=== PATIENT | male | born 1960 | race Two or more races ===

== ENCOUNTER 2020-05-09 07:43 | Outpatient (REF) | payer MEDICAID, SELFPAY | END 2020-05-09 07:44 | disposition home or self-care (01) | LOC: HO.LAB 07:43 | PROVIDERS: Visit Provider Internal Medicine | DX: Z20.828 Contact with and (suspected) exposure to other viral communicable diseases (principal) | CPT/HCPCS: C9803; U0003 ==

== ENCOUNTER 2020-05-11 08:09 | Outpatient (REF) | payer MEDICAID, SELFPAY ==
--- NOTE | 2020-05-11 | US_ITS ---
EXAMINATION: US ABDOMEN COMPLETE CLINICAL INFORMATION: Hepatitis C. COMPARISON: None TECHNIQUE: Real-time imaging of the abdominal viscera. FINDINGS: PANCREAS: Normal. ABDOMINAL AORTA: The proximal, mid, and distal segments are normal in caliber. INFERIOR VENA CAVA: Visualized portions are normal. LIVER: Normal. The liver is normal in size. The liver contour is normal. Liver echotexture is normal. No focal hepatic lesion. There is no intrahepatic biliary duct dilatation seen. GALLBLADDER: Normal. The gallbladder is physiologically distended without evidence of stones, sludge, polyps, wall thickening or pericholecystic fluid. COMMON BILE DUCT: Normal in caliber measuring 0.4 cm in diameter. RIGHT KIDNEY: Normal. No hydronephrosis. No renal calculi or focal parenchymal lesions. The kidney measures 10.8 cm in maximum dimension. LEFT KIDNEY: Normal. No hydronephrosis. No renal calculi or focal parenchymal lesions. The kidney measures 10.5 cm in maximum dimension. SPLEEN: Normal. The spleen measures 9.1 cm in maximum dimension. FREE FLUID: None. US/US abdomen complete IMPRESSION: Unremarkable exam.
== END 2020-05-11 08:10 | disposition home or self-care (01) ==
LOC: HO.US 08:09
PROVIDERS: PCP General Practice; Visit Provider General Practice
DX: B19.20 Unspecified viral hepatitis C without hepatic coma (principal)
CPT/HCPCS: 76700

== ENCOUNTER → 2020-05-30 11:00 | Outpatient (BNVA) | payer MEDICAID, SELFPAY | PROVIDERS: Visit Provider Internal Medicine | DX: B19.20 Unspecified viral hepatitis C without hepatic coma (principal) | CPT/HCPCS: 99202 ==

== ENCOUNTER 2020-05-31 06:07 | Outpatient (REF) | payer MEDICAID, SELFPAY ==
[2020-05-31 07:22] LABS: HBsAGNum1 0.19 S/CO (0.00-0.99); Hepatitis B Surface Antigen Negative (Negative)
[2020-05-31 07:23] LABS: HBS Num1 0.74 mIU/mL (0-7.99); HBc Num1 0.06 S/CO (0.00-0.79); Hepatitis B Core Antibody Nonreactive (Nonreactive); ~Hepatitis B Surface Antibody NONREACTIVE (Nonreactive)
[2020-06-01 04:18] LABS: Hepatitis A Antibody IgG REACTIVE (Nonreactive); ~Hepatitis A Antibody IgG 11.94 S/CO (0.00-0.99)
[2020-06-05 16:52] LABS: FIB-ALT 42 U/L (9-46); FIB-Alpha-2-Macroglobulin 384 mg/dL (106-279); FIB-Apolipoprotein A1 153 mg/dL (94-176); FIB-GGT 179 U/L (3-85); FIB-Haptoglobin 61 mg/dL (43-212); FIB-Total Bilirubin 0.6 mg/dL (0.2-1.2); Liver Fibrosis Score 0.82; Liver Fibrosis Stage F4; Nec Inflam Act Grade A1-A2
[2020-06-06 08:48] LABS: Hepatitis C Genotype 1a
== END 2020-05-31 06:08 | disposition home or self-care (01) ==
LOC: HO.LAB 06:07
PROVIDERS: Visit Provider Internal Medicine
DX: B19.20 Unspecified viral hepatitis C without hepatic coma (principal)
CPT/HCPCS: 36415; 81596; 86704; 86706; 86708; 87340; 87902

== ENCOUNTER 2020-06-12 07:01 | Outpatient (REF) | payer MEDICAID, SELFPAY ==
[2020-06-24 15:09] LABS: Simeprevier Resistance PROBABLE
== END 2020-06-12 07:02 | disposition home or self-care (01) ==
LOC: HO.LAB 07:01
PROVIDERS: Visit Provider Internal Medicine
DX: B19.20 Unspecified viral hepatitis C without hepatic coma (principal)
CPT/HCPCS: 36415; 87902

== ENCOUNTER 2020-06-21 10:31 | Outpatient (REF) | payer MEDICAID, SELFPAY ==
--- NOTE | 2020-06-21 14:27 | MHC.AU.MED ---
Medical Clearance for Hearing Instrumentation Date: 06/21/20 Patient Name: Marcin Cabrera Date of : 1960 Referring Provider: Yara Foster MD We have seen your patient on 06/21/20 and have determined that they are a candidate for amplification (See accompanying report). Specifically, they would benefit from: Hearing aid use in both ears There is a statute that addresses Medical Evaluation Requirements prior to fitting a patient with a hearing aid. According to [place] statute [facility] CMR:6.03(1), (a) General. Except as provided in 265 CMR 6.03(1)(b), a functional tester shall not sell a hearing aid unless the prospective user has presented to the functional tester a written statement signed by a licensed physician that states that the patient's hearing loss has been medically evaluated and the patient may be considered a candidate for a hearing aid. The medical evaluation must have taken place within the preceding six months. Please note: Due to the [place] Statute referenced above, we cannot accept a signature other than that of a licensed physician. SEARCH SPECIALIST and PA signatures cannot be accepted. I am in agreement with the above recommendation. There is no medical contraindication for hearing instrumentation. Physician Signature Date Physician Name (Printed)
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
--- NOTE | 2020-06-22 08:38 | MHC.AU.P13 ---
Hearing Aid Evaluation- Binaural Date of Visit: 06/21/20 Description of Hearing: Left: Mild sloping to profound sensorineural hearing loss Right: Severe to profound mixed hearing loss Additional Information: Patient reports that he had his hearing tested in [place], and was starting the process of obtaining hearing aids. He moved to this area before the process could be completed. Hearing aid options discussed. Patient has history of excessive cerumen. Given the excessive cerumen, and nature of the loss in his right ear, the BTE style would be the best fit. In RICs or customs, the wax trap would likely clog too frequently. Hearing Instrument Selection: Right Ear: Thermal Molder: Earl Model: Rito 1600 BTE 13 Battery Size: 13 Color: Champagne Type of Mold: Earl High Strength Silicone [address] [place] Lock Clear Left Ear: Thermal Molder: Earl Model: Rito 1600 BTE 13 Battery Size: 13 Color: Champagne Type of Mold: Earl High Strength Silicone [address] [place] Lock Clear Plan: Earmold Impressions Taken Medical Clearance to be requested from PCP/ENT Hearing Fitting to be scheduled when materials arrive Advised follow-up with PCP prior to hearing aid fitting for cerumen removal Diagnosis Code(s): Primary Diagnosis: H90.A31 Mixed HL, Unilateral Right Ear, W/Restricted Contralateral Signature: Provider: Jose M Avendaño, [facility]-A
== END 2020-06-21 10:32 | disposition home or self-care (01) ==
LOC: HO.SH 10:31
PROVIDERS: Visit Provider General Practice
DX: Z46.1 Encounter for fitting and adjustment of hearing aid (principal); H90.A31 Mixed conductive and sensorineural hearing loss, unilateral, right ear with restricted hearing on the contralateral side
CPT/HCPCS: 92557; 92567; 92591; V5275

== ENCOUNTER 2020-06-22 09:05 | Outpatient (REF) | payer MEDICAID, SELFPAY | END 2020-06-22 09:06 | disposition home or self-care (01) | LOC: HO.LAB 09:05 | PROVIDERS: Visit Provider Internal Medicine | DX: Z20.822 Contact with and (suspected) exposure to COVID-19 (principal) | CPT/HCPCS: 36415; C9803; U0003 ==

== ENCOUNTER 2020-06-30 08:05 | Outpatient (REF) | payer MEDICAID, SELFPAY | END 2020-06-30 08:06 | disposition home or self-care (01) | LOC: HO.LAB 08:05 | PROVIDERS: Visit Provider Internal Medicine | DX: Z20.822 Contact with and (suspected) exposure to COVID-19 (principal) | CPT/HCPCS: 36415; C9803; U0003 ==

== ENCOUNTER 2020-07-07 08:01 | Outpatient (REF) | payer MEDICAID, SELFPAY | END 2020-07-07 08:02 | disposition home or self-care (01) | LOC: HO.LAB 08:01 | PROVIDERS: Visit Provider Internal Medicine | DX: Z20.822 Contact with and (suspected) exposure to COVID-19 (principal) | CPT/HCPCS: 36415; C9803; U0003; U0005 ==

== ENCOUNTER 2020-07-18 08:42 | Outpatient (REF) | payer MEDICAID, SELFPAY ==
--- NOTE | 2020-07-18 09:45 | MHC.AU.P13 ---
Hearing Instrument Fitting- Adult- Binaural Date of Visit: 07/18/20 Hearing Instruments Dispensed: Right Ear: Correctional Officer Lieutenant: [employer] Model: Rito 1600 BTE Serial Number: [id number] Repair Warranty: 09/29/2023 Loss and Damage Warranty: 09/29/2023 Battery Size: 13 Color: Champagne Type of Mold: Earl High Strength Silicone [address] [place] Lock Clear Left Ear: Correctional Officer Lieutenant: [employer] Model: Rito 1600 BTE Serial Number: [id number] RepairWarranty: 09/29/2023 Loss and Damage Warranty: 09/29/2023 Battery Size: 13 Color: Champagne Type of Mold: Earl High Strength Silicone 40 [place] Lock Clear Summary of Fitting: Feedback canceller run. Verifit performed and levels adjusted to better reach targets. Patient had cerumen removal performed prior to today's visit, which was verified by otoscopy. Initially patient perceived a microphone-like quality to the sound. Experience level set to 2. Patient was pleased with the change. Patient liked the sound and comfort of the instruments. Hearing aid care and maintenance were discussed and practiced. Patient as an Android Digify phone. It is likely not compatible with the Bluetooth capabilities at this time. Patient said he feels he is hearing well enough as is with the hearing aids, and does not think he needs it paired to the Bluetooth. Recommendations: A hearing instrument follow-up was scheduled. Please call our clinic with any questions or concerns. Diagnosis Code(s): Primary Diagnosis: H90.A31 Mixed HL, Unilateral Right Ear, W/Restricted Contralateral Signature: Provider: Jose M Avendaño, [facility]
== END 2020-07-18 08:43 | disposition home or self-care (01) ==
LOC: HO.HAP 08:42
PROVIDERS: Visit Provider General Practice
DX: Z46.1 Encounter for fitting and adjustment of hearing aid (principal); H90.A31 Mixed conductive and sensorineural hearing loss, unilateral, right ear with restricted hearing on the contralateral side
CPT/HCPCS: V5011; V5020; V5160; V5261; V5264; V5266

== ENCOUNTER 2020-07-27 08:58 | Outpatient (REF) | payer MEDICAID, SELFPAY | END 2020-07-27 08:59 | disposition home or self-care (01) | LOC: HO.HAP 08:58 | PROVIDERS: Visit Provider Internal Medicine | DX: Z13.89 Encounter for screening for other disorder (principal) ==

== ENCOUNTER → 2020-08-13 07:53 | Outpatient (REF) | payer MEDICAID, SELFPAY ==
--- NOTE | ~2020-08-13 | NM_ITS ---
Exercise Myocardial perfusion study Indication: Chest pain to evaluate for myocardial ischemia Technique: The patient was brought in for an exercise perfusion study on 08/13/2020. Patient performed exercise as per Vladimir protocol and was injected 30 mCi of sestamibi was given intravenously one target HR was achieved. Images were obtained using the SPECT gamma camera interlaced with the gating device. Images were obtained in supine position. Resting perfusion study was performed on 08/14/2020. Patient was administered 30 mCi of sestamibi intravenously at rest. Images were then obtained in supine position. Images obtained with and without CT attenuation. Total DLP 73 mGy-cm. Images were processed with the software and compared side to side in short axis, horizontal long axis and vertical long axis views. Findings: The stress perfusion study showed non attenuated images show mildly reduced uptake in the basal inferior wall of the LV myocardium. Remainder of the LV myocardium normally perfused. Attenuation corrected images show mildly reduced uptake in the distal anterior and apex of the LV myocardium.. The gated study shows normal LV systolic function with calculated LVEF of 68%. LV cavity is normal in size. The gated study shows normal systolic wall thickening and contraction of all segments. There is no transient ischemic dilation. Resting study shows no change in perfusion pattern compared to stress perfusion study. Gating at rest reveals normal systolic wall motion with ejection fraction at 73%. The findings are consistent with normal myocardial perfusion. NM/NM jc perf SPECT rest & str Impression: 1. Normal myocardial perfusion 2. Gated LVEF is 68% 3. Transient ischemic dilatation not present Stress EKG is equivocal for ischemia
--- NOTE | 2020-08-13 08:30 | CA_ITS ---
Acquisition Time: 2020-08-13 08:16:21 Total Exercise Time: 00:06:50 Test Indications: Chest Pain Medications: SEE CHART Protocol: SORAYA Max HR: 122 BPM 74% of Pred: 163 BPM Max BP: 170/070 mmHG Max Work Load: 8.2 METS Exercise stress nuclear using Soraya protocol total of 6 min 50 sec. METS and TAPHR up to 74 %. Denies any anginal sx. EKG with occ. PAC's. No ischemic changes however TAPHR up to 74% only. Nuclear images to follow. Hypertensive response to exercise, normalizes in recovery. Test reviewed with Dr. rGeen. Referred By: Jada Hunter Overread By: Patricia Hilton NP
== END ==
LOC: HO.CARD 07:53
PROVIDERS: Visit Provider Internal Medicine Cardiovascular Disease
DX: R07.9 Chest pain, unspecified (principal)
CPT/HCPCS: 78452; 93016; 93017; 93018

== ENCOUNTER → 2020-09-18 13:43 | Outpatient (BNVA) | payer MEDICAID, SELFPAY | PROVIDERS: Visit Provider Internal Medicine | DX: B19.20 Unspecified viral hepatitis C without hepatic coma (principal) | CPT/HCPCS: 99212 ==

== ENCOUNTER 2020-10-02 10:24 | Outpatient (REF) | payer MEDICAID, SELFPAY | END 2020-10-02 10:25 | disposition home or self-care (01) | LOC: HO.LAB 10:24 | PROVIDERS: PCP General Practice; Visit Provider Internal Medicine | DX: B19.20 Unspecified viral hepatitis C without hepatic coma (principal) | CPT/HCPCS: 36415; 87902 ==

== ENCOUNTER → 2020-10-16 14:10 | Outpatient (BNVA) | payer MEDICAID, SELFPAY | PROVIDERS: PCP General Practice; Visit Provider Internal Medicine | DX: B19.20 Unspecified viral hepatitis C without hepatic coma (principal) | CPT/HCPCS: 99212 ==

== ENCOUNTER 2020-10-17 07:13 | Outpatient (REF) | payer MEDICAID, SELFPAY ==
[2020-10-19 13:25] LABS: HCV Log PCR <1.18 NOT DETECTED Log IU/mL (NOT DETECTED); HepC Viral Load <15 NOT DETECTED IU/mL (NOT DETECTED)
== END 2020-10-17 07:14 | disposition home or self-care (01) ==
LOC: HO.LAB 07:13
PROVIDERS: PCP General Practice; Visit Provider Internal Medicine
DX: B19.20 Unspecified viral hepatitis C without hepatic coma (principal)
CPT/HCPCS: 36415; 87522

== ENCOUNTER 2020-10-23 13:49 | Outpatient (REF) | payer MEDICAID, SELFPAY | END 2020-10-23 13:50 | disposition home or self-care (01) | LOC: HO.HAP 13:49 | PROVIDERS: Visit Provider General Practice | DX: Z46.1 Encounter for fitting and adjustment of hearing aid (principal) | CPT/HCPCS: V5266 ==

== ENCOUNTER → 2021-02-19 14:11 | Outpatient (BNVA) | payer MEDICAID, SELFPAY | PROVIDERS: Visit Provider Internal Medicine | DX: B19.20 Unspecified viral hepatitis C without hepatic coma (principal) | CPT/HCPCS: 99212 ==

== ENCOUNTER 2021-06-06 16:45 | Emergency (ER) | payer MEDICAID, SELFPAY ==
[2021-06-06 16:55] VITALS: BP 135/78; PULSE 124; RESP 20; TEMP 36.8; O2SAT 100; BMI 27.0
[2021-06-07 01:34] LABS: MANUAL DIFF FLAG NO
[2021-06-07 01:40] LABS: Basophils Absolute Auto 0.1 X10*3/uL (0.0-0.2); Basophils Percent Auto 0.4 % (0-2); Eosinophils Absolute Auto 0.2 X10*3/uL (0.0-0.4); Eosinophils Percent Auto 1.6 % (0-4); Hemoglobin 13.7 g/dl (14.0-18.0); Imm Gran Abs Auto 0.04 X10*3/uL (0.00-0.03); Imm Gran Pct Auto 0.3 % (0.0-0.4); Lymphocytes Absolute Auto 2.5 X10*3/uL (1.2-4.9); Lymphocytes Percent Auto 19.9 % (20-40); Mean Corpuscular HGB Conc 33.4 g/dl (31.0-36.0); Mean Corpuscular Hemoglobin 31.6 pg (27.0-33.0); Mean Corpuscular Volume 94.5 fL (80.0-98.0); Mean Platelet Volume 9.8 fL (9.4-12.4); Monocytes Absolute Auto 1.4 X10*3/uL (0.1-1.2); Monocytes Percent Auto 10.9 % (2-11); Neutrophils Absolute Auto 8.5 x10*3/uL (2.0-8.3); Neutrophils Percent Auto 66.9 % (45-73); Platelet Count 341 X10*3/uL (160-400); Red Blood Count 4.34 X10*6/uL (4.60-5.80); Red Cell Distribution Width 13.6 % (11.0-16.0); White Blood Count 12.7 X10*3/uL (4.8-10.8)
[2021-06-07 01:51] LABS: Ethanol < 10 mg/dL
[2021-06-07 01:54] LABS: Alanine Aminotransferase 23 U/L (0-40); Albumin Level 3.6 g/dL (3.5-5.0); Alkaline Phosphatase 110 U/L (39-117); Anion Gap 11 (12-20); Aspartate Amino Transferase 16 U/L (5-37); Bilirubin Total 0.5 mg/dL (0.0-1.0); Blood Urea Nitrogen 16 mg/dL (9-16); Calcium 9.2 mg/dL (8.4-10.2); Carbon Dioxide 28 mmol/L (22-29); Chloride 103 mmol/L (96-108); Creatinine Clr Calc Pharmacy 70.8; Estimated Glomerular Filt Rate > 60; Glucose Random 135 mg/dL (60-115); Potassium 4.5 mmol/L (3.3-5.1); Sodium 137 mmol/L (135-145); Total Protein 6.3 g/dL (6.5-8.0)
--- NOTE | 2021-06-07 09:20 | PC.NURSE ---
reports withdrawal from heroin. relapsed and last used yesterday aprox noon. also uses cocaine. appears well.
[2021-06-07 09:21] VITALS: BP 148/92; PULSE 99; RESP 18; O2SAT 99
--- NOTE | 2021-06-07 10:44 | ED_ITS ---
HPI - Psych General Chief Complaint: ETOH/Substance Use Stated Complaint: Seeking detox Time Seen by Provider: 06/07/21 10:43 Source: patient Mode of arrival: ambulatory Limitations: no limitations History of Present Illness HPI Narrative: requesting help with detox MD complaint: substance abuse Onset (ago): week(s) Duration: constant History of same: Yes Relieving factors: none Exacerbating factors: drug use Context: recent drug abuse Associated psychiatric symptoms: none Associated symptoms: denies other symptoms Treatments prior to arrival: none Related Data Previous Rx's Medication Instructions Recorded sofosbuvir 400 mg-velpatasvir 100 1 tab PO DAILY 30 Days #30 tab 06/26/20 mg-voxilaprevir 100 mg tablet (Vosevi) Allergies Allergy/AdvReac Type Severity Reaction Status Date / Time No Known Allergies Allergy Verified 06/06/21 16:55 [No Known Allergies*] Review of Systems Review of Systems: Constitutional : No Fever, No Chills ENT/Mouth : No sore throat, No Rhinorrhea Eyes: No Eye Pain, No Swelling, No Redness Cardiovascular : No Chest Pain, No SOB Respiratory : No Cough, No Sputum, No Wheezing Gastrointestinal : No Nausea, No Vomiting, No Diarrhea Genitourinary : No Dysuria, No Urinary Frequency, No Hematuria, Musculoskeletal : No joint pain, No Myalgias, No Joint Swelling Skin : No Skin Lesions, No rash Neuro : No Weakness, No Numbness, No Dizziness, No Headache Psych : No Anxiety/Panic, No Depression Heme/Lymph: No Bruising, No Bleeding,No Lymphadenopathy Endocrine : No Polyuria, No Polydipsia All other systems reviewed and are negative PMFSH Past Medical History Attestation statement: The following information was validated with the patient. Medical History Hepatitis C Hypertension Social History Social History (Updated 06/07/21 @ 10:51 by Alexandra Sarmiento DO) Cigarettes Per Day: 2 Substance Use Type: Crack/Cocaine and Heroin Advance Directives: No Physical Exam Vital Signs: Vital Signs: Last Vital Signs Temp 98.3 F 06/06/21 16:55 Pulse 99 06/07/21 09:21 Resp 18 06/07/21 09:21 BP 148/92 H 06/07/21 09:21 Pulse Ox 99 06/07/21 09:21 BMI result Body Mass Index 27.0 Appearance: Alert. Oriented X3. No acute distress. Eyes: Pupils equal, round and reactive to light. ENT: Pharynx normal. Neck: Normal inspection. Neck supple. CVS: Normal heart rate and rhythm. Pulses normal. Respiratory: No respiratory distress. Breath sounds normal. Abdomen: Soft and non-tender. Skin: Skin warm and dry. Normal skin color. Normal skin turgor. Extremities: No lower extremity edema. Neuro: Oriented X 3. No motor deficit. No sensory deficit. Course Course Course Narrative: cannot find placement at this time stable for DC MDM - Psych MDM Narrative Medical decision making narrative: 60 yo male here seeking detox for heroin and cocaine use he denies any medical complaints to me at this time - recovery coaches involved and requesting labs COVID swab and EKG - will make referrals Lab Data Result diagrams: 06/07/21 01:18 06/07/21 01:17 Labs: Lab Results 06/07/21 06/07/21 06/07/21 Range/Units 01:17 01:17 01:18 WBC 12.7 H (4.8-10.8) X10*3/uL RBC 4.34 L (4.60-5.80) X10*6/uL Hgb 13.7 L (14.0-18.0) g/dl Hct 41.0 L (42.0-52.0) % MCV 94.5 (80.0-98.0) fL MCH 31.6 (27.0-33.0) pg MCHC 33.4 (31.0-36.0) g/dl RDW 13.6 (11.0-16.0) % Plt Count 341 (160-400) X10*3/uL MPV 9.8 (9.4-12.4) fL Immature Gran % (Auto) 0.3 (0.0-0.4) % Neut % (Auto) 66.9 (45-73) % Lymph % (Auto) 19.9 L (20-40) % [place] % (Auto) 10.9 (2-11) % Eos % (Auto) 1.6 (0-4) % Baso % (Auto) 0.4 (0-2) % Lymph # (Auto) 2.5 (1.2-4.9) X10*3/uL [place] # (Auto) 1.4 H (0.1-1.2) X10*3/uL Eos # (Auto) 0.2 (0.0-0.4) X10*3/uL Baso # (Auto) 0.1 (0.0-0.2) X10*3/uL Abs Immat Gran (auto) 0.04 H (0.00-0.03) X10*3/uL Absolute Neuts (auto) 8.5 H (2.0-8.3) x10*3/uL Absolute Nucleated RBC 0.000 (0.0-0.012) X10*3/uL Nucleated RBC % (auto) 0.0 (0.0-0.2) /100WBC Sodium 137 (135-145) mmol/L Potassium 4.5 (3.3-5.1) mmol/L Chloride 103 (96-108) mmol/L Carbon Dioxide 28 (22-29) mmol/L Anion Gap 11 L (12-20) BUN 16 (9-16) mg/dL Creatinine 1.10 (0.5-1.4) mg/dL Estim Creat Clear Calc 70.8 Estimated GFR > 60 Random Glucose 135 H (60-115) mg/dL Calcium 9.2 (8.4-10.2) mg/dL Total Bilirubin 0.5 (0.0-1.0) mg/dL AST 16 (5-37) U/L ALT 23 (0-40) U/L Alkaline Phosphatase 110 (39-117) U/L Total Protein 6.3 L (6.5-8.0) g/dL Albumin 3.6 (3.5-5.0) g/dL Ethyl Alcohol < 10 mg/dL COVID-19 (JEANE) (Negative) COVID-19 Clin Com 06/07/21 Range/Units 11:00 WBC (4.8-10.8) X10*3/uL RBC (4.60-5.80) X10*6/uL Hgb (14.0-18.0) g/dl Hct (42.0-52.0) % MCV (80.0-98.0) fL MCH (27.0-33.0) pg MCHC (31.0-36.0) g/dl RDW (11.0-16.0) % Plt Count (160-400) X10*3/uL MPV (9.4-12.4) fL Immature Gran % (Auto) (0.0-0.4) % Neut % (Auto) (45-73) % Lymph % (Auto) (20-40) % [place] % (Auto) (2-11) % Eos % (Auto) (0-4) % Baso % (Auto) (0-2) % Lymph # (Auto) (1.2-4.9) X10*3/uL [place] # (Auto) (0.1-1.2) X10*3/uL Eos # (Auto) (0.0-0.4) X10*3/uL Baso # (Auto) (0.0-0.2) X10*3/uL Abs Immat Gran (auto) (0.00-0.03) X10*3/uL Absolute Neuts (auto) (2.0-8.3) x10*3/uL Absolute Nucleated RBC (0.0-0.012) X10*3/uL Nucleated RBC % (auto) (0.0-0.2) /100WBC Sodium (135-145) mmol/L Potassium (3.3-5.1) mmol/L Chloride (96-108) mmol/L Carbon Dioxide (22-29) mmol/L Anion Gap (12-20) BUN (9-16) mg/dL Creatinine (0.5-1.4) mg/dL Estim Creat Clear Calc Estimated GFR Random Glucose (60-115) mg/dL Calcium (8.4-10.2) mg/dL Total Bilirubin (0.0-1.0) mg/dL AST (5-37) U/L ALT (0-40) U/L Alkaline Phosphatase (39-117) U/L Total Protein (6.5-8.0) g/dL Albumin (3.5-5.0) g/dL Ethyl Alcohol mg/dL COVID-19 (JEANE) Negative (Negative) COVID-19 Clin Com See Note ECG Data Attestation: I personally reviewed and interpreted this ECG as follows: ECG interpretation date: 06/07/21 ECG interpretation time: 10:58 Interpretation: Rate: 96 Rhythm: NSR [place]: left Normal P waves. Normal ELLA. Normal QRS complex. ST T wave : normal no JACINTO qTC: normal prior studies: no acute ischemia The study has been interpreted contemporaneously by me. . Discharge Plan Discharge Clinical Impression: Polysubstance abuse Patient Disposition: Home, Self-Care Instructions: Polysubstance Abuse (ED) Additional Instructions: return to ED for any worsening symptoms or concerns please go to detox COVID negative Prescriptions: No Action Vosevi 400-100-100 mg tablet 1 tab PO DAILY 30 Days Qty: 30 RF: 2 Interventions: LWBS Worksheet Last Done: 06/07/21 00:16
--- NOTE | 2021-06-07 10:48 | ECG_ITS ---
Test Reason : DETOX Blood Pressure : / mmHG Vent. Rate : 096 BPM Atrial Rate : 096 BPM P-R Int : 138 ms QRS Dur : 086 ms QT Int : 350 ms P-R-T Axes : 046 -07 011 degrees QTc Int : 442 ms Normal sinus rhythm Normal ECG When compared with ECG of 10-JAN-2020 10:34, Vent. rate has increased BY 35 BPM T wave amplitude has decreased in Anterior leads Referred By: Alexandra Sarmiento Electronically Signed By:LIANE GARCIA MD
[2021-06-07 11:27] LABS: COVID-19 Test Negative (Negative)
--- NOTE | 2021-06-07 12:17 | MHC.RECOVSUP ---
? Reason for consult:Recovery Support o Current location: Discharged o Identified substance use concern:Heroin - Withdrawal - Seeking ATS (detox) - Support ? Intervention: o ATS bed search started/completed/in process o MAT started or to be started o Community resources provided o Harm reduction discussion ? Plan: o Referral to [facility] o Bed search in progress to o Follow up tomorrow o Patient to follow up with [facility] after discharge ? Additional information:Patient seeking detox. Patient given community resources because there is no bed availability.
== END 2021-06-07 13:28 | disposition home or self-care (01) ==
PROVIDERS: Emergency Provider Emergency Medicine; PCP General Practice
DX: F11.19 Opioid abuse with unspecified opioid-induced disorder (principal); F14.19 Cocaine abuse with unspecified cocaine-induced disorder; Z79.899 Other long term (current) drug therapy; Z20.822 Contact with and (suspected) exposure to COVID-19
CPT/HCPCS: 36415; 80053; 82077; 85025; 87635; 93005; 99283

== ENCOUNTER 2021-07-09 14:27 | Outpatient (REF) | payer MEDICAID, SELFPAY | END 2021-07-09 14:28 | disposition home or self-care (01) | LOC: HO.HAP 14:27 | PROVIDERS: Visit Provider General Practice | DX: Z46.1 Encounter for fitting and adjustment of hearing aid (principal); H90.3 Sensorineural hearing loss, bilateral | CPT/HCPCS: V5266 ==

== ENCOUNTER → 2021-08-06 14:39 | Outpatient (BNVA) | payer MEDICAID, SELFPAY | PROVIDERS: PCP General Practice; Visit Provider Surgery Vascular Surgery | DX: I83.12 Varicose veins of left lower extremity with inflammation (principal); I73.9 Peripheral vascular disease, unspecified | CPT/HCPCS: 99202 ==

== ENCOUNTER 2021-08-09 06:24 | Outpatient (REF) | payer MEDICAID, SELFPAY ==
[2021-08-09 07:55] LABS: Amphetamine Screen Urine Not Detected (Not Detect); Barbiturates, Urine Not Detected (Not Detect); Benzodiazepines Screen Urine Not Detected (Not Detect); Cannabinoid Screen Urine Not Detected (Not Detect); Cocaine Screen Urine Not Detected (Not Detect); Fentanyl, urine Not Detected (Not Detect); Opiate Screen Urine Not Detected (Not Detect); Phencyclidine Screen Urine Not Detected (Not Detect)
[2021-08-09 08:07] LABS: HIV AB/AG Nonreactive (Nonreactive); HIV Num 1 0.08 S/CO (0.00-0.99)
[2021-08-09 08:26] LABS: Syphilis Screen Nonreactive (Nonreactive)
[2021-08-09 11:57] LABS: Folate 13.6 ng/mL (> or = 4.0); Vitamin B12 685 pg/mL (200-900)
[2021-08-10 08:31] LABS: Lyme Abs Screen <0.90 index
== END 2021-08-09 06:25 | disposition home or self-care (01) ==
LOC: HO.LAB 06:24
PROVIDERS: PCP General Practice; Visit Provider Psychiatry & Neurology Neurology
DX: Z11.4 Encounter for screening for human immunodeficiency virus [HIV] (principal); F03.90 Unspecified dementia, unspecified severity, without behavioral disturbance, psychotic disturbance, mood disturbance, and anxiety
CPT/HCPCS: 80307; 82607; 82746; 86617; 86618; 86780; 87389

== ENCOUNTER 2021-08-27 14:31 | Outpatient (REF) | payer MEDICAID, SELFPAY ==
--- NOTE | 2021-08-27 | PFT_ITS ---
Forced vital capacity is 77, FEV1 70%, FEV1/FVC ratio is 70, FEF 25/75 50%, MVV 51%. After bronchodilator therapy, there is significant improvement in FEV1 and FEF 25/75. Total lung capacity 85% and residual volume 91%, normal. Diffusion capacity 59% and diffusion capacity corrected with the alveolar volume is 68%. CONCLUSION: Mild obstructive airway disorder. Good response to bronchodilator therapy. This finding is consistent with bronchial asthma. Clinical correlation is recommended. MD VANDANA Frank/MODL / [id number]
== END 2021-08-27 14:32 | disposition home or self-care (01) ==
LOC: HO.RESP 14:31
PROVIDERS: PCP General Practice; Visit Provider General Practice
DX: R06.02 Shortness of breath (principal)
CPT/HCPCS: 94060; 94727; 94729

== ENCOUNTER 2021-08-29 09:00 | Outpatient (RCR) | payer MEDICAID, SELFPAY ==
[2021-07-17 07:56] VITALS: BP 147/80; PULSE 84
== END 2021-09-12 08:31 | disposition home or self-care (01) ==
LOC: HO.PT 09:00
PROVIDERS: PCP General Practice; Visit Provider General Practice
DX: M54.50 Low back pain, unspecified (principal)
CPT/HCPCS: 97110; 97112; 97161; 97530

== ENCOUNTER 2021-09-09 07:37 | Outpatient (REF) | payer MEDICAID, SELFPAY ==
--- NOTE | ~2021-09-09 | US_ITS ---
EXAMINATION: BILATERAL LOWER EXTREMITY VENOUS ULTRASOUND (Reflux Exam) CLINICAL INDICATION: Bilateral lower extremity varicose veins. COMPARISON: None. TECHNIQUE: Color flow triplex imaging and compression Doppler was performed to evaluate both the deep and the superficial systems bilaterally. To evaluate the superficial system, the examination was performed in the upright position. Color-flow Doppler ultrasound and compression ultrasound were utilized. In addition, maneuvers were utilized to demonstrate reflux. FINDINGS: SUPERFICIAL ULTRASOUND WITH DOPPLER OF RIGHT LOWER EXTREMITY GREAT SAPHENOUS VEIN: Saphenofemoral junction: 0.6 cm Max diameter: 0.6 cm Min diameter: 0.2cm Reflux: No evidence of reflux. DUPLICATED MEDIAL GREAT SAPHENOUS VEIN: Max Diameter: None Imaged Reflux: NA DUPLICATED LATERAL GREAT SAPHENOUS VEIN: Diameter: 0.2 cm at the junction. Reflux: None. SMALL SAPHENOUS VEIN: Proximal Calf: 0.2 cm. Distal Calf: 0.2 cm. Reflux: No evidence of reflux. VEIN OF GIACOMINI: None Imaged. PERFORATORS: Location: Proximal calf and mid calf measuring 2 mm. Reflux: None. VARICOSITIES: Location: None Imaged. Reflux: NA. DEEP VENOUS ULTRASOUND OF THE RIGHT LOWER EXTREMITY: Common Femoral Vein: Compressible, normal respiratory variation and augmented flow. Femoral Vein: Compressible, normal color flow and augmentation. Popliteal Vein: Compressible, normal augmentation. Deep Reflux: There is no evidence of reflux in the deep system in either the common femoral vein or the popliteal vein. Story's Cyst: There is no evidence of a Story's cyst. SUPERFICIAL ULTRASOUND WITH DOPPLER OF LEFT LOWER EXTREMITY GREAT SAPHENOUS VEIN: Saphenofemoral junction: 0.5 cm Max diameter: 0.5 cm Min diameter: 0.3 cm Reflux: No evidence of reflux. DUPLICATED MEDIAL GREAT SAPHENOUS VEIN: Max Diameter: None Imaged Reflux: NA DUPLICATED LATERAL GREAT SAPHENOUS VEIN: Diameter: None Imaged Reflux: NA SMALL SAPHENOUS VEIN: Proximal Calf: 0.2 cm Distal Calf: 0.2 cm Reflux: No evidence of reflux. VEIN OF GIACOMINI: None Imaged. PERFORATORS: Location: Proximal calf measuring 3 mm. Reflux: None. VARICOSITIES: Location: None Imaged Reflux: NA DEEP VENOUS ULTRASOUND OF THE LEFT LOWER EXTREMITY: Common Femoral Vein: Compressible, normal respiratory variation and augmented flow. Femoral vein: Compressible, normal color flow and augmentation. Popliteal Vein: Compressible, normal augmentation. Deep Reflux: There is no evidence of reflux in the deep system in either the common femoral vein or the popliteal vein. Story's Cyst: There is no evidence of a Story's cyst. US/US venous duplex LE BI IMPRESSION: 1. No evidence of superficial venous insufficiency. 2. No evidence of deep venous thrombosis or deep venous insufficiency.
== END 2021-09-09 07:38 | disposition home or self-care (01) ==
LOC: HO.US 07:37
PROVIDERS: PCP General Practice; Visit Provider Surgery Vascular Surgery
DX: I83.12 Varicose veins of left lower extremity with inflammation (principal)
CPT/HCPCS: 93970

== ENCOUNTER 2021-09-11 08:06 | Outpatient (REF) | payer MEDICAID, SELFPAY ==
--- NOTE | ~2021-09-11 | US_ITS ---
EXAMINATION: NONINVASIVE ASSESSMENT OF THE ARTERIES OF BOTH LOWER EXTREMITIES INCLUDING PVR EXAM AND BILATERAL LOWER EXTREMITY DUPLEX. CLINICAL INFORMATION: Peripheral vascular disease COMPARISON: None TECHNIQUE: Ankle pulse volume recordings, ankle pressure measurements and ankle brachial indices were obtained of the lower extremity arterial system bilaterally in addition to duplex Doppler techniques with wave form analysis and measurement of velocities in the common femoral, profunda femoral, superficial femoral, popliteal, tibial and peroneal arteries. The study was performed only at rest. FINDINGS: RIGHT LEG 1. THE RIGHT ANKLE-BRACHIAL INDEX IS: 1.16 >0.97-1.25 = normal - no significant arterial disease 0.75-0.96 = mild peripheral arterial disease 0.5-0.74 = moderate peripheral arterial disease <0.50 = severe peripheral arterial disease <0.30 = critical arterial disease 2. SEGMENTAL PRESSURES (mmHg): Ankle: PT 186, DP 175 3. PVR WAVEFORMS: Ankle: Normal 4. DIRECT DUPLEX: Common femoral artery: 130 cm/s, Multiphasic Profunda femoris artery: 94 cm/s, Multiphasic Superficial femoral artery (proximal): 95 cm/s, Multiphasic Superficial femoral artery (mid): 119 cm/s, Multiphasic Superficial femoral artery (distal): 110 cm/s, Multiphasic Proximal Popliteal artery: 79 cm/s, Multiphasic Mid posterior tibial artery: 121 cm/s, Multiphasic LEFT LE. THE LEFT ANKLE-BRACHIAL INDEX IS: 1.16 >0.97-1.25 = normal - no significant arterial disease 0.75-0.96 = mild peripheral arterial disease 0.5-0.74 = moderate peripheral arterial disease <0.50 = severe peripheral arterial disease <0.30 = critical arterial disease 2. SEGMENTAL PRESSURES: Ankle: PT 185, DP 179 3. PVR WAVEFORMS: Ankle: Normal 4. DIRECT DUPLEX: Common femoral artery: 158 cm/s, Multiphasic Profunda femoris artery: 83 cm/s, Multiphasic Superficial femoral artery (proximal): 112 cm/s, Multiphasic Superficial femoral artery (mid): 115 cm/s, Multiphasic Superficial femoral artery (distal): 106 cm/s, Multiphasic Proximal Popliteal artery: 72 cm/s, Multiphasic Mid posterior tibial artery: 122 cm/s, Multiphasic US/US SHANTHI complete IMPRESSION: Normal bilateral SHANTHI and PVR. No evidence of hemodynamically significant stenosis in the lower extremities.
--- NOTE | ~2021-09-11 | US_ITS ---
EXAMINATION: NONINVASIVE ASSESSMENT OF THE ARTERIES OF BOTH LOWER EXTREMITIES INCLUDING PVR EXAM AND BILATERAL LOWER EXTREMITY DUPLEX. CLINICAL INFORMATION: Peripheral vascular disease COMPARISON: None TECHNIQUE: Ankle pulse volume recordings, ankle pressure measurements and ankle brachial indices were obtained of the lower extremity arterial system bilaterally in addition to duplex Doppler techniques with wave form analysis and measurement of velocities in the common femoral, profunda femoral, superficial femoral, popliteal, tibial and peroneal arteries. The study was performed only at rest. FINDINGS: RIGHT LEG 1. THE RIGHT ANKLE-BRACHIAL INDEX IS: 1.16 >0.97-1.25 = normal - no significant arterial disease 0.75-0.96 = mild peripheral arterial disease 0.5-0.74 = moderate peripheral arterial disease <0.50 = severe peripheral arterial disease <0.30 = critical arterial disease 2. SEGMENTAL PRESSURES (mmHg): Ankle: PT 186, DP 175 3. PVR WAVEFORMS: Ankle: Normal 4. DIRECT DUPLEX: Common femoral artery: 130 cm/s, Multiphasic Profunda femoris artery: 94 cm/s, Multiphasic Superficial femoral artery (proximal): 95 cm/s, Multiphasic Superficial femoral artery (mid): 119 cm/s, Multiphasic Superficial femoral artery (distal): 110 cm/s, Multiphasic Proximal Popliteal artery: 79 cm/s, Multiphasic Mid posterior tibial artery: 121 cm/s, Multiphasic LEFT LE. THE LEFT ANKLE-BRACHIAL INDEX IS: 1.16 >0.97-1.25 = normal - no significant arterial disease 0.75-0.96 = mild peripheral arterial disease 0.5-0.74 = moderate peripheral arterial disease <0.50 = severe peripheral arterial disease <0.30 = critical arterial disease 2. SEGMENTAL PRESSURES: Ankle: PT 185, DP 179 3. PVR WAVEFORMS: Ankle: Normal 4. DIRECT DUPLEX: Common femoral artery: 158 cm/s, Multiphasic Profunda femoris artery: 83 cm/s, Multiphasic Superficial femoral artery (proximal): 112 cm/s, Multiphasic Superficial femoral artery (mid): 115 cm/s, Multiphasic Superficial femoral artery (distal): 106 cm/s, Multiphasic Proximal Popliteal artery: 72 cm/s, Multiphasic Mid posterior tibial artery: 122 cm/s, Multiphasic US/US arterial duplex LE BI IMPRESSION: Normal bilateral SHANTHI and PVR. No evidence of hemodynamically significant stenosis in the lower extremities.
== END 2021-09-11 08:07 | disposition home or self-care (01) ==
LOC: HO.US 08:06
PROVIDERS: PCP General Practice; Visit Provider Surgery Vascular Surgery
DX: I73.9 Peripheral vascular disease, unspecified (principal)
CPT/HCPCS: 93923; 93925

== ENCOUNTER → 2021-09-17 14:16 | Outpatient (BNVA) | payer MEDICAID, SELFPAY | PROVIDERS: PCP General Practice; Visit Provider Surgery Vascular Surgery | DX: M79.605 Pain in left leg (principal); M79.604 Pain in right leg | CPT/HCPCS: 99212 ==

== ENCOUNTER 2021-10-01 14:52 | Outpatient (REF) | payer MEDICAID, SELFPAY ==
--- NOTE | ~2021-10-01 | XR_ITS ---
EXAMINATION: XR LUMBOSACRAL SPINE CLINICAL INFORMATION: Low back pain. COMPARISON: None. TECHNIQUE: 3 views of the lumbosacral spine. FINDINGS: There is normal lumbar lordosis. The vertebral heights, alignment and disc heights are normal. No visible acute fracture, dislocation or subluxation seen. There is mild endplate spondylosis L3-L4 disc level. SI joints are symmetrical and normal. No lytic or sclerotic process seen. XR/XR lumbar spine 2-3V IMPRESSION: Mild endplate spondylosis L3-L4 disc level. Otherwise unremarkable lumbar spine exam.
== END 2021-10-01 14:53 | disposition home or self-care (01) ==
LOC: HO.XRAY 14:52
PROVIDERS: Absent Provider General Practice; PCP General Practice; Visit Provider Internal Medicine
DX: M54.50 Low back pain, unspecified (principal)
CPT/HCPCS: 72100

== ENCOUNTER 2021-12-05 14:45 | Outpatient (REF) | payer MEDICAID, SELFPAY | END 2021-12-05 14:46 | disposition home or self-care (01) | LOC: HO.HAP 14:45 | PROVIDERS: Visit Provider General Practice | DX: Z46.1 Encounter for fitting and adjustment of hearing aid (principal); H90.A31 Mixed conductive and sensorineural hearing loss, unilateral, right ear with restricted hearing on the contralateral side | CPT/HCPCS: V5266 ==

== ENCOUNTER 2021-12-31 07:55 | Outpatient (REF) | payer MEDICAID, SELFPAY ==
--- NOTE | ~2021-12-31 | XR_ITS ---
EXAMINATION: XR CHEST CLINICAL INFORMATION: Dyspnea on exertion, cough COMPARISON: Chest radiographs 01/10/2020 TECHNIQUE: 2 views of the chest were obtained. FINDINGS: The lungs are clear. The vascularity is normal. There is no airspace consolidation, vascular congestion, groundglass opacity, or effusion. Costophrenic sulci are well-defined. Heart size normal. Hilar contours normal. There is mild accentuation of the ascending aortic contour when compared with prior study. The aortic knob and descending thoracic aorta normal in contour. No acute bony abnormality. XR/XR chest 2V IMPRESSION: -Lungs clear. No airspace consolidation, vascular congestion, or effusion. -Subtle prominent ascending aortic contour, possibly projectional. Recommend correlation with cardiovascular history. If clinically indicated, further assessment could be obtained with CT or MR.
== END 2021-12-31 07:56 | disposition home or self-care (01) ==
LOC: HO.XRAY 07:55
PROVIDERS: Visit Provider Internal Medicine
DX: R06.09 Other forms of dyspnea (principal); R05.9 Cough, unspecified
CPT/HCPCS: 71046

== ENCOUNTER → 2022-02-14 11:19 | Outpatient (BNVA) | payer MEDICAID, SELFPAY | PROVIDERS: PCP General Practice; Referring Provider Emergency Medicine; Visit Provider Surgery | DX: K42.9 Umbilical hernia without obstruction or gangrene (principal); L72.3 Sebaceous cyst; F17.210 Nicotine dependence, cigarettes, uncomplicated | CPT/HCPCS: 99202 ==

== ENCOUNTER → 2022-03-03 08:34 | Outpatient (BNVA) | payer MEDICAID, SELFPAY | PROVIDERS: PCP General Practice; Visit Provider Surgery | DX: L72.3 Sebaceous cyst (principal); K42.9 Umbilical hernia without obstruction or gangrene; F17.210 Nicotine dependence, cigarettes, uncomplicated | CPT/HCPCS: 11401; 11402; 99212 ==

== ENCOUNTER → 2022-03-12 08:26 | Outpatient (BNVA) | payer MEDICAID, SELFPAY | PROVIDERS: PCP General Practice; Referring Provider General Practice; Visit Provider Surgery | DX: Z48.1 Encounter for planned postprocedural wound closure (principal); K42.9 Umbilical hernia without obstruction or gangrene; L72.3 Sebaceous cyst; F17.210 Nicotine dependence, cigarettes, uncomplicated; I83.12 Varicose veins of left lower extremity with inflammation; B19.20 Unspecified viral hepatitis C without hepatic coma; Z87.2 Personal history of diseases of the skin and subcutaneous tissue | CPT/HCPCS: 99212 ==

== ENCOUNTER → 2022-04-22 15:16 | Outpatient (BNVA) | payer MEDICAID, SELFPAY | PROVIDERS: PCP General Practice; Visit Provider Surgery | DX: K42.9 Umbilical hernia without obstruction or gangrene (principal); B19.20 Unspecified viral hepatitis C without hepatic coma; I10 Essential (primary) hypertension | CPT/HCPCS: 99212 ==

== ENCOUNTER 2022-05-06 09:44 | Emergency (ER) | payer MEDICAID, SELFPAY ==
--- NOTE | ~2022-05-06 | US_ITS ---
EXAMINATION: US ABDOMEN LIMITED CLINICAL INFORMATION: Right upper quadrant pain. COMPARISON: 05/11/2020 abdominal ultrasound. TECHNIQUE: Real-time imaging of the right upper quadrant abdominal viscera. FINDINGS: PANCREAS: Visualized portions unremarkable. LIVER: Unremarkable. GALLBLADDER: Unremarkable. COMMON BILE DUCT: Normal in caliber measuring 0.6 cm in diameter. RIGHT KIDNEY: 10.3 cm. Unremarkable. FREE FLUID: None. US/US abdomen limited IMPRESSION: Unremarkable right upper quadrant ultrasound.
--- NOTE | ~2022-05-06 | XR_ITS ---
EXAMINATION: XR CHEST CLINICAL INFORMATION: Cough. COMPARISON: 12/31/2021 chest radiographs. TECHNIQUE: 2 views of the chest were obtained. FINDINGS: No significant abnormality is noted involving the heart, lungs, mediastinum, bony thorax or soft tissues. XR/XR chest 2V IMPRESSION: No acute cardiopulmonary process.
[2022-05-06 10:11] VITALS: BP 152/74; PULSE 74; RESP 16; TEMP 36.6; O2SAT 96; BMI 31.0
[2022-05-06 10:50] LABS: Appearance Urine Clear; Color Urine Yellow; Glucose Urine UA Negative (Negative); Leukocyte Esterase Urine Negative (Negative); Nitrite Urine Negative (Negative); PH 5.5 (5.0-9.0); Specific Gravity - Urine 1.025 (1.005-1.025); Urine Blood Negative (Negative); Urine Ketones Negative (Negative); Urine Protein Negative (Neg-Trace)
--- NOTE | 2022-05-06 13:34 | ED.URI ---
HPI - URI/Sore Throat General Chief Complaint: Upper Respiratory Symptoms Stated Complaint: R flank pain Time Seen by Provider: 05/06/22 12:20 Source: patient Mode of arrival: ambulatory Limitations: no limitations History of Present Illness HPI Narrative: Patient is a 61-year-old male presents to emergency department for evaluation of right upper abdominal/lateral lower chest pain. Symptom onset was 3 days ago. He does state that pain is made worse with coughing. He states he always has a cough secondary to his asthma, it is nonproductive. Denies fevers, chills, nasal congestion/rhinorrhea, sore throat, headache, chest pain, shortness of breath, nausea, vomiting, diarrhea, constipation, dysuria, hematuria. Related Data Home Medications Medication Instructions Recorded Confirmed carvedilol 6.25 mg tablet 6.25 mg PO BID 08/06/21 04/22/22 trazodone 100 mg tablet 100 mg PO BEDTIME PRN 08/06/21 04/22/22 Previous Rx's Medication Instructions Recorded sofosbuvir 400 mg-velpatasvir 100 1 tab PO DAILY 30 days #30 tabs 06/26/20 mg-voxilaprevir 100 mg tablet (Vosevi) ibuprofen 600 mg tablet 600 mg PO Q8H PRN pain #30 tabs 05/06/22 Allergies Allergy/AdvReac Type Severity Reaction Status Date / Time No Known Allergies Allergy Verified 04/22/22 15:27 [No Known Allergies*] Review of Systems Review of Systems: Constitutional : No Weight loss, No Fever, No Chills ENT/Mouth :? No sore throat, No Rhinorrhea Eyes: No Swelling, No Redness Cardiovascular : No Chest Pain, No SOB, No Edema Respiratory : No Cough, No Sputum, No Wheezing Gastrointestinal : No Nausea, no Vomiting, no Diarrhea, positive abdominal pain, No Hematochezia, No Melena Genitourinary : No Dysuria, No Urinary Frequency, No Hematuria, No Urgency? Musculoskeletal : No joint pain, No Myalgias, No Joint Swelling Skin : No Skin Lesions, No rash Neuro : No Weakness, No Numbness, No Dizziness, No Headache Psych : No Anxiety/Panic, No Depression Heme/Lymph: No Bruising, No Lymphadenopathy Endocrine : No Polyuria, No Polydipsia Yes all other systems are reviewed and are negative [facility] Past Medical History Attestation statement: The following information was validated with the patient. Source: old records reviewed Medical History Hepatitis C Hypertension Social History Social History Cigarettes Per Day: 2 Substance Use Type: Crack/Cocaine and Heroin Advance Directives: No Advance Directives Information Provided: Yes Physical Exam Vital Signs: Vital Signs: Last Vital Signs Temp 98 F 05/06/22 10:11 Pulse 74 05/06/22 10:11 Resp 16 05/06/22 10:11 BP 152/74 H 05/06/22 10:11 Pulse Ox 96 05/06/22 10:11 O2 Del Method 05/06/22 10:11 BMI result Body Mass Index 31.0 Appearance: Alert.?Oriented to person, place and time. No acute distress.?Normal affect. Eyes: Pupils equal, round and reactive to light.? ENT: Pharynx normal.?? Neck: Normal inspection.? Neck supple.?? CVS: Heart sounds normal. Normal heart rate and rhythm.? Pulses normal.?? Respiratory: No respiratory distress.? Lung sounds diminished to right lower lobe Abdomen: Soft with right upper quadrant tenderness, negative Fonseca sign. No CVA tenderness. Normoactive bowel sounds. No pulsatile mass.?? Skin: Skin warm and dry.? Normal skin color.? Extremities: No lower extremity edema.? Neuro: Moves all extremities spontaneously. Sensation intact bilaterally. No focal neuro deficits. Ambulates with normal steady gait. Medical Decision Making Medical Decision Making MDM Narrative: Patient is a 61-year-old male with a past medical history of hypertension, PAD, history of hepatitis-C, asthma. Presents for evaluation of right upper abdominal/right lateral chest wall pain. Pain is reproducible to cough as well as deep inspiration. However, upon abdominal examination he does have right upper quadrant tenderness, no palpable hepatomegaly. Concern for hepatic/biliary etiology. Chest x-ray obtained from triage does not appear consistent with pneumonia, no consolidations or infiltrates. Cough is chronic and has not been associated with additional upper respiratory symptoms. PERC negative low suspicion for PE. Discussed with patient plan of care, Will obtain CBC to evaluate for leukocytosis/ anemia, CMP and lipase to evaluate for abnormal electrolytes /abnormal renal function/ abnormal hepatic/biliary function, ultrasound of the right upper quadrant. Radiologist impression XR/XR chest 2V IMPRESSION: No acute cardiopulmonary process. 15:45 - re-evaluation - labs are overall unremarkable. Ultrasound without evidence for cholecystitis, cholelithiasis, liver enlargement. At this time reviewed findings with patient. Suspect that pain is consistent with a muscular pain of the chest wall likely secondary to recent cough. Advised rest, bracing of the chest wall, NSAID, reasons to return back to the emergency department, outpatient follow-up with primary care provider. Patient verbalized understanding. Discharged in stable condition. Radiologist impression US/US abdomen limited IMPRESSION: Unremarkable right upper quadrant ultrasound. Differential Diagnoses: Differential diagnosis Differential Diagnosis: The differential diagnosis associated with the patient?s presentation includes: Pneumonia, costochondritis, hepatitis, cholelithiasis, cholecystitis, PE Lab Attestation: I reviewed the patient's lab results. (CBC, CMP, lipase, urinalysis, COVID-19, influenza) Lab results narrative: COVID-19 and influenza testing are negative. CBC reveals a mild leukocytosis 14.2 without left shift, which may be infectious or inflammatory. CMP is overall unremarkable, mildly elevated alkaline phosphatase, lipase within normal limits. Urinalysis without evidence of infection or microscopic hematuria. Independent interpretation of EKG, rhythm strip, radiology study: Independent interp EKG,rhythm strip, radiology study I performed an independent interpretation of the: Plain X-Ray (Chest x-ray) and Ultrasound (Abdominal ultrasound) Chest x-ray: My interpretation is no consolidation or infiltrate, not consistent with pneumonia. RUQ Ultrasound: Without evidence of cholelithiasis, gallbladder wall thickening Chronic conditions affecting care (e.g., diabetes, HTN): Chronic conditions affecting care (e.g., diabetes, HTN) (Hypertension, asthma, hepatitis-C) Discharge Plan Discharge Clinical Impression: Acute costochondritis Patient Disposition: Home, Self-Care Instructions: Costochondritis (ED) Additional Instructions: You can take ibuprofen 200 mg, 3 tablets (600mg) every 6-8 hours as needed for pain, in addition to Tylenol 500 mg, 2 tablets (1,000mg) every 4-6 hours as needed for pain, but not to exceed 3 doses daily (3,000mg).? Return to the emergency department with any new or worsening symptoms or concerns. Follow-up with primary care provider as needed for persistent symptoms. Prescriptions: New ibuprofen 600 mg tablet 600 mg PO Q8H PRN (Reason: pain) Qty: 30 0RF No Action Vosevi 400-100-100 mg tablet 1 tab PO DAILY 30 Days Qty: 30 2RF Rx Instructions: must administer with a meal/food carvedilol 6.25 mg tablet 6.25 mg PO BID Rx Instructions: must administer with a meal/food trazodone 100 mg tablet 100 mg PO BEDTIME PRN Referrals: Yara Foster MD [Primary Care Provider] -
[2022-05-06 14:01] LABS: MANUAL DIFF FLAG NO
[2022-05-06 14:04] LABS: Basophils Absolute Auto 0.1 X10*3/uL (0.0-0.2); Basophils Percent Auto 0.5 % (0-2); Eosinophils Absolute Auto 0.4 X10*3/uL (0.0-0.4); Eosinophils Percent Auto 2.7 % (0-4); Hematocrit 49.2 % (42.0-52.0); Hemoglobin 16.8 g/dl (14.0-18.0); Imm Gran Abs Auto 0.09 X10*3/uL (0.00-0.03); Imm Gran Pct Auto 0.6 % (0.0-0.4); Lymphocytes Absolute Auto 3.1 X10*3/uL (1.2-4.9); Mean Corpuscular HGB Conc 34.1 g/dl (31.0-36.0); Mean Corpuscular Hemoglobin 31.8 pg (27.0-33.0); Mean Platelet Volume 10.2 fL (9.4-12.4); Monocytes Percent Auto 7.1 % (2-11); Neutrophils Absolute Auto 9.5 x10*3/uL (2.0-8.3); Neutrophils Percent Auto 67.1 % (45-73); Platelet Count 307 X10*3/uL (160-400); Red Blood Count 5.29 X10*6/uL (4.60-5.80); Red Cell Distribution Width 13.9 % (11.0-16.0); White Blood Count 14.2 X10*3/uL (4.8-10.8)
[2022-05-06 14:16] LABS: COVID-19 Test Negative (Negative); IDNOW Serial# 16C4AD1C
[2022-05-06 14:21] LABS: Alanine Aminotransferase 22 U/L (0-40); Albumin Level 4.2 g/dL (3.5-5.0); Alkaline Phosphatase 129 U/L (39-117); Anion Gap 10 (12-20); Aspartate Amino Transferase 15 U/L (5-37); Bilirubin Total 0.2 mg/dL (0.0-1.0); Blood Urea Nitrogen 15 mg/dL (9-16); Calcium 9.8 mg/dL (8.4-10.2); Carbon Dioxide 28 mmol/L (22-29); Chloride 107 mmol/L (96-108); Creatinine Clr Calc Pharmacy 93.4; Estimated Glomerular Filt Rate > 60; Glucose Random 101 mg/dL (60-115); Lipase 23 U/L (8-78); Potassium 4.8 mmol/L (3.3-5.1); Sodium 140 mmol/L (135-145); Total Protein 7.2 g/dL (6.5-8.0)
[2022-05-06 14:24] LABS: IDNOW Serial# BCCEAD1C; Influenza A Negative (Negative); Influenza B2 Negative (Negative)
== END 2022-05-06 15:56 | disposition home or self-care (01) ==
PROVIDERS: Nurse Practitioner Family; Emergency Provider Emergency Medicine; PCP General Practice
DX: M94.0 Chondrocostal junction syndrome [Tietze] (principal); Z20.822 Contact with and (suspected) exposure to COVID-19; Z79.899 Other long term (current) drug therapy
CPT/HCPCS: 71046; 76705; 80053; 81003; 83690; 85025; 87502; 87635; 99283; 99284

== ENCOUNTER 2022-06-03 14:50 | Outpatient (REF) | payer MEDICAID, SELFPAY ==
[2022-06-03 15:53] LABS: MANUAL DIFF FLAG NO
[2022-06-03 16:12] LABS: Basophils Absolute Auto 0.1 X10*3/uL (0.0-0.2); Basophils Percent Auto 0.6 % (0-2); Eosinophils Absolute Auto 0.6 X10*3/uL (0.0-0.4); Eosinophils Percent Auto 5.1 % (0-4); Hematocrit 47.6 % (42.0-52.0); Hemoglobin 16.2 g/dl (14.0-18.0); Imm Gran Abs Auto 0.05 X10*3/uL (0.00-0.03); Imm Gran Pct Auto 0.4 % (0.0-0.4); Lymphocytes Percent Auto 24.2 % (20-40); Mean Corpuscular Hemoglobin 30.7 pg (27.0-33.0); Mean Corpuscular Volume 90.3 fL (80.0-98.0); Mean Platelet Volume 10.7 fL (9.4-12.4); Monocytes Absolute Auto 1.2 X10*3/uL (0.1-1.2); Monocytes Percent Auto 9.4 % (2-11); Neutrophils Absolute Auto 7.5 x10*3/uL (2.0-8.3); Neutrophils Percent Auto 60.3 % (45-73); Platelet Count 290 X10*3/uL (160-400); Red Blood Count 5.27 X10*6/uL (4.60-5.80); Red Cell Distribution Width 13.5 % (11.0-16.0); White Blood Count 12.5 X10*3/uL (4.8-10.8)
[2022-06-03 16:21] LABS: INTERNATIONAL NORM RATIO 1.1 (0.9-1.1); Prothrombin Time 12.1 SEC (10.0-13.1)
[2022-06-03 16:27] LABS: Amphetamine Screen Urine Not Detected (Not Detect); Barbiturates, Urine Not Detected (Not Detect); Benzodiazepines Screen Urine Not Detected (Not Detect); Cannabinoid Screen Urine Not Detected (Not Detect); Cocaine Screen Urine Not Detected (Not Detect); Fentanyl, urine Not Detected (Not Detect); Opiate Screen Urine Not Detected (Not Detect); Phencyclidine Screen Urine Not Detected (Not Detect)
[2022-06-03 16:29] LABS: Alanine Aminotransferase 21 U/L (0-40); Albumin Level 4.1 g/dL (3.5-5.0); Alkaline Phosphatase 112 U/L (39-117); Anion Gap 9 (12-20); Aspartate Amino Transferase 15 U/L (5-37); Bilirubin Total 0.3 mg/dL (0.0-1.0); Blood Urea Nitrogen 16 mg/dL (9-16); Calcium 9.6 mg/dL (8.4-10.2); Carbon Dioxide 26 mmol/L (22-29); Chloride 108 mmol/L (96-108); Estimated Glomerular Filt Rate > 60; Glucose Random 101 mg/dL (60-115); Potassium 4.4 mmol/L (3.3-5.1); Sodium 139 mmol/L (135-145); Total Protein 6.8 g/dL (6.5-8.0)
[2022-06-08 10:18] LABS: Cotinine, U 486 ng/mL; Nicotine, U 436 ng/mL
== END 2022-06-03 14:51 | disposition home or self-care (01) ==
LOC: HO.LAB 14:50
PROVIDERS: PCP General Practice; Visit Provider Surgery
DX: K42.9 Umbilical hernia without obstruction or gangrene (principal); B19.20 Unspecified viral hepatitis C without hepatic coma; I10 Essential (primary) hypertension; I73.9 Peripheral vascular disease, unspecified; F17.210 Nicotine dependence, cigarettes, uncomplicated; F14.11 Cocaine abuse, in remission; F11.21 Opioid dependence, in remission
CPT/HCPCS: 80053; 80307; 80323; 84134; 85025; 85610; 99212

== ENCOUNTER 2022-06-12 09:26 | Day surgery (SDC) | payer MEDICAID, SELFPAY ==
--- NOTE | 2022-06-11 09:11 | HO.ANESPROP2 ---
Documented by User: Faina Hinton NP 06/11/22 09:13 HPI - Anesthesia Eval Consult details Narrative: 61yo M for Hernia Repair Umbilical with poss mesh PMFSH Active Problems Active Problems: All Active Problems (Updated 05/07/22 @ 00:01 by Background David) Cigarette smoker motivated to quit (Acute) Sebaceous cyst (Acute) Umbilical hernia (Acute) Leg pain (Acute) Varicose veins of left lower extremity with inflammation (Acute) PAD (peripheral artery disease) (Acute) Hepatitis C (Acute) Hypertension (Acute) Past Medical History Medical History Hepatitis C Hypertension Social History Social History Patient Tobacco Use Status: Former Tobacco user Cigarettes Per Day: 2 Use of substances other than those prescribed or required for medical reasons: Unknown Substance Use Type: Crack/Cocaine and Heroin Advance Directives: No Advance Directives Information Provided: Yes Meds Allergies Allergy/AdvReac Type Severity Reaction Status Date / Time No Known Allergies Allergy Verified 06/03/22 15:14 [No Known Allergies*] Home Medications Medication Instructions Recorded Confirmed Last Taken Type carvedilol 6.25 mg tablet 6.25 mg PO BID 08/06/21 06/03/22 Unknown History trazodone 100 mg tablet 100 mg PO BEDTIME PRN 08/06/21 06/03/22 Unknown History Exam Exam Date and Time: June 11, 2022 0911 Pertinent Lab Results Pertinent Lab Results: Laboratory Tests 06/03/22 06/03/22 15:51 15:51 WBC 12.5 H Hgb 16.2 Hct 47.6 Plt Count 290 Sodium 139 Potassium 4.4 Chloride 108 Carbon Dioxide 26 BUN 16 Creatinine 1.01 Narrative Narrative: EKG 2021 Vent. Rate : 096 BPM ? ? Atrial Rate : 096 BPM ?? P-R Int : 138 ms? QRS Dur : 086 ms ? ? QT Int : 350 ms ? ? ? P-R-T Axes : 046 -07 011 degrees ?? QTc Int : 442 ms ? Normal sinus rhythm Normal ECG When compared with ECG of 10-JAN-2020 10:34, Vent. rate has increased BY? 35 BPM T wave amplitude has decreased in Anterior leads PFT 07/2021 CONCLUSION:? Mild obstructive airway disorder. ? Good response to bronchodilator therapy. ? This finding is consistent with bronchial asthma. ? Clinical correlation is recommended. Assessment and Plan Assessment Anesthesia Assessment: Chart Reviewed Documented by User: Daniel Knight MD 06/12/22 12:23 [facility] Past Medical History Medical History Hepatitis C Hypertension Family History Family history of problems with anesthesia: No Surgical History History of Problems with Anesthesia: No Social History Social History Patient Tobacco Use Status: Former Tobacco user Cigarettes Per Day: 2 Use of substances other than those prescribed or required for medical reasons: Unknown Substance Use Type: Crack/Cocaine and Heroin Advance Directives: No Advance Directives Information Provided: Yes Meds Allergies Allergy/AdvReac Type Severity Reaction Status Date / Time No Known Allergies Allergy Verified 06/03/22 15:14 [No Known Allergies*] Home Medications Medication Instructions Recorded Confirmed Last Taken Type carvedilol 6.25 mg tablet 6.25 mg PO BID 08/06/21 06/03/22 Unknown History trazodone 100 mg tablet 100 mg PO BEDTIME PRN 08/06/21 06/03/22 Unknown History Exam Airway Mallampati Class: II TM Dist: >3cm Neck ROM: Full Loose/Missing/Broken Teeth: No Heart: rrr Lungs: cta Assessment and Plan Assessment Anesthesia Assessment: Anesthesia Plan Discussed and Smoking Cess. Discussed Final Anesthetic Review Family History of Problems with Anesthesia: No History of Problems with Anesthesia: No NPO: Yes ASA Class: III Final Preanesthetic Review: No Changes in Pt Med Stat, Meds/Allgs Chart Reviewed, Consent Obtained/Reviewed and Anes Risks/Benef Reviewed Procedure Risk: Intermediate Anesthetic Plan Anesthetic Plan: GA Disposition: Standard PACU
[2022-06-12 10:17] VITALS: BP 130/78; PULSE 73; RESP 16; TEMP 36.4; O2SAT 97; BMI 31.9
[2022-06-12] MEDS: Lactated Ringers 1,000 ML 100 ML IVCONT (10:29)
[2022-06-12 10:39] LABS: Amphetamine Screen Urine Not Detected (Not Detect); Barbiturates, Urine Not Detected (Not Detect); Benzodiazepines Screen Urine Not Detected (Not Detect); Cannabinoid Screen Urine Not Detected (Not Detect); Cocaine Screen Urine Not Detected (Not Detect); Fentanyl, urine Not Detected (Not Detect); Opiate Screen Urine Not Detected (Not Detect); Phencyclidine Screen Urine Not Detected (Not Detect)
--- NOTE | 2022-06-12 10:55 | MHC.SHP ---
Pre-Procedural Eval Section A Date of Service: 06/12/22 The patient is an INPATIENT: No The History & Physical has been completed within 30 days and I have reviewed it.: Yes Section B Chief Complaint: Umbilical hernia without obstruction or gangrene Allergies: Allergies Allergy/AdvReac Type Severity Reaction Status Date / Time No Known Allergies Allergy Verified 06/03/22 15:14 [No Known Allergies*] Plan I have reviewed the history and physical and performed a pertinent physical examination on my patient. No changes have occurred unless specified. Time Spent With Patient Time: Total time managing care of this patient today ____ minutes.
--- NOTE | 2022-06-12 10:55 | W.PM.OPN ---
Operative Note Operative Note Date of Service: 06/12/22 Narrative: Preop diagnosis: [Ventral & umbilical hernia] Postop diagnosis: [same, 6mm UH & 6mm supraumilical ventral hernia in the linea alba] Procedure: [Open repair of a ventral hernia measuring 6mm x 2] Surgeon: Torres Whittington MD Assist: [] Anesthesia: [general via LMA] Estimated blood loss: [3cc] Specimen: [none] Intraoperative findings: [A 6 mm umbilical ring hernia with viable properitoneal fat was noted and closed primarily; in the linea alba, a fusiform additional ventral hernia measuring 6 mm was also identified and primarily closed.] Indications: [The patient is a 61-year-old gentleman who quit smoking cigarettes in order to have a symptomatic ventral hernia just above his umbilicus repaired. The patient is also been in recovery so from substance abuse and express concerns about the possibility of relapse from anesthesia or narcotic pain medicine. We discussed continued medical observation versus operative repair, specific physically an open repair possibly with mesh in the inherent risks of bleeding, infection, hernia recurrence, mesh complications that could require reoperation, relapse related to anesthesia or postoperative pain medicines. Patient seemed understand his options and initially stated that he would not want any narcotics but then on the day of surgery requested that I send them to his pharmacy and if he needs them, he will pick them up, however if he does not need them, he will not take them. Patient seemed understand the risks, benefits and alternatives and wanted to proceed. Activity restrictions were also reviewed and understood.] Procedure: [The patient was identified in the preoperative holding area and again in the operating suite. Procedure was confirmed with the patient. 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 He was induced and general anesthesia administered by the anesthesiologist. Ancef per weight based protocol was ordered. Abdomen was widely prepped and draped in the usual manner for surgery using chlorhexidine. Preemptive local of ropivacaine, 0.5% was infiltrated in the skin and subcutaneous tissues and a curvilinear infraumbilical incision made sharply. Dissection was carried down to the umbilical base and the umbilicus circumferentially dissected and the hernia sac dissected from the posterior umbilical dermis taking care to avoid injury. The hernia was reduced and the fascial defect transversely closed with 0 Polypropylene sutures. During dissection of the umbilical hernia, in examining the fascia and the linea alba immediately above the umbilical ring, a fusiform 6 mm defect was noted with viable properitoneal fat. The ventral hernia was then circumferentially dissected that reduced and closure with 2 0 polypropylene sutures close the defect. The operative field was inspected for hemostasis then the umbilical dermis tacked down to the fascia and hernia repair with 3-0 Polysorb suture. Subcutaneous tissues were closed with 3-0 Polysorb suture and the skin closed with a running 4-0 Monocryl subcuticular suture. There is washed and dried, Mastisol and Steri-Strips applied followed by sterile dressings. The patient tolerated the procedure well and was sent extubated the recovery in stable condition. All sponge instrument counts were correct. ]
[2022-06-12 13:32] VITALS: BP 123/70; PULSE 74; RESP 16; TEMP 36.7; O2SAT 98
[2022-06-12 13:37] VITALS: BP 123/67; PULSE 75; RESP 16; O2SAT 95
[2022-06-12 13:42] VITALS: BP 123/67; PULSE 70; RESP 16; O2SAT 95
[2022-06-12 13:47] VITALS: BP 132/66; PULSE 68; RESP 16; TEMP 36.2; O2SAT 96
[2022-06-12 14:02] VITALS: BP 132/69; PULSE 64; RESP 18; TEMP 36.2; O2SAT 96
== END 2022-06-12 14:45 | disposition home or self-care (01) ==
LOC: HO.SSS 09:26
PROVIDERS: Nurse Practitioner; PCP General Practice; Visit Provider Surgery
PROC: (CPT 49591; principal; 2022-06-12 11:30)
DX: K42.9 Umbilical hernia without obstruction or gangrene (principal); K43.9 Ventral hernia without obstruction or gangrene; I10 Essential (primary) hypertension; B19.20 Unspecified viral hepatitis C without hepatic coma; Z79.899 Other long term (current) drug therapy; F14.21 Cocaine dependence, in remission; F11.11 Opioid abuse, in remission; F17.210 Nicotine dependence, cigarettes, uncomplicated
CPT/HCPCS: 49591; 80307; J0131; J0690; J1885

== ENCOUNTER → 2022-06-19 14:07 | Outpatient (BNVA) | payer MEDICAID, SELFPAY | PROVIDERS: PCP General Practice; Visit Provider Surgery | DX: Z13.89 Encounter for screening for other disorder (principal) ==

== ENCOUNTER → 2022-07-29 12:47 | Outpatient (BNVA) | payer MEDICAID, SELFPAY | PROVIDERS: PCP General Practice; Visit Provider Nurse Practitioner Family | DX: M54.16 Radiculopathy, lumbar region (principal); M47.816 Spondylosis without myelopathy or radiculopathy, lumbar region; M25.561 Pain in right knee; M25.562 Pain in left knee; R10.9 Unspecified abdominal pain; G89.29 Other chronic pain | CPT/HCPCS: 99202 ==

== ENCOUNTER 2022-07-30 07:41 | Outpatient (REF) | payer MEDICAID, SELFPAY ==
--- NOTE | ~2022-07-30 | XR_ITS ---
EXAMINATION: XR ABDOMEN COMPLETE CLINICAL INDICATION: R10.9 - Unspecified abdominal pain COMPARISON: Ultrasound abdomen 05/06/2022, lumbar radiographs 10/01/2021. TECHNIQUE: Supine x2 and upright x2 views of the abdomen are obtained for a total of 4 views. FINDINGS: There is scattered gas in the bowel of normal caliber. No gaseous dilatation of bowel or differential air-fluid levels or free air. Lung bases are clear. There are no visible urinary tract calculi. Surgical clips again seen overlying the right groin. There are multilevel degenerative changes again noted lumbar spine. XR/XR abdomen 3V IMPRESSION: -No obstruction or free air. -No visible urinary tract calculi.
--- NOTE | ~2022-07-30 | XR_ITS ---
EXAMINATION: XR KNEE, RIGHT CLINICAL INFORMATION: Pain. COMPARISON: None TECHNIQUE: Frontal, axial and lateral views of the right knee. FINDINGS: Bones and soft tissues are normal. No fracture or joint effusion. Alignment is anatomic. Joint spaces are well maintained. There is a small round soft tissue calcifications adjacent to the medial margin of the proximal tibial metaphysis. XR/XR knee LT 3V IMPRESSION: Unremarkable right knee. EXAMINATION: XR KNEE, LEFT CLINICAL INFORMATION: Pain. COMPARISON: None TECHNIQUE: Frontal, axial and lateral views of the left knee. FINDINGS: Bones and soft tissues are normal. No fracture or joint effusion. Alignment is anatomic. Joint spaces are well maintained. No abnormal soft tissue calcification. IMPRESSION: Unremarkable left knee.
--- NOTE | ~2022-07-30 | XR_ITS ---
EXAMINATION: XR KNEE, RIGHT CLINICAL INFORMATION: Pain. COMPARISON: None TECHNIQUE: Frontal, axial and lateral views of the right knee. FINDINGS: Bones and soft tissues are normal. No fracture or joint effusion. Alignment is anatomic. Joint spaces are well maintained. There is a small round soft tissue calcifications adjacent to the medial margin of the proximal tibial metaphysis. XR/XR knee RT 3V IMPRESSION: Unremarkable right knee. EXAMINATION: XR KNEE, LEFT CLINICAL INFORMATION: Pain. COMPARISON: None TECHNIQUE: Frontal, axial and lateral views of the left knee. FINDINGS: Bones and soft tissues are normal. No fracture or joint effusion. Alignment is anatomic. Joint spaces are well maintained. No abnormal soft tissue calcification. IMPRESSION: Unremarkable left knee.
== END 2022-07-30 07:42 | disposition home or self-care (01) ==
LOC: HO.XRAY 07:41
PROVIDERS: PCP General Practice; Visit Provider Nurse Practitioner Family
DX: M25.562 Pain in left knee (principal); M25.561 Pain in right knee; R10.9 Unspecified abdominal pain; G89.29 Other chronic pain
CPT/HCPCS: 73562; 74021

== ENCOUNTER 2022-08-19 19:55 | Outpatient (REF) | payer MEDICAID, SELFPAY ==
--- NOTE | ~2022-08-19 | MR_ITS ---
EXAMINATION: MR LUMBAR SPINE WITHOUT CONTRAST CLINICAL INFORMATION: Spondylosis without myelopathy or radiculopathy, lumbar region. COMPARISON: None TECHNIQUE: MRI of the lumbar spine was obtained using routine sequences without contrast. FINDINGS: The lumbar vertebral bodies maintain normal heights. The alignment appears normal. There is no bone marrow edema. The distal spinal cord appears normal. The conus medullaris terminates normally at the T12-L1 level. The extraspinal soft tissues are within normal limits. SPINAL LEVELS: L1-L2: No posterior disc abnormality. No spinal canal or neural foraminal stenosis. L2-L3: No posterior disc abnormality. No spinal canal or neural foraminal stenosis. L3-L4: Disc bulging with mild facet arthropathy. Mild bilateral neural foraminal stenosis. No spinal canal stenosis. L4-L5: Mild disc bulging with mild facet arthropathy resulting in mild flattening the ventral thecal sac. Mild bilateral neural foraminal stenosis with abutment of the exiting right L4 nerve root related to shallow foraminal protrusion. L5-S1: No posterior disc abnormality. No spinal canal or neural foraminal stenosis. MR/MR lumbar spine wo con IMPRESSION: 1. At L4-L5 there is mild bilateral neural foraminal stenosis with abutment of the exiting right L4 nerve root related to shallow foraminal protrusion. 2. At L3-L4 there is mild bilateral neural foraminal stenosis.
== END 2022-08-19 19:56 | disposition home or self-care (01) ==
LOC: HO.MRI 19:55
PROVIDERS: PCP General Practice; Visit Provider Nurse Practitioner Family
DX: M47.816 Spondylosis without myelopathy or radiculopathy, lumbar region (principal); M54.16 Radiculopathy, lumbar region
CPT/HCPCS: 72148

== ENCOUNTER → 2022-08-22 14:05 | Outpatient (BNVA) | payer MEDICAID, SELFPAY | PROVIDERS: PCP General Practice; Visit Provider Nurse Practitioner Family | DX: M25.561 Pain in right knee (principal); M25.562 Pain in left knee; M47.26 Other spondylosis with radiculopathy, lumbar region | CPT/HCPCS: 99212 ==

== ENCOUNTER 2022-09-23 06:11 | Outpatient (REF) | payer MEDICAID, SELFPAY ==
--- NOTE | ~2022-09-23 | FL_ITS ---
EXAMINATION: XR FLUOROSCOPY WITH IMAGES CLINICAL INFORMATION: M47.816 - Spondylosis without myelopathy or radiculopathy, lumbar region COMPARISON: MR lumbar spine 08/19/2022 TECHNIQUE: Fluoroscopy Supervised By: Dr. Satya Kelly. Fluoroscopy Time: 0.5 minutes. Cumulative Dose: 17.3 mGy. DAP: 4.73 Gycm2. Images: 6. FINDINGS: There are spinal needles overlying the bilateral outer L3, L4, and L5 neural foramen. There is contrast seen in the respective nerve sheaths. Some early transforaminal epidural extension is suggested. No visible vascular communication. FL/FL guidance in treatment room IMPRESSION: Fluoroscopy for pain management procedures.
== END 2022-09-23 06:12 | disposition home or self-care (01) ==
LOC: CF 06:11
PROVIDERS: Visit Provider Anesthesiology
DX: M47.816 Spondylosis without myelopathy or radiculopathy, lumbar region (principal)
CPT/HCPCS: 64493; 64494

== ENCOUNTER → 2022-09-30 14:08 | Outpatient (BNVA) | payer MEDICAID, SELFPAY | PROVIDERS: PCP General Practice; Visit Provider Nurse Practitioner Family ==

== ENCOUNTER 2022-10-20 08:10 | Outpatient (REF) | payer MEDICAID, SELFPAY | END 2022-10-20 08:11 | disposition home or self-care (01) | LOC: HO.HAP 08:10 | PROVIDERS: Visit Provider General Practice | DX: Z46.0 Encounter for fitting and adjustment of spectacles and contact lenses (principal); H90.A31 Mixed conductive and sensorineural hearing loss, unilateral, right ear with restricted hearing on the contralateral side | CPT/HCPCS: V5266 ==

== ENCOUNTER 2022-10-23 12:37 | Day surgery (SDC) | payer MEDICAID, SELFPAY ==
--- NOTE | ~2022-10-23 | FL_ITS ---
EXAMINATION: XR FLUOROSCOPY WITH IMAGES CLINICAL INFORMATION: SPRINT, pain management. COMPARISON: MRI lumbar spine 08/19/2022; fluoroscopic spot views 09/23/2022. TECHNIQUE: Fluoroscopy Supervised By: Dr. Satya Kelly. Fluoroscopy Time: 0.1 minutes. Cumulative Dose: 2.05 mGy. DAP: 0.560 Gycm2. Images: 2. FINDINGS: There is an electrode seen with tip overlying the right L5 lamina. FL/FL guidance in OR IMPRESSION: Fluoroscopy for pain management procedure.
[2022-10-23 13:08] VITALS: BMI 31.3
--- NOTE | 2022-10-23 13:11 | PC.NURSE ---
local case, patient ate small breakfast
[2022-10-23 13:17] VITALS: BP 148/85; PULSE 85; RESP 18; TEMP 36.6; O2SAT 97
--- NOTE | 2022-10-23 14:02 | P.HPSUR_ITS ---
Pre-Procedural Eval Section A Date of Service: 10/23/22 The patient is an INPATIENT: No Changes since office visit: Yes Patient answered all questions The History & Physical has been completed within 30 days and I have reviewed it.: No Section B Chief Complaint: Spondylosis without myelopathy or radiculopathy Details of Present Illness: ABOVE Relevant Family History (Specify if Yes): No Relevant Social History: None Present Medications: see Short Stay Collaborative assessment Medical History: No relevant PMH History of Previous Operations: No relevant previous surgery Allergies: Allergies Allergy/AdvReac Type Severity Reaction Status Date / Time No Known Allergies Allergy Verified 10/23/22 13:18 [No Known Allergies*] Review of Systems Sugical H&P ROS: Negative: Constitution, Cardiovascular, Respiratory, Neurological, Psychiatric, Hem-Onc, Allergic/Immunologic, Gastrointestinal, Genitourinary, Musculoskeletal, Integumentary, Endocrine and Ey es/Ears/Nose/Throat Exam Surgical H&P Exam: Normal: HEENT, Normal: Heart, Normal: Lungs, Normal: Extremities, Normal: Abdomen, Normal: Skin and Normal: Neurological Plan Diagnosis/Plan: Unchanged I have reviewed the history and physical and performed a pertinent physical examination on my patient. No changes have occurred unless specified. Time Spent With Patient Time: Total time managing care of this patient today ____ minutes.
--- NOTE | 2022-10-23 14:20 | PC.NURSE ---
Patient was scheduled as a local case. Patient requested anesthesia to Dr. Kelly. Anesthesia updated that patient ate small breakfast this morning and coffee/cream. Patient re-educated by Nahum and agrees to local anesthesia only. No IV placed.
--- NOTE | 2022-10-23 14:39 | W.PM.OPN ---
Operative Note Operative Note Date of Service: 10/23/22 Narrative: Percutaneous implantation of peripheral nerve stimulation Sprint system. After the risks, benefits and alternatives were discussed with the patient and informed consent was obtained, patient was placed in the prone position and padded to foster comfort. Time out was performed delineating correct site and side of the procedure , name and of the patient, patient participated in time out procedure. Sterily draped C-arm was brought over the operating field and clear picture of the L5 lamina on the right was delineated on the screen. The upper central portion of the lamina was chosen as a target of the neetle tip incertion . After identifying and marking the intended target, the skin around the planned entry point and the subcutaneous tissues were injected with local anesthetic forming skin wheal.. A percutaneous sleeve and stimulating probe lead introduction system were assembled, inserted and advanced through the skin wheal to the point of interest under C-arm view in tunnel vision fashion, the introducer needle was delivered to a location in proximity to the nerve. Multiple stimulation parameters were used to deliver stimulation to the nerve in concert with stimulating at multiple positions around the nerve. nerve target acquisition was confirmed noting generation of in the corresponding to the nerve being stimulated. Various electrical parameter combinations were tested, and the lead location was adjusted (physically relocated) until the patient indicated overlapping the distribution of the patient?s typical region of pain. The stimulating probe was removed from the introducer and a percutaneous lead was guided through the needle and delivered to a location in similar proximity to the nerve. Final location was verified with electrical stimulation. The introducer needle was removed, and the exposed end of the percutaneous lead was attached to an external stimulator unit. At the end of the case various electrical parameter combinations were again tested until the patient indicated paresthesia or muscle tension overlapping the distribution of the patient?s typical region of pain. After confirming that lead impedance was in the normal range, the external unit was detached, the needle was removed, and the lead was anchored at the skin. The lead was threaded into the connector block and electrical continuity and desired patient response was confirmed. The connector block was attached to the external stimulator unit. The site was covered with a sterile occlusive dressing and a image was taken to document final placement. Upon completion of the procedure the patient was taken outside the OR where she recovered uneventfully she went home without immediate complications.
--- NOTE | 2022-10-23 14:41 | P.BOP_ITS ---
Brief Operative Note Date of Service: 10/23/22 Pre-op diagnosis: spondylosis lumbar without myelopathy or radiculopathy Post-op diagnosis: same Procedure: L5 PNS SPRINT on the right. Implants: none permanent. Surgeon: Satya Kelly MD Anesthesia: local Was an Fire Extinguisher Inspector used for this Procedure?: No Estimated blood loss (mL): 0 Condition: stable Disposition: PACU
[2022-10-23 14:46] VITALS: BP 174/87; PULSE 71; RESP 20; TEMP 36.8; O2SAT 98
[2022-10-23 15:08] VITALS: BP 172/86
== END 2022-10-23 15:24 | disposition home or self-care (01) ==
PROVIDERS: PCP General Practice; Visit Provider Anesthesiology
PROC: (CPT 64555; principal; 2022-10-23 14:00)
DX: M47.816 Spondylosis without myelopathy or radiculopathy, lumbar region (principal); G89.29 Other chronic pain; M51.36 Other intervertebral disc degeneration, lumbar region; M25.561 Pain in right knee; M25.562 Pain in left knee; I10 Essential (primary) hypertension; J45.909 Unspecified asthma, uncomplicated; B19.20 Unspecified viral hepatitis C without hepatic coma; G47.33 Obstructive sleep apnea (adult) (pediatric); F14.90 Cocaine use, unspecified, uncomplicated; F11.90 Opioid use, unspecified, uncomplicated; Z87.891 Personal history of nicotine dependence
CPT/HCPCS: 64555; C1778; J2795

== ENCOUNTER → 2022-10-30 13:43 | Outpatient (BNVA) | payer MEDICAID, SELFPAY | PROVIDERS: PCP General Practice; Visit Provider Nurse Practitioner Family | DX: M54.16 Radiculopathy, lumbar region (principal); M47.816 Spondylosis without myelopathy or radiculopathy, lumbar region | CPT/HCPCS: 99212 ==

== ENCOUNTER 2022-12-25 13:33 | Outpatient (AMB) | payer MEDICAID, SELFPAY ==
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
[2022-12-25 13:39] VITALS: BP 146/84; PULSE 95; O2SAT 97; BMI 28.7
== END 2022-12-25 13:51 | disposition home or self-care (01) ==
PROVIDERS: PCP General Practice; Visit Provider Nurse Practitioner Family
DX: M54.16 Radiculopathy, lumbar region (principal); M47.816 Spondylosis without myelopathy or radiculopathy, lumbar region
CPT/HCPCS: 99214

== ENCOUNTER → 2022-12-25 13:33 | Outpatient (BNVA) | payer MEDICAID, SELFPAY | PROVIDERS: PCP General Practice; Visit Provider Nurse Practitioner Family | DX: M47.816 Spondylosis without myelopathy or radiculopathy, lumbar region (principal); M54.16 Radiculopathy, lumbar region | CPT/HCPCS: 99214 ==

== ENCOUNTER 2023-01-20 05:58 | Outpatient (REF) | payer MEDICAID, SELFPAY ==
--- NOTE | ~2023-01-20 | FL_ITS ---
EXAMINATION: XR FLUOROSCOPY WITH IMAGES CLINICAL INFORMATION: Radiculopathy, lumbar region. COMPARISON: None available. TECHNIQUE: Fluoroscopy Supervised By: Dr. Satya Kelly. Fluoroscopy Time: 0.2 minutes. Cumulative Dose: 4.19 mGy. DAP: 0.0729 Gycm2. Images: 2. FINDINGS: Initial lateral image demonstrates posterior needle placement at the L5-S1 level. Second image demonstrates needle placement and epidural contrast injection over the right lateral L5 and S1 vertebrae. FL/FL guidance in treatment room IMPRESSION: Fluoroscopy guidance for pain management procedure.
== END 2023-01-20 05:59 | disposition home or self-care (01) ==
LOC: CF 05:58
PROVIDERS: Visit Provider Anesthesiology
DX: M47.26 Other spondylosis with radiculopathy, lumbar region (principal)
CPT/HCPCS: 64483; J3301; Q9967

== ENCOUNTER 2023-01-20 07:19 | Outpatient (AMB) | payer MEDICAID, SELFPAY ==
--- NOTE | 2023-01-20 07:28 | MHC.OFFVIS ---
Intake Vital Signs 01/20/23 07:29 01/20/23 09:13 Height 5 ft 8 in 5 ft 8 in Weight 189 lb 189 lb BMI 28.7 28.7 BP 120/78 124/66 Blood Pressure Location Rt brachial Rt brachial Position Sitting Sitting Respiration 14 16 Pulse 84 67 Pulse Source Pulse Oximeter Pulse Oximeter Pulse Oximetry (%) 97 98 Oxygen Delivery Method Room Air Room Air Comment pre-op post-op Intake Visit Reasons: RIGHT L4, L5 TFESI Allergies No Known Allergies [No Known Allergies*] Allergy (Verified 12/25/22 13:40) PFSH Medical History Hepatitis C Hypertension Social History Patient Tobacco Use Status: Former Tobacco user Cigarettes Per Day: 2 Substance Use Type: Crack/Cocaine and Heroin Physical Exam Vital Signs: Last Vital Signs Pulse 67 01/20/23 09:13 Resp 16 01/20/23 09:13 BP 124/66 01/20/23 09:13 Pulse Ox 98 01/20/23 09:13 Oxygen Delivery Method Room Air 01/20/23 09:13 BMI result Body Mass Index 28.7 Assessment & Plan Assessment & Plan (1) Lumbar radiculopathy, chronic: Code(s): M54.16 - Radiculopathy, lumbar region (2) Lumbar spondylosis: Code(s): M47.816 - Spondylosis without myelopathy or radiculopathy, lumbar region Plan: Right L4-L5 Transforaminal epidural steroid injection Informed consent was thoroughly explained to the patient before the procedure. The patient came to the operating room. He was positioned prone on operating table with a pillow under her abdomen. Time-out was performed delineating correct site and side of the procedure, nature of the injection, name and date of of the patient. The lower back of the patient was prepped with ChloraPrep and draped with sterile utility towels. C-arm was brought over the operating field and sq picture of L4 vertebra was demonstrated on the screen. The righ side was chosen as the side of the injection. Tilting machine ipsilateral to the right at the level of L4 the most prominent picture of the right L5 superior articular process was obtained on the screen. At the projection of the lateral border of the SAP L5 to the skin small amount of lidocaine 1% 3-4 cc was injected to anesthetize the skin and s/q tissues. After that 5 in 22 gauge Quincke point needle was inserted through the skin wheal and was advanced to were the L4-L5 foramina on anterior posterior, oblique and lateral views intermittently.When needle tip contacted the bone the needle was deviated laterally and after that medially to advance it below the SAP and into the [id number]. On lateral view the needle appeared to be at the lateral portion of the foramina. When tip of the needle entered foramina projection on AP view injection of the contrast was performed demonstrating epidural and perineural spread of the contrast. After that injection of the treatment medicine 4 cc of preservative-free lidocaine 1% mixed with Kenalog 40 mg was injected into the foramina. Injection of the contrast and injection of the treatment medicine was observed live on the screen. No intrathecal and no intravascular spread of the contrast was noted. The needle was removed and bandaid was applied the patient tolerated procedure well. Plan 1. Patient has completed Sprint trial on right side with ongoing 60% pain relief and hopefully this sustains for next several months. He requests to proceed with left side. We will schedule him for Left L5 medial branch temporary peripheral nerve stimulation with Sprint, possible L3 or L4 with local and fluoroscopy. 2. Proceed with Right L4-L5 TFESI local and fluoroscopy prior to left side Sprint trial for his radicular right sided back pain. All questions and concerns have been answered and the patient agreed with the plan. Follow up after injections and sooner if needed. Anticoagulation: Patient not on anticoagulant Justification for interventional therapy: ? Patient with average pain > 6/10 ? Patient has exhausted conservative therapy, NSAIDs, physical therapy The risks, consequences, alternatives, and benefits of various treatment options were discussed with the patient in great detail, including conservative management, injections and procedures. Patient is aware of hyperglycemic effects of steroids. Orders: Orders FL guidance in treatment room Today M54.16 - Radiculopathy, lumbar region Coding Level of Care Code Procedure Only Diagnoses Lumbar radiculopathy, chronic M54.16 Lumbar spondylosis M47.816
[2023-01-20 07:29] VITALS: BP 120/78; PULSE 84; RESP 14; O2SAT 97; BMI 28.7
[2023-01-20 09:13] VITALS: BP 124/66; PULSE 67; RESP 16; O2SAT 98; BMI 28.7
== END 2023-01-20 08:49 | disposition home or self-care (01) ==
PROVIDERS: PCP General Practice; Visit Provider Anesthesiology
DX: M54.16 Radiculopathy, lumbar region (principal); M47.816 Spondylosis without myelopathy or radiculopathy, lumbar region
CPT/HCPCS: 64483

== ENCOUNTER 2023-01-26 09:47 | Outpatient (REF) | payer MEDICAID, SELFPAY | END 2023-01-26 09:48 | disposition home or self-care (01) | LOC: HO.HAP 09:47 | PROVIDERS: Visit Provider General Practice | DX: Z46.1 Encounter for fitting and adjustment of hearing aid (principal); H90.A31 Mixed conductive and sensorineural hearing loss, unilateral, right ear with restricted hearing on the contralateral side | CPT/HCPCS: V5266 ==

== ENCOUNTER 2023-01-29 11:01 | Day surgery (SDC) | payer MEDICAID, SELFPAY ==
--- NOTE | ~2023-01-29 | FL_ITS ---
EXAMINATION: XR FLUOROSCOPY WITH IMAGES CLINICAL INFORMATION: L5 MB PNS left. COMPARISON: None available. TECHNIQUE: Fluoroscopy Supervised By: Dr. Satya Kelly. Fluoroscopy Time: 0.1 minute. Cumulative Dose: 1.86 mGy. DAP: 0.507 Gycm2. Images: 1. FINDINGS: There is solitary electrode with wires overlying the L4-L5 vertebra for pain management. Visualized bones are grossly unremarkable. FL/FL guidance in OR IMPRESSION: Fluoroscopy guidance was provided to a referring physician for pain management.
[2023-01-29 11:52] VITALS: BMI 29.3
--- NOTE | 2023-01-29 11:58 | MHC.SHP ---
Pre-Procedural Eval Section A Date of Service: 01/29/23 Section B Chief Complaint: Spondylosis without myelopathy or radiculopathy, l Details of Present Illness: as above Relevant Family History (Specify if Yes): No Relevant Social History: None Present Medications: see Short Stay Collaborative assessment Medical History: No relevant PMH History of Previous Operations: No relevant previous surgery Allergies: Allergies Allergy/AdvReac Type Severity Reaction Status Date / Time No Known Allergies Allergy Verified 01/29/23 11:53 [No Known Allergies*] Review of Systems Sugical H&P ROS: Negative: Constitution, Cardiovascular, Respiratory, Neurological, Psychiatric, Hem-Onc, Allergic/Immunologic, Gastrointestinal, Genitourinary, Musculoskeletal, Integumentary, Endocrine and Eyes/Ears/Nose/Throat Exam Surgical H&P Exam: Normal: HEENT, Normal: Heart, Normal: Lungs, Normal: Extremities, Normal: Abdomen, Normal: Skin and Normal: Neurological Plan Diagnosis/Plan: Unchanged I have reviewed the history and physical and performed a pertinent physical examination on my patient. No changes have occurred unless specified. Time Spent With Patient Time: Total time managing care of this patient today ____ minutes.
--- NOTE | 2023-01-29 11:59 | W.PM.OPN ---
Operative Note Operative Note Date of Service: 01/29/23 Narrative: ?Percutaneous implantation of peripheral nerve stimulation Sprint system L5 left? side. After the risks, benefits and alternatives were discussed with the patient and informed consent was obtained, patient was placed in the prone position and padded to foster comfort. Time out was performed delineating correct site and side of the procedure , name and of the patient, patient participated in time out procedure. Sterily draped C-arm was brought over the operating field and clear picture of the L5 lamina on the left was delineated on the screen. The upper central portion of the lamina was chosen as a target of the needle tip insertion . After identifying and marking the intended target, the skin around the planned entry point and the subcutaneous tissues were injected with local anesthetic forming skin wheal.. A percutaneous sleeve and stimulating probe lead introduction system were assembled, inserted and advanced through the skin wheal to the? point of interest under C-arm viewat 45 degree level to T12 left lamina., the introducer needle was delivered to a location in proximity to the nerve. Multiple stimulation parameters were used to deliver stimulation to the? nerve in concert with stimulating at multiple positions around the nerve.? The nerve target acquisition was confirmed noting generation of? in the? corresponding to the nerve being stimulated. Various electrical parameter combinations were tested, and the lead location was adjusted (physically relocated) until the patient indicated? overlapping the distribution of the patient?s typical region of pain. The stimulating probe was removed from the introducer and a percutaneous lead was guided through the needle and delivered to a location in similar proximity to the nerve. Final location was verified with electrical stimulation. The introducer needle was removed, and the exposed end of the percutaneous lead was attached to an external stimulator unit. At the end of the case? various electrical parameter combinations were again tested until the patient indicated paresthesia or muscle tension overlapping the distribution of the patient?s typical region of pain. After confirming that lead impedance was in the normal range, the external unit was detached, the needle was removed, and the lead was anchored at the skin. The lead was threaded into the connector block and electrical continuity and desired patient response was confirmed. The connector block was attached to the external stimulator unit. The site was covered with a sterile occlusive dressing and a? image was taken to document final placement. Upon completion of the procedure the patient was taken outside the OR where she recovered uneventfully she went home without immediate complications.
[2023-01-29 13:00] VITALS: BP 147/82; PULSE 69; RESP 20; TEMP 37.1; O2SAT 95
--- NOTE | 2023-01-29 13:00 | PM.OP ---
Brief Operative Note Date of Service: 01/29/23 Pre-op diagnosis: spondylosis lumbar without myelo/radiculopathy Post-op diagnosis: same Procedure: Sprint PNS L5 Left Surgeon: Satya Kelly MD Was an Warehouse Order Selector used for this Procedure?: No Estimated blood loss (mL): 1 Condition: stable Disposition: PACU
== END 2023-01-29 13:25 | disposition home or self-care (01) ==
PROVIDERS: PCP General Practice; Visit Provider Anesthesiology
PROC: (CPT 64555; principal; 2023-01-29 12:20)
DX: M47.816 Spondylosis without myelopathy or radiculopathy, lumbar region (principal); M54.16 Radiculopathy, lumbar region; I10 Essential (primary) hypertension; B19.20 Unspecified viral hepatitis C without hepatic coma; Z87.891 Personal history of nicotine dependence; F14.90 Cocaine use, unspecified, uncomplicated; F11.90 Opioid use, unspecified, uncomplicated
CPT/HCPCS: 64555; C1778; J2795

== ENCOUNTER → 2023-01-29 11:01 | Outpatient (BNV) | payer MEDICAID, SELFPAY | PROVIDERS: PCP General Practice; Visit Provider Anesthesiology | DX: M47.816 Spondylosis without myelopathy or radiculopathy, lumbar region (principal) | CPT/HCPCS: 64555 ==

== ENCOUNTER 2023-02-03 08:43 | Outpatient (REF) | payer MEDICAID, SELFPAY ==
[2023-02-03 15:12] LABS: Prostate Specific Antigen 0.74 ng/mL (<0.05-4.0)
== END 2023-02-03 08:44 | disposition home or self-care (01) ==
LOC: HO.HHCL 08:43
PROVIDERS: Visit Provider General Practice
DX: Z12.5 Encounter for screening for malignant neoplasm of prostate (principal)
CPT/HCPCS: 36415; 84153

== ENCOUNTER 2023-02-05 14:22 | Outpatient (AMB) | payer MEDICAID, SELFPAY ==
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
[2023-02-05 14:35] VITALS: BP 170/89; PULSE 101; O2SAT 99; BMI 29.2
== END 2023-02-05 14:57 | disposition home or self-care (01) ==
PROVIDERS: PCP General Practice; Visit Provider Nurse Practitioner Family
DX: M54.16 Radiculopathy, lumbar region (principal); M47.816 Spondylosis without myelopathy or radiculopathy, lumbar region
CPT/HCPCS: 99213

== ENCOUNTER → 2023-02-05 14:22 | Outpatient (BNVA) | payer MEDICAID, SELFPAY | PROVIDERS: PCP General Practice; Visit Provider Nurse Practitioner Family | DX: M54.16 Radiculopathy, lumbar region (principal); M47.816 Spondylosis without myelopathy or radiculopathy, lumbar region | CPT/HCPCS: 99212 ==

== ENCOUNTER 2023-02-17 08:37 | Outpatient (AMB) | payer MEDICAID, SELFPAY ==
[2023-02-17 08:55] VITALS: BP 146/94; PULSE 95; O2SAT 98; BMI 29.2
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
== END 2023-02-17 09:07 | disposition home or self-care (01) ==
PROVIDERS: PCP General Practice; Visit Provider Nurse Practitioner Family
DX: M54.16 Radiculopathy, lumbar region (principal); M47.816 Spondylosis without myelopathy or radiculopathy, lumbar region
CPT/HCPCS: 99213

== ENCOUNTER → 2023-02-17 08:37 | Outpatient (BNVA) | payer MEDICAID, SELFPAY | PROVIDERS: PCP General Practice; Visit Provider Nurse Practitioner Family | DX: M54.16 Radiculopathy, lumbar region (principal); M47.816 Spondylosis without myelopathy or radiculopathy, lumbar region | CPT/HCPCS: 99212 ==

== ENCOUNTER 2023-03-30 13:55 | Outpatient (AMB) | payer MEDICAID, SELFPAY ==
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
[2023-03-30 14:18] VITALS: BP 138/76; PULSE 82; O2SAT 94
== END 2023-03-30 14:25 | disposition home or self-care (01) ==
PROVIDERS: PCP General Practice; Visit Provider Nurse Practitioner Family
DX: M54.16 Radiculopathy, lumbar region (principal); M47.816 Spondylosis without myelopathy or radiculopathy, lumbar region
CPT/HCPCS: 99213

== ENCOUNTER → 2023-03-30 13:55 | Outpatient (BNVA) | payer MEDICAID, SELFPAY | PROVIDERS: PCP General Practice; Visit Provider Nurse Practitioner Family | DX: M54.16 Radiculopathy, lumbar region (principal); M47.816 Spondylosis without myelopathy or radiculopathy, lumbar region | CPT/HCPCS: 99212 ==

== ENCOUNTER 2023-04-09 08:43 | Outpatient (REF) | payer MEDICAID, SELFPAY ==
--- NOTE | ~2023-04-09 | XR_ITS ---
EXAMINATION: XR SHOULDER, LEFT CLINICAL INFORMATION: Left shoulder pain For 2 months COMPARISON: None available. TECHNIQUE: AP external rotation, Grashey, scapular Y, and axillary views of the left shoulder. FINDINGS: The bones and soft tissues are normal. No fracture. Glenohumeral and acromioclavicular alignment is anatomic with normal joint space. 0.9 x 0.5 cm triangular ossific or calcific density is seen in the soft tissues lateral to the humeral neck. This of uncertain etiology. XR/XR shoulder LT min 2V IMPRESSION: No bony abnormality. 0.9 cm ossific or calcific density seen in the soft tissues lateral to the humeral neck. This of uncertain etiology.
== END 2023-04-09 08:44 | disposition home or self-care (01) ==
LOC: HO.HHCX 08:43
PROVIDERS: Visit Provider General Practice
DX: M25.512 Pain in left shoulder (principal)
CPT/HCPCS: 73030

== ENCOUNTER 2023-05-05 06:19 | Outpatient (REF) | payer MEDICAID, SELFPAY ==
--- NOTE | ~2023-05-05 | FL_ITS ---
EXAMINATION: XR FLUOROSCOPY WITH IMAGES CLINICAL INFORMATION: Radiculopathy, lumbar region. COMPARISON: None available. TECHNIQUE: Fluoroscopy Supervised By: Dr. Satya Kelly. Fluoroscopy Time: 0.4 minute. Cumulative Dose: 7.25 mGy. DAP: 1.90 Gycm2. Images: 1. FINDINGS: Image demonstrates needle and contrast injection adjacent to the right lateral lumbar spine at the L4-L5 level. FL/FL guidance in treatment room IMPRESSION: Fluoroscopic guidance for pain management procedure.
== END 2023-05-05 06:20 | disposition home or self-care (01) ==
LOC: CF 06:19
PROVIDERS: Visit Provider Anesthesiology
DX: M54.16 Radiculopathy, lumbar region (principal); M47.816 Spondylosis without myelopathy or radiculopathy, lumbar region
CPT/HCPCS: 64483; J3301; Q9967

== ENCOUNTER 2023-05-05 12:39 | Outpatient (AMB) | payer MEDICAID, SELFPAY ==
[2023-05-05 12:45] VITALS: BP 110/74; PULSE 84; RESP 12; O2SAT 99
--- NOTE | 2023-05-05 12:45 | A.OFFVIS_ITS ---
Intake Vital Signs 05/05/23 12:45 05/05/23 13:20 BP 110/74 140/68 H Blood Pressure Location Lt brachial Lt brachial Position Sitting Sitting Respiration 12 12 Pulse 84 85 Pulse Source Pulse Oximeter Pulse Oximeter Pulse Oximetry (%) 99 98 Oxygen Delivery Method Room Air Room Air Intake Visit Reasons: RIGHT L4, L5 TFESI Allergies No Known Allergies [No Known Allergies*] Allergy (Verified 05/05/23 12:46) PFSH Medical History Hypertension Hepatitis C Social History Patient Tobacco Use Status: Former Tobacco user Cigarettes Per Day: 2 Substance Use Type: Crack/Cocaine and Heroin Physical Exam Vital Signs: Last Vital Signs Pulse 85 05/05/23 13:20 Resp 12 05/05/23 13:20 BP 140/68 H 05/05/23 13:20 Pulse Ox 98 05/05/23 13:20 Oxygen Delivery Method Room Air 05/05/23 13:20 Assessment & Plan Assessment & Plan (1) Lumbar radiculopathy, chronic: Code(s): M54.16 - Radiculopathy, lumbar region (2) Lumbar spondylosis: Code(s): M47.816 - Spondylosis without myelopathy or radiculopathy, lumbar region Plan: Right L4-L5 Transforaminal epidural steroid injection Informed consent was thoroughly explained to the patient before the procedure. The patient came to the operating room. He was positioned prone on operating table with a pillow under her abdomen. Time-out was performed delineating correct site and side of the procedure, nature of the injection, name and date of of the patient. The lower back of the patient was prepped with ChloraPrep and draped with sterile utility towels. C-arm was brought over the operating field and sq picture of L4 vertebra was demonstrated on the screen. Transitional anatomy was suspected. We were able to observe 6 non rib-bearing vertebra is in the lumbar spine. Second vertebra from the sacral S1 vertebra was chosen as the target of the injection. It was considered to be L4 vertebra. The righ side was chosen as the side of the injection. Tilting machine ipsilateral to the right at the level of L4 the most prominent picture of the right L4 superior articular process was obtained on the screen. At the projection of the lateral border of the SAP L5 to the skin small amount of lidocaine 1% 3-4 cc was injected to anesthetize the skin and s/q tissues. After that 5 in 22 gauge Quincke point needle was inserted through the skin wheal and was advanced to were the L4-L5 foramina on anterior posterior, oblique and lateral views intermittently.When needle tip contacted the bone the needle was deviated laterally and after that medially to advance it below the SAP and into the [id number]. On lateral view the needle appeared to be at the lateral portion of the foramina. When tip of the needle entered foramina projection on AP view injection of the contrast was performed demonstrating epidural and perineural spread of the contrast. After that injection of the treatment medicine 4 cc of preservative- free lidocaine 1% mixed with Kenalog 40 mg was injected into the foramina. Injection of the contrast and injection of the treatment medicine was observed live on the screen. No intrathecal and no intravascular spread of the contrast was noted. The needle was removed and bandaid was applied the patient tolerated procedure well. Plan 1. Patient has completed Sprint trial on right side with ongoing 60% pain relief and hopefully this sustains for next several months. He requests to proceed with left side. We will schedule him for Left L5 medial branch temporary peripheral nerve stimulation with Sprint, possible L3 or L4 with local and fluoroscopy. 2. Proceed with Right L4-L5 TFESI local and fluoroscopy prior to left side Sprint trial for his radicular right sided back pain. All questions and concerns have been answered and the patient agreed with the plan. Follow up after injections and sooner if needed. Anticoagulation: Patient not on anticoagulant Justification for interventional therapy: ? Patient with average pain > 6/10 ? Patient has exhausted conservative therapy, NSAIDs, physical therapy The risks, consequences, alternatives, and benefits of various treatment options were discussed with the patient in great detail, including conservative management, injections and procedures. Patient is aware of hyperglycemic effects of steroids. Orders: Orders FL guidance in treatment room 05/05/23 M54.16 - Radiculopathy, lumbar region Coding Level of Care Code Procedure Only Diagnoses Lumbar radiculopathy, chronic M54.16 Lumbar spondylosis M47.816
[2023-05-05 13:20] VITALS: BP 140/68; PULSE 85; RESP 12; O2SAT 98
== END 2023-05-05 13:21 | disposition home or self-care (01) ==
LOC: HO.PMCPRC 12:39
PROVIDERS: PCP General Practice; Visit Provider Anesthesiology
DX: M54.16 Radiculopathy, lumbar region (principal)
CPT/HCPCS: 64483

== ENCOUNTER 2023-05-21 08:00 | Outpatient (REF) | payer MEDICAID, SELFPAY | END 2023-05-21 08:01 | disposition home or self-care (01) | LOC: HO.HAP 08:00 | PROVIDERS: Visit Provider General Practice | DX: Z46.1 Encounter for fitting and adjustment of hearing aid (principal); H90.3 Sensorineural hearing loss, bilateral | CPT/HCPCS: V5266 ==

== ENCOUNTER 2023-06-04 11:24 | Outpatient (AMB) | payer MEDICAID, SELFPAY ==
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
[2023-06-04 11:44] VITALS: BP 138/79; PULSE 82; O2SAT 98; BMI 29.5
== END 2023-06-04 12:17 | disposition home or self-care (01) ==
PROVIDERS: PCP General Practice; Visit Provider Nurse Practitioner Family
DX: M25.561 Pain in right knee (principal); M54.16 Radiculopathy, lumbar region; M47.816 Spondylosis without myelopathy or radiculopathy, lumbar region
CPT/HCPCS: 99214

== ENCOUNTER → 2023-06-04 11:24 | Outpatient (BNVA) | payer MEDICAID, SELFPAY | PROVIDERS: PCP General Practice; Visit Provider Nurse Practitioner Family | DX: M25.561 Pain in right knee (principal); M54.16 Radiculopathy, lumbar region; M47.816 Spondylosis without myelopathy or radiculopathy, lumbar region | CPT/HCPCS: 99212 ==

== ENCOUNTER 2023-06-11 09:13 | Outpatient (REF) | payer MEDICAID, SELFPAY ==
[2023-06-11 10:03] LABS: B Type Natriuretic Peptide 25 pg/mL (<100)
[2023-06-11 10:07] LABS: Anion Gap 12 (12-20); Blood Urea Nitrogen 13 mg/dL (9-16); Calcium 9.2 mg/dL (8.4-10.2); Carbon Dioxide 25 mmol/L (22-29); Chloride 109 mmol/L (96-108); Estimated Glomerular Filt Rate > 60; Glucose Random 99 mg/dL (60-115); Potassium 4.1 mmol/L (3.3-5.1); Sodium 142 mmol/L (135-145)
== END 2023-06-11 09:14 | disposition home or self-care (01) ==
LOC: HO.LAB 09:13
PROVIDERS: PCP General Practice; Visit Provider Internal Medicine Cardiovascular Disease
DX: R00.2 Palpitations (principal)
CPT/HCPCS: 36415; 80048; 83880

== ENCOUNTER 2023-07-30 13:50 | Outpatient (AMB) | payer MEDICAID, SELFPAY ==
[2023-07-30 13:56] VITALS: BP 170/83; PULSE 80; O2SAT 98; BMI 29.5
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
== END 2023-07-30 14:27 | disposition home or self-care (01) ==
PROVIDERS: PCP General Practice; Visit Provider Nurse Practitioner Family
DX: M54.16 Radiculopathy, lumbar region (principal); M51.36 Other intervertebral disc degeneration, lumbar region; M25.561 Pain in right knee; M47.816 Spondylosis without myelopathy or radiculopathy, lumbar region
CPT/HCPCS: 99214

== ENCOUNTER → 2023-07-30 13:50 | Outpatient (BNVA) | payer MEDICARE, MEDICAID, SELFPAY | PROVIDERS: PCP General Practice; Visit Provider Nurse Practitioner Family | DX: M54.16 Radiculopathy, lumbar region (principal); M51.36 Other intervertebral disc degeneration, lumbar region; M25.561 Pain in right knee; M47.816 Spondylosis without myelopathy or radiculopathy, lumbar region | CPT/HCPCS: 99212 ==

== ENCOUNTER 2023-07-31 07:53 | Outpatient (REF) | payer MEDICARE, MEDICAID, SELFPAY ==
--- NOTE | ~2023-07-31 | XR_ITS ---
EXAMINATION: XR KNEE, RIGHT CLINICAL INFORMATION: Right knee pain. COMPARISON: None available. TECHNIQUE: Four views of the right knee. FINDINGS: There has been no significant radiographic change compared with July 30, 2022. A smooth, ovoid, approximately 1.4 cm, dense calcification projects over the anteromedial aspect of the proximal, medial tibial metaphysis, not significantly changed compared with July 30, 2022. No fracture or joint effusion. Alignment is anatomic. Joint spaces are maintained. XR/XR knee RT 3V IMPRESSION: No acute finding.
== END 2023-07-31 07:54 | disposition home or self-care (01) ==
LOC: HO.XRAY 07:53
PROVIDERS: PCP General Practice; Visit Provider Nurse Practitioner Family
DX: M25.561 Pain in right knee (principal)
CPT/HCPCS: 73562

== ENCOUNTER 2023-08-18 17:21 | Outpatient (REF) | payer MEDICARE, MEDICAID, SELFPAY ==
--- NOTE | ~2023-08-18 | MR_ITS ---
EXAMINATION: MR LUMBAR SPINE WITHOUT CONTRAST CLINICAL INFORMATION: Right leg pain. Low back pain. COMPARISON: MR lumbar spine dated 08/19/2022. TECHNIQUE: Multiplanar, multisequence imaging was obtained. FINDINGS: VERTEBRAL BODIES AND PARASPINAL STRUCTURES: The marrow signal is homogeneous. Very mild rightward lumbar spinal curvature noted. Reduced intradiscal signal noted at multiple levels as a result of degeneration. There is mild anterior endplate spurring at the L1-L2 level. No compression fractures are seen. The paraspinal soft tissues are normal. Small lower pole left renal cyst is stable compared to prior imaging. CONUS MEDULLARIS AND CAUDA EQUINE: The distal cord, conus tip, and cauda equina nerve roots are normal. SPINAL LEVELS: L1-L2: Endplate spurring and mild loss of disc height with a generalized disc bulge and mild facet arthropathy, stable compared to prior imaging. No focal disc protrusion, central canal stenosis, or significant foraminal narrowing. L2-L3: No disc pathology. No central canal stenosis or foraminal narrowing. L3-L4: Endplate spurring and mild generalized disc bulge with mild facet arthropathy. Mild bilateral foraminal narrowing is stable. L4-L5: Diffuse disc bulge and hypertrophic facet arthropathy. No central canal stenosis. Bulging disc and osseous spurring with [id number] foraminal encroachment, otherwise stable. L5-S1: No disc abnormality. No central canal stenosis or foraminal narrowing. MR/MR lumbar spine wo con IMPRESSION: Relatively stable multilevel lumbar spondylosis. No focal disc protrusion or central canal stenosis. [id number] bilateral foraminal narrowing at the L4-L5 level.
== END 2023-08-18 17:22 | disposition home or self-care (01) ==
LOC: HO.MRI 17:21
PROVIDERS: PCP General Practice; Visit Provider Nurse Practitioner Family
DX: M54.16 Radiculopathy, lumbar region (principal); M51.36 Other intervertebral disc degeneration, lumbar region
CPT/HCPCS: 72148

== ENCOUNTER 2023-08-25 06:17 | Outpatient (REF) | payer MEDICARE, MEDICAID, SELFPAY | END 2023-08-25 06:18 | disposition home or self-care (01) | LOC: CF 06:17 | PROVIDERS: Visit Provider Anesthesiology | DX: M54.16 Radiculopathy, lumbar region (principal); M51.36 Other intervertebral disc degeneration, lumbar region; M25.561 Pain in right knee; M47.816 Spondylosis without myelopathy or radiculopathy, lumbar region | CPT/HCPCS: 20610; J3301 ==

== ENCOUNTER 2023-08-25 13:56 | Outpatient (AMB) | payer MEDICARE, MEDICAID, SELFPAY ==
--- NOTE | 2023-08-25 13:55 | A.OFFVIS_ITS ---
Intake Vital Signs 08/25/23 13:56 08/25/23 14:51 Height 5 ft 8 in Weight 194 lb BMI 29.5 BP 144/82 H 136/80 Blood Pressure Location Lt brachial Lt brachial Position Sitting Sitting Respiration 20 18 Pulse 109 H 101 H Pulse Source Pulse Oximeter Pulse Oximeter Pulse Oximetry (%) 97 98 Oxygen Delivery Method Room Air Room Air Comment Pre-Op Post-Op Intake Visit Reasons: RIGHT INTRA-ARTICULAR KNEE INJECTION Allergies No Known Allergies [No Known Allergies*] Allergy (Verified 07/30/23 13:58) PFSH Medical History Hypertension Hepatitis C Social History Patient Tobacco Use Status: Former Tobacco user Cigarettes Per Day: 2 Substance Use Type: Crack/Cocaine and Heroin Physical Exam Vital Signs: Last Vital Signs Pulse 109 H 08/25/23 13:56 Resp 20 08/25/23 13:56 BP 144/82 H 08/25/23 13:56 Pulse Ox 97 08/25/23 13:56 Oxygen Delivery Method Room Air 08/25/23 13:56 BMI result Body Mass Index 29.5 Assessment & Plan Assessment & Plan (1) Lumbar radiculopathy, chronic: Code(s): M54.16 - Radiculopathy, lumbar region (2) Lumbar degenerative disc disease: Code(s): M51.36 - Other intervertebral disc degeneration, lumbar region (3) Right knee pain: Code(s): M25.561 - Pain in right knee Plan: Therapeutic right knee avoid injection. ? ? ?Informed consent was explained to the patient. All questions were explained and? answered.? The patient was taken inside the operating room where he was positioned sitting on the chair Time-out was performed delineating correct site, side, the nature of the procedure, patient's allergy, . All operating room staff was participating in OR time-out procedure. ? ? The right knee was prepped with ChloraPrep and draped with sterile towels.? Anterior lateral surface of the right knee was chosen as the target of the injection. Using 25 gauge 1/2 inch needle the retropatellar space was reached by directing knee from anterior lateral to posteromedial direction. Aspiration resulted in no blood and no synovial fluid. After that injection of the lidocaine 4 cc mixed with Kenalog 40 mg was performed in the knee. The patient tolerated procedure well. The needle was withdrawn sterile Band-Aid was applied. The patient recovered uneventfully. (4) Lumbar spondylosis: Code(s): M47.816 - Spondylosis without myelopathy or radiculopathy, lumbar region Plan Patient reminded to complete right knee x-ray to assess degree of arthritis. Schedule Right knee intra-articular steroid injection with local and fluoroscopy . Expectations, risks and benefits were reviewed. Patient is aware he will be contacted to schedule this procedure. Script provided for lidocaine patches for right knee pain and refill for gabapentin. MRI of the lumbar spine to assess for neural integrity and compression. Patient received Right L4-L5 TFESI in 05/2023 which provided him only one week of pain relief. He also completed lumbar medial branch peripheral nerve stimulation with 6 months of moderate pain relief for 6 month. Patient will return to the clinic to discuss results of the MRI findings when it is done and consider interventional therapy vs Neurosurgical evaluaton as indicated. Orders: Orders FL guidance in treatment room Today M25.561 - Pain in right knee Coding Level of Care Code Procedure Only Diagnoses Lumbar radiculopathy, chronic M54.16 Lumbar degenerative disc disease M51.36 Right knee pain M25.561 Lumbar spondylosis M47.816
[2023-08-25 13:56] VITALS: BP 144/82; PULSE 109; RESP 20; O2SAT 97; BMI 29.5
[2023-08-25 14:51] VITALS: BP 136/80; PULSE 101; RESP 18; O2SAT 98
== END 2023-08-25 14:51 | disposition home or self-care (01) ==
LOC: HO.PMCPRC 13:56
PROVIDERS: PCP General Practice; Visit Provider Anesthesiology
DX: M25.561 Pain in right knee (principal)
CPT/HCPCS: 20610

== ENCOUNTER 2023-09-12 07:17 | Outpatient (REF) | payer MEDICAID, SELFPAY ==
[2023-09-12 08:45] LABS: Cholesterol 198 mg/dL (<200); HDL Cholesterol 38 mg/dL (>40); LDL Cholesterol Calculated 132 mg/dL (<100); Triglycerides 144 mg/dL (<150)
== END 2023-09-12 07:18 | disposition home or self-care (01) ==
LOC: HO.LAB 07:17
PROVIDERS: PCP General Practice; Visit Provider General Practice
DX: E78.2 Mixed hyperlipidemia (principal)
CPT/HCPCS: 36415; 80061

== ENCOUNTER 2023-09-18 11:18 | Outpatient (REF) | payer MEDICARE, MEDICAID, SELFPAY | END 2023-09-18 11:19 | disposition home or self-care (01) | LOC: HO.HAP 11:18 | PROVIDERS: Visit Provider General Practice | DX: Z46.1 Encounter for fitting and adjustment of hearing aid (principal); H90.A31 Mixed conductive and sensorineural hearing loss, unilateral, right ear with restricted hearing on the contralateral side | CPT/HCPCS: V5266 ==

== ENCOUNTER 2023-09-21 12:32 | Outpatient (AMB) | payer MEDICAID, SELFPAY ==
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
[2023-09-21 13:01] VITALS: BP 175/88; PULSE 76; O2SAT 99; BMI 31.1
== END 2023-09-21 13:21 | disposition home or self-care (01) ==
LOC: HO.PMC 12:54
PROVIDERS: PCP General Practice; Visit Provider Nurse Practitioner Family
DX: M54.16 Radiculopathy, lumbar region (principal); M47.816 Spondylosis without myelopathy or radiculopathy, lumbar region; M51.36 Other intervertebral disc degeneration, lumbar region; M25.561 Pain in right knee
CPT/HCPCS: 99214

== ENCOUNTER → 2023-09-21 12:54 | Outpatient (BNVA) | payer MEDICARE, MEDICAID, SELFPAY | PROVIDERS: PCP General Practice; Visit Provider Nurse Practitioner Family | DX: M25.561 Pain in right knee (principal); M51.36 Other intervertebral disc degeneration, lumbar region; M47.26 Other spondylosis with radiculopathy, lumbar region | CPT/HCPCS: 99212 ==

== ENCOUNTER 2023-11-03 06:44 | Outpatient (REF) | payer MEDICARE, MEDICAID, SELFPAY ==
--- NOTE | ~2023-11-03 | FL_ITS ---
EXAMINATION: XR FLUOROSCOPY WITH IMAGES CLINICAL INFORMATION: Lumbar radiculopathy. COMPARISON: None available. TECHNIQUE: Fluoroscopy Supervised By: Dr. Kelly. Fluoroscopy Time: 0.3 min. Cumulative Dose: 6.29 mGy. DAP: 0.109 Gycm2. Images: 2. FINDINGS: Intraoperative fluoroscopy and spot films were performed during a procedure in the OR. A single needle is present just below the right-sided pedicle of a lumbar vertebral body via transforaminal approach. Epidural contrast is present. Please see Dr. Kelly's report for complete details. FL/FL guidance in treatment room IMPRESSION: Intraoperative fluoroscopy and spot films were obtained. Please see Dr. Kelly's report for complete details.
== END 2023-11-03 06:45 | disposition home or self-care (01) ==
LOC: CF 06:44
PROVIDERS: Visit Provider Anesthesiology
DX: M47.26 Other spondylosis with radiculopathy, lumbar region (principal)
CPT/HCPCS: 64483; J0665; J3301

== ENCOUNTER 2023-11-03 08:30 | Outpatient (AMB) | payer MEDICARE, MEDICAID, SELFPAY ==
[2023-11-03 08:33] VITALS: BP 122/80; PULSE 84; RESP 18; O2SAT 97; BMI 31.0
--- NOTE | 2023-11-03 08:33 | A.OFFVIS_ITS ---
Vital Signs 11/03/23 08:33 11/03/23 09:58 Height 5 ft 8 in Weight 204 lb BMI 31.0 BP 122/80 128/74 Blood Pressure Location Lt brachial Lt brachial Position Sitting Sitting Respiration 18 16 Pulse 84 73 Pulse Source Pulse Oximeter Pulse Oximeter Pulse Oximetry (%) 97 98 Oxygen Delivery Method Room Air Room Air Comment Pre-Op Post-Op Intake Visit Reasons: Right L5 TFESI Allergies No Known Allergies [No Known Allergies*] Allergy (Verified 09/21/23 13:02) PFSH Medical History Hypertension Hepatitis C Social History Patient Tobacco Use Status: Former Tobacco user Cigarettes Per Day: 2 Substance Use Type: Crack/Cocaine and Heroin Physical Exam Vital Signs: Last Vital Signs Pulse 73 11/03/23 09:58 Resp 16 11/03/23 09:58 BP 128/74 11/03/23 09:58 Pulse Ox 98 11/03/23 09:58 Oxygen Delivery Method Room Air 11/03/23 09:58 BMI result Body Mass Index 31.0 Assessment & Plan Assessment & Plan (1) Lumbar radiculopathy, chronic: Code(s): M54.16 - Radiculopathy, lumbar region Category: Medical (2) Lumbar spondylosis: Code(s): M47.816 - Spondylosis without myelopathy or radiculopathy, lumbar region Category: Medical Plan: Right L4-L5 Transforaminal epidural steroid injection Informed consent was thoroughly explained to the patient before the procedure. The patient came to the operating room. He was positioned prone on operating table with a pillow under her abdomen. Time-out was performed delineating correct site and side of the procedure, nature of the injection, name and date of of the patient. The lower back of the patient was prepped with ChloraPrep and draped with sterile utility towels. C-arm was brought over the operating field and sq picture of L4 vertebra was demonstrated on the screen. Transitional anatomy was suspected. We were able to observe 6 non rib-bearing vertebra is in the lumbar spine. Second vertebra from the sacral S1 vertebra was chosen as the target of the injection. It was considered to be L4 vertebra. The righ side was chosen as the side of the injection. Tilting machine ipsilateral to the right at the level of L4 the most prominent picture of the right L4 superior articular process was obtained on the screen. At the projection of the lateral border of the SAP L5 to the skin small amount of lidocaine 1% 3-4 cc was injected to anesthetize the skin and s/q tissues. After that 5 in 22 gauge Quincke point needle was inserted through the skin wheal and was advanced to were the L4-L5 foramina on anterior posterior, oblique and lateral views intermittently.When needle tip contacted the bone the needle was deviated laterally and after that medially to advance it below the SAP and into the [id number]. On lateral view the needle appeared to be at the lateral portion of the foramina. When tip of the needle entered foramina projection on AP view injection of the contrast was performed demonstrating epidural and perineural spread of the contrast. After that injection of the treatment medicine 4 cc of preservative- free lidocaine 1% mixed with Kenalog 40 mg was injected into the foramina. Injection of the contrast and injection of the treatment medicine was observed live on the screen. No intrathecal and no intravascular spread of the contrast was noted. The needle was removed and bandaid was applied the patient tolerated procedure well. Plan 1. Patient has completed Sprint trial on right side with ongoing 60% pain relief and hopefully this sustains for next several months. He requests to proceed with left side. We will schedule him for Left L5 medial branch temporary peripheral nerve stimulation with Sprint, possible L3 or L4 with local and fluoroscopy. 2. Proceed with Right L4-L5 TFESI local and fluoroscopy prior to left side Sprint trial for his radicular right sided back pain. All questions and concerns have been answered and the patient agreed with the plan. Follow up after injections and sooner if needed. Anticoagulation: Patient not on anticoagulant Justification for interventional therapy: ? Patient with average pain > 6/10 ? Patient has exhausted conservative therapy, NSAIDs, physical therapy The risks, consequences, alternatives, and benefits of various treatment options were discussed with the patient in great detail, including conservative management, injections and procedures. Patient is aware of hyperglycemic effects of steroids. Coding Level of Care Code Procedure Only Diagnoses Lumbar radiculopathy, chronic M54.16 Lumbar spondylosis M47.816
[2023-11-03 09:58] VITALS: BP 128/74; PULSE 73; RESP 16; O2SAT 98
== END 2023-11-03 09:52 | disposition home or self-care (01) ==
LOC: HO.PMCPRC 08:30
PROVIDERS: PCP General Practice; Referring Provider General Practice; Visit Provider Anesthesiology
DX: M54.16 Radiculopathy, lumbar region (principal)
CPT/HCPCS: 64483

== ENCOUNTER 2023-11-16 13:28 | Outpatient (REF) | payer MEDICARE, MEDICAID, SELFPAY ==
[2023-11-16 16:23] LABS: CT PCR NOT DETECTED (Not Detect.); NG PCR NOT DETECTED (Not Detect.)
== END 2023-11-16 13:29 | disposition home or self-care (01) ==
LOC: HO.HHCLNP 13:28
PROVIDERS: Visit Provider Internal Medicine
DX: Z11.3 Encounter for screening for infections with a predominantly sexual mode of transmission (principal); R35.0 Frequency of micturition
CPT/HCPCS: 0353U; 87086

== ENCOUNTER 2023-11-17 10:48 | Outpatient (AMB) | payer MEDICAID, SELFPAY ==
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
[2023-11-17 10:54] VITALS: BP 142/104; PULSE 116; O2SAT 99; BMI 31.0
== END 2023-11-17 11:10 | disposition home or self-care (01) ==
PROVIDERS: PCP General Practice; Visit Provider Nurse Practitioner Family
DX: M25.551 Pain in right hip (principal); M54.16 Radiculopathy, lumbar region; R20.0 Anesthesia of skin; R20.2 Paresthesia of skin; N52.9 Male erectile dysfunction, unspecified; Z92.241 Personal history of systemic steroid therapy
CPT/HCPCS: 99214

== ENCOUNTER 2023-11-17 10:48 | Outpatient (REF) | payer MEDICARE, MEDICAID, SELFPAY ==
--- NOTE | ~2023-11-17 | XR_ITS ---
EXAMINATION: XR HIP, RIGHT CLINICAL INFORMATION: Pain in right hip. COMPARISON: X-ray abdomen July 30, 2022. TECHNIQUE: AP view of the pelvis and 2 views of the right hip. FINDINGS: Surgical clips in the right inguinal region. Pubic symphysis and bilateral sacroiliac joints are maintained. Degenerative changes in the imaged lower lumbar spine. Moderate degenerative changes in the right hip with superior joint space narrowing and lateral acetabular hypertrophic change. Lateral soft tissue calcific/ossific densities. Mild degenerative changes on single AP view of the left hip. XR/XR hip RT w PEL1V IMPRESSION: 1. Moderate degenerative changes in the right hip. 2. Mild degenerative changes in the left hip. 3. Additional imaging with CT scan or MRI should be considered for further evaluation if there is clinical concern for fracture or other underlying pathology.
== END 2023-11-17 10:49 | disposition home or self-care (01) ==
LOC: HO.XRAY 10:48
PROVIDERS: PCP General Practice; Visit Provider Nurse Practitioner Family
DX: M25.551 Pain in right hip (principal); M54.16 Radiculopathy, lumbar region; R20.0 Anesthesia of skin; R20.2 Paresthesia of skin
CPT/HCPCS: 73502; 99212

== ENCOUNTER 2023-11-27 09:47 | Outpatient (REF) | payer MEDICARE, MEDICAID, SELFPAY ==
--- NOTE | 2023-11-27 10:29 | EMG_ITS ---
Chief complaint: Leg numbness and tiredness, right worse than left. Chronic back pain. History of hepatitis-C, status post treatment. History of polysubstance use. Reason for referral: Evaluate for radiculopathy versus neuropathy Referred by: Bilateral lower extremity NCS/EMG Procedure done: Sherlyn Dooley NP Precautions and/or limitations: None The limb temperature was monitored continuously and remained between 32-36 degrees C during the performance of the NCS. Nerve Conduction Studies Anti Sensory Summary Table ?Stim Site NR Onset (ms) Norm Onset (ms) Peak (ms) Norm Peak (ms) O-P Amp (?V) Norm O-P Amp Site1 Site2 Delta-0 (ms) Dist (cm) Luis Fernando (m/s) Norm Luis Fernando (m/s) Left Sural Anti Sensory (Lat Mall) Calf NR <4.0 >5.0 Calf Lat Mall 14.0 Right Sural Anti Sensory (Lat Mall) Calf NR <4.0 >5.0 Calf Lat Mall 14.0 Motor Summary Table ?Stim Site NR Onset (ms) Norm Onset (ms) O-P Amp (mV) Norm O-P Amp iAmp (mV) Amp (1st) (%) Site1 Site2 Delta-0 (ms) Dist (cm) Luis Fernando (m/s) Norm Luis Fernando (m/s) Right Peroneal Motor (Ext Dig Brev) Ankle ? 5.2 <4.0 2.3 >2.5 2.8 100.0 Ankle Ext Dig Brev 5.2 0.0 B Fib ? 13.7 2.1 2.4 91.3 B Fib Ankle 8.5 34.0 40 >40 Poplt ? 14.9 1.9 2.4 82.6 Poplt B Fib 1.2 6.0 50 >40 Left Tibial Motor (Abd Hargrove Brev) Ankle ? 4.2 <5 3.3 >2.5 5.0 100.0 Ankle Abd Hargrove Brev 4.2 0.0 Knee ? 14.5 2.0 2.9 60.6 Knee Ankle 10.3 40.0 39 >40 Right Tibial Motor (Abd Hargrove Brev) Ankle ? 4.1 <5 2.2 >2.5 2.7 100.0 Ankle Abd Hargrove Brev 4.1 0.0 Knee ? 17.0 1.3 1.6 59.1 Knee Ankle 12.9 42.0 33 >40 EMG ?Side Muscle Nerve Root Ins Act Fibs Psw Amp Dur Poly Recrt Int Pat Comment Right AbdHallucis MedPlantar S1-2 Nml Nml Nml Nml Nml 0 Nml Complete Right AntTibialis Dp Br Peron L4-5 Nml Nml Nml Nml Nml 0 Nml Complete Right PostTibialis Tibial L5, S1 Nml Nml Nml Nml Nml 0 Nml Complete Right MedGastroc Tibial S1-2 Nml Nml Nml Nml Nml 0 Nml Complete Right VastusMed Femoral L2-4 Nml Nml Nml Nml Nml 0 Nml Complete Left AbdHallucis MedPlantar S1-2 Nml Nml Nml Nml Nml 0 Nml Complete Left AntTibialis Dp Br Peron L4-5 Nml Nml Nml Nml Nml 0 Nml Complete Left PostTibialis Tibial L5, S1 Nml Nml Nml Nml Nml 0 Nml Complete Left MedGastroc Tibial S1-2 Nml Nml Nml Nml Nml 0 Nml Complete Left VastusMed Femoral L2-4 Nml Nml Nml Nml Nml 0 Nml Complete FINDINGS: Right peroneal nerve showed prolonged distal latency, small amplitude and normal conduction velocity. Right tibial nerve showed normal distal latency, small amplitude and slow conduction velocity. Left tibial nerve showed normal distal latency, normal amplitude and slow conduction velocity. Bilateral sural nerves absent response. Concentric needle EMG was performed in selected muscles of the bilateral lower extremity. Study did not reveal signs of electric abnormalities as shown in the table above. IMPRESSION: 1. This is an abnormal study. 2. 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 3. There is no electrodiagnostic evidence for peroneal neuropathy, tibial neuropathy. lumbosacral plexopathy, or lumbar radiculopathy. Thank you for your kind referral. Tova Jackson MD, TERESA Board Certified, [place] [employer] and [employer] (ABPMR) Board Certified, [place] [employer] Electro[employer] (ABEM) CODIN [id number] x 2 MTDD
== END 2023-11-27 09:48 | disposition home or self-care (01) ==
LOC: HO.NEURO 09:47
PROVIDERS: PCP General Practice; Visit Provider Nurse Practitioner Family
DX: R20.0 Anesthesia of skin (principal); R20.2 Paresthesia of skin; M54.16 Radiculopathy, lumbar region; N52.9 Male erectile dysfunction, unspecified; Z92.241 Personal history of systemic steroid therapy
CPT/HCPCS: 95886; 95909

== ENCOUNTER → 2023-11-27 10:29 | Outpatient (BNV) | payer MEDICARE, MEDICAID, SELFPAY | PROVIDERS: PCP General Practice; Visit Provider Physical Medicine & Rehabilitation | DX: G62.89 Other specified polyneuropathies (principal); R20.2 Paresthesia of skin | CPT/HCPCS: 95886; 95909 ==

== ENCOUNTER 2023-12-01 12:50 | Outpatient (AMB) | payer MEDICAID, SELFPAY ==
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
[2023-12-01 13:05] VITALS: BP 157/83; PULSE 78; O2SAT 99; BMI 31.6
== END 2023-12-01 13:31 | disposition home or self-care (01) ==
PROVIDERS: PCP General Practice; Visit Provider Nurse Practitioner Family
DX: N52.9 Male erectile dysfunction, unspecified (principal); Z92.241 Personal history of systemic steroid therapy; M51.36 Other intervertebral disc degeneration, lumbar region; M54.16 Radiculopathy, lumbar region; M47.816 Spondylosis without myelopathy or radiculopathy, lumbar region
CPT/HCPCS: 99214

== ENCOUNTER → 2023-12-01 12:50 | Outpatient (BNVA) | payer MEDICAID, SELFPAY | PROVIDERS: PCP General Practice; Visit Provider Nurse Practitioner Family | DX: N52.2 Drug-induced erectile dysfunction (principal); M47.816 Spondylosis without myelopathy or radiculopathy, lumbar region; M54.16 Radiculopathy, lumbar region; M51.36 Other intervertebral disc degeneration, lumbar region; Z92.241 Personal history of systemic steroid therapy | CPT/HCPCS: 99212 ==

== ENCOUNTER 2023-12-10 13:01 | Outpatient (REF) | payer MEDICARE, MEDICAID, SELFPAY ==
--- NOTE | ~2023-12-10 | US_ITS ---
EXAMINATION: US PELVIS, LIMITED CLINICAL INFORMATION: History of erectile dysfunction. COMPARISON: None available. TECHNIQUE: Limited pelvic ultrasound examination performed using a transabdominal transducer. FINDINGS: Urinary bladder is mildly distended and has normal wall thickness. No bladder mass, stone or diverticulum. The prostate gland is normal in size; it measures approximately 3.5 cm transverse x 2.9 cm AP and 3.2 cm craniocaudal. No evidence of a cyst of the prostate gland or along region of ejaculatory ducts. There is no visible periprostatic soft tissue abnormality. No pelvic free fluid. US/US pelvic limited IMPRESSION: Prostate gland is grossly normal on this limited transabdominal imaging examination.
== END 2023-12-10 13:02 | disposition home or self-care (01) ==
LOC: HO.US 13:01
PROVIDERS: PCP General Practice; Visit Provider Nurse Practitioner Family
DX: N52.9 Male erectile dysfunction, unspecified (principal); Z92.241 Personal history of systemic steroid therapy
CPT/HCPCS: 76857

== ENCOUNTER 2023-12-23 08:27 | Outpatient (REF) | payer MEDICARE, MEDICAID, SELFPAY | END 2023-12-23 08:28 | disposition home or self-care (01) | LOC: HO.HAP 08:27 | PROVIDERS: Visit Provider General Practice | DX: Z46.1 Encounter for fitting and adjustment of hearing aid (principal); H90.A31 Mixed conductive and sensorineural hearing loss, unilateral, right ear with restricted hearing on the contralateral side | CPT/HCPCS: V5266 ==

== ENCOUNTER 2024-01-12 10:40 | Outpatient (AMB) | payer MEDICARE, MEDICAID, SELFPAY ==
--- NOTE | 2024-01-12 10:46 | MHC.OFFVIS ---
Intake Visit Reasons: erectile dysfunction/Post TFESI Inj Intake Note: Pt presents to the office today for erectile dysfunction/Post TFESI Injection Urology Med:Furosemide Blood Thinners:None Allergies No Known Allergies [No Known Allergies*] Allergy (Verified 02/15/24 13:02) HPI Comments Details: Marcin is a pleasant male. He is a patient of Dr. Montesinos. He is seen for the following urologic conditions - erectile dysfunction Erectile dysfunction Progressive No prior medications Patient states the related to prior spine injection with pain management Trial tadalafil daily [facility] Medical History Sebaceous cyst Umbilical hernia Lumbar spondylosis Lumbar radiculopathy, chronic Bilateral knee pain Lumbar degenerative disc disease Hypertension Hepatitis C Social History Patient Tobacco Use Status: Former Tobacco user Cigarettes Per Day: 2 Substance Use Type: Crack/Cocaine and Heroin Review of Systems Const Denies chills and Denies fever(s) Card Reports no additional complaints and Denies syncope Resp Denies cough GI Denies abdominal pain and Denies heartburn Reports as per HPI and Denies change in libido Neuro Denies syncope Psych Denies change in libido Endo Denies change in libido Physical Exam Const General: cooperative, healthy appearing, comfortable and no acute distress Orientation/consciousness: patient oriented x3 HEENT Face and sinus: Yes normal facial exam Mouth: moist mucous membranes Neck Neck: Yes normal visual inspection, Yes full ROM and Yes trachea midline Chest Chest palpation & inspection: normal inspection of the chest Resp Effort & Inspection: normal respiratory effort, able to speak in complete sentences and no respiratory distress GI Inspection: Yes normal to inspection Back/Spine/Pelvis Cervical Spine: normal cervical lordosis Thoracic/Lumbar Spine: thoracic and lumbar spine normal to inspection Skin General skin exam: no rashes or lesions noted Neuro General: patient oriented x3, gait normal, tone normal and moves all extremities Extrem General: Yes normal to inspection and Yes capillary refill normal Assessment & Plan Assessment & Plan (1) Lower urinary tract symptoms due to benign prostatic hyperplasia: Code(s): N40.1 - Benign prostatic hyperplasia with lower urinary tract symptoms Category: Medical (2) Erectile dysfunction: Code(s): N52.9 - Male erectile dysfunction, unspecified Category: Medical Plan Trial tadalafil Medications: New tadalafil 5 mg PO DAILY 90 tabs 0RF BPH 90 days N52.01 - Erectile dysfunction due to arterial insufficiency Patient Instructions: Imaging studies, laboratory and physical exam results were discussed and reviewed in detail. No major barriers to patient understanding were identified. An opportunity to ask questions regarding the treatment plan was provided. All questions were answered. The patient expressed understanding and agreement with the above treatment plan. The patient is aware they should contact our office by phone for worsening of their current condition or the appearance of new urologic symptoms. Compliance is encouraged with any medications and followup testing that is ordered. It is a privilege to participate in the urologic care of your patient. If you have any questions or concerns regarding treatment for the above conditions, or other urologic issues, please do not hesitate to contact me. The office telephone contact is [phone]. This note is constructed using voice recognition software. While every effort has been made to ensure accuracy seismology teacher errors may have been included. Yours sincerely, Dr Zhang Jimenez MD, [facility] - Urology Providers of Expert, Compassionate Care for the Genitourinary System Coding Level of Care Code New Pt Level 4 (83738) Diagnoses Lower urinary tract symptoms due to benign prostatic hyperplasia N40.1 Erectile dysfunction N52.9
== END 2024-01-12 11:33 | disposition home or self-care (01) ==
PROVIDERS: PCP General Practice; Visit Provider Urology
DX: N40.1 Benign prostatic hyperplasia with lower urinary tract symptoms (principal); N52.9 Male erectile dysfunction, unspecified
CPT/HCPCS: 99204

== ENCOUNTER → 2024-01-12 10:40 | Outpatient (BNVA) | payer MEDICARE, MEDICAID, SELFPAY | PROVIDERS: PCP General Practice; Visit Provider Urology | DX: N40.1 Benign prostatic hyperplasia with lower urinary tract symptoms (principal); N52.01 Erectile dysfunction due to arterial insufficiency | CPT/HCPCS: 99202 ==

== ENCOUNTER 2024-02-04 12:51 | Outpatient (AMB) | payer MEDICARE, MEDICAID, SELFPAY ==
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
[2024-02-04 13:14] VITALS: BP 158/92; PULSE 92; O2SAT 98; BMI 31.9
== END 2024-02-04 13:43 | disposition home or self-care (01) ==
PROVIDERS: PCP General Practice; Visit Provider Nurse Practitioner Family
DX: M54.16 Radiculopathy, lumbar region (principal); M51.36 Other intervertebral disc degeneration, lumbar region; Z92.241 Personal history of systemic steroid therapy; M47.816 Spondylosis without myelopathy or radiculopathy, lumbar region
CPT/HCPCS: 99214; G2211

== ENCOUNTER → 2024-02-04 12:51 | Outpatient (BNVA) | payer MEDICARE, MEDICAID, SELFPAY | PROVIDERS: PCP General Practice; Visit Provider Nurse Practitioner Family | DX: M47.26 Other spondylosis with radiculopathy, lumbar region (principal); M51.36 Other intervertebral disc degeneration, lumbar region; Z92.241 Personal history of systemic steroid therapy | CPT/HCPCS: 99212 ==

== ENCOUNTER 2024-02-15 12:29 | Outpatient (AMB) | payer MEDICARE, MEDICAID, SELFPAY ==
--- NOTE | 2024-02-15 12:57 | HO.SPINEOV ---
Intake Visit Reasons: lumbar radiculopathy Intake Note: Mr. Cabrera is here today c/o low back pain. Advertising Sales Manager Required: Yes Advertising Sales Manager Name: Tablet Allergies No Known Allergies [No Known Allergies*] Allergy (Verified 02/15/24 13:02) Assessment & Plan Assessment & Plan (1) Lumbar radiculopathy, chronic: Code(s): M54.16 - Radiculopathy, lumbar region Category: Medical Plan Dear Sherlyn Thank you for referring Mr. Cabrera to our office today. He is a very nice 63-year-old gentleman, presents to the office today for chronic low back pain he has had for many years. He occasionally gets pain radiating down the right leg but it is really the center of the middle of the lumbar spine that has been bothering him. It is there throughout the whole day but is particularly worse when he is getting up in the morning. He has difficulty sitting for any length of time as well or lying down. He underwent a few injections a your office and did get some temporary relief from these but nothing that had a lasting impact. He takes Naprosyn and tramadol throughout the day to help with the symptoms. He came with an MRI from the [facility] showing some degenerative changes. PMH: He has high blood pressure, respiratory issues, dementia, depression, anxiety, hypertension, high cholesterol, erectile dysfunction, hepatitis-C, peripheral artery disease, previous history of narcotic and substance abuse. Social hx: He does not smoke, drink or use any recreational drugs Medications: Please see the [place] [employer] Assist list Allergies: None Physical exam: Awake alert oriented, forgetful at times, strength and reflexes are normal, tenderness in the midline lumbar spine area. Imaging review: He is a lumbar MRI done at the [facility] and this shows just some very mild disc degeneration. I do not see any signs of misalignment, there is no inflammation of the bones, Modic endplate changes or anything obvious on the MRI imaging that would localize the source of low back pain. There are varying degrees of mild foraminal stenosis. Impression: 63-year-old male with chronic low back pain, his MRI is showing just some very mild degenerative changes, I do not see anything structural that would be amenable to surgery. Unfortunately I do not have an answer for him as to where his back pain is coming from but I explained to him that back pain is complicated and can be very challenging to find the source. He should continue with all the nonoperative treatments that are available including things like PT, chiropractic, acupuncture etc. if the injections have stopped working. Thank you for allowing us to care for your patient. The total time spent with this visit with this patient was 45 minutes reviewing history, physical exam, lumbar imaging review, and implementation of treatment plan or further diagnostic testing Benedicto Cross MD,PhD [facility] Coding Level of Care Code New Pt Level 4 (08293) Diagnoses Lumbar radiculopathy, chronic M54.16
== END 2024-02-15 14:14 | disposition home or self-care (01) ==
PROVIDERS: PCP General Practice; Referring Provider Nurse Practitioner Family; Visit Provider Physician Assistant
DX: M54.16 Radiculopathy, lumbar region (principal)
CPT/HCPCS: 99204

== ENCOUNTER → 2024-02-15 12:29 | Outpatient (BNVA) | payer MEDICARE, MEDICAID, SELFPAY | PROVIDERS: PCP General Practice; Visit Provider Physician Assistant | DX: M54.16 Radiculopathy, lumbar region (principal) | CPT/HCPCS: 99202 ==

== ENCOUNTER 2024-04-26 08:37 | Outpatient (REF) | payer OTHER, SELFPAY ==
--- NOTE | ~2024-04-26 | XR_ITS ---
EXAMINATION: XR SHOULDER, RIGHT CLINICAL INFORMATION: AC joint pain with impingement sings COMPARISON: None available. TECHNIQUE: AP external rotation, Grashey, scapular Y, and axillary views of the right shoulder. FINDINGS: Mild osteoarthritis of the acromioclavicular joint. Glenohumeral joint normal. Surrounding bones soft tissues unremarkable. XR/XR shoulder RT min 2V IMPRESSION: Mild osteoarthritis of the acromioclavicular joint. Electronically signed by: Damian Merino MD 05/01/2024 07:23 AM YAZ AYON
== END 2024-04-26 08:38 | disposition home or self-care (01) ==
LOC: HO.XRAY 08:37
PROVIDERS: PCP General Practice; Visit Provider General Practice
DX: M25.511 Pain in right shoulder (principal); R07.81 Pleurodynia
CPT/HCPCS: 71100; 73030

== ENCOUNTER 2024-05-10 09:00 | Outpatient (AMB) | payer OTHER, SELFPAY ==
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
[2024-05-10 09:13] VITALS: BP 169/77; PULSE 95; O2SAT 100; BMI 33.4
== END 2024-05-10 09:30 | disposition home or self-care (01) ==
PROVIDERS: PCP General Practice; Visit Provider Nurse Practitioner Family
DX: M25.511 Pain in right shoulder (principal); M19.011 Primary osteoarthritis, right shoulder; R20.0 Anesthesia of skin; R20.2 Paresthesia of skin
CPT/HCPCS: 99214; G2211

== ENCOUNTER → 2024-05-10 09:00 | Outpatient (BNVA) | payer OTHER, SELFPAY | PROVIDERS: PCP General Practice; Visit Provider Nurse Practitioner Family | DX: M25.511 Pain in right shoulder (principal); M19.011 Primary osteoarthritis, right shoulder; R20.2 Paresthesia of skin; R20.0 Anesthesia of skin | CPT/HCPCS: 99212 ==

== ENCOUNTER 2024-06-14 12:37 | Outpatient (AMB) | payer OTHER, SELFPAY ==
--- NOTE | 2024-06-14 13:07 | A.OFFVIS_ITS ---
Intake Visit Reasons: 3M med f/u taladafil- r/s Intake Note: Patient is present for 3M MED REVIEW F/U Urology Medication:TADALAFIL Antibiotic Allergy:NONE Blood Thinner:NONE TODAY'S PVR:17ML'S Manager Environmental Required: No Allergies No Known Allergies [No Known Allergies*] Allergy (Verified 06/14/24 13:09) HPI Comments Details: Marcin is a pleasant male. He is a patient of Dr. Montesinos. He is seen for the following urologic conditions - erectile dysfunction Three-month follow-up Has had some benefit with erections Increased dosage Erectile dysfunction Progressive No prior medications Patient states the related to prior spine injection with pain management PFSH Medical History Sebaceous cyst Umbilical hernia Lumbar spondylosis Lumbar radiculopathy, chronic Bilateral knee pain Lumbar degenerative disc disease Hypertension Hepatitis C Social History Patient Tobacco Use Status: Former Tobacco user Cigarettes Per Day: 2 Substance Use Type: Crack/Cocaine and Heroin Review of Systems Const Denies chills and Denies fever(s) Card Reports no additional complaints and Denies syncope Resp Denies cough GI Denies abdominal pain and Denies heartburn Reports as per HPI and Denies change in libido Neuro Denies syncope Psych Denies change in libido Endo Denies change in libido Physical Exam Const General: cooperative, healthy appearing, comfortable and no acute distress Orientation/consciousness: patient oriented x3 HEENT Face and sinus: Yes normal facial exam Mouth: moist mucous membranes Neck Neck: Yes normal visual inspection, Yes full ROM and Yes trachea midline Chest Chest palpation & inspection: normal inspection of the chest Resp Effort & Inspection: normal respiratory effort, able to speak in complete sentences and no respiratory distress GI Inspection: Yes normal to inspection Back/Spine/Pelvis Cervical Spine: normal cervical lordosis Thoracic/Lumbar Spine: thoracic and lumbar spine normal to inspection Skin General skin exam: no rashes or lesions noted Neuro General: patient oriented x3, gait normal, tone normal and moves all extremities Extrem General: Yes normal to inspection and Yes capillary refill normal Office Procedures Post Void Residual Post Residual Void Post Void Residual (PVR): 17 [id number] Void Residual by ultrasound Assessment & Plan Assessment & Plan (1) Erectile dysfunction: Code(s): N52.9 - Male erectile dysfunction, unspecified Category: Medical (2) Lower urinary tract symptoms due to benign prostatic hyperplasia: Code(s): N40.1 - Benign prostatic hyperplasia with lower urinary tract symptoms Category: Medical Plan Trial high-dose Medications: New tadalafil On demand medication take 60 minutes before intended activity BIN N Group [facility] DR33 [id number] 20 mg PO ONCE 30 days 30 tabs 0RF sexual activity N52.9 - Male erectile dysfunction, unspecified Patient Instructions: Imaging studies, laboratory and physical exam results were discussed and reviewed in detail. No major barriers to patient understanding were identified. An opportunity to ask questions regarding the treatment plan was provided. All questions were answered. The patient expressed understanding and agreement with the above treatment plan. The patient is aware they should contact our office by phone for worsening of their current condition or the appearance of new urologic symptoms. Compliance is encouraged with any medications and followup testing that is ordered. It is a privilege to participate in the urologic care of your patient. If you have any questions or concerns regarding treatment for the above conditions, or other urologic issues, please do not hesitate to contact me. The office telephone contact is [phone]. This note is constructed using voice recognition software. While every effort has been made to ensure accuracy cribbing setter errors may have been included. Yours sincerely, Dr Zhang Jimenez MD, [facility] - Urology Providers of Expert, Compassionate Care for the Genitourinary System Coding Level of Care Code Est Pt Level 4 (32143) Diagnoses Erectile dysfunction N52.9 Lower urinary tract symptoms due to benign prostatic hyperplasia N40.1 CPT Codes Post Residual Void - PVR CPT Code: 21306-Pghv Void Residual by ultrasound ([id number])
== END 2024-06-14 14:09 | disposition home or self-care (01) ==
PROVIDERS: PCP General Practice; Visit Provider Urology
DX: N52.9 Male erectile dysfunction, unspecified (principal); N40.1 Benign prostatic hyperplasia with lower urinary tract symptoms
CPT/HCPCS: 99214

== ENCOUNTER → 2024-06-14 12:37 | Outpatient (BNVA) | payer MEDICARE, MEDICAID, SELFPAY | PROVIDERS: PCP General Practice; Visit Provider Urology | DX: N40.1 Benign prostatic hyperplasia with lower urinary tract symptoms (principal); N52.9 Male erectile dysfunction, unspecified | CPT/HCPCS: 51798; 99212 ==

== ENCOUNTER 2024-06-23 12:25 | Outpatient (REF) | payer OTHER, SELFPAY ==
--- NOTE | 2024-06-23 12:28 | EMG_ITS ---
Chief complaint: Bilateral 7 digit pain and numbness Reason for referral: Evaluate for Carpal Tunnel Syndrome Referred by: Sherlyn Dooley NP Procedure done: Bilateral upper extremities NCS/EMG Precautions and/or limitations: None The limb temperature was monitored continuously and remained between 32-36 degrees C during the performance of the NCS. Nerve Conduction Studies Anti Sensory Summary Table ?Stim Site NR Onset (ms) Norm Onset (ms) Peak (ms) Norm Peak (ms) O-P Amp (?V) Norm O-P Amp Site1 Site2 Delta-0 (ms) Dist (cm) Luis Fernando (m/s) Norm Luis Fernando (m/s) Left Median Anti Sensory (2nd Digit) Wrist NR <3.6 >10 Wrist 2nd Digit 14.0 Right Median Anti Sensory (2nd Digit) Wrist ? 2.8 3.8 <3.6 3.6 >10 Wrist 2nd Digit 2.8 14.0 50 Right Radial Anti Sensory (Thumb) Forearm ? 1.7 2.7 <3.1 31.2 Forearm Thumb 1.7 0.0 Left Ulnar Anti Sensory (5th Digit) Wrist ? 1.6 3.0 <3.7 4.5 >15.0 Wrist 5th Digit 1.6 14.0 88 Right Ulnar Anti Sensory (5th Digit) Wrist ? 2.9 3.7 <3.7 17.1 >15.0 Wrist 5th Digit 2.9 14.0 48 Motor Summary Table ?Stim Site NR Onset (ms) Norm Onset (ms) O-P Amp (mV) Norm O-P Amp iAmp (mV) Amp (1st) (%) Site1 Site2 Delta-0 (ms) Dist (cm) Luis Fernando (m/s) Norm Luis Fernando (m/s) Left Median Motor (Abd Poll Brev) Wrist ? 4.2 <3.9 11.8 >4.5 15.3 100.0 Elbow Wrist 4.2 20.0 48 >45 Elbow ? 8.4 11.1 14.5 94.1 Right Median Motor (Abd Poll Brev) Wrist ? 4.1 <3.9 14.2 >4.5 17.9 100.0 Elbow Wrist 4.7 20.0 43 >45 Elbow ? 8.8 13.6 17.1 95.8 Left Ulnar Motor (Abd Dig Minimi) Wrist ? 3.0 <3.0 6.3 >5 7.3 100.0 B Elbow Wrist 3.3 20.0 61 >45 B Elbow ? 6.3 5.7 7.0 90.5 A Elbow B Elbow 1.8 10.0 56 >45 A Elbow ? 8.1 5.7 7.1 90.5 Right Ulnar Motor (Abd Dig Minimi) Wrist ? 2.9 <3.0 7.3 >5 8.3 100.0 B Elbow Wrist 4.0 20.0 50 >45 B Elbow ? 6.9 6.5 7.9 89.0 A Elbow B Elbow 1.4 10.0 71 >45 A Elbow ? 8.3 6.2 7.7 84.9 EMG ?Side Muscle Nerve Root Ins Act Fibs Psw Amp Dur Poly Recrt Int Pat Comment Right 1stDorInt Ulnar C8-T1 Nml Nml Nml Nml Nml 0 Nml Complete Right FlexCarRad Median C6-7 Nml Nml Nml Nml Nml 0 Nml Complete Right Biceps Musculocut C5-6 Nml Nml Nml Nml Nml 0 Nml Complete Right Triceps Radial C6-7-8 Nml Nml Nml Nml Nml 0 Nml Complete Right Deltoid Axillary C5-6 Nml Nml Nml Nml Nml 0 Nml Complete Left 1stDorInt Ulnar C8-T1 Nml Nml Nml Nml Nml 0 Nml Complete Left FlexCarRad Median C6-7 Nml Nml Nml Nml Nml 0 Nml Complete Left Biceps Musculocut C5-6 Nml Nml Nml Nml Nml 0 Nml Complete Left Triceps Radial C6-7-8 Nml Nml Nml Nml Nml 0 Nml Complete Left Deltoid Axillary C5-6 Nml Nml Nml Nml Nml 0 Nml Complete Paraspinal EMG ?Side Muscle Nerve Root Ins Act Fibs Psw Comment Right Cervical Upper Rami Nml Nml Nml Right Cervical Mid Rami Nml Nml Nml Right Cervical Lower Rami Nml Nml Nml Left Cervical Upper Rami Nml Nml Nml Left Cervical Mid Rami Nml Nml Nml Left Cervical Lower Rami Nml Nml Nml FINDINGS: Right median motor nerve showed prolonged distal latency, normal amplitude and slow conduction velocity. Left median motor nerve showed prolonged distal latency, normal amplitude and normal conduction velocity. Right median sensory nerve showed prolonged peak latencies and small amplitude. Left median sensory nerve showed prolonged peak latencies. Left ulnar sensory nerve showed normal peak latencies but small amplitude. All other nerves tested were within normal. Concentric needle EMG was performed in selected muscles of the upper extremity and cervical paraspinals. Study did not reveal signs of electric abnormalities as shown in the table above. IMPRESSION: IMPRESSION: 1. This is an abnormal study. 2. There is electrodiagnostic evidence for bilateral moderate-severe median neuropathy at the wrist, consistent with carpal tunnel syndrome. 3. There is no electrodiagnostic evidence for ulnar neuropathy, brachial plexopathy, or cervical radiculopathy. CLINICAL COMMENT: Note that EMG of lower extremities last year showed findings suggestive of peripheral neuropathy. Thank you for your kind referral. Tova Jackson MD, [facility] Board Certified, [place] Board of Physical Medicine and Rehabilitation (ABPMR) Board Certified, [place] Board of Electrodiagnostic Medicine (ABEM) CODIN [phone] MTDD
== END 2024-06-23 12:26 | disposition home or self-care (01) ==
LOC: HO.NEURO 12:25
PROVIDERS: PCP General Practice; Visit Provider Nurse Practitioner Family
DX: R20.0 Anesthesia of skin (principal); R20.2 Paresthesia of skin
CPT/HCPCS: 95886; 95911

== ENCOUNTER → 2024-06-23 12:28 | Outpatient (BNV) | payer OTHER, SELFPAY | PROVIDERS: PCP General Practice; Visit Provider Physical Medicine & Rehabilitation | DX: G56.03 Carpal tunnel syndrome, bilateral upper limbs (principal) | CPT/HCPCS: 95886; 95911 ==

== ENCOUNTER 2024-07-15 10:39 | Outpatient (AMB) | payer OTHER, SELFPAY ==
--- NOTE | 2024-07-15 10:42 | A.OFFVIS_ITS ---
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 He is also experiencing bilateral index finger locking. Patient has not tried any treatments. Denies prior injuries or surgeries to the hands. IMPRESSION: 1. This is an abnormal study. 2. There is electrodiagnostic evidence for bilateral moderate-severe median neuropathy at the wrist, consistent with carpal tunnel syndrome. 3. There is no electrodiagnostic evidence for ulnar neuropathy, brachial plexopathy, or cervical radiculopathy. 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 He is also experiencing bilateral index finger locking. Patient has not tried any treatments. Denies prior injuries or surgeries to the hands. IMPRESSION: 1. This is an abnormal study. 2. There is electrodiagnostic evidence for bilateral moderate-severe median neuropathy at the wrist, consistent with carpal tunnel syndrome. 3. There is no electrodiagnostic evidence for ulnar neuropathy, brachial plexopathy, or cervical radiculopathy. 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 Good APB muscle firing and good finger cross. Vascular: Capillary refill brisk. ROM: Patient can make a fist and extend all their digits. Skin: No lacerations or abrasions noted. General: No ecchymosis. No erythema or evidence of infection. [] Assessment & Plan Assessment & Plan (1) Carpal tunnel syndrome on both sides: Code(s): G56.03 - Carpal tunnel syndrome, bilateral upper limbs Category: Medical Plan 1. Carpal tunnel syndrome, right Intermittent, daily, worse at night I educated the patient about the condition. I discussed both operative and nonoperative treatment options. The patient would like to proceed with surgery. The risks and benefits of operative treatment were discussed with the patient and the patient wishes to proceed with surgery. These risks include, but are not limited to, risk of damage to blood vessels, nerves, tendons, infection, recurrence, incomplete relief of preoperative symptoms, persistent pain, possible need for further surgery, and the risks associated with regional blocks and/or anesthesia. Plan is to take the patient to the operating room at some point in the next few weeks for the following procedures: 1. Right carpal tunnel release under local All of the preoperative paperwork including the consent was discussed today. All of the patient's questions were answered in the clinic today. The patient understands that they will be in contact with our surgical coder to discuss scheduling their procedure. Patient denies diabetes, blood thinners, asthma, heart issues, lung issues, kidney issues, or current smoking. 2. Carpal tunnel syndrome left Intermittent, daily, worse at night Patient would like to proceed with operative intervention on the right prior to any intervention of the left Patient was educated that if he is recovering well from right-sided surgery at his postop visit, we can sign up for the left side Patient was amenable to this plan Coding Level of Care Code New Pt Level 4 (22361) Diagnoses Carpal tunnel syndrome on both sides G56.03
[2024-07-15 10:47] VITALS: BMI 33.4
--- OUTSIDE RECORDS SUMMARY | 2024-07-15 11:26 | XMS_ITS | Encounter Summary ---
Author Organization [employer] Address [address] [place] [address] Care Team Providers Care Remelter Name Role Phone Yara Foster MD Unavailable [phone] Yara Foster MD Primary Care Provider [phone] Reason for Visit * Reason Comments Med Refill Encounter Details Date Type Department Care Team (Late st Contact Info) Description 12/16/2022 Refill [facility] [address] [place] [address] [phone] Hafsa Guevara MD [address] [place] [address] [phone] Social History Tobacco Use Types Packs/Day Years Used Date Smoking Tobacco: Every Day Cigarettes 0.3 0.5 Passive Smoke Exposure: Never Smokeless Tobacco: Never Alcohol Use Standard Drinks/Week Comments Never 0 (1 standard drink = 0.6 oz pur e alcohol) Depression Answer Date Recorded Patient Health Questionnaire-2 Score 1 06/20/2022 Sex and Gender Information Value Date Recorded Sex Assigned at Male 03/31/2022 10:37 AM EDT Legal Sex Male 10:37 AM EDT Gender Identity Male 03/31/2022 10:37 AM EDT Sexual Orientation Straight 03/31/2022 10 :37 AM EDT documented as of this encounter Plan of Treatment Upcoming Encounters Date Type Department Care Team (Late st Contact Info) Description 07/29/2024 3:45 PM EST Office Visit [facility] [address] [place] [address] [phone] Yara Foster MD [address], [place] [phone] documented as of this encounter Visit Diagnoses Not on filedocumented in this encounter Care Teams Remelter Relationship Specialty Start Date End Date Yara Foster MD [address] [place] [address] PCP - General Family Medicine 05/05/22 Yara Foster MD [address] [place] [address] Family Medicine 06/01/21 documented as of this encounter
--- OUTSIDE RECORDS SUMMARY | 2024-07-15 11:26 | XMS_ITS | Encounter Summary ---
Author Organization [employer] Address [address] [facility] [address] 7t [place] [address] Care Team Providers Care Windrower Operator Name Role Phone Yara Foster MD Unavailable [phone] Yara Foster MD Primary Care Provider [phone] Encounter Details Date Type Department Care Team ([facility] st Contact Info) Description 01/01/2024 Orders Only [facility] [address] [place] [address] Tanmay Otto MD [address] [place] [address] Social History Tobacco Use Types Packs/Day Years Used Date Smoking Tobacco: Every Day Cigarettes 0.3 0.5 Passive Smoke Exposure: Never Smokeless Tobacco: Never Alcohol Use Standard Drinks/Week Comments Never 0 (1 standard drink = 0.6 oz pur e alcohol) Alcohol Answer Date Recorded Frequency of Alcohol Consumption Not on file 09/07/2023 Average Number of Drinks Not on file 024 Frequency of Binge Drinking Not on file 12/2023 Score 0 09/07/2023 Depression Answer Date Recorded Patient Health Questionnaire-9 Score 9 09/07/2023 Patient Health Questionnaire-9 Score 9 09/07/2023 Last PHQ-9: Questionnaire Data Not on file 0 09/07/2023 Housing Stability Answer Date Recorded What is your housing situation today? I have rachel matthew 09/07/[address] you li ve. Do you have problems with any of the following? None of the above 09/07/2023 Food Insecurity Answer Date Recorded Within the past 12 months, y ou worried that your food would run out before you got money to buy more: Never True 08/28/2023 Within the past 12 months,th e food you bought just didn't last and you didn't have enough money to get more: Never True Transportation Answer Date Recorded In the past 12 months, has l ack of transportation kept you from medical appts, meetings, work or from getting things needed for daily living? Yes, it has kept me from medical appointments or getting medications. 09/07/2023 Utilities Answer Date Recorded In the past 12 months, has t he electric, gas, oil or water company threatened to shut off services in your home? No 09/07/2023 Depression Answer Date Recorded Patient Health Questionnaire-2 Score 2 09/07/2023 Sex and Gender Information Value Date Recorded Sex Assigned at Male 03/31/2022 10:37 AM EDT Legal Sex Male 10:37 AM EDT Gender Identity Male 03/31/2022 10:37 AM EDT Sexual Orientation Straight 03/31/2022 10 :37 AM EDT documented as of this encounter Plan of Treatment Upcoming Encounters Date Type Department Care Team (Late st Contact Info) Description 07/29/2024 3:45 PM EST Office Visit [facility] [address] [place] [address] Yara Foster MD [address] [place] [address] documented as of this encounter Visit Diagnoses Not on filedocumented in this encounter Additional Health Concerns Assessment Noted Time PHQ-9 Depression Total Score: 9 09/07/19 24 10:34 AM EDT documented as of this encounter Care Teams Windrower Operator Relationship Specialty Start Date End Date Yara Foster MD [address] [place] [address] PCP - General Family Medicine 05/05/22 Yara Foster MD [address] [place] [address] Family Medicine 06/01/21 documented as of this encounter
--- OUTSIDE RECORDS SUMMARY | 2024-07-15 11:26 | XMS_ITS | Encounter Summary ---
Author Organization [employer] Address [address] [facility] 7t [place] [address] Care Team Providers Care Operational Risk Analyst Name Role Phone Yara Foster MD Unavailable [phone] Yara Foster MD Primary Care Provider [phone] Reason for Visit * Reason Onset Date Comments r/s derm appt 08/01/2022 Encounter Details Date Type Department Care Team ([facility] st Contact Info) Description 08/01/2022 Telephone [facility] [address] [place] [address] Yara Foster MD [address] [place] [address] r/s derm appt Social History Tobacco Use Types Packs/Day Years Used Date Smoking Tobacco: Never Smokeless Tobacco: Never Alcohol Use Standard [...] the past 12 months, has t he [employer], gas, oil or water company threatened to shut off services in your home? No 09/07/2023 Depression Answer Date Recorded Patient Health Questionnaire-2 Score 2 09/07/2023 Sex and Gender Information Value Date Recorded Sex Assigned at Male 03/31/2022 10:37 AM EDT Legal Sex Male 10:37 AM EDT Gender Identity Male 03/31/2022 10:37 AM EDT Sexual Orientation Straight 03/31/2022 10 :37 AM EDT COVID-19 Exposure Response Date Recorded In the last 10 days, have yo u been in contact with someone who was confirmed or suspected to have Coronavirus/COVID-19? No / Unsure 10/30/2022 9:36 AM EDT documented as of this encounter Miscellaneous Notes * Telephone Encounter - Sylvain Dover - 08/01/2022 8:25 AM EST Tc from pt requesting to r/s derm appt scheduled for 08/01/22 @ 10:45am, appt has been cancelled. Please contact at [phone] Macedonian documented in this encounter Plan of Treatment Upcoming Encounters Date Type Department Care Team (Late st Contact Info) Description 07/29/2024 3:45 PM EST Office Visit [facility] [address] [place] [address] Yara Foster MD [address] [place] [address] documented as of this encounter Visit Diagnoses Not on filedocumented in this encounter Care Teams Operational Risk Analyst Relationship Specialty Start Date End Date Yara Foster MD [address] [place] [address] PCP - General Family Medicine 05/05/22 Yara Foster MD [address] [place] [address] Family Medicine 06/01/21 documented as of this encounter
--- OUTSIDE RECORDS SUMMARY | 2024-07-15 11:26 | XMS_ITS | Encounter Summary ---
Author Organization [employer] Address [address] 7t [place] [address] Care Team Providers Care Cloth Winding Supervisor Name Role Phone Yara Foster MD Unavailable [phone] Yara Foster MD Primary Care Provider [phone] Encounter Details Date Type Department Care Team ([facility] st Contact Info) Description 09/16/2023 Orders Only [facility] [address] [place], [place] [phone] Yara Foster MD [address] [place] [address] Social History Tobacco Use Types Packs/Day Years [...] Description 07/29/2024 3:45 PM EST Office Visit [facility] [address] [place] [address] Yara Foster MD [address] [place] [address] documented as of this encounter Visit Diagnoses Not on filedocumented in this encounter Additional Health Concerns Assessment Noted Time PHQ-9 Depression Total Score: 9 09/07/19 24 10:34 AM EDT documented as of this encounter Care Teams Cloth Winding Supervisor Relationship Specialty Start Date End Date Yara Foster MD [address] [place] [address] PCP - General Family Medicine 05/05/22 Yara Foster MD [address] [place] [address] Family Medicine 06/01/21 documented as of this encounter
--- OUTSIDE RECORDS SUMMARY | 2024-07-15 11:26 | XMS_ITS | Encounter Summary ---
Author Organization [employer] Address [address] [facility] 7t [place] [address] Care Team Providers Care Electric Gas Appliances Demonstrator Name Role Phone Yara Foster MD Unavailable [phone] Yara Foster MD Primary Care Provider [phone] Reason for Visit * Reason Onset Date Comments Appointment Request 06/13/2022 Encounter Details Date Type Department Care Team (Late st Contact Info) Description 06/13/2022 Telephone [facility] [address] [place] [address] Yara Foster MD [address] [place] [address] Appointment Request Social History Tobacco Use Types Packs/Day Years Used Date Smoking Tobacco: Never Assessed Sex and Gender Information Value Date Recorded Sex Assigned at Male 03/31/2022 10:37 AM EDT Legal Sex Male 10:37 AM EDT Gender Identity Male 03/31/2022 10:37 AM EDT Sexual Orientation Straight 03/31/2022 10 :37 AM EDT documented as of this encounter Miscellaneous Notes * Telephone Encounter - Be Cole - 06/13/2022 2:44 PM EST Tc from pt requesting to r/s APPT 06/20/22 at 9:15 am ([facility]) Please contact pt at [phone] documented in this encounter Plan of Treatment Upcoming Encounters Date Type Department Care Team (Late st Contact Info) Description 07/29/2024 3:45 PM EST Office Visit [facility] [address] [place] [address] Yara Foster MD [address] [place] [address] documented as of this encounter Visit Diagnoses Not on filedocumented in this encounter Care Teams Electric Gas Appliances Demonstrator Relationship Specialty Start Date End Date Yara Foster MD [address] [place], [place] [phone] PCP - General Family Medicine 05/05/22 Yara Foster MD [address] [place], [place] [phone] Family Medicine 06/01/21 documented as of this encounter
--- OUTSIDE RECORDS SUMMARY | 2024-07-15 11:26 | XMS_ITS | Encounter Summary ---
Author Organization [employer] Address [address] [facility] 7t [place] [address] Care Team Providers Care Lead Bi Developer Name Role Phone Yara Foster MD Unavailable [phone] Yara Foster MD Primary Care Provider [phone] Encounter Details Date Type Department Care Team (Late Contact Info) Description 05/23/2022 Abstract [facility] [address] [place] [address] Yara Foster MD [address] [place] [address] Social History Tobacco Use Types Packs/Day Years [...] Description 07/29/2024 3:45 PM EST Office Visit [facility] [address] [place] [address] Yara Foster MD [address] [place] [phone] documented as of this encounter Visit Diagnoses Not on filedocumented in this encounter Care Teams Lead Bi Developer Relationship Specialty Start Date End Date Yara Foster MD [address] [place] [id number] PCP - General Family Medicine 05/05/22 Yara Foster MD [address] [place] [address] Family Medicine 06/01/21 documented as of this encounter
--- OUTSIDE RECORDS SUMMARY | 2024-07-15 11:26 | XMS_ITS | Encounter Summary ---
Author Organization [employer] Address [address] [facility] 7t [place] [address] Care Team Providers Care Agricultural Equipment Design Engineer Name Role Phone Yara Foster MD Unavailable [phone] Yara Foster MD Primary Care Provider [phone] Reason for Visit * Reason Onset Date Comments Durable Medical Equipment 04/27/2024 Encounter Details Date Type Department Care Team ([facility] st Contact Info) Description 04/27/2024 Telephone [facility] [address] [place] [address] Yara Foster MD [address] [place] [address] Durable Medical Equipment Social History Tobacco Use Types Packs/Day Years [...] the past 12 months, has t he [employer], gas, oil or water [employer] threatened to shut off services in your [...] encounter Miscellaneous Notes * Telephone Encounter - Jabari Hearn - 04/27/2024 1:53 PM EST Tc from pt requesting status on walker and a Hand Held Shower Head discussed during follow up appointment on 04/25. IF any questions Contact pt at [phone] documented in this encounter Plan of Treatment Upcoming Encounters Date Type Department Care Team (Late st Contact Info) Description 07/29/2024 3:45 PM EST Office Visit [facility] [address] [place] [address] Yara Foster MD [address] [place] [address] documented as of this encounter Visit Diagnoses Not on filedocumented in this encounter Additional Health Concerns Assessment Noted Time PHQ-9 Depression Total Score: 9 09/07/19 24 10:34 AM EDT documented as of this encounter Care Teams Agricultural Equipment Design Engineer Relationship Specialty Start Date End Date Yara Foster MD [address] [place] [address] PCP - General Family Medicine 05/05/22 Yara Foster MD [address] [place] [address] Family Medicine 06/01/21 documented as of this encounter
--- OUTSIDE RECORDS SUMMARY | 2024-07-15 11:26 | XMS_ITS | Encounter Summary ---
Author Organization [employer] Address [address] [facility] 7t [place] [address] Care Team Providers Care Financial Planning Assistant Name Role Phone Yara Foster MD Unavailable [phone] Yara Foster MD Primary Care Provider [phone] Reason for Visit * Reason Onset Date Comments Med Refill 07/07/2023 Encounter Details Date Type Department Care Team ([facility] st Contact Info) Description 07/07/2023 Telephone [facility] [address] [place] [address] Yara Foster MD [address] [place] [address] Med Refill Social History Tobacco Use Types Packs/Day Years Used Date Smoking Tobacco: Every Day Cigarettes 0.3 0.5 Passive Smoke Exposure: Never Smokeless Tobacco: Never Alcohol Use Standard Drinks/Week Comments Never 0 (1 standard drink = 0.6 oz pur e alcohol) Housing Stability Answer Date Recorded What is your housing situation today? I have rachel matthew 03/18/[address] you li ve. Do you have problems with any of the following? None of the above 03/18/2023 Food Insecurity Answer Date Recorded Within the past 12 months, y ou worried that your food would run out before you got money to buy more: Never True 03/18/2023 Within the past 12 months,th e food you bought just didn't last and you didn't have enough money to get more: Never True Transportation Answer Date Recorded In the past 12 months, has l ack of transportation kept you from medical appts, meetings, work or from getting things needed for daily living? No 03/18/2023 Utilities Answer Date Recorded In the past 12 months, has t he electric, gas, oil or water company threatened to shut off services in your home? No 03/18/2023 Depression Answer Date Recorded Patient Health Questionnaire-2 Score 1 06/20/2022 Sex and Gender Information Value Date Recorded Sex Assigned at Male 03/31/2022 10:37 AM EDT Legal Sex Male 10:37 AM EDT Gender Identity Male 03/31/2022 10:37 AM EDT Sexual Orientation Straight 03/31/2022 10 :37 AM EDT documented as of this encounter Miscellaneous Notes * Telephone Encounter - Lizbet Andrews LPN - 07/07/2023 10:18 AM EST Medication was sent to [facility] #[id number] on 04/16/23 with 3 refills. * Telephone Encounter - Pasha Slaughter - 07/07/2023 10:04 AM EST TC from pt requesting medication refill. Medications needing refill: gabapentin (Neurontin) 300 MG To be sent to: [facility]/pharmacy #[id number] documented in this encounter Plan of Treatment Upcoming Encounters Date Type Department Care Team (Late st Contact Info) Description 07/29/2024 3:45 PM EST Office Visit [facility] [address] [place] [address] Yara Foster MD [address] [place] [address] documented as of this encounter Visit Diagnoses Not on filedocumented in this encounter Care Teams Financial Planning Assistant Relationship Specialty Start Date End Date Yara Foster MD [address] [place] [address] PCP - General Family Medicine 05/05/22 Yara Foster MD [address] [place] [address] Family Medicine 06/01/21 documented as of this encounter
--- OUTSIDE RECORDS SUMMARY | 2024-07-15 11:26 | XMS_ITS | Encounter Summary ---
Author Organization [employer] Address [address] [facility] 7t [place] [address] Care Team Providers Care Clinical Resource Coordinator Name Role Phone Yara Fsoter MD Unavailable Yara Foster MD Primary Care Provider [phone] Reason for Visit * Reason Onset Date Comments Med Refill 03/10/2024 Encounter Details Date Type Department Care Team ([facility] st Contact Info) Description 03/10/2024 Telephone [facility] [address] [place] [address] Yara Foster MD [address] [place] [address] Med Refill Social History Tobacco Use Types [...] the past 12 months, has t he [employer], gas, oil or water [employer] threatened to shut off services in your [...] Telephone Encounter - Lizbet Andrews LPN - 03/10/2024 9:24 AM EDT Medication was discontinued therapy completed * Telephone Encounter - Hannah Wang - 03/10/2024 9:13 AM EDT TC from pt requesting medication refill. Medications needing refill : omeprazole (PriLOSEC) [address] capsule To be sent to: [facility]/pharmacy #[id number] [place], [place] - [address] [place] [address] documented in this encounter Plan of Treatment Upcoming Encounters Date Type Department Care Team (Late st Contact Info) Description 07/29/2024 3:45 PM EST Office Visit [facility] [address] [place] [address] Yara Foster MD [address] [place], [place] [phone] documented as of this encounter Visit Diagnoses Not on filedocumented in this encounter Additional Health Concerns Assessment Noted Time PHQ-9 Depression Total Score: 9 09/07/19 24 10:34 AM EDT documented as of this encounter Care Teams Clinical Resource Coordinator Relationship Specialty Start Date End Date Yara Foster MD [address] [place], [place] [phone] PCP - General Family Medicine 05/05/22 Yara Foster MD [address] [place] [address] Family Medicine 06/01/21 documented as of this encounter
--- OUTSIDE RECORDS SUMMARY | 2024-07-15 11:26 | XMS_ITS | Encounter Summary ---
Author Organization [employer] Address [address] [facility] 7t [place] [address] Care Team Providers Care Supervisor Logging Name Role Phone Yara Foster MD Unavailable [phone] Yara Foster MD Primary Care Provider Reason for Visit * Reason Onset Date Comments Med Refill 03/31/2024 Encounter Details Date Type Department Care Team ([facility] st Contact Info) Description 03/31/2024 Telephone [facility] [address] [place] [address] Yara Foster MD [address] [place] [address] Med Refill Social History Tobacco Use Types [...] Telephone Encounter - Lizbet Andrews LPN - 03/31/2024 10:51 AM EDT Medication was sent to [facility] #[id number] on 02/12/24 with 11 refills. * Telephone Encounter - Hema Louie - 03/31/2024 10:47 AM EDT TC from pt requesting medication refill. Medications needing refill : albuterol (2.5 MG/3ML) 0.083% nebulizer solution To be sent to: [facility]/pharmacy #[id number] documented in this encounter Plan of Treatment Upcoming Encounters Date Type Department Care Team (Late st Contact Info) Description 07/29/2024 3:45 PM EST Office Visit [facility] [address] [place] [address] Yara Foster MD [address] [place] [address] documented as of this encounter Visit Diagnoses Not on filedocumented in this encounter Additional Health Concerns Assessment Noted Time PHQ-9 Depression Total Score: 9 09/07/19 24 10:34 AM EDT documented as of this encounter Care Teams Supervisor Logging Relationship Specialty Start Date End Date Yara Foster MD [address] [place] [address] PCP - General Family Medicine 05/05/22 Yara Foster MD [address] [place] [address] Family Medicine 06/01/21 documented as of this encounter
--- OUTSIDE RECORDS SUMMARY | 2024-07-15 11:26 | XMS_ITS | Encounter Summary ---
Author Organization [employer] Address [address] [facility] 7t [place] [address] Care Team Providers Care Direct Care Counselor Name Role Phone Yara Foster MD Unavailable [phone] Yara Foster MD Primary Care Provider [phone] Reason for Visit * Reason Onset Date Comments Appointment Request 07/24/2022 Encounter Details Date Type Department Care Team ([facility] Contact Info) Description 07/24/2022 Telephone [facility] [address] [place] [address] Yara Foster MD [address] [place] [address] Appointment Request Social History Tobacco Use Types [...] encounter Miscellaneous Notes * Telephone Encounter - Hannah Wang - 07/24/2022 2:54 PM EST Tc elder Pratt from [facility] [place] requesting a pe appt , needs for program . Hoisting Pile Driving Engineer tried book nothing available. documented in this encounter Plan of Treatment Upcoming Encounters Date Type Department Care Team (Late st Contact Info) Description 07/29/2024 3:45 PM EST Office Visit [facility] [address] [place], [place] [phone] Yara Foster MD [address] [place] [address] documented as of this encounter Visit Diagnoses Not on filedocumented in this encounter Care Teams Direct Care Counselor Relationship Specialty Start Date End Date Yara Foster MD [address] [place], [place] [phone] PCP - General Family Medicine 05/05/22 Yara Foster MD [address] [place] [address] Family Medicine 06/01/21 documented as of this encounter
--- OUTSIDE RECORDS SUMMARY | 2024-07-15 11:26 | XMS_ITS | Encounter Summary ---
Author Organization [employer] Address [address] [facility] 7t [place] [address] Care Team Providers Care Grievance And Appeals Specialist Name Role Phone Yara Foster MD Unavailable [phone] Yara Foster MD Primary Care Provider [phone] Reason for Visit * Reason Onset Date Comments Durable Medical Equipment 08/04/2022 Encounter Details Date Type Department Care Team ([facility] st Contact Info) Description 08/04/2022 Telephone [facility] [address] [place] [address] Yara Foster MD [address] [place] [address] Durable Medical Equipment Social History Tobacco Use [...] the past 12 months, has t he [employer], [employer], oil or water [employer] threatened to shut off services in your [...] * Telephone Encounter - Sylvain Dover - 08/04/2022 3:26 PM EST Tc from pt returning call to schedule follow up appt with PCP per message below, Ocularist attempted to schedule zero availability. Pt was also triaged. Please contact at [phone] [facility] * Telephone Encounter - Jessenia Louie - 08/04/2022 3:09 PM EST TC to patient to call and schedule an appointment with Dr. Foster to discuss nebulizer request. * Telephone Encounter - Sylvain Dover - 08/04/2022 3:01 PM EST Tc from pt requesting a script for a nebulizer machine. Please contact at [phone] [place] documented in this encounter Plan of Treatment Upcoming Encounters Date Type Department Care Team (Late st Contact Info) Description 07/29/2024 3:45 PM EST Office Visit [facility] [address] [place] [address] Yara Foster MD [address] [place] [address] documented as of this encounter Visit Diagnoses Not on filedocumented in this encounter Care Teams Grievance And Appeals Specialist Relationship Specialty Start Date End Date Yara Foster MD [address] [place] [address] PCP - General Family Medicine 05/05/22 Yara Foster MD [address] [place] [address] Family Medicine 06/01/21 documented as of this encounter
--- OUTSIDE RECORDS SUMMARY | 2024-07-15 11:26 | XMS_ITS | Encounter Summary ---
Author Organization [employer] Address [address] [facility] 7t [place] [address] Care Team Providers Care Human Resources District Manager Name Role Phone Yara Foster MD Unavailable [phone] Yara Foster MD Primary Care Provider [phone] Reason for Visit * Reason Onset Date Comments CABLE SPLICER HELPER Services 07/03/2022 I called brigettei liliam the pt's request for CABLE SPLICER HELPER services. He states that he needs assistance with getting dressed, putting his shoes on, medication reminders, appointment reminders, housekeeping, cooking, laundry, and getting a ride to appointments. He stated that he has a person in mind to be his CABLE SPLICER HELPER, and he would prefer to be referred to [facility]. Encounter Details Date Type Department Care Team (Late st Contact Info) Description 07/03/2022 Telephone [facility] [address] [place], [place] [phone] Yara Foster MD [address] [place], [place] [phone] CABLE SPLICER HELPER Services (I called regarding the pt's request for CABLE SPLICER HELPER services. He states that he needs assistance with getting dressed, putting his shoes on, medication reminders, appointment reminders, housekeeping, cooking, laundry, and getting a ride to appointments. He stated that he has a person in mind to be his CABLE SPLICER HELPER, and he would prefer to be referred to [facility].) Social History Tobacco Use Types Packs/Day Years [...] suspected to have Coronavirus/COVID-19? No / Unsure 06/20/2022 2:52 PM EST documented as of this encounter Plan of Treatment Upcoming Encounters Date Type Department Care Team (Late st Contact Info) Description 07/29/2024 3:45 PM EST Office Visit [facility] [address] [place] [phone] Yara Foster MD [address] [place] [address] documented as of this encounter Visit Diagnoses Not on filedocumented in this encounter Care Teams Human Resources District Manager Relationship Specialty Start Date End Date Yara Foster MD [address] [place] [phone] PCP - General Family Medicine 05/05/22 Yara Foster MD [address] [place] [phone] Family Medicine 06/01/21 documented as of this encounter
--- OUTSIDE RECORDS SUMMARY | 2024-07-15 11:26 | XMS_ITS | Encounter Summary ---
Author Organization [employer] Address [address] [facility] [address] 7[address] [place] [address] Care Team Providers Care Valet Attendant Name Role Phone Yara Foster MD Unavailable [phone] Yara Foster MD Primary Care Provider [phone] Encounter Details Date Type Department Care Team ([facility] st Contact Info) Description 03/10/2024 Orders Only [facility] [address] [place] [address] Yara Foster MD [address] [place] [address] Social History Tobacco Use Types Packs/Day Years [...] Description 07/29/2024 3:45 PM EST Office Visit [facility] [address] [place] [address] Yara Foster MD [address] [place] [address] documented as of this encounter Visit Diagnoses Not on filedocumented in this encounter Additional Health Concerns Assessment Noted Time PHQ-9 Depression Total Score: 9 09/07/19 24 10:34 AM EDT documented as of this encounter Care Teams Valet Attendant Relationship Specialty Start Date End Date Yara Foster MD [address] [place] [address] PCP - General Family Medicine 05/05/22 Yara Foster MD [address] [place] [address] Family Medicine 06/01/21 documented as of this encounter
--- OUTSIDE RECORDS SUMMARY | 2024-07-15 11:26 | XMS_ITS | Encounter Summary ---
Author Organization [employer] Address [address] [facility] 7t [place] [address] Care Team Providers Care Business Solutions Analyst Name Role Phone Yara Foster MD Unavailable [phone] Yara Foster MD Primary Care Provider [phone] Reason for Visit * Reason Comments Med Change Request Encounter Details Date Type Department Care Team (Late Contact Info) Description 09/03/2022 Refill [facility] [address] [place] [phone] Hafsa Guevara MD [address] [place], [place] [phone] Social History Tobacco Use Types Packs/Day Years [...] suspected to have Coronavirus/COVID-19? No / Unsure 09/05/2022 2:53 PM EDT documented as of this encounter Plan of Treatment Upcoming Encounters Date Type Department Care Team (Late Contact Info) Description 07/29/2024 3:45 PM EST Office Visit [facility] [address] [place], [place] [phone] Yara Foster MD [address] [place] [address] documented as of this encounter Visit Diagnoses Not on filedocumented in this encounter Care Teams Business Solutions Analyst Relationship Specialty Start Date End Date Yara Foster MD [address] [place], [place] [phone] PCP - General Family Medicine 05/05/22 Yara Foster MD [address] [place], [place] [phone] Family Medicine 06/01/21 documented as of this encounter
--- OUTSIDE RECORDS SUMMARY | 2024-07-15 11:26 | XMS_ITS | Encounter Summary ---
Author Organization [employer] Address [address] [facility] 7t [place] [address] Care Team Providers Care Minister Of Religion Name Role Phone Yara Foster MD Unavailable [phone] Yara Foster MD Primary Care Provider [phone] Reason for Visit * Reason Onset Date Comments Results 06/17/2024 Encounter Details Date Type Department Care Team ([facility] Contact Info) Description 06/17/2024 Telephone [facility] [address] [place] [address] Penelope Aguirre, RN [address] [place] [address] Results Social History Tobacco Use Types Packs/Day Years [...] the past 12 months, has t he [employer], gas, oil or water [employer] threatened to shut off services in your [...] encounter Miscellaneous Notes * Telephone Encounter - Penelope Aguirre RN - 06/17/2024 9:27 AM EST TC placed to patient [phone] via [employer] ([employer] # [id number]) in regards to below message. Patient verbalized understanding and reports he already has an appointment scheduled for an injection at [facility] pain management on 07/26/24 at 97:30am. Patient advised of deep breathing exercises and atelectasis. Patient to f/u PRN. Sending to PCP as FYI regarding injection. ----- Message from Yara Foster MD sent at 06/16/2024 3:46 PM EST ----- Please check in with patient about shoulder pain-- his xrays showed mild AC joint arthritis, which can be treated with PT or injection is her likes. His xray also showed atelectasis, which is collapse of the air sacs in the lower part of one's lungs. This is usually due to lack of deep breathing. He should do deep breathing exercises 2-3 times a day. Please let me know about the pt versus injection for shoulder. Thank you! documented in this encounter Plan of Treatment Upcoming Encounters Date Type Department Care Team (Late st Contact Info) Description 07/29/2024 3:45 PM EST Office Visit [facility] [address] [place] [address] Yara Foster MD [address] [place] [address] documented as of this encounter Visit Diagnoses Not on filedocumented in this encounter Additional Health Concerns Assessment Noted Time PHQ-9 Depression Total Score: 9 09/07/19 24 10:34 AM EDT documented as of this encounter Care Teams Minister Of Religion Relationship Specialty Start Date End Date Yara Foster MD [address] [place] [phone] PCP - General Family Medicine 05/05/22 Yara Foster MD [address] [place] [address] Family Medicine 06/01/21 documented as of this encounter
--- OUTSIDE RECORDS SUMMARY | 2024-07-15 11:26 | XMS_ITS | Encounter Summary ---
Author Organization [employer] Address [address] [facility] [address] [place] [address] Care Team Providers Care Core Loader Name Role Phone Yara Foster MD Unavailable [phone] Yara Foster MD Primary Care Provider [phone] Reason for Visit * Reason Comments Eye Problem Encounter Details Date Type Department Care Team (Latest Contact Info) Description 06/25/2024 10:00 AM EST Office Visit [facility] [address] [place] [phone] José Ulrich MD [address] [place] [phone] Acute conjunctivitis of right eye, unspecified acute conjunctivitis type (Primary Dx); Subconjunctival hemorrhage of right eye Social History Tobacco Use Types Packs/Day Years Used Date Smoking Tobacco: Every Day Cigarettes 0.3 0.5 Passive Smoke Exposure: Never Smokeless Tobacco: Never Tobacco Cessation:Ready to Q uit: Not Asked; Counseling Given: Not Answered Alcohol Use Standard Drinks/Week Comments Never 0 [...] AM EDT documented as of this encounter Last Filed Vital Signs Vital Sign Reading Time Taken Comments Blood Pressure 163/90 06/25/2024 9:52 AM EST Pt states hasn't taken BP meds this morning Pulse 101 06/25/2024 9:52 AM EST Temperature 36.7 ??C (98 ??F) 06/25/2024 9:5 2 AM EST Respiratory Rate 18 06/25/2024 9:52 AM EST Oxygen Saturation - - Inhaled Oxygen Concentration - - Weight 99.4 kg (219 lb 3.2 oz) 06/25/2024 9:52 AM EST Height 172.7 cm (5' 8 ) 06/25/2024 9:52 AM EST Body Mass Index 33.33 06/25/2024 9:52 AM EST documented in this encounter Progress Notes * José lUrich MD - 06/25/2024 10:00 AM EST Subjective History was provided by the patient. Marcin Cabrera is a 63 y.o. male who presents for evaluation of right eye redness and increased tearing for 2 days. Denies any trauma or fall. No URI symptoms. Denies cough, congestion, rhinorrhea, or sore throat. Denies F/C. BP is elevated. States has a home BP machine, but only checking his BP when he does not feel well. On Lisinopril, Carvedilol, and Amlodipine. States he is followed by Cardiology and has an upcoming appointment. Denies QUINTANILLA/CP/SOB/THEODORE. Objective Vitals: 06/25/24 0952 BP: (!) 163/90 BP Location: Left arm Patient Position: Sitting BP Cuff Size: Adult Pulse: 101 Resp: 18 Temp: 98 ??F (36.7 ??C) TempSrc: Oral Weight: 219 lb 3.2 oz (99.4 kg) Height: 5' 8 (1.727 m) Physical Exam Vitals reviewed. Constitutional: Appearance: Normal appearance. HENT: Head: Normocephalic and atraumatic. Right Ear: External ear normal. Left Ear: External ear normal. Nose: Nose normal. Mouth/Throat: Mouth: Mucous membranes are moist. Pharynx: Oropharynx is clear. Eyes: Extraocular Movements: Extraocular movements intact. Pupils: Pupils are equal, round, and reactive to light. Comments: Right lateral conjunctival injection with subconjunctival hematoma. No eyelid edema. Cardiovascular: Rate and Rhythm: Normal rate and regular rhythm. Heart sounds: Normal heart sounds. Pulmonary: Effort: Pulmonary effort is normal. Breath sounds: Normal breath sounds. Musculoskeletal: Cervical back: Normal range of motion and neck supple. Lymphadenopathy: Cervical: No cervical adenopathy. Skin: General: Skin is warm and dry. Neurological: Mental Status: He is alert and oriented to person, place, and time. Psychiatric: Mood and Affect: Mood normal. Behavior: Behavior normal. Thought Content: Thought content normal. Judgment: Judgment normal. Marcin was seen today for eye problem. Diagnoses and all orders for this visit: Acute conjunctivitis of right eye, unspecified acute conjunctivitis type (Primary) - erythromycin (Romycin) 5 MG/GM ophthalmic ointment; Apply to affected eye(s) 3 times daily for 7 days. Apply Amount per Dose: 0.25 inch (~0.5 cm) per dose. Subconjunctival hemorrhage of right eye Patient presents to [facility] due to 2-day duration of right conjunctival injection and subconjunctival hematoma Some increased tearing Denies trauma Will treat with Erythromycin ophthalmic ointment Given subconjunctival hematoma, advised to use cold compress TID No clinical evidence of preseptal or septal cellulitis Advised to monitor for any worsening or persistent symptoms Indications for UC/ER use reviewed documented in this encounter Plan of Treatment Upcoming Encounters Date Type Department Care Team (Late st Contact Info) Description 07/29/2024 3:45 PM EST Office Visit [facility] [address] [place] [address] Yara Foster MD [address] [place] [address] documented as of this encounter Visit Diagnoses Diagnosis Acute conjunctivitis of right eye, unspecified acute conjunctivitis type- Primary Subconjunctival hemorrhage of right eye documented in this encounter Additional Health Concerns Assessment Noted Time PHQ-9 Depression Total Score: 9 09/07/19 24 10:34 AM EDT documented as of this encounter Care Teams Core Loader Relationship Specialty Start Date End Date Yara Foster MD [address] [place] [phone] PCP - General Family Medicine 05/05/22 Yara Foster MD [address] [place] [address] Family Medicine 06/01/21 documented as of this encounter
--- OUTSIDE RECORDS SUMMARY | 2024-07-15 11:26 | XMS_ITS | Clinical Summary ---
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 1960Acct:[id number] Age/Sex: 63 / MADM Date: 04/26/24 Loc: SURAJ Attending Dr: Yara Foster MD Ordering Physician: Yara Foster Date of Service: 04/26/24 Procedure(s): XR shoulder RT min 2V Accession Number(s): [id number] cc: Yara Foster EXAMINATION: XR SHOULDER, RIGHT CLINICAL INFORMATION: AC joint pain with impingement sings COMPARISON: None available. TECHNIQUE: AP external rotation, Grashey, scapular Y, and axillary views of the right shoulder. FINDINGS: Mild osteoarthritis of the acromioclavicular joint. Glenohumeral joint normal. Surrounding bones soft tissues unremarkable. XR/XR shoulder RT min 2V IMPRESSION: Mild osteoarthritis of the acromioclavicular joint. Electronically signed by: Damian Merino MD 05/01/2024 07:23 AM EST RP Dictated By: Damian Merino MD Signed By: <Electronically signed by Damian Merino MD inOV> 05/01/24 0723 DD/ 0846 TD/TT: 04/26/24 0920 Clinical Manager Home Care: PHI us Yara Foster MD IMG XR PROCEDURES Final Result * XR Ribs 2 Views Right (04/26/2024 8:46 AM EST) Anatomical Region Laterality Modality Rib, Abdomen Right Radiographic Elana ging 04/26/2024 8:46 AM EST Narrative 06/14/2024 4:36 PM EST ? [facility] ?[address] ?[place] [address] ?XRay Report ? Signed ? Patient: Rick,Marcin ?MR#: [id number] ? : 1960 ?Acct:[id number] ? Age/Sex: 63 / M ?ADM Date: 11/26/24 ? Loc: HO.XRAY ? Attending Dr: Yara Foster MD ? Ordering Physician: Yara Foster ?? Date of Service: 04/26/24 ?? Procedure(s): XR ribs RT 2V ?? Accession Number(s): [id number] ? cc: Yara Foster ? EXAMINATION: ?? XR RIBS RIGHT ? CLINICAL INFORMATION: ?? Coughing, pain. ? COMPARISON: ?? XR Chest 05/06/2022 ? TECHNIQUE: ?? 4 views of the right ribs were obtained. ? FINDINGS: ?? Chest: Limited evaluation of the left hemithorax is not completely on ?? the atuka-fg-broi. Linear opacity at the right base compatible with ?? atelectasis. ? Right RIBS: No fracture or bone lesion. ? XR/XR ribs RT 2V ?? IMPRESSION: ?? CHEST: ?? 1. ??Limited evaluation of the left hemithorax is not completely on the ?? knaro-dk-ktge. ?? 2. ??Right basilar atelectasis. ? RIGHT RIBS: ?? Unremarkable. ? Electronically signed by: ??Damian Merino MD ??06/14/2024 04:33 PM ?? EST RP ? Dictated By: ?Damian Merino MD ? Signed By: ?<Electronically signed by Damian Merino MD in OV> ?06/14/24 1633 ? DD/ 0846 ? TD/TT: 04/26/24 0920 ? Clinical Manager Home Care: WG ? Procedure Note Tikikhalida, Image - 06/14/2024 [place] [address] XRay Report Signed Patient: Marcin CabreraMR#: [id number] : 1960Acct:[id number] Age/Sex: 63 / MADM Date: 04/26/24 Loc: SURAJ Attending Dr: Yara Foster MD Ordering Physician: Yara Foster Date of Service: 04/26/24 Procedure(s): XR ribs RT 2V Accession Number(s): [id number] cc: Yara Foster EXAMINATION: XR RIBS RIGHT CLINICAL INFORMATION: Coughing, pain. COMPARISON: XR Chest 05/06/2022 TECHNIQUE: 4 views of the right ribs were obtained. FINDINGS: Chest: Limited evaluation of the left hemithorax is not completely on the pccqr-ok-hyov. Linear opacity at the right base compatible with atelectasis. Right RIBS: No fracture or bone lesion. XR/XR ribs RT 2V IMPRESSION: CHEST: 1. Limited evaluation of the left hemithorax is not completely on the cxlha-xu-oqms. 2. Right basilar atelectasis. RIGHT RIBS: Unremarkable. Electronically signed by: Damian Merino MD 06/14/2024 04:33 PM EST RP Dictated By: Damian Merino MD Signed By: <Electronically signed by Damian Merino MD inOV> 06/14/24 1633 DD/ 0846 TD/TT: 04/26/24 0920 Clinical Manager Home Care: PHI Yara Foster MD IMG XR PROCEDURES Final Result * (ABNORMAL) POCT A1C (12/07/2023 9:23 AM EDT) Pathologist [facility] Hemoglobin A1C 6.1(A) 4.0 - 6.0 % Blood 12/07/2023 9:23 AM EDT Hafsa Guevara MD POINT OF CARE TEST ENTER /EDIT ORDERABLES Final Result * Cologuard?? colon cancer screening (09/16/2023 9:00 AM EDT) Cologuard Result Negative Negative 10/01/19 12:15 PM EDT [facility] (CLIA #:[id number]) Comment: NEGATIVE TEST RESULT. A negative Cologuard result indicates a low likelihood that a colorectal cancer (CRC) or advanced adenoma (adenomatous polyps with more advanced pre-malignant features) ??is present. The chance that a person with a negative Cologuard test has a colorectal cancer is less than 1 in 1500 (negative predictive value >99.9%) or has an ??advanced adenoma is less than ??5.3% (negative predictive value 94.7%). These data are based on a prospective cross-sectional study of 10,000 individuals at average risk for colorectal cancer who were screened with both Cologuard and colonoscopy. (Pablo Starkey al, N Engl J Med 2014;370(14):1286- 1297) The normal value (reference range) for this assay is negative. COLOGUARD RE-SCREENING RECOMMENDATION: Periodic colorectal cancer screening is an important part of preventive healthcare for asymptomatic individuals at average risk for colorectal cancer. ??Following a negative Cologuard result, the [place] [employer] Society and U.S. Multi-Society Task Force screening guidelines recommend a Cologuard re-screening interval of 3 years. References: [place] [employer] Guideline for Colorectal Cancer Screening: https://www.cancer.org/cancer/rfpiy-qwqlcn-isncwg/icisylmzr-orgzrrctl-tdgpbve/ac s-rec ommendations.html.; Benji DK, Ángel CR, Artie ZhouK, Colorectal Cancer Screening: Recommendations for Physicians and Patients from the U.S. Multi-Society Task Force on Colorectal Cancer Screening , Am J Gastroenterology 2017; 112:9906-2181. TEST DESCRIPTION: Composite algorithmic analysis of stool DNA-biomarkers with hemoglobin immunoassay. ?? Quantitative values of individual biomarkers are not reportable and are not associated with individual biomarker result reference ranges. Cologuard is intended for colorectal cancer screening of adults of either sex, 45 years or older, who are at average-risk for colorectal cancer (CRC). Cologuard has been approved for use by the U.S. FDA. The performance of Cologuard was established in a cross sectional study of average-risk adults aged 50-84. Cologuard performance in patients ages 45 to 49 years was estimated by sub-group analysis of near-age groups. Colonoscopies performed for a positive result may find as the most clinically significant lesion: colorectal cancer [4.0%], advanced adenoma (including sessile serrated polyps greater than or equal to 1cm diameter) [20%] or non- advanced adenoma [31%]; or no colorectal neoplasia [45%]. These estimates are derived from a prospective cross-sectional screening study of 10,000 individuals at average risk for colorectal cancer who were screened with both Cologuard and colonoscopy. (Pablo Starkey al, N Engl J Med 2014;370(14):7312-5052.) Cologuard may produce a false negative or false positive result (no colorectal cancer or precancerous polyp present at colonoscopy follow up). A negative Cologuard test result does not guarantee the absence of CRC or advanced adenoma (pre-cancer). The current Cologuard screening interval is every 3 years. ([place] [employer] and U.S. Multi-Society Task Force). Cologuard performance data in a 10,000 patient pivotal study using colonoscopy as the reference method can be accessed at the following location: www.MediaRoost.Tradesy/results. Additional description of the Cologuard test process, warnings and precautions can be found at www.coltabulaterd.com. Stool specimen (specimen) 09/16/2023 9:00 AM EDT 09/17/2023 10:57 AM EDT us Yara Foster MD LAB MOLECULAR DIAGNOSTICS HERIBERTO MCCLOUD Final Result [employer] (CLIA #:[id number]) [address] [place] [address], * (ABNORMAL) Lipid Panel, Standard (09/12/2023 7:27 AM EDT) Triglycerides 144 <150 mg/dL [facility] Comment:Desirable Triglyceri de: less than 150 mg/dLBorderline High Triglyceride 150-199 mg/dLHigh Triglyceride: 200-499 mg/dLVery High Triglyceride: greater than or equal to 5OO mg/dL Cholesterol 198 <200 mg/dL [facility] Comment:Desirable Cholestero l: less than 200 mg/dLBorderline High Cholesterol: 200-239 mg/dLHigh Cholesterol: greater than 239 mg/dL LDL Cholesterol Calculated 132(H) <100 mg/dL [facility] Comment:Desirable LDL: less than 100 mg/dLNear Optimal/Above Optimal LDL: 110- 129 mg/dLBorderline High LDL: 130-159 mg/dLHigh LDL: 160-189 mg/dLVery High LDL: greater than or equal to 190 mg/dL HDL Cholesterol 38(L) >40 mg/dL [facility] Comment:Desirable HDL: great er than 40 mg/dL Note: This HDL assay may give artificially low results in patients with liver disease. Blood Venous blood specimen / Unknown 09/12/2023 7:27 AM EDT 09/12/2023 7:27 AM EDT us Yara Foster MD LAB BLOOD ORDERABLES Final Res ult Performing Organization Address City/[facility]/ZIP Co de Phone Number [facility] [address] [place] [address] [phone] * HIV-1/2 Antigen and Antibodies, Fourth Generation, with Reflexes (09/02/2022 8:06 AM EDT) Pathologist [facility] HIV Antigen/Antibody, 4th Generation NON-REAC TIVE NON-REAC TIVE [employer] [place] [facility] Comment: HIV-1 antigen and HIV-1/HIV-2 antibodies were not detected. There is no laboratory evidence of HIV infection. PLEASE NOTE: This information has been disclosed to you from records whose confidentiality may be protected by state law. ??If your state requires such protection, then the state law prohibits you from making any further disclosure of the information without the specific written consent of the person to whom it pertains, or as otherwise permitted by law. A general authorization for the release of medical or other information is NOT sufficient for this purpose. ?? For additional information please refer to http://education.vzaar.Tradesy/faq/MON858 (This link is being provided for informational/ educational purposes only.) The performance of this assay has not been clinically validated in patients less than 2 years old. Blood Venous blood specimen / Unknown 09/02/2022 8:06 AM EDT 09/02/2022 8:07 AM EDT Narrative [facility] - 09/06/2022 9:56 PM EDT FASTING:YES FASTING: YES us Hafsa Guevara MD LAB BLOOD ORDERABLES Fin al Result [facility] [address], [place] [address] [employer] [place] [email or web address] [address] [place] [address] from Last 3 Months or Most Recently Relevant to Health Maintenance Insurance [facility] * Guarantor: Marcin Cabrera Account Type Relation to Patient Date of Phone Billing Address Dental Self [address] [place] [address] [place] [address] Care Teams Mold Maintenance Technician Relationship Specialty Start Date End Date Yara Foster MD [address] [place] [address] PCP - General Family Medicine 05/05/22 Yara Foster MD [address] [place] [address] Family Medicine 06/01/21
== END 2024-07-15 11:24 | disposition home or self-care (01) ==
PROVIDERS: PCP General Practice
DX: G56.03 Carpal tunnel syndrome, bilateral upper limbs (principal)
CPT/HCPCS: 99204

== ENCOUNTER → 2024-07-15 10:39 | Outpatient (BNVA) | payer OTHER, SELFPAY | PROVIDERS: PCP General Practice | DX: G56.03 Carpal tunnel syndrome, bilateral upper limbs (principal) | CPT/HCPCS: 99202 ==

== ENCOUNTER 2024-07-26 06:15 | Outpatient (REF) | payer OTHER, SELFPAY ==
--- NOTE | ~2024-07-26 | FL_ITS ---
EXAMINATION: XR FLUOROSCOPY WITH IMAGES CLINICAL INFORMATION: Pain management injection right shoulder. COMPARISON: Right shoulder radiographs 04/26/2024. TECHNIQUE: Fluoroscopy provided to: Dr. Kelly Fluoroscopy time: 0.2 minutes DAP: 0.0130 mGycm2 Images: 1 FINDINGS: Auditory image demonstrates intra-articular injection of the right shoulder joint via dorsal approach. Refer to the full operative report for details. FL/FL guidance in treatment room IMPRESSION: Fluoroscopic guidance. Electronically signed by: Omar Aggarwal MD 07/27/2024 09:46 AM EST
--- OUTSIDE RECORDS SUMMARY | 2024-07-26 06:17 | XMS_ITS | Encounter Summary ---
Author Organization [employer] Address [address] [facility] 7t [place] [address] Care Team Providers Care Customer Relationship Specialist Name Role Phone Yara Foster MD Unavailable [phone] Yara Foster MD Primary Care Provider [phone] Reason for Visit * Reason Comments Med Refill Encounter Details Date Type Department Care Team (Late st Contact Info) Description 12/16/2022 Refill [facility] [address] [place] [address] [phone] Hafsa Guevara MD [address] [place] [address] [phone] Social History Tobacco Use Types Packs/Day Years [...] Description 07/29/2024 3:45 PM EST Office Visit [facility] [address] [place] [address] [phone] Yara Foster MD [address] [place], [place] [phone] documented as of this encounter Visit Diagnoses Not on filedocumented in this encounter Care Teams Customer Relationship Specialist Relationship Specialty Start Date End Date Yara Foster MD [address] [place] [address] PCP - General Family Medicine 05/05/22 Yara Foster MD [address] [place] [address] Family Medicine 06/01/21 documented as of this encounter
--- OUTSIDE RECORDS SUMMARY | 2024-07-26 06:17 | XMS_ITS | Encounter Summary ---
Author Organization [employer] Address [address] [facility] [address] 7t [place] [address] Care Team Providers Care Movie Projectionist Name Role Phone Yara Foster MD Unavailable [phone] Yara Foster MD Primary Care Provider [phone] Encounter Details Date Type Department Care Team (Late st Contact Info) Description 01/01/2024 Orders Only [facility] [address] [place] [address] Tanmay Otto MD [address] [place] [address] Social History Tobacco Use Types Packs/Day Years [...] Description 07/29/2024 3:45 PM EST Office Visit [facility] [address] [place] [address] Yara Foster MD [address] [place] [address] documented as of this encounter Visit Diagnoses Not on filedocumented in this encounter Additional Health Concerns Assessment Noted Time PHQ-9 Depression Total Score: 9 09/07/19 24 10:34 AM EDT documented as of this encounter Care Teams Movie Projectionist Relationship Specialty Start Date End Date Yara Foster MD [address] [place] [address] PCP - General Family Medicine 05/05/22 Yara Foster MD [address] [place] [address] Family Medicine 06/01/21 documented as of this encounter
--- OUTSIDE RECORDS SUMMARY | 2024-07-26 06:17 | XMS_ITS | Encounter Summary ---
Author Organization [employer] Address [address] [facility] [address] 7[address] [place] [address] Care Team Providers Care Assembled Wood Products Repairer Name Role Phone Yara Foster MD Unavailable [phone] Yara Foster MD Primary Care Provider [phone] Encounter Details Date Type Department Care Team ([facility] st Contact Info) Description 03/10/2024 Orders Only [facility] [address] [place] [address] Yara Foster MD [address] [place] [address] Social History Tobacco Use Types Packs/Day Years [...] Description 07/29/2024 3:45 PM EST Office Visit [facility] [address] [place] [address] Yara Foster MD [address] [place] [address] documented as of this encounter Visit Diagnoses Not on filedocumented in this encounter Additional Health Concerns Assessment Noted Time PHQ-9 Depression Total Score: 9 09/07/19 24 10:34 AM EDT documented as of this encounter Care Teams Assembled Wood Products Repairer Relationship Specialty Start Date End Date Yara Foster MD [address] [place] [address] PCP - General Family Medicine 05/05/22 Yara Foster MD [address] [place] [address] Family Medicine 06/01/21 documented as of this encounter
--- OUTSIDE RECORDS SUMMARY | 2024-07-26 06:17 | XMS_ITS | Encounter Summary ---
Author Organization [employer] Address [address] [facility] 7t [place] [address] Care Team Providers Care Rod Placer Name Role Phone Yara Foster MD Unavailable Yara Foster MD Primary Care Provider [phone] Reason for Visit * Reason Onset Date Comments Med Refill 03/31/2024 Encounter Details Date Type Department Care Team ([facility] st Contact Info) Description 03/31/2024 Telephone [facility] [address] [place] [address] Yara Foster MD [address] [place] [address] Med Refill Social History Tobacco Use Types [...] 10:51 AM EDT Medication was sent to [facility][id number] on 02/12/24 with 11 refills. * Telephone Encounter - Hema Louie - 03/31/2024 10:47 AM EDT TC from pt requesting medication refill. Medications needing refill : albuterol (2.5 MG/3ML) 0.083% nebulizer solution To be sent to: [facility]/pharmacy #[id number] documented in this encounter Plan of Treatment Upcoming Encounters Date Type Department Care Team (Late st Contact Info) Description 07/29/2024 3:45 PM EST Office Visit [facility] [address] [place] [address] Yara Foster MD [address] [place] [address] documented as of this encounter Visit Diagnoses Not on filedocumented in this encounter Additional Health Concerns Assessment Noted Time PHQ-9 Depression Total Score: 9 09/07/19 24 10:34 AM EDT documented as of this encounter Care Teams Rod Placer Relationship Specialty Start Date End Date Yara Foster MD [address] [place] [address] PCP - General Family Medicine 05/05/22 Yara Foster MD [address] [place] [address] Family Medicine 06/01/21 documented as of this encounter
--- OUTSIDE RECORDS SUMMARY | 2024-07-26 06:17 | XMS_ITS | Encounter Summary ---
Author Organization [employer] Address [address] [facility] 7t [place] [address] Care Team Providers Care Floorwalker Name Role Phone Yara Foster MD Unavailable [phone] Yara Foster MD Primary Care Provider [phone] Reason for Visit * Reason Onset Date Comments Med Refill 07/07/2023 Encounter Details Date Type Department Care Team ([facility] st Contact Info) Description 07/07/2023 Telephone [facility] [address] [place] [address] Yara Foster MD [address] [place] [address] Med Refill Social History Tobacco Use Types [...] 10:18 AM EST Medication was sent to [facility][id number] on 04/16/23 with 3 refills. * Telephone Encounter - Pasha Slaughter - 07/07/2023 10:04 AM EST TC from pt requesting medication refill. Medications needing refill: gabapentin (Neurontin) 300 MG To be sent to: [facility]/pharmacy #[id number] documented in this encounter Plan of Treatment Upcoming Encounters Date Type Department Care Team (Late st Contact Info) Description 07/29/2024 3:45 PM EST Office Visit [facility] [address] [place] [address] Yara Foster MD [address] [place] [address] documented as of this encounter Visit Diagnoses Not on filedocumented in this encounter Care Teams Floorwalker Relationship Specialty Start Date End Date Yara Foster MD [address] [place] [address] PCP - General Family Medicine 05/05/22 Yara Foster MD [address] [place] [address] Family Medicine 06/01/21 documented as of this encounter
--- OUTSIDE RECORDS SUMMARY | 2024-07-26 06:17 | XMS_ITS | Encounter Summary ---
Author Organization [employer] Address [address] [facility] 7t [place] [address] Care Team Providers Care Land Management Supervisor Name Role Phone Yara Foster MD Unavailable [phone] Yara Foster MD Primary Care Provider [phone] Reason for Visit * Reason Onset Date Comments Med Refill 03/10/2024 Encounter Details Date Type Department Care Team ([facility] st Contact Info) Description 03/10/2024 Telephone [facility] [address] [place] [address] Yara Foster MD [address] [place] [address] Med Refill Social History Tobacco Use Types [...] the past 12 months, has t he [employer], gas, oil or water [employer] threatened to shut off services in your [...] MG DR capsule To be sent to: [facility]/pharmacy #[id number] [place], [place] - [address] [place] [address] documented in this encounter Plan of Treatment Upcoming Encounters Date Type Department Care Team (Late st Contact Info) Description 07/29/2024 3:45 PM EST Office Visit [facility] [address] [place] [address] Yara Foster MD [address] [place], [place] [phone] documented as of this encounter Visit Diagnoses Not on filedocumented in this encounter Additional Health Concerns Assessment Noted Time PHQ-9 Depression Total Score: 9 09/07/19 24 10:34 AM EDT documented as of this encounter Care Teams Land Management Supervisor Relationship Specialty Start Date End Date Yara Foster MD [address] [place], [place] [phone] PCP - General Family Medicine 05/05/22 Yara Foster MD [address] [place] [address] Family Medicine 06/01/21 documented as of this encounter
--- OUTSIDE RECORDS SUMMARY | 2024-07-26 06:17 | XMS_ITS | Encounter Summary ---
Author Organization [employer] Address [address] [facility] 7t [place] [address] Care Team Providers Care Loom Fixer Name Role Phone Yara Foster MD Unavailable [phone] Yara Foster MD Primary Care Provider [phone] Encounter Details Date Type Department Care Team ([facility] st Contact Info) Description 09/16/2023 Orders Only [facility] [address] [place], [place] [phone] Yara Foster MD [address] [place] [address] Social History Tobacco Use Types Packs/Day Years [...] PM EST Office Visit [facility] [address] [place] [address] Yara Foster MD [address] [place] [address] documented as of this encounter Visit Diagnoses Not on filedocumented in this encounter Additional Health Concerns Assessment Noted Time PHQ-9 Depression Total Score: 9 09/07/19 24 10:34 AM EDT documented as of this encounter Care Teams Loom Fixer Relationship Specialty Start Date End Date Yara Foster MD [address] [place] [address] PCP - General Family Medicine 05/05/22 Yara Foster MD [address] [place] [address] Family Medicine 06/01/21 documented as of this encounter
--- OUTSIDE RECORDS SUMMARY | 2024-07-26 06:17 | XMS_ITS | Encounter Summary ---
Author Organization [employer] Address [address] [facility] 7t [place] [address] Care Team Providers Care Ui Designer Name Role Phone Yara Foster MD Unavailable [phone] Yara Foster MD Primary Care Provider [phone] Reason for Visit * Reason Onset Date Comments Durable Medical Equipment 04/27/2024 Encounter Details Date Type Department Care Team ([facility] st Contact Info) Description 04/27/2024 Telephone [facility] [address] [place] [address] Yara Foster MD [address] [place] [address] Durable Medical Equipment Social History Tobacco Use [...] the past 12 months, has t he [employer], gas, oil or water [employer] threatened to shut off services in your [...] 04/25. IF any questions Contact pt at [phone] documented in this encounter Plan of Treatment Upcoming Encounters Date Type Department Care Team (Late st Contact Info) Description 07/29/2024 3:45 PM EST Office Visit [facility] [address] [place] [address] Yara Foster MD [address] [place] [address] documented as of this encounter Visit Diagnoses Not on filedocumented in this encounter Additional Health Concerns Assessment Noted Time PHQ-9 Depression Total Score: 9 09/07/19 24 10:34 AM EDT documented as of this encounter Care Teams Ui Designer Relationship Specialty Start Date End Date Yara Foster MD [address] [place] [address] PCP - General Family Medicine 05/05/22 Yara Foster MD [address] [place] [address] Family Medicine 06/01/21 documented as of this encounter
--- OUTSIDE RECORDS SUMMARY | 2024-07-26 06:17 | XMS_ITS | Encounter Summary ---
Author Organization [employer] Address 75 [facility] 7t [place] [address] Care Team Providers Care Laborer Stores Name Role Phone Yara Foster MD Unavailable [phone] Yara Foster MD Primary Care Provider [phone] Reason for Visit * Reason Onset Date Comments Appointment Request 06/13/2022 Encounter Details Date Type Department Care Team (Late st Contact Info) Description 06/13/2022 Telephone [facility] MEDICINE [address] [place] [address] Yara Foster MD [address] [place] [address] Appointment Request Social History Tobacco Use Types [...] (DERM NEW EPIDERMOID) Please contact pt at [phone] documented in this encounter Plan of Treatment Upcoming Encounters Date Type Department Care Team (Late st Contact Info) Description 07/29/2024 3:45 PM EST Office Visit [facility] MEDICINE [address] [place] [address] Yara Foster MD [address] [place] [address] documented as of this encounter Visit Diagnoses Not on filedocumented in this encounter Care Teams Laborer Stores Relationship Specialty Start Date End Date Yara Foster MD [address] [place], [place] [phone] PCP - General Family Medicine 05/05/22 Yara Foster MD [address] [place], [place] [phone] Family Medicine 06/01/21 documented as of this encounter
--- OUTSIDE RECORDS SUMMARY | 2024-07-26 06:17 | XMS_ITS | Clinical Summary ---
Author Organization [employer] Address 75 [facility] 7t [place] [address] Care Team Providers Care Ground Operations Supervisor Name Role Phone Yara Foster MD Unavailable [phone] Yara Foster MD Primary Care Provider Allergies No known active allergies Medications * [...] times daily. 02/09/20 19 Active fish oil ([place]-3) 500 MG capsule Take 1 capsule (500 [...] Plan (09/08/2022 7:42 AM EDT): Will sign [employer] paperwork when it comes to me Limited [...] tears prescribed followup with vision, either at [facility] or if gets in sooner at [facility], here Adjustment disorder with anxious mood 05/23/2022 [...] focal disc protrusion or central canal stenosis. Kmai-ih-cizjgpdm bilateral foraminal narrowing at the L4-L5 level. [...] of re-infection Opioid dependence 05/23/2022 09/08/2022 Encounters Date Type Department Care Team Description 06/25/2024 10:00 AM EST [facility] [address] [address] José Ulrich MD Acute conjunctivitis of right eye, unspecified acute conjunctivitis type (Primary Dx); Subconjunctival hemorrhage of right eye 06/17/[address] [address] Penelope Aguirre, RN Results 05/24/[address] [address] Yara Foster MD 05/16/2024 10:30 AM EST Clinical Support [address] [address] Luly Cyr, RN Bilateral impacted cerumen 05/16/2024 Travel 05/09/2024 7:00 PM EST [facility] [address] [address] Elton Jauregui MD Bilateral impacted cerumen (Primary Dx); Essential hypertension 04/27/[address] [address] Yara Foster MD 04/27/2024 Telephone [facility] MEDICINE [address] [place] [address] Yara Foster MD Durable Medical Equipment 04/25/2024 4:00 PM EST Office Visit [facility] MEDICINE [address] [place] [address] Yara Foster MD Essential hypertension (Primary Dx); [...] Description 07/29/2024 3:45 PM EST Office Visit [facility] MEDICINE [address] [place] [address] Yara Foster MD [address] [place] [address] Health Maintenance Due Date Last Done Comments [...] 02/19/2018, 08/22/2015, 08/25/2012 Lipid Panel 09/11/2028 09/12/2023, 04/0 08/2022, 05/04/2020 Hepatitis B Vaccines Completed 10/28/2018, [...] Procedure Name Priority Date/Time Associated Diagnosis Comments TX REMOVAL IMPACTED CERUMEN IRRIGATION/LVG UNILAT Routine 05/16/2024 [...] Recently Relevant to Health Maintenance Results * TX REMOVAL IMPACTED CERUMEN IRRIGATION/LVG UNILAT (05/16/2024 10:22 [...] EST Narrative 05/01/2024 7:26 AM EST ? [place] [facility] ?[address] ?[place] [address] ?XRay Report ? Signed ? Patient: Rick,Marcin ?MR#: [id number] ? : 1960 ?Acct:[id number] ? Age/Sex: 63 / M ?ADM Date: 04/26/24 ? Loc: HO.XRAY ? Attending Dr: Yara Foster MD ? Ordering Physician: Yara Foster ?? Date of Service: 04/26/24 ?? Procedure(s): XR shoulder RT min 2V ?? Accession Number(s): [id number] ? cc: Yara Foster ? EXAMINATION: ?? [...] signed by Damian Merino MD in OV> ?05/01/24 0723 ? DD/ 0846 ? TD/TT: 04/26/24 0920 ? Industrial Nurse: WG ? Procedure Note Geeta, Image - 05/01/[address] [address] XRay Report Signed Patient: Main Cabrera#: [id number] : 1960Acct:[id number] Age/Sex: 63 / MADM Date: 04/26/24 Loc: SURAJ Attending Dr: Yara Foster MD Ordering Physician: Yara Foster Date of Service: 04/26/24 Procedure(s): XR shoulder RT min 2V Accession Number(s): [id number] cc: Yara Foster EXAMINATION: XR SHOULDER, RIGHT [...] 05/01/24 0723 DD/ 0846 TD/TT: 04/26/24 0920 Industrial Nurse: PHI Yara Foster MD IMG XR PROCEDURES Final Result * XR Ribs 2 Views Right (04/26/2024 8:46 AM EST) Anatomical Region Laterality Modality Rib, Abdomen Right Radiographic Elana ging 04/26/2024 8:46 AM EST Narrative 06/14/2024 4:36 PM EST ? [facility] ?[address] ?[place] [address] ?XRay Report ? Signed ? Patient: Rick,Marcin ?MR#: [id number] ? : 1960 ?Acct:[id number] ? Age/Sex: 63 / M ?ADM Date: 04/26/24 ? Loc: HO.XRAY ? Attending Dr: Yara Foster MD ? Ordering Physician: Yara Foster ?? Date of Service: 04/26/24 ?? Procedure(s): XR ribs RT 2V ?? Accession Number(s): [id number] ? cc: Yara Foster ? EXAMINATION: ?? XR RIBS RIGHT ? CLINICAL INFORMATION: ?? Coughing, pain. ? COMPARISON: ?? XR Chest 05/06/2022 ? TECHNIQUE: ?? 4 views of the right ribs were obtained. ? FINDINGS: ?? Chest: Limited evaluation of the left hemithorax is not completely on ?? the bersg-wy-pqjo. Linear opacity at the right base compatible with ?? atelectasis. ? Right RIBS: No fracture or bone lesion. ? XR/XR ribs RT 2V ?? IMPRESSION: ?? CHEST: ?? 1. ??Limited evaluation of the left hemithorax is not completely on the ?? rvvtd-ee-syxw. ?? 2. ??Right basilar atelectasis. ? RIGHT RIBS: ?? Unremarkable. ? Electronically signed by: ??Damian Merino MD ??06/14/2024 04:33 PM ?? EST RP ? Dictated By: ?Damian Merino MD ? Signed By: ?<Electronically signed by Damian Merino MD in OV> ?06/14/24 1633 ? DD/ 0846 ? TD/TT: 04/26/24 0920 ? Industrial Nurse: WG ? Procedure Note Geeta, Image - 06/14/2024 [place] [address] XRay Report Signed Patient: Marcin CabreraMR#: [id number] : 1960Acct:[id number] Age/Sex: 63 / MADM Date: 04/26/24 Loc: SURAJ Attending Dr: Yara Foster MD Ordering Physician: Yara Foster Date of Service: 04/26/24 Procedure(s): XR ribs RT 2V Accession Number(s): [id number] cc: Yara Foster EXAMINATION: XR RIBS RIGHT CLINICAL INFORMATION: Coughing, pain. COMPARISON: XR Chest 05/06/2022 TECHNIQUE: 4 views of the right ribs were obtained. FINDINGS: Chest: Limited evaluation of the left hemithorax is not completely on the hdgko-dx-ijkz. Linear opacity at the right base compatible with atelectasis. Right RIBS: No fracture or bone lesion. XR/XR ribs RT 2V IMPRESSION: CHEST: 1. Limited evaluation of the left hemithorax is not completely on the vgqmi-kl-jxzc. 2. Right basilar atelectasis. RIGHT RIBS: Unremarkable. Electronically signed by: Damian Merino MD 06/14/2024 04:33 PM EST RP Dictated By: Damian Merino MD Signed By: <Electronically signed by Damian Merino MD inOV> 06/14/24 1633 DD/ 0846 TD/TT: 04/26/24 0920 Industrial Nurse: PHI us Yara Foster MD IMG XR PROCEDURES Final Result * (ABNORMAL) POCT A1C (12/07/2023 9:23 AM EDT) Hemoglobin A1C 6.1(A) 4.0 - 6.0 % Blood 12/07/2023 9:23 AM EDT us Hafsa Guevara MD POINT OF CARE TEST ENTER /EDIT ORDERABLES Final Result * Cologuard?? colon cancer screening (09/16/2023 9:00 AM EDT) Cologuard Result Negative Negative 10/01/19 12:15 PM EDT [facility] (CLIA #:[id number]) Comment: NEGATIVE TEST RESULT. A negative Cologuard [...] cancer. ??Following a negative Cologuard result, the [place] [employer] and U.S. Multi-Society Task Force screening guidelines recommend a Cologuard re-screening interval of 3 years. References: [place] [employer] Guideline for Colorectal Cancer Screening: https://www.cancer.org/cancer/enswj-szfmpw-uvpgsi/dnviqjafy-pscbrddug-rpeqsxt/ac s-rec ommendations.html.; Benji DK, Ángel CR, Artie ZhouK, Colorectal Cancer Screening: Recommendations for Physicians and Patients from the U.S. Multi-Society Task Force on Colorectal Cancer Screening , Am J Gastroenterology 2017; 112:5659-7364. TEST DESCRIPTION: Composite algorithmic analysis of stool [...] (Pablo Starkey al, N Engl J Med 2014;370(14):2588-0297.) Cologuard may produce a false negative or false positive result (no colorectal cancer or precancerous polyp present at colonoscopy follow up). A negative Cologuard test result does not guarantee the absence of CRC or advanced adenoma (pre-cancer). The current Cologuard screening interval is every 3 years. ([place] [employer] and U.S. Multi-Society Task Force). Cologuard performance data in a 10,000 patient pivotal study using colonoscopy as the reference method can be accessed at the following location: www.EpicPledge.com/results. Additional description of the Cologuard test process, warnings and precautions can be found at www.cologOpenBSD Foundationrd.com. Stool specimen (specimen) 09/16/2023 9:00 AM EDT 09/17/2023 10:57 AM EDT Yara Foster MD LAB MOLECULAR DIAGNOSTICS HERIBERTO MCCLOUD Final Result [facility] (CLIA #:[id number]) [address] [place] [address], * (ABNORMAL) Lipid Panel, Standard (09/12/2023 7:27 AM EDT) Triglycerides 144 <150 mg/dL [facility] Comment:Desirable Triglyceri de: less than 150 mg/dLBorderline High Triglyceride 150-199 mg/dLHigh Triglyceride: 200-499 mg/dLVery High Triglyceride: greater than or equal to 5OO mg/dL Cholesterol 198 <200 mg/dL [facility] Comment:Desirable Cholestero l: less than 200 mg/dLBorderline High Cholesterol: 200-239 mg/dLHigh Cholesterol: greater than 239 mg/dL LDL Cholesterol Calculated 132(H) <100 mg/dL [facility] Comment:Desirable LDL: less than 100 mg/dLNear Optimal/Above Optimal LDL: 110- 129 mg/dLBorderline High LDL: 130-159 mg/dLHigh LDL: 160-189 mg/dLVery High LDL: greater than or equal to 190 mg/dL HDL Cholesterol 38(L) >40 mg/dL [facility] Comment:Desirable HDL: great er than 40 mg/dL Note: This HDL assay may give artificially low results in patients with liver disease. Blood Venous blood specimen / Unknown 09/12/2023 7:27 AM EDT 09/12/2023 7:27 AM EDT Yara Foster MD LAB BLOOD ORDERABLES Final Res ult Performing Organization Address City/[facility]/ZIP Co de Phone Number [facility] [address] [place] [phone] [phone] * HIV-1/2 Antigen and Antibodies, Fourth Generation, with Reflexes (09/02/2022 8:06 AM EDT) HIV Antigen/Antibody, 4th Generation NON-REAC TIVE NON-REAC TIVE [facility] [place] [employer] [facility] Comment: HIV-1 antigen and HIV-1/HIV-2 antibodies [...] ?? For additional information please refer to http://education.[employer]/faq/ABO081 (This link is being provided for informational/ educational purposes only.) The performance of this assay has not been clinically validated in patients less than 2 years old. Blood Venous blood specimen / Unknown 09/02/2022 8:06 AM EDT 09/02/2022 8:07 AM EDT Narrative [facility] - 09/06/2022 9:56 PM EDT FASTING:YES FASTING: YES us Hafsa Guevara MD LAB BLOOD ORDERABLES Fin al Result Performing Organization Address City/[facility]/ZIP Co de Phone Number [facility] [address], [place] [address] [facility] [place] [employer] [facility] [address] [place] [address] from Last 3 Months or Most Recently Relevant to Health Maintenance Insurance [facility] * Guarantor: Andrae Cabrerauel Account Type Relation to Patient Date of Phone Billing Address Dental Self [address] [place] [address] [place] [place] AD[place] Care Teams Ground Operations Supervisor Relationship Specialty Start Date End Date Yara Foster MD [address] [place] [address] PCP - General Family Medicine 05/05/22 Yara Foster MD [address] [place] [address] Family Medicine 06/01/21
--- OUTSIDE RECORDS SUMMARY | 2024-07-26 06:17 | XMS_ITS | Encounter Summary ---
Author Organization [employer] Address 75 [facility] 7t [place] [address] Care Team Providers Care Vulcanizer Rubber Plate Name Role Phone Yara Foster MD Unavailable [phone] Yara Foster MD Primary Care Provider [phone] Encounter Details Date Type Department Care Team (Late Contact Info) Description 05/23/2022 Abstract [facility] MEDICINE [address] [place] [address] Yara Foster MD [address] [place] [address] Social History Tobacco Use Types Packs/Day Years [...] Description 07/29/2024 3:45 PM EST Office Visit [facility] MEDICINE [address] [place] [address] Yara Foster MD [address] [place] [address] [phone] documented as of this encounter Visit Diagnoses Not on filedocumented in this encounter Care Teams Vulcanizer Rubber Plate Relationship Specialty Start Date End Date Yara Foster MD [address] [place] [address] [phone] PCP - General Family Medicine 05/05/22 Yara Foster MD [address] [place] [address] Family Medicine 06/01/21 documented as of this encounter
--- OUTSIDE RECORDS SUMMARY | 2024-07-26 06:17 | XMS_ITS | Encounter Summary ---
Author Organization [employer] Address 75 [facility] 7t [place] [address] Care Team Providers Care Loan Collector Name Role Phone Yara Foster MD Unavailable [phone] Yara Foster MD Primary Care Provider [phone] Reason for Visit * Reason Comments Med Change Request Encounter Details Date Type Department Care Team (Late Contact Info) Description 09/03/2022 Refill [facility] MEDICINE [address] [place] [phone] Hafsa Guevara MD [address] [place], [place] [phone] Social History Tobacco Use Types Packs/Day Years [...] Description 07/29/2024 3:45 PM EST Office Visit [facility] MEDICINE [address] [place], [place] [phone] Yara Foster MD [address] [place] [address] documented as of this encounter Visit Diagnoses Not on filedocumented in this encounter Care Teams Loan Collector Relationship Specialty Start Date End Date Yara Foster MD [address] [place], [place] [phone] PCP - General Family Medicine 05/05/22 Yara Foster MD [address] [place], [place] [phone] Family Medicine 06/01/21 documented as of this encounter
--- OUTSIDE RECORDS SUMMARY | 2024-07-26 06:18 | XMS_ITS | Encounter Summary ---
Author Organization [employer] Address 75 [facility] 7t [place] [address] Care Team Providers Care Varnish [place] Name Role Phone Yara Foster MD Unavailable [phone] Yara Foster MD Primary Care Provider [phone] Reason for Visit * Reason Onset Date Comments Appointment Request 07/24/2022 Encounter Details Date Type Department Care Team ([facility] Contact Info) Description 07/24/2022 Telephone [facility] MEDICINE [address] [place] [phone] Yara Foster MD [address] [place] [address] Appointment Request Social History Tobacco Use Types [...] 2:54 PM EST Tc elder [facility] requesting a pe appt , needs for program . 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 documented in this encounter Plan of Treatment Upcoming Encounters Date Type Department Care Team (Late st Contact Info) Description 07/29/2024 3:45 PM EST Office Visit [facility] MEDICINE [address] [place], [place] [phone] Yara Foster MD [address] [place] [address] documented as of this encounter Visit Diagnoses Not on filedocumented in this encounter Care Teams Varnish [place] Relationship Specialty Start Date End Date Yara Foster MD [address] [place], [place] [phone] PCP - General Family Medicine 05/05/22 Yara Foster MD [address] [place] [address] Family Medicine 06/01/21 documented as of this encounter
--- OUTSIDE RECORDS SUMMARY | 2024-07-26 06:18 | XMS_ITS | Encounter Summary ---
Author Organization [employer] Address [address] [facility] 7t [place] [address] Care Team Providers Care Corporate Trainer Name Role Phone Yara Foster MD Unavailable [phone] Yara Foster MD Primary Care Provider Reason for Visit * Reason Onset Date Comments RUBBER MILL TENDER Services 07/03/2022 I called brigettei liliam the pt's request for RUBBER MILL TENDER services. He states that he needs assistance with getting dressed, putting his shoes on, medication reminders, appointment reminders, housekeeping, cooking, laundry, and getting a ride to appointments. He stated that he has a person in mind to be his RUBBER MILL TENDER, and he would prefer to be referred to [facility]. Encounter Details Date Type Department Care Team (Late st Contact Info) Description 07/03/2022 Telephone [facility] MEDICINE [address] [place], [place] [phone] Yara Foster MD [address] [place], [place] [phone] RUBBER MILL TENDER Services (I called regarding the pt's request for RUBBER MILL TENDER services. He states that he needs assistance with getting dressed, putting his shoes on, medication reminders, appointment reminders, housekeeping, cooking, laundry, and getting a ride to appointments. He stated that he has a person in mind to be his RUBBER MILL TENDER, and he would prefer to be referred [...] Office Visit [facility] MEDICINE [address] [place] [phone] Yara Foster MD [address] [place] [address] documented as of this encounter Visit Diagnoses Not on filedocumented in this encounter Care Teams Corporate Trainer Relationship Specialty Start Date End Date Yara Foster MD [address] [place] [address] PCP - General Family Medicine 05/05/22 Yara Foster MD [address] [place] [address] Family Medicine 06/01/21 documented as of this encounter
== END 2024-07-26 06:16 | disposition home or self-care (01) ==
LOC: CF 06:15
PROVIDERS: Visit Provider Anesthesiology
DX: M19.011 Primary osteoarthritis, right shoulder (principal); M25.511 Pain in right shoulder
CPT/HCPCS: 20610; J2003; J2795; J3301; Q9967

== ENCOUNTER 2024-07-26 07:05 | Outpatient (AMB) | payer OTHER, SELFPAY ==
--- OUTSIDE RECORDS SUMMARY | 2024-07-26 07:07 | XMS_ITS | Clinical Summary ---
Author Organization [employer] Address [address] [facility] [employer] 7t [place] [address] Care Team Providers Care Design Analyst Name Role Phone Yara Foster MD Unavailable [phone] Yara Foster MD Primary Care Provider [phone] Allergies No known active allergies Medications * [...] times daily. 02/09/20 19 Active fish oil (Castile-3) 500 MG capsule Take 1 capsule (500 [...] Plan (09/08/2022 7:42 AM EDT): Will sign [employer]IL [employer] paperwork when it comes to me Limited [...] tears prescribed followup with vision, either at [facility] or if gets in sooner at [facility], here Adjustment disorder with anxious mood [...] focal disc protrusion or central canal stenosis. Ivla-hm-skhpiktp bilateral foraminal narrowing at the L4-L5 level. [...] Description 06/25/2024 10:00 AM EST Office Visit [facility] [address] [address] José Ulrich MD Acute conjunctivitis of right eye, unspecified acute conjunctivitis type (Primary Dx); Subconjunctival hemorrhage of right eye 06/17/[address] [address] Penelope Aguirre, RN Results 05/24/[address] [address] Yara Foster MD 05/16/2024 10:30 AM EST Clinical Support [address] [address] Luly Cyr, RN Bilateral impacted cerumen 05/16/2024 Travel 05/09/2024 7:00 PM EST Office Visit [facility] [address] [address] Elton Jauregui MD Bilateral impacted cerumen (Primary Dx); Essential hypertension 04/27/[address] [address] Yara Foster MD 04/27/2024 Telephone [facility] MEDICINE [address] [place] [address] Yara Foster MD Durable Medical Equipment 04/25/2024 4:00 PM EST Office Visit [facility] MEDICINE [address] [place] [address] Yara Foster MD Essential hypertension (Primary Dx); [...] 3:45 PM EST Office Visit [facility] MEDICINE [address] [place] [address] Yara Fosetr MD [address] [place] [address] Health Maintenance Due Date Last Done Comments [...] Procedure Name Priority Date/Time Associated Diagnosis Comments KS REMOVAL IMPACTED CERUMEN IRRIGATION/LVG UNILAT Routine 05/16/2024 [...] Recently Relevant to Health Maintenance Results * KS REMOVAL IMPACTED CERUMEN IRRIGATION/LVG UNILAT (05/16/2024 10:22 [...] EST Narrative 05/01/2024 7:26 AM EST ? [facility] [facility] ?[address] ?[place] [address] ?XRay Report ? Signed ? Patient: Rick,Marcin ?MR#: [id number] ? : 1960 ?Acct:[id number] ? Age/Sex: 63 / M ?ADM Date: 04/26/24 ? Loc: HO.XRAY ? Attending Dr: Yara Foster MD ? Ordering Physician: Yara Foster ?? Date of Service: 04/26/24 ?? Procedure(s): XR shoulder RT min 2V ?? Accession Number(s): [id number] ? cc: Yara Foster ? EXAMINATION: ?? [...] DD/ 0846 ? TD/TT: 04/26/24 0920 ? Prefitter Doors: WG ? Procedure Note Geeta, Image - 05/01/[address] [address] XRay Report Signed Patient: Main Cabrera#: [id number] : 1960Acct:[id number] Age/Sex: 63 / MADM Date: 04/26/24 Loc: SURAJ Attending Dr: Yara Foster MD Ordering Physician: Yara Foster Date of Service: 04/26/24 Procedure(s): XR shoulder RT min 2V Accession Number(s): [id number] cc: Yara Foster EXAMINATION: XR SHOULDER, RIGHT [...] 05/01/24 0723 DD/ 0846 TD/TT: 04/26/24 0920 Prefitter Doors: PHI Yara Foster MD IMG XR PROCEDURES Final Result * XR Ribs 2 Views Right (04/26/2024 8:46 AM EST) Anatomical Region Laterality Modality Rib, Abdomen Right Radiographic Elana ging 04/26/2024 8:46 AM EST Narrative 06/14/2024 4:36 PM EST ? [facility] ?[address] ?[place] [address] ?XRay Report ? Signed ? Patient: Rick,Marcin ?MR#: [id number] ? : 1960 ?Acct:[id number] ? Age/Sex: 63 / M ?ADM Date: 04/26/24 ? Loc: HO.XRAY ? Attending Dr: Yara Foster MD ? Ordering Physician: Yara Foster ?? Date of Service: 04/26/24 ?? Procedure(s): XR ribs RT 2V ?? Accession Number(s): [id number] ? cc: Yara Foster ? EXAMINATION: ?? XR RIBS RIGHT ? CLINICAL INFORMATION: ?? Coughing, pain. ? COMPARISON: ?? XR Chest 05/06/2022 ? TECHNIQUE: ?? 4 views of the right ribs were obtained. ? FINDINGS: ?? Chest: Limited evaluation of the left hemithorax is not completely on ?? the qmirw-aa-fgbr. Linear opacity at the right base compatible with ?? atelectasis. ? Right RIBS: No fracture or bone lesion. ? XR/XR ribs RT 2V ?? IMPRESSION: ?? CHEST: ?? 1. ??Limited evaluation of the left hemithorax is not completely on the ?? iibya-xg-aywu. ?? 2. ??Right basilar atelectasis. ? RIGHT RIBS: ?? Unremarkable. ? Electronically signed by: ??Damian Merino MD ??06/14/2024 04:33 PM ?? EST RP ? Dictated By: ?Damian Merino MD ? Signed By: ?<Electronically signed by Damian Merino MD in OV> ?06/14/24 1633 ? DD/ 0846 ? TD/TT: 04/26/24 0920 ? Prefitter Doors: WG ? Procedure Note Geeta, Image - 06/14/2024 [place] [address] XRay Report Signed Patient: Marcin CabreraMR#: [id number] : 1960Acct:[id number] Age/Sex: 63 / MADM Date: 04/26/24 Loc: SURAJ Attending Dr: Yara Foster MD Ordering Physician: Yara Foster Date of Service: 04/26/24 Procedure(s): XR ribs RT 2V Accession Number(s): [id number] cc: Yara Foster EXAMINATION: XR RIBS RIGHT CLINICAL INFORMATION: Coughing, pain. COMPARISON: XR Chest 05/06/2022 TECHNIQUE: 4 views of the right ribs were obtained. FINDINGS: Chest: Limited evaluation of the left hemithorax is not completely on the sslpo-yp-uhbx. Linear opacity at the right base compatible with atelectasis. Right RIBS: No fracture or bone lesion. XR/XR ribs RT 2V IMPRESSION: CHEST: 1. Limited evaluation of the left hemithorax is not completely on the fjycd-ni-kssc. 2. Right basilar atelectasis. RIGHT RIBS: Unremarkable. Electronically signed by: Damian Merino MD 06/14/2024 04:33 PM EST RP Dictated By: Damian Merino MD Signed By: <Electronically signed by Damian Merino MD inOV> 06/14/24 1633 DD/ 0846 TD/TT: 04/26/24 0920 Prefitter Doors: PHI us Yara Foster MD IMG XR PROCEDURES Final Result * (ABNORMAL) POCT A1C (12/07/2023 9:23 AM EDT) Hemoglobin A1C 6.1(A) 4.0 - 6.0 % Blood 12/07/2023 9:23 AM EDT us Hafsa Guevara MD POINT OF CARE TEST ENTER /EDIT ORDERABLES Final Result * Cologuard?? colon cancer screening (09/16/2023 9:00 AM EDT) Cologuard Result Negative Negative 10/01/19 12:15 PM EDT [facility] (CLIA #:[id number]) Comment: NEGATIVE TEST RESULT. A negative Cologuard [...] cancer. ??Following a negative Cologuard result, the [place] Cancer Society and U.S. Multi-Society Task Force screening guidelines recommend a Cologuard re-screening interval of 3 years. References: [place] [employer] Guideline for Colorectal Cancer Screening: https://www.cancer.org/cancer/pwkkn-fkyctq-fkbhnx/xwfxxbask-blcdueyvk-sypxjxp/ac s-rec ommendations.html.; Benji DK, Ángel CR, Artie ZhouK, Colorectal Cancer Screening: Recommendations for Physicians and Patients from the U.S. Multi-Society Task Force on Colorectal Cancer Screening , Am J Gastroenterology 2017; 112:5209-6355. TEST DESCRIPTION: Composite algorithmic analysis of stool [...] (Pablo Starkey al, N Engl J Med 2014;370(14):6871-1110.) Cologuard may produce a false negative or false positive result (no colorectal cancer or precancerous polyp present at colonoscopy follow up). A negative Cologuard test result does not guarantee the absence of CRC or advanced adenoma (pre-cancer). The current Cologuard screening interval is every 3 years. ([place] [employer] Society and U.S. Multi-Society Task Force). Cologuard performance data in a 10,000 patient pivotal study using colonoscopy as the reference method can be accessed at the following location: www.[employer].com/results. Additional description of the Cologuard test process, warnings and precautions can be found at www.cologVisible Measuresrd.com. Stool specimen (specimen) 09/16/2023 9:00 AM EDT 09/17/2023 10:57 AM EDT Yara Foster MD LAB MOLECULAR DIAGNOSTICS HERIBERTO MCCLOUD Final Result [facility] (CLIA #:[id number]) [address] [place] [address], * (ABNORMAL) Lipid Panel, Standard (09/12/2023 7:27 AM EDT) Triglycerides 144 <150 mg/dL [facility] Comment:Desirable Triglyceri de: less than 150 mg/dLBorderline High Triglyceride 150-199 mg/dLHigh Triglyceride: 200-499 mg/dLVery High Triglyceride: greater than or equal to 5OO mg/dL Cholesterol 198 <200 mg/dL [facility] Comment:Desirable Cholestero l: less than 200 mg/dLBorderline High Cholesterol: 200-239 mg/dLHigh Cholesterol: greater than 239 mg/dL LDL Cholesterol Calculated 132(H) <100 mg/dL [facility] Comment:Desirable LDL: less than 100 mg/dLNear Optimal/Above Optimal LDL: 110- 129 mg/dLBorderline High LDL: 130-159 mg/dLHigh LDL: 160-189 mg/dLVery High LDL: greater than or equal to 190 mg/dL HDL Cholesterol 38(L) >40 mg/dL [facility] Comment:Desirable HDL: great er than 40 mg/dL Note: This HDL assay may give artificially low results in patients with liver disease. Blood Venous blood specimen / Unknown 09/12/2023 7:27 AM EDT 09/12/2023 7:27 AM EDT Yara Foster MD LAB BLOOD ORDERABLES Final Res ult Performing Organization Address City/[facility]/ZIP Co de Phone Number [facility] [address] [place] [address] [phone] * HIV-1/2 Antigen and Antibodies, Fourth Generation, with Reflexes (09/02/2022 8:06 AM EDT) HIV Antigen/Antibody, 4th Generation NON-REAC TIVE NON-REAC TIVE [facility] Comment: HIV-1 antigen and HIV-1/HIV-2 antibodies [...] ?? For additional information please refer to http://education.Ximalaya/faq/XPK122 (This link is being provided for informational/ [...] ORDERABLES Fin al Result Performing Organization Address City/[facility]/ZIP Co de Phone Number [facility] [address], [place] [address] [facility] [address] [place] [address] from Last 3 Months or Most Recently Relevant to Health Maintenance Insurance [facility] CARE * Guarantor: Andrae Cabrerauel Account Type Relation to Patient Date of Phone Billing Address Dental Self [address] [place] [address] [place] AD[place] Care Teams Design Analyst Relationship Specialty Start Date End Date Yara Foster MD [address] [place] [address] PCP - General Family Medicine 05/05/22 Yara Foster MD [address] [place] [address] Family Medicine 06/01/21
--- OUTSIDE RECORDS SUMMARY | 2024-07-26 07:07 | XMS_ITS | Encounter Summary ---
Author Organization [employer] Address [address] [facility] 7t [place] [address] Care Team Providers Care Surgical Services Asst Name Role Phone Yara Foster MD Unavailable [phone] Yara Foster MD Primary Care Provider [phone] Reason for Visit * Reason Onset Date Comments Appointment Request 07/24/2022 Encounter Details Date Type Department Care Team ([facility] Contact Info) Description 07/24/2022 Telephone [facility] MED[facility]INE [address] [place] [address] Yara Foster MD [address] [place] [address] Appointment Request Social History Tobacco Use Types [...] 2:54 PM EST Tc elder Pratt from [facility] requesting a pe appt , needs for program . [facility] Director tried book nothing available. documented in this encounter Plan of Treatment Upcoming Encounters Date Type Department Care Team (Late st Contact Info) Description 07/29/2024 3:45 PM EST Office Visit [facility] MEDICINE [address] [place], [place] [phone] Yara Foster MD [address] [place] [address] documented as of this encounter Visit Diagnoses Not on filedocumented in this encounter Care Teams Surgical Services Asst Relationship Specialty Start Date End Date Yara Foster MD [address] [place], [place] [phone] PCP - General Family Medicine 05/05/22 Yara Foster MD [address] [place] [address] Family Medicine 06/01/21 documented as of this encounter
--- OUTSIDE RECORDS SUMMARY | 2024-07-26 07:07 | XMS_ITS | Encounter Summary ---
Author Organization [employer] Address [address] [facility] 7t [place] [address] Care Team Providers Care Calciner Feeder Name Role Phone Yara Foster MD Unavailable [phone] Yara Foster MD Primary Care Provider [phone] Reason for Visit * Reason Onset Date Comments Appointment Request 06/13/2022 Encounter Details Date Type Department Care Team (Late st Contact Info) Description 06/13/2022 Telephone [facility] MEDICINE [address] [place] [phone] Yara Foster MD [address] [place] [address] Appointment Request Social History Tobacco Use Types [...] (DERM NEW EPIDERMOID) Please contact pt at [phone] documented in this encounter Plan of Treatment Upcoming Encounters Date Type Department Care Team (Late st Contact Info) Description 07/29/2024 3:45 PM EST Office Visit [facility] MEDICINE [address] [place] [address] Yara Foster MD [address] [place] [address] documented as of this encounter Visit Diagnoses Not on filedocumented in this encounter Care Teams Calciner Feeder Relationship Specialty Start Date End Date Yara Foster MD [address] [place], [place] [phone] PCP - General Family Medicine 05/05/22 Yara Foster MD [address] [place], [place] [phone] Family Medicine 06/01/21 documented as of this encounter
--- OUTSIDE RECORDS SUMMARY | 2024-07-26 07:07 | XMS_ITS | Encounter Summary ---
Author Organization [employer] Address 75 [facility] 7t [place] [address] Care Team Providers Care Bell Clerk Name Role Phone Yara Foster MD Unavailable [phone] Yara Foster MD Primary Care Provider [phone] Reason for Visit * Reason Comments Med Change Request Encounter Details Date Type Department Care Team (Late Contact Info) Description 09/03/2022 Refill [facility] MEDICINE [address] [place] [address] Hafsa Guevara MD [address] [place], [place] [phone] Social History Tobacco Use Types Packs/Day Years [...] Description 07/29/2024 3:45 PM EST Office Visit [facility] MEDICINE [address] [place], [place] [phone] Yara Foster MD [address] [place] [address] documented as of this encounter Visit Diagnoses Not on filedocumented in this encounter Care Teams Bell Clerk Relationship Specialty Start Date End Date Yara Foster MD [address] [place], [place] [phone] PCP - General Family Medicine 05/05/22 Yara Foster MD [address] [place], [place] [phone] Family Medicine 06/01/21 documented as of this encounter
--- OUTSIDE RECORDS SUMMARY | 2024-07-26 07:07 | XMS_ITS | Encounter Summary ---
Author Organization [employer] Address [address] [facility] 7t [place] [address] Care Team Providers Care Sausage Machine Operator Name Role Phone Yara Foster MD Unavailable [phone] Yara Foster MD Primary Care Provider [phone] Reason for Visit * Reason Comments Med Refill Encounter Details Date Type Department Care Team (Late st Contact Info) Description 12/16/2022 Refill [facility] MEDICINE [address] [place] [phone] Hafsa Guevara MD [address] [place] [phone] Social History Tobacco Use Types Packs/Day Years [...] Description 07/29/2024 3:45 PM EST Office Visit [facility] MEDICINE [address] [place] [phone] Yara Foster MD [address] [place], [place] [phone] documented as of this encounter Visit Diagnoses Not on filedocumented in this encounter Care Teams Sausage Machine Operator Relationship Specialty Start Date End Date Yara Foster MD [address] [place] [address] PCP - General Family Medicine 05/05/22 Yara Foster MD [address] [place] [address] Family Medicine 06/01/21 documented as of this encounter
--- OUTSIDE RECORDS SUMMARY | 2024-07-26 07:07 | XMS_ITS | Encounter Summary ---
Author Organization [employer] Address [address] [facility] 7t [place] [address] Care Team Providers Care Geophysics Professor Name Role Phone Yara Foster MD Unavailable [phone] Yara Foster MD Primary Care Provider [phone] Reason for Visit * Reason Onset Date Comments DIRECTOR OF PUBLICATIONS Services 07/03/2022 I called brigettei liliam the pt's request for DIRECTOR OF PUBLICATIONS services. He states that he needs assistance with getting dressed, putting his shoes on, medication reminders, appointment reminders, housekeeping, cooking, laundry, and getting a ride to appointments. He stated that he has a person in mind to be his DIRECTOR OF PUBLICATIONS, and he would prefer to be referred to [facility]. Encounter Details Date Type Department Care Team (Late st Contact Info) Description 07/03/2022 Telephone [facility] MEDICINE [address] [place], [place] [phone] Yara Foster MD [address] [place], [place] [phone] DIRECTOR OF PUBLICATIONS Services (I called regarding the pt's request for DIRECTOR OF PUBLICATIONS services. He states that he needs assistance with getting dressed, putting his shoes on, medication reminders, appointment reminders, housekeeping, cooking, laundry, and getting a ride to appointments. He stated that he has a person in mind to be his DIRECTOR OF PUBLICATIONS, and he would prefer to be referred [...] 3:45 PM EST Office Visit [facility] MEDICINE [address] [place] [address] Yara Foster MD [address] [place] [address] documented as of this encounter Visit Diagnoses Not on filedocumented in this encounter Care Teams Geophysics Professor Relationship Specialty Start Date End Date Yara Foster MD [address] [place] [address] PCP - General Family Medicine 05/05/22 Yara Foster MD [address] [place] [address] Family Medicine 06/01/21 documented as of this encounter
--- OUTSIDE RECORDS SUMMARY | 2024-07-26 07:07 | XMS_ITS | Encounter Summary ---
Author Organization [employer] Address [address] [facility] [address] 7t [place] [address] Care Team Providers Care Parole Board Member Name Role Phone Yara Foster MD Unavailable [phone] Yara Foster MD Primary Care Provider [phone] Encounter Details Date Type Department Care Team ([facility] st Contact Info) Description 03/10/2024 Orders Only [facility] MEDICINE [address] [place] [address] Yara Foster MD [address] [place] [address] Social History Tobacco Use Types Packs/Day Years [...] Description 07/29/2024 3:45 PM EST Office Visit [facility] MED[facility]INE [address] [place] [address] Yara Foster MD [address] [place] [address] documented as of this encounter Visit Diagnoses Not on filedocumented in this encounter Additional Health Concerns Assessment Noted Time PHQ-9 Depression Total Score: 9 09/07/19 24 10:34 AM EDT documented as of this encounter Care Teams Parole Board Member Relationship Specialty Start Date End Date aYra Foster MD [address] [place] [address] PCP - General Family Medicine 05/05/22 Yara Foster MD [address] [place] [address] Family Medicine 06/01/21 documented as of this encounter
--- OUTSIDE RECORDS SUMMARY | 2024-07-26 07:07 | XMS_ITS | Encounter Summary ---
Author Organization [employer] Address 75 [facility] 7t [place] [address] Care Team Providers Care Etl Manager Name Role Phone Yara Foster MD Unavailable [phone] Yara Foster MD Primary Care Provider [phone] Reason for Visit * Reason Onset Date Comments Med Refill 03/10/2024 Encounter Details Date Type Department Care Team ([facility] st Contact Info) Description 03/10/2024 Telephone [facility] [address] [place] [address] Yara Foster MD [address] [place] [address] Med Refill Social History Tobacco Use Types [...] your housing situation today? I have rachel mtathew 09/07/[address] you li [...] the past 12 months, has t he [employer], gas, oil or water [employer] threatened to shut off services in your [...] MG DR capsule To be sent to: [facility]/pharmacy #[id number] [place], [place] - [address] [place] [address] documented in this encounter Plan of Treatment Upcoming Encounters Date Type Department Care Team (Late st Contact Info) Description 07/29/2024 3:45 PM EST Office Visit [facility] [address] [place] [address] Yara Foster MD [address] [place], [place] [phone] documented as of this encounter Visit Diagnoses Not on filedocumented in this encounter Additional Health Concerns Assessment Noted Time PHQ-9 Depression Total Score: 9 09/07/19 24 10:34 AM EDT documented as of this encounter Care Teams Etl Manager Relationship Specialty Start Date End Date Yara Foster MD [address] [place], [place] [phone] PCP - General Family Medicine 05/05/22 Yara Foster MD [address] [place] [address] Family Medicine 06/01/21 documented as of this encounter
--- OUTSIDE RECORDS SUMMARY | 2024-07-26 07:07 | XMS_ITS | Encounter Summary ---
Author Organization [employer] Address [address] [facility] 7t [place] [address] Care Team Providers Care Hair Dresser Name Role Phone Yara Foster MD Unavailable [phone] Yara Foster MD Primary Care Provider [phone] Reason for Visit * Reason Onset Date Comments Durable Medical Equipment 04/27/2024 Encounter Details Date Type Department Care Team ([facility] st Contact Info) Description 04/27/2024 Telephone [facility] MEDICINE [address] [place] [address] Yara Foster MD [address] [place] [address] Durable Medical Equipment Social History Tobacco Use [...] the past 12 months, has t he [employer], gas, oil or water [employer] threatened to shut off services in your [...] 04/25. IF any questions Contact pt at [phone] documented in this encounter Plan of Treatment Upcoming Encounters Date Type Department Care Team (Late st Contact Info) Description 07/29/2024 3:45 PM EST Office Visit [facility] MEDICINE [address] [place] [address] Yara Foster MD [address] [place] [address] documented as of this encounter Visit Diagnoses Not on filedocumented in this encounter Additional Health Concerns Assessment Noted Time PHQ-9 Depression Total Score: 9 09/07/19 24 10:34 AM EDT documented as of this encounter Care Teams Hair Dresser Relationship Specialty Start Date End Date Yara Foster MD [address] [place] [address] PCP - General Family Medicine 05/05/22 Yara Foster MD [address] [place] [address] Family Medicine 06/01/21 documented as of this encounter
--- OUTSIDE RECORDS SUMMARY | 2024-07-26 07:07 | XMS_ITS | Encounter Summary ---
Author Organization [employer] Address [address] [facility] 7t [place] [address] Care Team Providers Care Medical Research Tech Name Role Phone Yara Foster MD Unavailable [phone] Yara Foster MD Primary Care Provider [phone] Reason for Visit * Reason Onset Date Comments Med Refill 03/31/2024 Encounter Details Date Type Department Care Team ([facility] st Contact Info) Description 03/31/2024 Telephone [facility] [address] [place] [address] Yara Foster MD [address] [place] [address] Med Refill Social History Tobacco Use Types [...] 10:51 AM EDT Medication was sent to [facility] #[id number] on 02/12/24 with 11 refills. * Telephone Encounter - Hema Louie - 03/31/2024 10:47 AM EDT TC from pt requesting medication refill. Medications needing refill : albuterol (2.5 MG/3ML) 0.083% nebulizer solution To be sent to: [facility]/pharmacy #[id number] documented in this encounter Plan of Treatment Upcoming Encounters Date Type Department Care Team (Late st Contact Info) Description 07/29/2024 3:45 PM EST Office Visit [facility] [address] [place] [address] Yara Foster MD [address] [place] [address] documented as of this encounter Visit Diagnoses Not on filedocumented in this encounter Additional Health Concerns Assessment Noted Time PHQ-9 Depression Total Score: 9 09/07/19 24 10:34 AM EDT documented as of this encounter Care Teams Medical Research Tech Relationship Specialty Start Date End Date Yara Foster MD [address] [place] [address] PCP - General Family Medicine 05/05/22 Yara Foster MD [address] [place] [address] Family Medicine 06/01/21 documented as of this encounter
--- OUTSIDE RECORDS SUMMARY | 2024-07-26 07:07 | XMS_ITS | Encounter Summary ---
Author Organization [employer] Address [address] [facility] [address] [place] [address] Care Team Providers Care Unit Supervisor Name Role Phone Yara Foster MD Unavailable [phone] Yara Foster MD Primary Care Provider [phone] Encounter Details Date Type Department Care Team (Late st Contact Info) Description 01/01/2024 Orders Only [facility] [address] [place] [address] Tanmay Otto MD [address] [place] [address] Social History Tobacco Use Types Packs/Day Years [...] 3:45 PM EST Office Visit [facility] [address] [place] [address] Yara Foster MD [address] [place] [address] documented as of this encounter Visit Diagnoses Not on filedocumented in this encounter Additional Health Concerns Assessment Noted Time PHQ-9 Depression Total Score: 9 09/07/19 24 10:34 AM EDT documented as of this encounter Care Teams Unit Supervisor Relationship Specialty Start Date End Date Yara Foster MD [address] [place] [address] PCP - General Family Medicine 05/05/22 Yara Foster MD [address] [place] [address] Family Medicine 06/01/21 documented as of this encounter
--- OUTSIDE RECORDS SUMMARY | 2024-07-26 07:07 | XMS_ITS | Encounter Summary ---
Author Organization [employer] Address [address] 7[address] [place] [address] Care Team Providers Care Freight Solicitor Name Role Phone Yara Foster MD Unavailable [phone] Yara Foster MD Primary Care Provider [phone] Encounter Details Date Type Department Care Team ([facility] st Contact Info) Description 09/16/2023 Orders Only [facility] [address] [place], [place] [phone] Yara Foster MD [address] [place] [address] Social History Tobacco Use Types Packs/Day Years [...] Description 07/29/2024 3:45 PM EST Office Visit [facility] [address] [place] [address] Yara Foster MD [address] [place] [address] documented as of this encounter Visit Diagnoses Not on filedocumented in this encounter Additional Health Concerns Assessment Noted Time PHQ-9 Depression Total Score: 9 09/07/19 24 10:34 AM EDT documented as of this encounter Care Teams Freight Solicitor Relationship Specialty Start Date End Date Yara Foster MD [address] [place] [address] PCP - General Family Medicine 05/05/22 Yara Foster MD [address] [place] [address] Family Medicine 06/01/21 documented as of this encounter
--- OUTSIDE RECORDS SUMMARY | 2024-07-26 07:07 | XMS_ITS | Encounter Summary ---
Author Organization [employer] Address [address] [facility] 7t [place] [address] Care Team Providers Care Shipping Supervisor Name Role Phone Yara Foster MD Unavailable [phone] Yara Foster MD Primary Care Provider [phone] Reason for Visit * Reason Onset Date Comments Med Refill 07/07/2023 Encounter Details Date Type Department Care Team ([facility] st Contact Info) Description 07/07/2023 Telephone [facility] [address] [place] [address] Yara Foster MD [address] [place] [address] Med Refill Social History Tobacco Use Types [...] 10:18 AM EST Medication was sent to [facility] #[id number] on 04/16/23 with 3 refills. * Telephone Encounter - Pasha Slaughter - 07/07/2023 10:04 AM EST TC from pt requesting medication refill. Medications needing refill: gabapentin (Neurontin) 300 MG To be sent to: [facility]/pharmacy #[id number] documented in this encounter Plan of Treatment Upcoming Encounters Date Type Department Care Team (Late st Contact Info) Description 07/29/2024 3:45 PM EST Office Visit [facility] [address] [place] [address] Yara Foster MD [address] [place] [address] documented as of this encounter Visit Diagnoses Not on filedocumented in this encounter Care Teams Shipping Supervisor Relationship Specialty Start Date End Date Yara Foster MD [address] [place] [address] PCP - General Family Medicine 05/05/22 Yara Foster MD [address] [place] [address] Family Medicine 06/01/21 documented as of this encounter
--- OUTSIDE RECORDS SUMMARY | 2024-07-26 07:07 | XMS_ITS | Encounter Summary ---
Author Organization [employer] Address [address] [facility] 7t [place] [address] Care Team Providers Care Fur Blowing Machine Operator Name Role Phone Yara Foster MD Unavailable [phone] Yara Foster MD Primary Care Provider [phone] Encounter Details Date Type Department Care Team (Late Contact Info) Description 05/23/2022 Abstract [facility] [address] [place] [address] Yara Foster MD [address] [place] [address] Social History Tobacco Use Types Packs/Day Years [...] Description 07/29/2024 3:45 PM EST Office Visit [facility] [address] [place] [address] Yara Foster MD [address] [place] [phone] documented as of this encounter Visit Diagnoses Not on filedocumented in this encounter Care Teams Fur Blowing Machine Operator Relationship Specialty Start Date End Date Yara Foster MD [address] [place] [phone] PCP - General Family Medicine 05/05/22 Yara Foster MD [address] [place] [address] Family Medicine 06/01/21 documented as of this encounter
--- NOTE | 2024-07-26 07:08 | MHC.OFFVIS ---
Vital Signs 07/26/24 07:09 07/26/24 07:51 BP 159/68 H 158/70 H Blood Pressure Location Lt brachial Rt brachial Position Sitting Sitting Pulse 80 73 Pulse Source Pulse Oximeter Pulse Oximeter Pulse Oximetry (%) 97 98 Oxygen Delivery Method Room Air Room Air Comment Pre-Op Post-Op Intake Visit Reasons: RIGHT INTRA-ARTICULAR SHOULDER INJECTION Allergies No Known Allergies [No Known Allergies*] Allergy (Verified 07/15/24 10:53) PFSH Medical History Sebaceous cyst Umbilical hernia Lumbar spondylosis Lumbar radiculopathy, chronic Bilateral knee pain Lumbar degenerative disc disease Hypertension Hepatitis C Social History (Updated 07/15/24 @ 10:54 by KA[facility] Tamez) Patient Tobacco Use Status: Former Tobacco user Cigarettes Per Day: 2 Substance Use Type: Crack/Cocaine and Heroin Current occupation: rt handed Physical Exam Vital Signs: Last Vital Signs Pulse 73 07/26/24 07:51 BP 158/70 H 07/26/24 07:51 Pulse Ox 98 07/26/24 07:51 Oxygen Delivery Method Room Air 07/26/24 07:51 Assessment & Plan Assessment & Plan (1) Right shoulder pain: Code(s): M25.511 - Pain in right shoulder Category: Medical (2) Osteoarthritis of right shoulder: Code(s): M19.011 - Primary osteoarthritis, right shoulder Category: Medical (3) Numbness and tingling in both hands: Code(s): R20.0 - Anesthesia of skin; R20.2 - Paresthesia of skin Category: Medical Plan Right intra-articular shoulder steroid injection. Marcin is very pleasant 63 years old gentleman who is suffering from right shoulder pain and right shoulder osteoarthritis. He came today to the operating room to receive right shoulder intra-articular steroid injection. Informed consent was carefully explained to the patient risks and benefits were explained. Patient was taken to the operating room and positioned prone on operating table. Time-out was performed delineating name and date of of the patient side and site and nature of the procedure. His lower back was prepped with ChloraPrep and draped with self adhesive sterile utility towels. C-arm was brought over the operating field and sq picture of the right shoulder joint was delineated on the screen. Anteromedial portion of the joint was chosen as the target of the injection. The projection of the target to the skin was injected with mixture of lidocaine 2% and ropivacaine 0.5% one-to-one. After that 22 gauge 3-1/2 inch needle was inserted through the skin wheal and advanced to were the target in tunnel vision fashion. When needle entered the capsule of the joint injection of contrast was performed demonstrating arthrogram. After that injection of treatment solution containing ropivacaine 0.5% and Kenalog 40 mg was performed in the joint. Upon completion of the injection needle was withdrawn sterile Band-Aid was applied. The patient tolerated the procedure well. Orders: Orders FL guidance in treatment room Today M19.011 - Primary osteoarthritis, right shoulder Coding Level of Care Code Procedure Only Diagnoses Right shoulder pain M25.511 Osteoarthritis of right shoulder M19.011 Numbness and tingling in both hands R20.0; R20.2
[2024-07-26 07:09] VITALS: BP 159/68; PULSE 80; O2SAT 97
[2024-07-26 07:51] VITALS: BP 158/70; PULSE 73; O2SAT 98
== END 2024-07-26 07:57 | disposition home or self-care (01) ==
LOC: HO.PMCPRC 07:05
PROVIDERS: PCP General Practice; Visit Provider Anesthesiology
DX: M25.511 Pain in right shoulder (principal); M19.011 Primary osteoarthritis, right shoulder; R20.0 Anesthesia of skin; R20.2 Paresthesia of skin
CPT/HCPCS: 20610; 77002

== ENCOUNTER 2024-08-09 09:06 | Outpatient (AMB) | payer OTHER, SELFPAY ==
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
[2024-08-09 09:19] VITALS: BP 167/76; PULSE 82; O2SAT 99; BMI 33.3
--- OUTSIDE RECORDS SUMMARY | 2024-08-09 10:08 | XMS_ITS | Encounter Summary ---
Author Organization [employer] Address [address] [place] [address] Care Team Providers Care Equine Science Instructor Name Role Phone Yara Foster MD Unavailable [phone] Yara Foster MD Primary Care Provider [phone] Encounter Details Date Type Department Care Team ([facility] st Contact Info) Description 03/10/2024 Orders Only [facility] [address] [place] [address] Yara Foster MD [address] [place] [address] Social History Tobacco Use Types Packs/Day Years [...] Care Team (Late st Contact Info) Description 08/10/2024 10:30 AM EDT Clinical Support [facility] [address] [place] [address] documented as of this encounter Visit Diagnoses Not on filedocumented in this encounter Additional Health Concerns Assessment Noted Time PHQ-9 Depression Total Score: 9 09/07/19 24 10:34 AM EDT documented as of this encounter Care Teams Equine Science Instructor Relationship Specialty Start Date End Date Yara Foster MD [address] [place] [address] PCP - General Family Medicine 05/05/22 Yara Foster MD [address] [place] [address] Family Medicine 06/01/21 documented as of this encounter
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
--- OUTSIDE RECORDS SUMMARY | 2024-08-09 10:08 | XMS_ITS | Encounter Summary ---
Author Organization [employer] Address [address] [place] [address] Care Team Providers Care Manager Post Name Role Phone Yara Foster MD Unavailable Yara Foster MD Primary Care Provider [phone] Encounter Details Date Type Department Care Team ([facility] st Contact Info) Description 09/16/2023 Orders Only [facility] MED[facility] [address] [place], [place] [phone] Yara Foster MD [address] [place] [address] Social History Tobacco Use Types Packs/Day Years [...] Description 08/10/2024 10:30 AM EDT Clinical Support [facility] [address] [place] [address] documented as of this encounter Visit Diagnoses Not on filedocumented in this encounter Additional Health Concerns Assessment Noted Time PHQ-9 Depression Total Score: 9 09/07/19 24 10:34 AM EDT documented as of this encounter Care Teams Manager Post Relationship Specialty Start Date End Date Yara Foster MD [address] [place] [address] PCP - General Family Medicine 05/05/22 Yara Foster MD [address] [place] [address] Family Medicine 06/01/21 documented as of this encounter
--- OUTSIDE RECORDS SUMMARY | 2024-08-09 10:08 | XMS_ITS | Encounter Summary ---
Author Organization [employer] Address [address] [facility] 7t [place] [address] Care Team Providers Care Technical Agronomist Name Role Phone Yara Foster MD Unavailable [phone] Yara Foster MD Primary Care Provider [phone] Reason for Visit * Reason Comments Med Change Request Encounter Details Date Type Department Care Team (Late Contact Info) Description 09/03/2022 Refill [facility] [address] [place] [id number] Hafsa Guevara MD [address] [place] [address] Social History Tobacco Use Types Packs/Day Years [...] Department Care Team (Late Contact Info) Description 08/10/2024 10:30 AM EDT Clinical Support [facility] [address] [place] [phone] documented as of this encounter Visit Diagnoses Not on filedocumented in this encounter Care Teams Technical Agronomist Relationship Specialty Start Date End Date Yara Foster MD [address] [place] [address] PCP - General Family Medicine 05/05/22 Yara Foster MD [address] [place] [address] Family Medicine 06/01/21 documented as of this encounter
--- OUTSIDE RECORDS SUMMARY | 2024-08-09 10:08 | XMS_ITS | Encounter Summary ---
Author Organization [employer] Address [address] [place] [address] Care Team Providers Care Cargo Service Agent Name Role Phone Yara Foster MD Unavailable [phone] Yara Foster MD Primary Care Provider [phone] Encounter Details Date Type Department Care Team (Latest Contact Info) Description 07/29/2024 Travel Social History Tobacco Use Types Packs/Day Years [...] Description 08/10/2024 10:30 AM EDT Clinical Support [facility] [address] [place] [address] documented as of this encounter Visit Diagnoses Not on filedocumented in this encounter Additional Health Concerns Assessment Noted Time PHQ-9 Depression Total Score: 9 09/07/19 24 10:34 AM EDT documented as of this encounter Care Teams Cargo Service Agent Relationship Specialty Start Date End Date Yara Fotser MD [address] [place] [address] PCP - General Family Medicine 05/05/22 Yara Foster MD [address] [place] [address] Family Medicine 06/01/21 documented as of this encounter
--- OUTSIDE RECORDS SUMMARY | 2024-08-09 10:08 | XMS_ITS | Encounter Summary ---
Author Organization [employer] Address [address] [facility] [address] [place] [address] Care Team Providers Care Equal Opportunity Officer Name Role Phone Yara Foster MD Unavailable [phone] Yara Foster MD Primary Care Provider [phone] Reason for Visit * Reason Comments Med Refill Encounter Details Date Type Department Care Team (Late Contact Info) Description 12/16/2022 Refill [facility] [address] [place] [phone] Hafsa Guevara MD [address] [place] [address] Social History Tobacco Use Types Packs/Day Years [...] Description 08/10/2024 10:30 AM EDT Clinical Support [facility] [address] [place] [phone] documented as of this encounter Visit Diagnoses Not on filedocumented in this encounter Care Teams Equal Opportunity Officer Relationship Specialty Start Date End Date Yara Foster MD [address] [place] [address] PCP - General Family Medicine 05/05/22 Yara Foster MD [address] [place] [address] Family Medicine 06/01/21 documented as of this encounter
--- OUTSIDE RECORDS SUMMARY | 2024-08-09 10:08 | XMS_ITS | Encounter Summary ---
Author Organization [employer] Address [address] [place] [address] Care Team Providers Care Frame Hand Name Role Phone Yara Foster MD Unavailable [phone] Yara Foster MD Primary Care Provider [phone] Encounter Details Date Type Department Care Team ([facility] st Contact Info) Description 01/01/2024 Orders Only [facility] [address] [place] [address] Tanmay Otto MD [address] [place] [address] Social History Tobacco Use Types Packs/Day Years [...] Description 08/10/2024 10:30 AM EDT Clinical Support [facility] [address] [place] [address] documented as of this encounter Visit Diagnoses Not on filedocumented in this encounter Additional Health Concerns Assessment Noted Time PHQ-9 Depression Total Score: 9 09/07/19 24 10:34 AM EDT documented as of this encounter Care Teams Frame Hand Relationship Specialty Start Date End Date Yara Foster MD [address] [place] [address] PCP - General Family Medicine 05/05/22 Yara Foster MD [address] [place] [address] Family Medicine 06/01/21 documented as of this encounter
--- OUTSIDE RECORDS SUMMARY | 2024-08-09 10:08 | XMS_ITS | Encounter Summary ---
Author Organization [employer] Address [address] [facility] [address] [place] [address] Care Team Providers Care Engineer Soils Name Role Phone Yara Foster MD Unavailable [phone] Yara Foster MD Primary Care Provider [phone] Reason for Visit * Reason Onset Date Comments Med Refill 07/07/2023 Encounter Details Date Type Department Care Team ([facility] st Contact Info) Description 07/07/2023 Telephone [facility] [address] [place] [address] Yara Foster MD [address] [place] [address] Med Refill Social History Tobacco Use Types [...] 10:18 AM EST Medication was sent to [id number] on 04/16/23 with 3 refills. * Telephone Encounter - Pasha Slaughter - 07/07/2023 10:04 AM EST TC from pt requesting medication refill. Medications needing refill: gabapentin (Neurontin) 300 MG To be sent to: [facility]/pharmacy #[id number] documented in this encounter Plan of Treatment Upcoming Encounters Date Type Department Care Team (Late st Contact Info) Description 08/10/2024 10:30 AM EDT Clinical Support [facility] [address] [place] [address] documented as of this encounter Visit Diagnoses Not on filedocumented in this encounter Care Teams Engineer Soils Relationship Specialty Start Date End Date Yara Foster MD [address] [place] [address] PCP - General Family Medicine 05/05/22 Yara Foster MD [address] [place] [address] Family Medicine 06/01/21 documented as of this encounter
--- OUTSIDE RECORDS SUMMARY | 2024-08-09 10:09 | XMS_ITS | Clinical Summary ---
Author Organization [employer] Address [address] [facility] 7t [place] [address] Care Team Providers Care Wallpaperer Helper Name Role Phone Yara Foster MD Unavailable [phone] Yara Foster MD Primary Care Provider [phone] Allergies No known active allergies Medications * [...] tablet by mouth daily 05/01/20 22 Active ibuprofen 600 MG tablet Take 1 tablet by mouth every 8 hours as needed for pain 05/06/20 22 Active sertraline (Zoloft) 100 MG tablet Take 2 tablet by mouth once daily 05/20/20 22 Active hydrocortisone 2.5 % cream 2 times daily. 02/09/20 19 Active fish oil (Axton-3) 500 MG capsule Take 1 capsule (500 mg) by mouth in the morning. 180 capsule 3 09/06/19 23 Active Flovent HFA 220 MCG/ACT inhaler INHALE 2 PUFFS BY MOUTH EVERY DAY 12 g 11 09/13/19 23 Active traZODone (Desyrel) 100 MG tabletIndication s:Primary insomnia TAKE 2 TABLETS BY MOUTH AT [...] 01/29/20 24 Active Multiple Vitamin (Daily-Benjy Multivitamin) tabletIndication s:Essential hypertension TAKE 1 TABLET BY MOUTH EVERY DAY WITH FOOD 90 tablet 3 01/29/20 24 Active amLODIPine (Norvasc) 10 MG tablet Take 1 tablet (10 mg) by mouth Once per day. 90 tablet 3 01/29/20 24 Active albuterol 108 (90 Base) MCG/ACT inhalerIndicatio ns:Mild persistent asthma without complication Inhale 2 puffs [...] (cough, shortness of breath). 1 each 02/12/20 24 Active cholecalciferol VITAMIN D (Vitamin D-3) 50 MCG (1999) capsule TAKE 1 CAPSULE BY MOUTH EVERY MORNING 90 capsule 3 03/09/20 24 Active albuterol (2.5 MG/3ML) 0.083% nebulizer solutionIndicati ons:Mild persistent asthma without complication,Acu te COVID-19 Take 3 mL (2.5 mg) by nebulization every 4 (four) hours if needed for wheezing. 75 mL 11 04/01/20 24 025 Active carvedilol (Coreg) 25 MG tablet TOME 1 TABLETA POR V A ORAL DOS VECES AL D A CON ALIMENTO FOR 90 DAYS 02/02/20 24 Active QUEtiapine XR (SEROquel XR) 50 MG 24 hr tablet TAKE 1-2 TABLET BY MOUTH EVERY NIGHT AT BEDTIME FOR INSOMNIA 03/15/20 24 Active Omeprazole 20 MG tablet delayed-release Take 1 tablet (20 mg) by mouth Once per day. 90 tablet 3 04/25/20 24 Active famotidine (Pepcid) 20 MG tabletIndication s:Gastroesophage al reflux disease without esophagitis Take 1 tablet (20 mg) by mouth Once per day. 90 tablet 3 04/25/20 24 Active metFORMIN XR (Glucophage-XR) 500 MG 24 hr tablet Take 1 tablet (500 mg) by mouth with evening meal. 90 tablet 3 05/24/20 24 025 Active lisinopril 40 MG tablet Take 1 tablet (40 mg) by mouth Once per day. 90 tablet 3 07/29/19 25 026 Active meloxicam (Mobic) 15 MG tablet TAKE 1 TABLET BY MOUTH DAILY WITH FOOD AND WITH FULL GLASS OF WATER FOR PAIN. AVOID OTHER NSAIDS. 07/04/19 25 Active famotidine (Pepcid) 40 MG tablet Take 1 tablet by mouth Once per day. 06/11/19 25 Active omeprazole (PriLOSEC) [address] capsule TOME 1 C PSULA POR V A ORAL TODOS LOS D 06/06/19 25 Active QUEtiapine XR (SEROquel XR) 150 MG 24 hr tablet TOME 1 TABLETA POR V A ORAL TODOS LOS D AL ACOSTARSE CUANDO SEA NECESARIO PARA DORMIR 05/03/20 24 Active QUEtiapine (SEROquel) 25 MG tablet TOME 1 TABLETA POR V A ORAL DOS VECES AL D A CUANDO SEA NECESARIO PARA LA ANSIEDAD /IRRITABILITY 05/03/20 24 Active hydrOXYzine pamoate (Vistaril) 50 MG capsule Take 1 tablet by mouth twice daily as needed for anxiety or insomnia 05/16/20 22 025 Discontin ued(Thera py completed ) lisinopril (Zestril) 30 MG tablet Take 1 tablet (30 mg) by mouth Once per day. 90 tablet 3 04/25/20 24 025 Discontin ued(Dose adjustmen t) Active Problems Problem Noted Date Diagnosed Date Cardiomyopathy with implanta ble cardioverter-defibrillator ([facility]/HCC) 08/02/2024 Bilateral impacted cerumen 05/09/2024 Delayed ejaculation 01/11/2024 [...] a rectal/prostate examination. Order CT/NG/Ucx. Prediabetes 11/16/2023 Encounter for screening for infections with a [...] Plan (09/08/2022 7:42 AM EDT): Will sign PROMPT CARE RN paperwork when it comes to me Limited mobility 09/08/2022 Mixed hyperlipidemia 09/08/2022 Assessment & Plan (09/08/2022 7:44 AM EDT): Start Atorvastatin 10mg daily Preventative health care 08/29/2022 Assessment & Plan (09/09/2023 10:25 AM EDT): Here for annual physical PSA is up to date Colon cancer screening with cologuard Imms, will get Zoster today in pharmacy Psa [...] tears prescribed followup with vision, either at [facility] or if gets in sooner at [facility], here Adjustment disorder with anxious mood 05/23/2022 Gastroesophageal reflux disease 05/23/2022 Mixed anxiety and depressive disorder 05/23/2022 Dermoid cyst 05/23/2022 Episodic tension-type headache 05/23/2022 Essential hypertension 05/23/2022 Assessment & Plan (08/02/2024 4:00 PM EST): Not at goal at home [...] consulting health care provider Assessment & Plan (05/09/2024 7:40 PM EST): [...] focal disc protrusion or central canal stenosis. [id number] bilateral foraminal narrowing at the L4-L5 level. 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/HCC); Essential hypertension 07/29/2024 Travel 06/25/2024 10:00 AM EST Office Visit [facility] WALK-IN CENTER [address] [place] [address] José Ulrich MD Acute conjunctivitis of right eye, unspecified acute conjunctivitis type (Primary Dx); Subconjunctival hemorrhage of right eye 06/17/2024 Telephone [facility] MEDICINE [address] [place] [address] Penelope Aguirre, ISIDRO Results 05/24/[address] [phone] Yara Foster MD 05/16/2024 10:30 AM EST Clinical Support [address] [address] Luly Cyr, RN Bilateral impacted cerumen 05/16/2024 Travel from Last 3 Months Immunizations Name [...] Mass Index 32.66 07/29/2024 3:35 PM EST Plan of Treatment Upcoming Encounters Date Type Department Care Team (Late st Contact Info) Description 08/10/2024 10:30 AM EDT Clinical Support [address] [phone] Health Maintenance Due Date Last Done Comments CT Colonography 1960 Colonoscopy 1960 Dental Oral Exam 1960 Dental Prophylaxis 1960 Dental X-Ray: Bitewings 1962 Dental X-Ray: Full Mouth 1962 FIT 1962 FOBT 1960 Sigmoidoscopy 1960 Zoster Vaccines (1 of 2) 2012 RSV Patients and Patients Aged 60 years or older (1 - Risk 60-74 years 1-dose series) 2022 COVID-19 Vaccine (3 - season) 2024 10/09/2020, 09/07/2020 Influenza Vaccine (#1) 2024 , 07/29/2018, 07/29/2018, Additional history exists Depression Monitoring (PHQ-9) 03/08/2024 09/07/2023, 09/07/2023 Alcohol/Substance Use Screening 09/06/2024 09/07/2023 Depression Screening 09/06/2024 09/07/2023, 09/07/19 24 SDOH Screening 09/06/2024 09/07/2023 Tobacco Screening 07/29/2025 07/29/2024 Colorectal Cancer Screening 09/15/2026 FIT DNA/Cologuard 09/15/2026 09/16/2023 DTaP/Tdap/Td Vaccines (4 - Td or Tdap) 02/20/2028 02/19/2018, 08/22/2015, 08/25/2012 Lipid Panel 09/11/2028 09/12/2023, 04/0 08/2022, 05/04/2020 Hepatitis A Vaccines Aged Out 12/06/2015, 10/25/19 16 No longer eligible based on patient's age to complete this topic Hepatitis B Vaccines Completed 10/28/2018, 07/29/2018, 07/29/2018, Additional history exists Pneumococcal Vaccine: 50+ Years Completed 08/29/2022, 10/25/2015, 08/25/2012 HIV Screening Completed [...] 3:58 PM EST Chest pain, unspecified type MO REMOVAL IMPACTED CERUMEN IRRIGATION/LVG UNILAT Routine 05/16/2024 10:22 AM EST Bilateral impacted cerumen POCT GLYCATED HEMOGLOBIN, TOTAL Routine 12/07/2023 9:23 [...] Recently Relevant to Health Maintenance Results * ECG 12 lead (08/02/2024 3:58 PM EST) Narrative Yara Foster MD - 08/02/2024 3:58 PM EST NSR, VR 74, no ST-T segment changes, Qtc 404 us Yara Foster MD ECG ORDERABLES Final Result * MO REMOVAL IMPACTED CERUMEN IRRIGATION/LVG UNILAT (05/16/2024 10:22 [...] push wax further back. Pt verbalized understanding. Elton Foley MD IN CLINIC/BEDSIDE ORDERABLES Final Result * (ABNORMAL) POCT A1C (12/07/2023 9:23 AM EDT) Hemoglobin A1C 6.1(A) 4.0 - 6.0 % Blood 12/07/2023 9:23 AM EDT Hafsa Guevara MD POINT OF CARE TEST ENTER /EDIT ORDERABLES Final Result * Cologuard?? colon cancer screening (09/16/2023 9:00 AM EDT) Cologuard Result Negative Negative 10/01/19 12:15 PM EDT [facility] (CLIA #:[id number]) Comment: NEGATIVE TEST RESULT. A negative Cologuard [...] cancer. ??Following a negative Cologuard result, the [place] Cancer Society and U.S. Multi-Society Task Force screening guidelines recommend a Cologuard re-screening interval of 3 years. References: [place] [employer] Guideline for Colorectal Cancer Screening: https://www.cancer.org/cancer/wohze-lhaiei-rupzsl/strmyvcex-bawfvoahm-tbqxjkt/ac s-rec ommendations.html.; Benji DK, Ángel PEARSON, Artie ZhouK, Colorectal Cancer Screening: Recommendations for Physicians and Patients from the U.S. Multi-Society Task Force on Colorectal Cancer Screening , Am J Gastroenterology 2017; 112:8113-9199. TEST DESCRIPTION: Composite algorithmic analysis of stool [...] (Pablo Starkey al, N Engl J Med 2014;370(14):4835-2508.) Cologuard may produce a false negative or false positive result (no colorectal cancer or precancerous polyp present at colonoscopy follow up). A negative Cologuard test result does not guarantee the absence of CRC or advanced adenoma (pre-cancer). The current Cologuard screening interval is every 3 years. ([place] Cancer Society and U.S. Multi-Society Task Force). Cologuard performance data in a 10,000 patient pivotal study using colonoscopy as the reference method can be accessed at the following location: www.ActionTax.ca/results. Additional description of the Cologuard test process, warnings and precautions can be found at www.Sesameard.com. Stool specimen (specimen) 09/16/2023 9:00 AM EDT 09/17/2023 10:57 AM EDT Yara Foster MD LAB MOLECULAR DIAGNOSTICS HERIBERTO MCCLOUD Final Result [facility] (CLIA #:[id number]) [place] [address], * (ABNORMAL) Lipid Panel, Standard (09/12/2023 7:27 AM EDT) Triglycerides 144 <150 mg/dL [facility] Comment:Desirable Triglyceri de: less than 150 mg/dLBorderline High Triglyceride 150-199 mg/dLHigh Triglyceride: 200-499 mg/dLVery High Triglyceride: greater than or equal to 5OO mg/dL Cholesterol 198 <200 mg/dL [facility] Comment:Desirable Cholestero l: less than 200 mg/dLBorderline High Cholesterol: 200-239 mg/dLHigh Cholesterol: greater than 239 mg/dL LDL Cholesterol Calculated 132(H) <100 mg/dL [facility] Comment:Desirable LDL: less than 100 mg/dLNear Optimal/Above Optimal LDL: 110- 129 mg/dLBorderline High LDL: 130-159 mg/dLHigh LDL: 160-189 mg/dLVery High LDL: greater than or equal to 190 mg/dL HDL Cholesterol 38(L) >40 mg/dL [facility] Comment:Desirable HDL: great er than 40 mg/dL Note: This HDL assay may give artificially low results in patients with liver disease. Blood Venous blood specimen / Unknown 09/12/2023 7:27 AM EDT 09/12/2023 7:27 AM EDT us Yara Foster MD LAB BLOOD ORDERABLES Final Res ult [facility] [address] [place] [address] [phone] * HIV-1/2 Antigen and Antibodies, Fourth Generation, with Reflexes (09/02/2022 8:06 AM EDT) [facility] HIV Antigen/Antibody, 4th Generation NON-REAC TIVE NON-REAC TIVE [facility] Comment: HIV-1 antigen and HIV-1/HIV-2 antibodies were [...] ?? For additional information please refer to http://education.Simbionix.DeskActive/faq/QHF234 (This link is being provided for informational/ educational purposes only.) The performance of this assay has not been clinically validated in patients less than 2 years old. Blood Venous blood specimen / Unknown 09/02/2022 8:06 AM EDT 09/02/2022 8:07 AM EDT Narrative [facility] - 09/06/2022 9:56 PM EDT FASTING:YES FASTING: YES us Hafsa Guevara MD LAB BLOOD ORDERABLES Fin al Result [facility] [address] [place] [address], [place] [address] [facility] [address] [place] [address] from Last 3 Months or Most Recently Relevant to Health Maintenance Insurance [facility] * Guarantor: Mracin Cabrera Account Type Relation to Patient Date of Phone Billing Address Dental Self [address] [place] [address] [employer] [employer] Care Teams Wallpaperer Helper Relationship Specialty Start Date End Date Yara Foster MD [address] [place] [address] PCP - General Family Medicine 05/05/22 Yara Foster MD [address] [place] [address] HIREN Self [phone] Family Medicine 06/01/21
--- OUTSIDE RECORDS SUMMARY | 2024-08-09 10:09 | XMS_ITS | Encounter Summary ---
Author Organization [employer] Address [address] [facility] 7t [place] [address] Care Team Providers Care Javascript Developer Name Role Phone Yara Foster MD Unavailable [phone] Yara Foster MD Primary Care Provider [phone] Reason for Visit * Reason Onset Date Comments CANE FEEDER Services 07/03/2022 I called brigettei liliam the pt's request for CANE FEEDER services. He states that he needs assistance with getting dressed, putting his shoes on, medication reminders, appointment reminders, housekeeping, cooking, laundry, and getting a ride to appointments. He stated that he has a person in mind to be his CANE FEEDER, and he would prefer to be referred to [facility]. Encounter Details Date Type Department Care Team (Late st Contact Info) Description 07/03/2022 Telephone [facility] MEDICINE [address] [place], [place] [phone] Yara Foster MD [address] [place], [place] [phone] CANE FEEDER Services (I called regarding the pt's request for CANE FEEDER services. He states that he needs assistance with getting dressed, putting his shoes on, medication reminders, appointment reminders, housekeeping, cooking, laundry, and getting a ride to appointments. He stated that he has a person in mind to be his CANE FEEDER, and he would prefer to be referred [...] Description 08/10/2024 10:30 AM EDT Clinical Support [facility] MEDICINE [address] [place] [address] documented as of this encounter Visit Diagnoses Not on filedocumented in this encounter Care Teams Javascript Developer Relationship Specialty Start Date End Date Yara Foster MD [address] [place] [address] PCP - General Family Medicine 05/05/22 Yara Foster MD [address] [place] [address] Family Medicine 06/01/21 documented as of this encounter
--- OUTSIDE RECORDS SUMMARY | 2024-08-09 10:09 | XMS_ITS | Encounter Summary ---
Author Organization [employer] Address 75 [facility] 7t [place] [address] Care Team Providers Care Life Enrichment Specialist Name Role Phone Yara Foster MD Unavailable [phone] Yara Foster MD Primary Care Provider [phone] Reason for Visit * Reason Onset Date Comments Durable Medical Equipment 04/27/2024 Encounter Details Date Type Department Care Team ([facility] st Contact Info) Description 04/27/2024 Telephone [facility] MEDICINE [address] [place] [address] Yara Foster MD [address] [place] [address] Durable Medical Equipment Social History Tobacco Use [...] 04/25. IF any questions Contact pt at [phone] documented in this encounter Plan of Treatment Upcoming Encounters Date Type Department Care Team (Late st Contact Info) Description 08/10/2024 10:30 AM EDT Clinical Support [facility] MEDICINE [address] [place] [address] documented as of this encounter Visit Diagnoses Not on filedocumented in this encounter Additional Health Concerns Assessment Noted Time PHQ-9 Depression Total Score: 9 09/07/19 24 10:34 AM EDT documented as of this encounter Care Teams Life Enrichment Specialist Relationship Specialty Start Date End Date Yara Foster MD [address] [place] [address] PCP - General Family Medicine 05/05/22 Yara Foster MD [address] [place] [address] Family Medicine 06/01/21 documented as of this encounter
--- OUTSIDE RECORDS SUMMARY | 2024-08-09 10:09 | XMS_ITS | Encounter Summary ---
Author Organization [employer] Address 75 [facility] 7t [place] [address] Care Team Providers Care Farmworker Cranberry Name Role Phone Yara Foster MD Unavailable [phone] Yara Foster MD Primary Care Provider [phone] Reason for Visit * Reason Onset Date Comments Med Refill 03/31/2024 Encounter Details Date Type Department Care Team ([facility] st Contact Info) Description 03/31/2024 Telephone [facility] MEDICINE [address] [place] [address] Yara Foster MD [address] [place] [address] Med Refill Social History Tobacco Use Types [...] 10:51 AM EDT Medication was sent to [facility] #[id number] on 02/12/24 with 11 refills. * Telephone Encounter - Hema Louie - 03/31/2024 10:47 AM EDT TC from pt requesting medication refill. Medications needing refill : albuterol (2.5 MG/3ML) 0.083% nebulizer solution To be sent to: [facility]/pharmacy #[id number] documented in this encounter Plan of Treatment Upcoming Encounters Date Type Department Care Team (Late st Contact Info) Description 08/10/2024 10:30 AM EDT Clinical Support [address] [address] documented as of this encounter Visit Diagnoses Not on filedocumented in this encounter Additional Health Concerns Assessment Noted Time PHQ-9 Depression Total Score: 9 09/07/19 24 10:34 AM EDT documented as of this encounter Care Teams Farmworker Cranberry Relationship Specialty Start Date End Date Yara Foster MD [address] [place] [address] PCP - General Family Medicine 05/05/22 Yara Foster MD [address] [place] [address] Family Medicine 06/01/21 documented as of this encounter
--- OUTSIDE RECORDS SUMMARY | 2024-08-09 10:09 | XMS_ITS | Encounter Summary ---
Author Organization [employer] Address 75 [facility] 7t [place] [address] Care Team Providers Care Payroll Coordinator Name Role Phone Yara Foster MD Unavailable [phone] Yara Foster MD Primary Care Provider [phone] Reason for Visit * Reason Onset Date Comments Med Refill 03/10/2024 Encounter Details Date Type Department Care Team ([facility] st Contact Info) Description 03/10/2024 Telephone [facility] MEDICINE [address] [place] [address] Yara Foster MD [address] [place] [address] Med Refill Social History Tobacco Use Types [...] MG DR capsule To be sent to: [facility]/pharmacy #[id number] [place], [place] - [address] [place] [address] documented in this encounter Plan of Treatment Upcoming Encounters Date Type Department Care Team ([facility] st Contact Info) Description 08/10/2024 10:30 AM EDT Clinical Support [facility] MEDICINE [address] [place] [address] documented as of this encounter Visit Diagnoses Not on filedocumented in this encounter Additional Health Concerns Assessment Noted Time PHQ-9 Depression Total Score: 9 09/07/19 24 10:34 AM EDT documented as of this encounter Care Teams Payroll Coordinator Relationship Specialty Start Date End Date Yara Foster MD [address] [place] [address] PCP - General Family Medicine 05/05/22 Yara Foster MD [address] [place] [address] Family Medicine 06/01/21 documented as of this encounter
--- OUTSIDE RECORDS SUMMARY | 2024-08-09 10:09 | XMS_ITS | Encounter Summary ---
Author Organization [email or web address] Address 75 [facility] 7t [place] [address] Care Team Providers Care Mule Developer Name Role Phone Yara Foster MD Unavailable [phone] Yara Foster MD Primary Care Provider [phone] Reason for Visit * Reason Onset Date Comments Appointment Request 06/13/2022 Encounter Details Date Type Department Care Team (Late st Contact Info) Description 06/13/2022 Telephone [facility] MEDICINE [address] [place] [phone] Yara Foster MD [address] [place] [address] Appointment Request Social History Tobacco Use Types [...] (DERM NEW EPIDERMOID) Please contact pt at [phone] documented in this encounter Plan of Treatment Upcoming Encounters Date Type Department Care Team (Late st Contact Info) Description 08/10/2024 10:30 AM EDT Clinical Support [facility] [address] [place] [address] [place] [address] documented as of this encounter Visit Diagnoses Not on filedocumented in this encounter Care Teams Mule Developer Relationship Specialty Start Date End Date Yara Foster MD [address] [place] [address] PCP - General Family Medicine 05/05/22 Yara Foster MD [address] [place] [address] Family Medicine 06/01/21 documented as of this encounter
--- OUTSIDE RECORDS SUMMARY | 2024-08-09 10:09 | XMS_ITS | Encounter Summary ---
Author Organization [employer] Address 75 [facility] 7t [place] [address] Care Team Providers Care Dredge Mate Name Role Phone Yara Foster MD Unavailable [phone] Yara Foster MD Primary Care Provider [phone] Encounter Details Date Type Department Care Team (Late Contact Info) Description 05/23/2022 Abstract [facility] [address] [place] [address] Yara Foster MD [address] [place] [address] Social History Tobacco Use Types Packs/Day Years [...] Description 08/10/2024 10:30 AM EDT Clinical Support [facility] [address] [place] [address] documented as of this encounter Visit Diagnoses Not on filedocumented in this encounter Care Teams Dredge Mate Relationship Specialty Start Date End Date Yara Foster MD [address] [place] [address] PCP - General Family Medicine 05/05/22 Yara Foster MD [address] [place] [address] Family Medicine 06/01/21 documented as of this encounter
--- OUTSIDE RECORDS SUMMARY | 2024-08-09 10:09 | XMS_ITS | Encounter Summary ---
Author Organization [employer] Address 75 [facility] 7t [place] [address] Care Team Providers Care Senior Product Manager Name Role Phone Yara Foster MD Unavailable [phone] Yara Foster MD Primary Care Provider [phone] Reason for Visit * Reason Onset Date Comments Appointment Request 07/24/2022 Encounter Details Date Type Department Care Team ([facility] Contact Info) Description 07/24/2022 Telephone [facility] MEDICINE [address] [place] [address] Yara Foster MD [address] [place] [address] Appointment Request Social History Tobacco Use Types [...] 2:54 PM EST Tc elder Pratt from [facility] requesting a pe appt , needs for program . Reel Repairer tried book nothing available. documented in this encounter Plan of Treatment Upcoming Encounters Date Type Department Care Team (Late st Contact Info) Description 08/10/2024 10:30 AM EDT Clinical Support [facility] MEDICINE [address] [facility] [place] [address] documented as of this encounter Visit Diagnoses Not on filedocumented in this encounter Care Teams Senior Product Manager Relationship Specialty Start Date End Date Yara Foster MD [address] [facility] [place] [address] PCP - General Family Medicine 05/05/22 Yara Foster MD [address] [facility] [place] [address] Family Medicine 06/01/21 documented as of this encounter
== END 2024-08-09 09:32 | disposition home or self-care (01) ==
LOC: HO.PMC 09:07
PROVIDERS: PCP General Practice; Visit Provider Nurse Practitioner Family
DX: M25.511 Pain in right shoulder (principal); M19.011 Primary osteoarthritis, right shoulder; R20.0 Anesthesia of skin; R20.2 Paresthesia of skin; M47.816 Spondylosis without myelopathy or radiculopathy, lumbar region; G56.03 Carpal tunnel syndrome, bilateral upper limbs
CPT/HCPCS: 99213; G2211

== ENCOUNTER → 2024-08-09 09:06 | Outpatient (BNVA) | payer OTHER, SELFPAY | PROVIDERS: PCP General Practice; Visit Provider Nurse Practitioner Family | DX: M25.511 Pain in right shoulder (principal); M19.011 Primary osteoarthritis, right shoulder; R20.0 Anesthesia of skin; R20.2 Paresthesia of skin; M47.816 Spondylosis without myelopathy or radiculopathy, lumbar region; G56.03 Carpal tunnel syndrome, bilateral upper limbs | CPT/HCPCS: 99212 ==

== ENCOUNTER 2024-12-20 08:26 | Outpatient (REF) | payer OTHER, SELFPAY ==
--- NOTE | ~2024-12-20 | XR_ITS ---
EXAMINATION: XR ABDOMEN 1 VIEW (KUB) HISTORY: constipation? COMPARISON: Comparison is made with the prior examination dated 07/30/2022. FINDINGS: Three supine views of the abdomen are submitted. The bowel gas pattern is unremarkable, without evidence of mechanical obstruction. There is a large amount of stool throughout the colon. No abnormal calcifications are identified. There are surgical clips in the right inguinal region. There are no abnormal soft tissue masses. 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 XR/XR KUB IMPRESSION: Large amount of stool throughout the colon. Electronically signed by: Akhil Parkinson MD 12/20/2024 09:23 AM EDT
--- OUTSIDE RECORDS SUMMARY | 2024-12-20 08:41 | XMS_ITS | Encounter Summary ---
Author Organization [employer] Address [address] [facility] 7t [place] [address] Care Team Providers Care Breakfast Cook Name Role Phone Yara Foster MD Unavailable [phone] Yara Foster MD Primary Care Provider [phone] Reason for Visit * Reason Comments Med Change Request Encounter Details Date Type Department Care Team ([facility] Contact Info) Description 09/03/2022 Refill [facility] MEDICINE [address] [place] [phone] Hafsa Guevara MD [address] [place] [address] Social History Tobacco Use Types Packs/Day Years [...] as of this encounter Plan of Treatment Not on file documented as of this encounter Visit Diagnoses Not on filedocumented in this encounter Care Teams Breakfast Cook Relationship Specialty Start Date End Date Yara Foster MD [address] [place] [address] PCP - General Family Medicine 05/05/22 Yara Foster MD [address] [place] [address] Family Medicine 06/01/21 documented as of this encounter
== END 2024-12-20 08:27 | disposition home or self-care (01) ==
LOC: HO.HHCX 08:26
PROVIDERS: PCP General Practice; Visit Provider General Practice
DX: R10.84 Generalized abdominal pain (principal)
CPT/HCPCS: 74018

== ENCOUNTER → 2024-12-20 08:47 | Outpatient (BNV) | payer OTHER, SELFPAY | PROVIDERS: PCP General Practice; Visit Provider Radiology Diagnostic Radiology | DX: K56.41 Fecal impaction (principal) | CPT/HCPCS: 74018 ==

== ENCOUNTER 2024-12-27 08:29 | Outpatient (AMB) | payer OTHER, SELFPAY ==
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
[2024-12-27 08:35] VITALS: BP 164/93; PULSE 79; O2SAT 98; BMI 31.8
--- OUTSIDE RECORDS SUMMARY | 2024-12-27 08:45 | XMS_ITS | Encounter Summary ---
Author Organization [employer] Address [address] [facility] 7t [place] [address] Care Team Providers Care Relief Operator Name Role Phone Yara Foster MD Unavailable [phone] Yara Foster MD Primary Care Provider [phone] Reason for Visit * Reason Comments Med Change Request Encounter Details Date Type Department Care Team ([facility] Contact Info) Description 09/03/2022 Refill [facility] MEDICINE [address] [place] [address] Hafsa Guevara MD [address] [place] [address] Social History Tobacco Use Types Packs/Day Years [...] Upcoming Encounters Date Type Department Care Team ([facility] Contact Info) Description 04/10/2025 10:00 AM EST Office Visit [facility] OPTOMETRY [address] [place] [address] Kamilla Terrell, OD [address] [place] [address] documented as of this encounter Visit Diagnoses Not on filedocumented in this encounter Care Teams Relief Operator Relationship Specialty Start Date End Date Yara Foster MD [address] [place], [place] [phone] PCP - General Family Medicine 05/05/22 Yara Foster MD [address] [place] [address] Family Medicine 06/01/21 documented as of this encounter
== END 2024-12-27 08:45 | disposition home or self-care (01) ==
LOC: HO.PMC 08:30
PROVIDERS: PCP General Practice; Visit Provider Nurse Practitioner Family
DX: M47.816 Spondylosis without myelopathy or radiculopathy, lumbar region (principal); M25.551 Pain in right hip; M25.552 Pain in left hip; M16.0 Bilateral primary osteoarthritis of hip
CPT/HCPCS: 99214; G2211

== ENCOUNTER → 2024-12-27 08:29 | Outpatient (BNVA) | payer OTHER, SELFPAY | PROVIDERS: PCP General Practice; Visit Provider Nurse Practitioner Family | DX: M47.816 Spondylosis without myelopathy or radiculopathy, lumbar region (principal); M25.551 Pain in right hip; M25.552 Pain in left hip; M16.0 Bilateral primary osteoarthritis of hip | CPT/HCPCS: 99212 ==

== ENCOUNTER 2024-12-28 10:29 | Outpatient (REF) | payer OTHER, SELFPAY ==
--- NOTE | ~2024-12-28 | XR_ITS ---
EXAMINATION: XR HIP 2 OR MORE VIEWS LEFT HISTORY: M25.552 - Pain in left hip COMPARISON: Correlation is made with a plain film of the pelvis dated 11/17/2023. FINDINGS: Two views of the left hip are submitted. Osseous mineralization is normal. There is no fracture or dislocation. There is mild joint space narrowing. The soft tissues are unremarkable. XR/XR hip LT min 2V IMPRESSION: Mild joint space narrowing. Electronically signed by: Akhil Parkinson MD 12/28/2024 10:48 AM EDT
== END 2024-12-28 10:30 | disposition home or self-care (01) ==
LOC: HO.XRAY 10:29
PROVIDERS: PCP General Practice; Visit Provider Nurse Practitioner Family
DX: M25.552 Pain in left hip (principal)
CPT/HCPCS: 73502

== ENCOUNTER → 2024-12-28 10:34 | Outpatient (BNV) | payer OTHER, SELFPAY | PROVIDERS: PCP General Practice; Visit Provider Radiology Diagnostic Radiology | DX: M16.12 Unilateral primary osteoarthritis, left hip (principal) | CPT/HCPCS: 73502 ==

== ENCOUNTER 2025-02-01 13:03 | Outpatient (AMB) | payer OTHER, SELFPAY ==
--- NOTE | 2025-02-01 13:41 | MHC.OFFVIS ---
Intake Visit Reasons: New prob-Bilateral Hip OA Intake Note: Marcin is a 64 year old man who presents today for a new problem visit for bilateral hip pain. Patient has seen Pain Management for this and per their last OV note his pain radiates to the groin and is exacerbated by movement, particularly internal and external rotation, with the left hip being more painful. patient was discontinued from meloxicam and prescribed diclofenac sodium, to be taken three times a day with food, while avoiding other NSAIDs and continue Tylenol prn. Patient has attended physical therapy in 2021 for low back pain and is followed with pain management. Patient reports pain most of the time with his right side being the worse. His pain is located at the lateral aspect of hip. States most discomfort is at night. Denies injury. He uses a cane and walker with ambulation. Allergies No Known Allergies (No Known Allergies*) Allergy (Verified 02/01/25 13:55) Medication List - Last Reconciled 02/01/25 by Prema Soares PA-C albuterol sulfate 90 mcg/actuation (Ventolin HFA) 2 puffs inhalation Q4H PRN amlodipine 10 mg PO DAILY atorvastatin 20 mg PO DAILY camphor-methyl salicyl-menthol 3.1-10-6 % (Salonpas) 1 patch topical BID-TID PRN 15 days carvedilol 12.5 mg PO BID cholecalciferol (vitamin D3) 50 mcg PO QAM diclofenac sodium 1% (Arthritis Pain (diclofenac)) 4 grams topical QID diclofenac sodium 50 mg PO TID PRN 30 days divalproex ER 250 mg PO DAILY ergocalciferol (vitamin D2) 1,250 mcg PO QWEEK famotidine 40 mg PO BEDTIME fluticasone propionate 220 mcg/actuation (Flovent HFA) 2 puffs inhalation DAILY furosemide 20 mg PO DAILY gabapentin 300 mg PO TID 30 days hydroxyzine pamoate mg PO QID PRN hydroxyzine pamoate 25 mg PO BID lidocaine 5% 1 patch topical DAILY 30 days lisinopril 20 mg PO DAILY lisinopril mg PO DAILY meclizine mg PO memantine (Namenda) 10 mg PO BID 90 days metformin ER 500 mg PO DAILY mirtazapine 7.5 mg PO BEDTIME multivitamin with folic acid 400 mcg (Daily-Benjy (with folic acid)) 1 tab PO DAILY naloxone 4 mg/actuation (Narcan) 4 mg intranasal Q2M PRN omeprazole 20 mg PO DAILY oxcarbazepine 300 mg PO BID prazosin 1 mg PO BEDTIME quetiapine 100 mg PO BEDTIME sertraline 200 mg PO DAILY simvastatin 20 mg PO BEDTIME tadalafil 10 mg PO DAILY 90 days tadalafil 20 mg PO ONCE 30 days tramadol 50 mg PO BID PRN 10 days trazodone 50 mg PO BEDTIME HPI HPI New prob-Bilateral Hip OA: Details: 64 yo male present to the office today for bilat hip pain, right worse than left. He was seen by pain mgmnt for his low back and shoulder pain in the referred him to our office for his bilateral hip pain. He ambulates with a cane and a walker. He states he has not had injections in his hip or had physical therapy but he is not interested in injections because he has not had good relief with steroid in the past. He is at the point where he feels like his ability to perform daily activities is limited and would like to discuss a more definitive treatment plan. 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 He is not on methadone or suboxone. [facility] Medical History Sebaceous cyst Umbilical hernia Lumbar spondylosis Lumbar radiculopathy, chronic Bilateral knee pain Lumbar degenerative disc disease Hypertension Hepatitis C Social History (Updated 02/01/25 @ 13:55 by Prema Soares PA-C) Patient Tobacco Use Status: Former Tobacco user Cigarettes Per Day: 2 Substance Use Type: Crack/Cocaine and Heroin Current occupational status: disabled Current occupation: rt handed Review of Systems Const All systems reviewed & are unremarkable except as noted in HPI and below Physical Exam Const General: cooperative and no acute distress Orientation/consciousness: patient oriented x3 Resp Effort & Inspection: normal respiratory effort and able to speak in complete sentences Cardio Peripheral pulses: Peripheral pulses 2+ throughout Neuro General: patient oriented x3 Extrem Other: Discomfort with internal and external rotation of the right hip. Patient walks with antalgic gait. Results Reviewed Results Reviewed: X-rays of both hips obtained in the office today and reviewed by me show mild to moderate arthritic changes no joint collapse. Assessment & Plan Assessment & Plan (1) Osteoarthritis of hips, bilateral: Code(s): M16.0 - Bilateral primary osteoarthritis of hip Category: Medical Plan: I recommend the patient meet with Dr. Hoffman to discuss further whether or not he would be a candidate for total hip arthroplasty. I did explain to the patient fist can be a I procedure that improves his ability to perform daily functions but he needs to exhaust all conservative measures 1st. Patient is interested in meeting with Dr. Hoffman and will make an appointment upon check out. Orders: Orders XR pelvis 1-2V Today M25.559 - Pain in unspecified hip Coding Level of Care Code New Pt Level 3 (56721) Complex EM visit Add On G2211 Diagnoses Osteoarthritis of hips, bilateral M16.0
--- OUTSIDE RECORDS SUMMARY | 2025-02-01 15:23 | XMS_ITS | Encounter Summary ---
Author Organization [employer] Address [address] [facility] 7t [place] [address] Care Team Providers Care Continuous Process Coffee Roaster Name Role Phone Yara Foster MD Unavailable [phone] Yara Foster MD Primary Care Provider [phone] Reason for Visit * Reason Onset Date Comments Appointment Request 07/24/2022 Encounter Details Date Type Department Care Team ([facility] Contact Info) Description 07/24/2022 Telephone [facility] MEDICINE [address] [place] [phone] Yara Foster MD [address] [place] [address] Appointment Request Social History Tobacco Use Types [...] 2:54 PM EST Tc elder Pratt from [facility] requesting a pe appt , needs for program . Design Inserter tried book nothing available. documented in this encounter Plan of Treatment Upcoming Encounters Date Type Department Care Team (Late st Contact Info) Description 04/10/2025 10:00 AM EST Office Visit [facility] OPTOMETRY [address] [place] [address] Xander, Kamilla, OD [address] [place] [address] documented as of this encounter Visit Diagnoses Not on filedocumented in this encounter Care Teams Continuous Process Coffee Roaster Relationship Specialty Start Date End Date Yara Foster MD [address] [place], [place] [phone] PCP - General Family Medicine 05/05/22 Yara Foster MD [address] [place] [address] Family Medicine 06/01/21 documented as of this encounter
--- OUTSIDE RECORDS SUMMARY | 2025-02-01 15:23 | XMS_ITS | Encounter Summary ---
Author Organization [employer] Address [address] [facility] 7t [place] [address] Care Team Providers Care Mortuary Beautician Name Role Phone Yara Foster MD Unavailable [phone] Yara Foster MD Primary Care Provider [phone] Reason for Visit * Reason Comments Med Change Request Encounter Details Date Type Department Care Team ([facility] Contact Info) Description 09/03/2022 Refill [facility] MEDICINE [address] [place] [address] Hafsa Guevara MD [address] [place] [address] Social History Tobacco Use Types Packs/Day Years [...] Upcoming Encounters Date Type Department Care Team ([facility] Contact Info) Description 04/10/2025 10:00 AM EST Office Visit [facility] OPTOMETRY [address] [place] [address] Kamilla Terrell, OD [address] [place] [address] documented as of this encounter Visit Diagnoses Not on filedocumented in this encounter Care Teams Mortuary Beautician Relationship Specialty Start Date End Date Yara Foster MD [address] [place], [place] [phone] PCP - General Family Medicine 05/05/22 Yara Foster MD [address] [place] [address] Family Medicine 06/01/21 documented as of this encounter
--- OUTSIDE RECORDS SUMMARY | 2025-02-01 15:23 | XMS_ITS | Encounter Summary ---
Author Organization [employer] Address [address] [facility] 7t [place] [address] Care Team Providers Care Cancer Program Consultant Name Role Phone Yara Foster MD Unavailable [phone] Yara Foster MD Primary Care Provider Reason for Visit * Reason Onset Date Comments Med Refill 03/10/2024 Encounter Details Date Type Department Care Team ([facility] Contact Info) Description 03/10/2024 Telephone [facility] MEDICINE [address] [place] [address] Yara Foster MD [address] [place] [address] Med Refill Social History Tobacco Use Types [...] the past 12 months, has t he [employer], gas, oil or water company threatened to [...] MG DR capsule To be sent to: [facility]/pharmacy #[id number] [place], [place] - [address] [place] [address] documented in this encounter Plan of Treatment Upcoming Encounters Date Type Department Care Team (Late st Contact Info) Description 04/10/2025 10:00 AM EST Office Visit [facility] OPTOMETRY [address] [place], [place] [phone] XanderKamilla love, OD [address] [place], [place] [phone] documented as of this encounter Visit Diagnoses Not on filedocumented in this encounter Additional Health Concerns Assessment Noted Time PHQ-9 Depression Total Score: 9 09/07/19 24 10:34 AM EDT documented as of this encounter Care Teams Cancer Program Consultant Relationship Specialty Start Date End Date Yara Foster MD [address] [place] [address] PCP - General Family Medicine 05/05/22 Yara Foster MD [address] [place] [address] Family Medicine 06/01/21 documented as of this encounter
--- OUTSIDE RECORDS SUMMARY | 2025-02-01 15:23 | XMS_ITS | Encounter Summary ---
Author Organization [employer] Address [address] [facility] [address] [place] [address] Care Team Providers Care Water Treatment Plant Engineer Name Role Phone Yara Foster MD Unavailable Yara Foster MD Primary Care Provider [phone] Encounter Details Date Type Department Care Team ([facility] st Contact Info) Description 03/10/2024 Orders Only [facility] MEDICINE [address] [place], [place] [phone] Yara Foster MD [address] [place] [address] Social History Tobacco Use Types Packs/Day Years [...] Description 04/10/2025 10:00 AM EST Office Visit [facility] OPTOMETRY [address] [place] [address] Xander, Kamilla, OD [address] [place] [address] documented as of this encounter Visit Diagnoses Not on filedocumented in this encounter Additional Health Concerns Assessment Noted Time PHQ-9 Depression Total Score: 9 09/07/19 24 10:34 AM EDT documented as of this encounter Care Teams Water Treatment Plant Engineer Relationship Specialty Start Date End Date Yara Foster MD [address] [place] [address] PCP - General Family Medicine 05/05/22 Yara Foster MD [address] [place] [address] Family Medicine 06/01/21 documented as of this encounter
--- OUTSIDE RECORDS SUMMARY | 2025-02-01 15:23 | XMS_ITS | Encounter Summary ---
Author Organization [employer] Address [address] [facility] 7t [place] [address] Care Team Providers Care Surgical Instrument Maker Name Role Phone Yara Foster MD Unavailable [phone] Yara Foster MD Primary Care Provider [phone] Reason for Visit * Reason Onset Date Comments Appointment Request 06/13/2022 Encounter Details Date Type Department Care Team (Late st Contact Info) Description 06/13/2022 Telephone [facility] MEDICINE [address] [place] [address] Yara Foster MD [address] [place] [address] Appointment Request Social History Tobacco Use Types [...] (DERM NEW EPIDERMOID) Please contact pt at [phone] documented in this encounter Plan of Treatment Upcoming Encounters Date Type Department Care Team (Late Contact Info) Description 04/10/2025 10:00 AM EST Office Visit [facility] OPTOMETRY [address] [place], [place] [phone] Kamilla Terrell, OD [address] [place], [place] [phone] documented as of this encounter Visit Diagnoses Not on filedocumented in this encounter Care Teams Surgical Instrument Maker Relationship Specialty Start Date End Date Yara Foster MD [address] [place], [place] [phone] PCP - General Family Medicine 05/05/22 Yara Foster MD [address] [place], [place] [phone] Family Medicine 06/01/21 documented as of this encounter
--- OUTSIDE RECORDS SUMMARY | 2025-02-01 15:23 | XMS_ITS | Encounter Summary ---
Author Organization [employer] Address 75 [facility] 7t [place] [address] Care Team Providers Care Professor Of English Name Role Phone Yara Foster MD Unavailable [phone] Yara Foster MD Primary Care Provider [phone] Reason for Visit * Reason Comments Med Refill Encounter Details Date Type Department Care Team (Late Contact Info) Description 12/16/2022 Refill [facility] MEDICINE [address] [place] [address] Hafsa Guevara MD [address] [place] [address] Social History Tobacco Use Types Packs/Day Years [...] Description 04/10/2025 10:00 AM EST Office Visit [facility] OPTOMETRY [address] [place] [address] Kamilla Terrell, OD [address] [place] [address] documented as of this encounter Visit Diagnoses Not on filedocumented in this encounter Care Teams Professor Of English Relationship Specialty Start Date End Date Yara Foster MD [address] [place] [address] PCP - General Family Medicine 05/05/22 Yara Foster MD [address] [place] [address] Family Medicine 06/01/21 documented as of this encounter
--- OUTSIDE RECORDS SUMMARY | 2025-02-01 15:23 | XMS_ITS | Encounter Summary ---
Author Organization [employer] Address 75 [facility] 7t [place] [address] Care Team Providers Care Inner Tube Inserter Name Role Phone Yara Foster MD Unavailable [phone] Yara Foster MD Primary Care Provider [phone] Reason for Visit * Reason Onset Date Comments RADIOLOGIST DIAGNOSTIC Services 07/03/2022 I called rianna ricketts the pt's request for RADIOLOGIST DIAGNOSTIC services. He states that he needs assistance with getting dressed, putting his shoes on, medication reminders, appointment reminders, housekeeping, cooking, laundry, and getting a ride to appointments. He stated that he has a person in mind to be his RADIOLOGIST DIAGNOSTIC, and he would prefer to be referred to [facility]. Encounter Details Date Type Department Care Team (Late st Contact Info) Description 07/03/2022 Telephone [facility] MEDICINE [address] [place], [place] [phone] Yara Foster MD [address] [place], [place] [phone] RADIOLOGIST DIAGNOSTIC Services (I called regarding the pt's request for RADIOLOGIST DIAGNOSTIC services. He states that he needs assistance with getting dressed, putting his shoes on, medication reminders, appointment reminders, housekeeping, cooking, laundry, and getting a ride to appointments. He stated that he has a person in mind to be his RADIOLOGIST DIAGNOSTIC, and he would prefer to be referred [...] Description 04/10/2025 10:00 AM EST Office Visit [facility] OPTOMETRY [address] [place] [address] XanderKamilla love, OD [address] [place] [address] documented as of this encounter Visit Diagnoses Not on filedocumented in this encounter Care Teams Inner Tube Inserter Relationship Specialty Start Date End Date Yara Foster MD [address] [place] [address] PCP - General Family Medicine 05/05/22 Yara Foster MD [address] [place] [address] Family Medicine 06/01/21 documented as of this encounter
--- OUTSIDE RECORDS SUMMARY | 2025-02-01 15:23 | XMS_ITS | Encounter Summary ---
Author Organization [employer] Address [address] [facility] 7t [place] [address] Care Team Providers Care Long Chain Dyeing Machine Operator Name Role Phone Yara Foster MD Unavailable [phone] Yara Foster MD Primary Care Provider [phone] Reason for Visit * Reason Onset Date Comments Med Refill 01/24/2025 Encounter Details Date Type Department Care Team ([facility] Contact Info) Description 01/24/2025 Telephone [facility] MEDICINE [address] [place] [address] Yara Foster MD [address] [place] [address] Med Refill Social History Tobacco Use Types [...] Answer Date Recorded Patient Health Questionnaire-9 Score 14 12/20/2024 Patient Health Questionnaire-9 Score 14 12/20/2024 Last PHQ-9: Questionnaire Data Not on file 0 12/20/2024 Housing Stability Answer Date Recorded What is your housing situation today? I have rachel matthew 12/08/[address] you li ve. Do you have problems with any of the following? None of the above 12/08/2024 Food Insecurity Answer Date Recorded Within the past 12 months, y ou worried that your food would run out before you got money to buy more: Never True 12/08/2024 Within the past 12 months,th e food you bought just didn't last and you didn't have enough money to get more: Never True 03/2025 Transportation Answer Date Recorded In the past 12 months, has l ack of transportation kept you from medical appts, meetings, work or from getting things needed for daily living? No 12/08/2024 Utilities Answer Date Recorded In the past 12 months, has t he electric, gas, oil or water company threatened to shut off services in your home? No 12/08/2024 Depression Answer Date Recorded Patient Health Questionnaire-2 Score 6 12/20/2024 Internet Access Answer Date Recorded Internet Access Q1 Yes 12/08/2024 Internet Access Q2 Not on file 12/08/2024 Sex and Gender Information Value Date Recorded Sex Assigned at Male 03/31/2022 10:37 AM EDT Legal Sex Male 10:37 AM EDT Gender Identity Male 03/31/2022 10:37 AM EDT Sexual Orientation Straight 03/31/2022 10 :37 AM EDT documented as of this encounter Miscellaneous Notes * Telephone Encounter - Lizbet Andrews LPN - 01/24/2025 9:05 AM EDT Supplies were sent to [facility] #[id number] on 10/28/24 please advise patient to call the pharmacy for a refill. * Telephone Encounter - Shahram Yanez - 01/24/2025 8:47 AM EDT TC from pt requesting medication refill. Medications needing refill : Blood Glucose Monitoring Suppl (FreeStyle [place] Lite) w/Device kit Lancets misc [[id number]] FREESTYLE LITE test strip [[id number]] To be sent to: [facility]/pharmacy #[id number] - [place] [address] documented in this encounter Plan of Treatment Upcoming Encounters Date Type Department Care Team (Late st Contact Info) Description 04/10/2025 10:00 AM EST Office Visit [facility] OPTOMETRY [address] [place] [address] Kamilla Terrell, OD [address] [place] [address] documented as of this encounter Visit Diagnoses Not on filedocumented in this encounter Additional Health Concerns Assessment Noted Time PHQ-9 Depression Total Score: 14 12/20/ 025 8:29 AM EDT documented as of this encounter Care Teams Long Chain Dyeing Machine Operator Relationship Specialty Start Date End Date Yara Foster MD [address] [place], [place] [phone] PCP - General Family Medicine 05/05/22 Yara Foster MD [address] [place] [address] Family Medicine 06/01/21 documented as of this encounter
--- OUTSIDE RECORDS SUMMARY | 2025-02-01 15:23 | XMS_ITS | Encounter Summary ---
Author Organization [employer] Address [address] [facility] 7t [place] [address] Care Team Providers Care Senior Firmware Engineer Name Role Phone Yara Foster MD Unavailable [phone] Yara Foster MD Primary Care Provider [phone] Reason for Visit * Reason Onset Date Comments Med Refill 07/07/2023 Encounter Details Date Type Department Care Team ([facility] st Contact Info) Description 07/07/2023 Telephone [facility] MEDICINE [address] [place] [address] Yara Foster MD [address] [place] [address] Med Refill Social History Tobacco Use Types [...] 10:18 AM EST Medication was sent to [facility] #[id number] on 04/16/23 with 3 refills. * Telephone Encounter - Pasha Slaughter - 07/07/2023 10:04 AM EST TC from pt requesting medication refill. Medications needing refill: gabapentin (Neurontin) 300 MG To be sent to: [facility]/pharmacy #[id number] documented in this encounter Plan of Treatment Upcoming Encounters Date Type Department Care Team (Late st Contact Info) Description 04/10/2025 10:00 AM EST Office Visit [facility] OPTOMETRY [address] [place] [address] Xander, Kamilla, OD [address] [place] [address] documented as of this encounter Visit Diagnoses Not on filedocumented in this encounter Care Teams Senior Firmware Engineer Relationship Specialty Start Date End Date Yara Foster MD [address] [place] [address] PCP - General Family Medicine 05/05/22 Yara Foster MD [address] [place] [address] Family Medicine 06/01/21 documented as of this encounter
--- OUTSIDE RECORDS SUMMARY | 2025-02-01 15:23 | XMS_ITS | Encounter Summary ---
Author Organization [employer] Address [address] [facility] 7t [place] [address] Care Team Providers Care Drying Tumbler Operator Name Role Phone Yara Foster MD Unavailable [phone] Yara Foster MD Primary Care Provider [phone] Reason for Visit * Reason Onset Date Comments Med Refill 03/31/2024 Encounter Details Date Type Department Care Team ([facility] Contact Info) Description 03/31/2024 Telephone [facility] MEDICINE [address] [place] [address] Yara Foster MD [address] [place] [address] Med Refill Social History Tobacco Use Types [...] AM EDT Medication was sent to [facility] #[id number] on 02/12/24 with 11 refills. * Telephone Encounter - Hema Louie - 03/31/2024 10:47 AM EDT TC from pt requesting medication refill. Medications needing refill : albuterol (2.5 MG/3ML) 0.083% nebulizer solution To be sent to: [facility]/pharmacy #[id number] documented in this encounter Plan of Treatment Upcoming Encounters Date Type Department Care Team (Late st Contact Info) Description 04/10/2025 10:00 AM EST Office Visit [facility] OPTOMETRY [address] [place], [place] [phone] Kmailla Terrell, OD [address] [place] [address] documented as of this encounter Visit Diagnoses Not on filedocumented in this encounter Additional Health Concerns Assessment Noted Time PHQ-9 Depression Total Score: 9 09/07/19 24 10:34 AM EDT documented as of this encounter Care Teams Drying Tumbler Operator Relationship Specialty Start Date End Date Yara Foster MD [address] [place] [address] PCP - General Family Medicine 05/05/22 Yara Foster MD [address] [place] [address] Family Medicine 06/01/21 documented as of this encounter
--- OUTSIDE RECORDS SUMMARY | 2025-02-01 15:23 | XMS_ITS | Encounter Summary ---
Author Organization [employer] Address [address] [facility] [address] [place] [address] Care Team Providers Care Graphics Software Engineer Name Role Phone Yara Foster MD Unavailable [phone] Yara Foster MD Primary Care Provider [phone] Encounter Details Date Type Department Care Team (Late st Contact Info) Description 09/16/2023 Orders Only [facility] MEDICINE [address] [place], [place] [phone] Yara Foster MD [address] [place] [address] Social History Tobacco Use Types Packs/Day Years [...] 04/10/2025 10:00 AM EST Office Visit [facility] OPTOMETRY [address] [place] [address] Xander, Kamilla, OD [address] [place] [address] documented as of this encounter Visit Diagnoses Not on filedocumented in this encounter Additional Health Concerns Assessment Noted Time PHQ-9 Depression Total Score: 9 09/07/19 24 10:34 AM EDT documented as of this encounter Care Teams Graphics Software Engineer Relationship Specialty Start Date End Date Yara Foster MD [address] [place] [address] PCP - General Family Medicine 05/05/22 Yara Foster MD [address] [place] [address] Family Medicine 06/01/21 documented as of this encounter
--- OUTSIDE RECORDS SUMMARY | 2025-02-01 15:23 | XMS_ITS | Encounter Summary ---
Author Organization [employer] Address 75 [facility] 7t [place] [address] Care Team Providers Care Service Learning Coordinator Name Role Phone Yara Foster MD Unavailable [phone] Yara Foster MD Primary Care Provider [phone] Encounter Details Date Type Department Care Team (Late Contact Info) Description 05/23/2022 Abstract [facility] MEDICINE [address] [place] [address] Yara Foster MD [address] [place] [address] Social History Tobacco Use Types Packs/Day Years [...] Description 04/10/2025 10:00 AM EST Office Visit [facility] OPTOMETRY [address] [place] [address] XanderKamilla love, OD [address] [place] [address] documented as of this encounter Visit Diagnoses Not on filedocumented in this encounter Care Teams Service Learning Coordinator Relationship Specialty Start Date End Date Yara Foster MD [address] [place] [address] PCP - General Family Medicine 05/05/22 Yara Foster MD [address] [place] [address] Family Medicine 06/01/21 documented as of this encounter
--- OUTSIDE RECORDS SUMMARY | 2025-02-01 15:23 | XMS_ITS | Encounter Summary ---
Author Organization [employer] Address [address] [facility] [address] [place] [address] Care Team Providers Care Packer And Carry Out Name Role Phone Yara Foster MD Unavailable [phone] Yara Foster MD Primary Care Provider [phone] Encounter Details Date Type Department Care Team (Late st Contact Info) Description 01/01/2024 Orders Only [facility] [address] [place] [address] Tanmay Otto MD [address] [place] [address] Social History Tobacco Use Types Packs/Day Years [...] Description 04/10/2025 10:00 AM EST Office Visit [facility] OPTOMETRY [address] [place] [address] Xander, Kamilla, OD [address] [place] [address] documented as of this encounter Visit Diagnoses Not on filedocumented in this encounter Additional Health Concerns Assessment Noted Time PHQ-9 Depression Total Score: 9 09/07/19 24 10:34 AM EDT documented as of this encounter Care Teams Packer And Carry Out Relationship Specialty Start Date End Date Yara Foster MD [address] [place] [address] PCP - General Family Medicine 05/05/22 Yara Foster MD [address] [place] [address] Family Medicine 06/01/21 documented as of this encounter
--- OUTSIDE RECORDS SUMMARY | 2025-02-01 15:23 | XMS_ITS | Encounter Summary ---
Author Organization [employer] Address [address] [facility] 7t [place] [address] Care Team Providers Care Dental Ceramist Assistant Name Role Phone Yara Foster MD Unavailable [phone] Yara Foster MD Primary Care Provider [phone] Reason for Visit * Reason Onset Date Comments Durable Medical Equipment 04/27/2024 Encounter Details Date Type Department Care Team ([facility] Contact Info) Description 04/27/2024 Telephone [facility] MEDICINE [address] [place] [address] Yara Foster MD [address] [place] [address] Durable Medical Equipment Social History Tobacco Use [...] 04/25. IF any questions Contact pt at [phone] documented in this encounter Plan of Treatment Upcoming Encounters Date Type Department Care Team (Late st Contact Info) Description 04/10/2025 10:00 AM EST Office Visit [facility] OPTOMETRY [address] [place] [address] Xander, Kamilla, OD [address] [place] [address] documented as of this encounter Visit Diagnoses Not on filedocumented in this encounter Additional Health Concerns Assessment Noted Time PHQ-9 Depression Total Score: 9 09/07/19 24 10:34 AM EDT documented as of this encounter Care Teams Dental Ceramist Assistant Relationship Specialty Start Date End Date Yara Foster MD [address] [place] [address] PCP - General Family Medicine 05/05/22 Yara Foster MD [address] [place] [address] Family Medicine 06/01/21 documented as of this encounter
--- OUTSIDE RECORDS SUMMARY | 2025-02-01 15:23 | XMS_ITS | Clinical Summary ---
Author Organization [employer] Address [address] [facility] 7t [place] [address] Care Team Providers Care Anvil Worker Name Role Phone Yara Foster MD Unavailable [phone] Yara Foster MD Primary Care Provider [phone] Allergies No known active allergies Medications * This document contains information received from the source organization and may not represent a complete record from that organization. Diclofenac Sodium 1 % gel Apply 2 g topically every 6 (six) hours. 2 Active divalproex (Depakote ER) 250 MG 24 hr tablet Take 1 tablet by mouth daily 2 Active sertraline (Zoloft) 100 MG tablet Take 2 tablet by mouth once daily 2 Active Flovent HFA 220 MCG/ACT inhaler INHALE 2 PUFFS BY MOUTH EVERY DAY 12 g 11 3 Active OXcarbazepine (Trileptal) 300 MG tablet TAKE 1 TABLET BY MOUTH ONCE A DAY CLARY MANUEL TABLETA CADA FABY POR AGRESION 4 Active furosemide (Lasix) 20 MG tablet Take 1 tablet (20 mg) by mouth Once per day. 90 tablet 3 4 Active Multiple Vitamin (Daily-Benjy Multivitamin) tabletIndication s:Essential hypertension TAKE 1 TABLET BY MOUTH EVERY DAY WITH FOOD 90 tablet 3 4 Active amLODIPine (Norvasc) 10 MG tablet Take 1 tablet (10 mg) by mouth Once per day. 90 tablet 3 4 Active albuterol 108 (90 Base) MCG/ACT inhalerIndicatio ns:Mild persistent asthma without complication Inhale 2 puffs every 4 (four) hours if needed for wheezing or shortness of breath. 18 g 11 4 Active naloxone (Narcan) 4 mg/0.1 mL nasal spray PLEASE SEE ATTACHED FOR DETAILED DIRECTIONS 4 Active Misc. Devices (Pulse Oximeter) misc 1 each if needed each day (cough, shortness of breath). 1 each 4 Active cholecalciferol VITAMIN D (Vitamin D-3) 50 MCG (2000 UT) capsule TAKE 1 CAPSULE BY MOUTH EVERY MORNING 90 capsule 3 4 Active albuterol (2.5 MG/3ML) 0.083% nebulizer solutionIndicati ons:Mild persistent asthma without complication,Acu te COVID-19 Take 3 mL (2.5 mg) by nebulization every 4 (four) hours if needed for wheezing. 75 mL 11 4 025 Active carvedilol (Coreg) 25 MG tablet TOME 1 TABLETA POR V A ORAL DOS VECES AL D A CON ALIMENTO FOR 90 DAYS 4 Active QUEtiapine XR (SEROquel XR) 50 MG 24 hr tablet TAKE 1-2 TABLET BY MOUTH EVERY NIGHT AT BEDTIME FOR INSOMNIA 4 Active famotidine (Pepcid) 20 MG tabletIndication s:Gastroesophage al reflux disease without esophagitis Take 1 tablet (20 mg) by mouth Once per day. 90 tablet 3 4 Active metFORMIN XR (Glucophage-XR) 500 MG 24 hr tablet Take 1 tablet (500 mg) by mouth with evening meal. 90 tablet 3 4 025 Active lisinopril 40 MG tablet Take 1 tablet (40 mg) by mouth Once per day. 90 tablet 3 5 026 Active meloxicam (Mobic) 15 MG tablet TAKE 1 TABLET BY MOUTH DAILY WITH FOOD AND WITH FULL GLASS OF WATER FOR PAIN. AVOID OTHER NSAIDS. 5 Active famotidine (Pepcid) 40 MG tablet Take 1 tablet by mouth Once per day. 5 Active QUEtiapine XR (SEROquel XR) 150 MG 24 hr tablet TOME 1 TABLETA POR V A ORAL TODOS LOS D AL ACOSTARSE CUANDO SEA NECESARIO PARA DORMIR 4 Active QUEtiapine (SEROquel) 25 MG tablet TOME 1 TABLETA POR V A ORAL DOS VECES AL D A CUANDO SEA NECESARIO PARA LA ANSIEDAD /IRRITABILITY 4 Active hydroCHLOROthiaz martínez (HYDRODiuril) 25 MG tabletIndication s:Essential hypertension Take 1 tablet (25 mg) by mouth Once per day. 90 tablet 3 5 026 Active Respiratory Therapy Supplies (Nebulizer Mask Adult) miscIndications: Mild persistent asthma without complication 1 each every 4 (four) hours if needed (wheezing). 1 each 5 Active atorvastatin (Lipitor) 20 MG tablet TAKE 1 TABLET BY MOUTH EVERY MORNING 90 tablet 3 5 Active FREESTYLE LITE test strip Use to test blood sugar 1 times daily 100 each 3 5 026 Active Lancets misc Use to test blood sugar 1 times daily 100 each 3 5 Active Blood Glucose Monitoring Suppl (FreeStyle [place] Lite) w/Device kit Use to test blood sugar 1 times daily 1 kit 5 Active hydrOXYzine HCl (Atarax) 25 MG tablet TAKE 1 TABLET BY MOUTH ONCE A DAY A NEEDED FOR ANXIETY 5 Active Spacer/Aero-Hold ing Chambers (OptiChamber Nai-Lg Mask) device USE 1 EACH EVERY 4 (FOUR) HOURS IF NEEDED (WHEEZING). 5 Active memantine (Namenda) 10 MG tablet TOME 1 TABLETA POR V A ORAL DOS VECES AL D A FOR 90 DAYS 5 Active omeprazole (PriLOSEC) [address] capsule Take 1 capsule (20 mg) by mouth before breakfast and before evening meal. Do not crush or chew. 180 capsule 3 5 Active polyethylene glycol, PEG, 3350 (MiraLax) 17 GM/SCOOP powder Take 17 g by mouth Once per day. 527 g 1 5 025 Active Active Problems Problem Noted Date Diagnosed Date Cardiomyopathy with implantable cardioverter-def ibrillator 08/02/2024 Bilateral impacted cerumen 05/09/2024 Delayed ejaculation [...] Plan (09/08/2022 7:42 AM EDT): Will sign [employer] paperwork when it comes to me Limited [...] tears prescribed followup with vision, either at [facility] or if gets in sooner at [facility], here Adjustment disorder with anxious mood [...] focal disc protrusion or central canal stenosis. Jkof-qo-[id number] bilateral foraminal narrowing at the L4-L5 level. [...] 06/20/2022 09/08/2022 Chronic hepatitis C 05/23/2022 06/09/19 24 Assessment & Plan (09/08/2022 7:39 AM EDT): Positive test of cure Continue monitoring if any risks of re-infection Opioid dependence 05/23/2022 09/08/2022 Encounters Date Type Department Care Team Description 01/24/2025 Telephone [facility] [address] [place] [id number] Yara Foster MD Med Refill 12/28/2024 Orders Only [facility] External Provider, [facility] 12/21/2024 Telephone [facility] [address] [place] [address] Yara Foster MD Results; Care Coordination 12/19/2024 3:45 PM EDT Office Visit [facility] [address] [place] [address] Yara Foster MD Generalized abdominal pain (Primary Dx) 12/19/2024 Travel 12/16/2024 Telephone [facility] [address] [place], [place] [phone] Yara Foster MD Chart prep 12/08/2024 Patient Outreach [address] [phone] Yara Foster MD Pre-visit Planning (SDOH screening negative and tobacco screening negative) 11/21/2024 Telephone [facility] [address], [place] [phone] Yara Foster MD Referral from Last 3 Months Immunizations Immunization Administration Dates Next Due Hep A / [...] Sign Reading Time Taken Comments Blood Pressure 148/90 12/19/2024 3:22 PM EDT Pulse 92 12/19/2024 3:22 PM EDT Temperature 36.8 C (98.3 F) 12/19/2024 3:22 PM EDT Respiratory Rate 21 12/19/2024 3:22 PM EDT Oxygen Saturation 96% 12/19/2024 3:22 PM EDT Inhaled Oxygen Concentration - - Weight 94.8 kg (209 lb) 12/19/2024 3:22 PM EDT Height 172.7 cm (5' 8 ) 12/19/2024 3:22 PM EDT Body Mass Index 31.78 12/19/2024 3:22 PM EDT Plan of Treatment Upcoming Encounters Date Type Department Care Team (Late st Contact Info) Description 04/10/2025 10:00 AM EST Office Visit [facility] [address] [place] [address] Xander, Kamilla, OD [address] [place] [address] Health Maintenance Due Date Last Done Comments CT Colonography 1960 Colonoscopy 1960 Dental Oral Exam 1960 Dental Prophylaxis 1960 Dental X-Ray: Bitewings 1962 Dental X-Ray: Full Mouth 1962 FIT 1962 FOBT 1960 Sigmoidoscopy 1960 Zoster Vaccines (1 of 2) 2012 RSV Patients and Patients Aged 60 years or older (1 - Risk 60-74 years 1-dose series) 2022 COVID-19 Vaccine ( season) 2024 10/09/2020, 09/07/2020 Influenza Vaccine (#1) 2025 , 07/29/2018, 07/29/2018, Additional history exists Depression Monitoring 06/22/2025 12/20/2024, 025 SDOH Screening 12/08/2025 12/08/2024 Alcohol/Substance Use Screening 12/19/2025 12/19/2024 Tobacco Screening 12/19/2025 12/19/2024 Disability Screening 12/20/2025 12/20/2024 Colorectal Cancer Screening 09/15/2026 FIT DNA/Cologuard 09/15/2026 [...] patient's age to complete this topic Meningococcal B Vaccine Aged Out No l onger eligible based on patient's age to complete [...] Procedure Name Priority Date/Time Associated Diagnosis Comments XR HIP 2 OR 3 VIEWS LEFT Routine 12/28/2024 10:34 AM EDT XR KUB AND UPRIGHT 2 VIEWS Routine 12/20/2024 8:12 AM EDT Generalized abdominal pain POCT GLYCATED HEMOGLOBIN, TOTAL Routine 12/07/2023 9:23 AM EDT Folliculitis Elevated hemoglobin A1c LAB COLOGUARD COLON CANCER SCREEN Routine 09/16/2023 9:00 AM EDT Screen for colon cancer LIPID PANEL, STANDARD Routine 09/12/2023 7:27 AM EDT Mixed hyperlipidemia HIV 1/2 ANTIGEN/ANTIBODY, FOURTH GENERATION W/RFL Routine 09/02/2022 8:06 AM EDT Preventative health care from Last 3 Months or Most Recently Relevant to Health Maintenance Results * XR Hip 2 or 3 Views Left (12/28/2024 10:34 AM EDT) Anatomical Region Laterality Modality Lower Extremities, Hip Left Radiograp hic Imaging 12/28/2024 10:3 4 AM EDT Narrative 12/28/2024 10:51 AM EDT [address] [address] XRay Report Signed Patient: Marcin Cabrera MR#: [id number] : 1960 Acct:[id number] Age/Sex: 64 / M ADM Date: 12/28/24 Loc: SUR[facility] Attending Dr: Sherlyn SOFIA Ordering Physician: Sherlyn Dooley Date of Service: 12/28/24 Procedure(s): XR hip LT min 2V Accession Number(s): [id number] cc: Sherlyn Dooley; Yara Foster EXAMINATION: XR HIP 2 OR MORE VIEWS LEFT HISTORY: M25.552 - Pain in left hip COMPARISON: Correlation is made with a plain film of the pelvis dated 11/17/2023. FINDINGS: Two views of the left hip are submitted. Osseous mineralization is normal. There is no fracture or dislocation. There is mild joint space narrowing. The soft tissues are unremarkable. XR/XR hip LT min 2V IMPRESSION: Mild joint space narrowing. Electronically signed by: Akhil Parkinson MD 12/28/2024 10:48 AM EDT Dictated By: Akhil Parkinson MD Signed By: <Electronically signed by Akhil Parkinson MD in OV> 12/28/24 1048 DD/ 1034 TD/TT: 12/28/24 1044 Company Truck Driver: Procedure Note Heshamter, [place] - 12/28/[address] [address] XRay Report Signed Patient: Marcin CabreraMR#: [id number] : 1960Acct:[id number] Age/Sex: 64 / MADM Date: 12/28/24 Loc: HO.XRAY Attending Dr: Sherlyn SOFIA Ordering Physician: Sherlyn Dooley Date of Service: 12/28/24 Procedure(s): XR hip LT min 2V Accession Number(s): [id number] cc: Sherlyn Dooley; Yara Foster EXAMINATION: XR HIP 2 OR MORE VIEWS LEFT HISTORY: M25.552 - Pain in left hip COMPARISON: Correlation is made with a plain film of the pelvis dated 11/17/2023. FINDINGS: Two views of the left hip are submitted. Osseous mineralization is normal. There is no fracture or dislocation. There is mild joint space narrowing. The soft tissues are unremarkable. XR/XR hip LT min 2V IMPRESSION: Mild joint space narrowing. Electronically signed by: Akhil Parkinson MD 12/28/2024 10:48 AM EDT Dictated By: Akhil Parkinson MD Signed By: <Electronically signed by Akhil Parkinson MD in OV> 12/28/24 1048 DD/ 1034 TD/TT: 12/28/24 1044 Company Truck Driver: [facility] External Provider IMG XR PROCEDURES Final Result * XR KUB and Upright 2 Views (12/20/2024 8:12 AM EDT) Anatomical Region Laterality Modality Radiographic Elana ging 12/20/2024 8:12 AM EDT Narrative 12/20/2024 9:26 AM EDT [address] [address] XRay Report Signed Patient: Marcin Cabrera MR#: [id number] : 1960 Acct:[id number] Age/Sex: 64 / M ADM Date: 12/20/24 Loc: HO.HHCX Attending Dr: Yara Foster MD Ordering Physician: Yara Foster Date of Service: 12/20/24 Procedure(s): XR KUB Accession Number(s): [id number] cc: Yara Foster EXAMINATION: XR ABDOMEN 1 VIEW (KUB) HISTORY: constipation? COMPARISON: Comparison is made with the prior examination dated 07/30/2022. FINDINGS: Three supine views of the abdomen are submitted. The bowel gas pattern is unremarkable, without evidence of mechanical obstruction. There is a large amount of stool throughout the colon. No abnormal calcifications are identified. There are surgical clips in the right inguinal region. There are no abnormal soft tissue masses. 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 XR/XR KUB IMPRESSION: Large amount of stool throughout the colon. Electronically signed by: Akhil Parkinson MD 12/20/2024 09:23 AM EDT RP Dictated By: Akhil Parkinson MD Signed By: <Electronically signed by Akhil Parkinson MD in OV> 12/20/24922 DD/ 1 TD/TT: 12/20/24 0904 Company Truck Driver: Procedure Note Donotuseinterpreter, Image - 12/20/2024 [place] [address] XRay Report Signed Patient: Main Cabrera#: [id number] : 1960Acct:[id number] Age/Sex: 64 / MADM Date: 12/20/24 Loc: HO.HHCX Attending Dr: Yara Foster MD Ordering Physician: Yara Foster Date of Service: 12/20/24 Procedure(s): XR KUB Accession Number(s): [id number] cc: Yara Foster EXAMINATION: XR ABDOMEN 1 VIEW (KUB) HISTORY: constipation? COMPARISON: Comparison is made with the prior examination dated 07/30/2022. FINDINGS: Three supine views of the abdomen are submitted. The bowel gas pattern is unremarkable, without evidence of mechanical obstruction. There is a large amount of stool throughout the colon. No abnormal calcifications are identified. There are surgical clips in the right inguinal region. There are no abnormal soft tissue masses. 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 XR/XR KUB IMPRESSION: Large amount of stool throughout the colon. Electronically signed by: Akhil Parkinson MD 12/20/2024 09:23 AM EDT RP Dictated By: Akhil Parkinson MD Signed By: <Electronically signed by Akhil Parkinson MD in OV> 12/20/24922 DD/ 1 TD/TT: 12/20/24903 Company Truck Driver: us Yara Foster MD IMG XR PROCEDURES Final Result * (ABNORMAL) POCT A1C (12/07/2023 9:23 AM EDT) Hemoglobin A1C 6.1(A) 4.0 - 6.0 % Blood 12/07/2023 9:23 AM EDT us Hafsa Guevara MD POINT OF CARE TEST ENTER /EDIT ORDERABLES Final Result * Cologuard?? colon cancer screening (09/16/2023 9:00 AM EDT) Cologuard Result Negative Negative 10/01/19 12:15 PM EDT [facility] (CLIA #:[id number]) Comment: NEGATIVE TEST RESULT. A negative Cologuard result indicates a low likelihood that a colorectal cancer (CRC) or advanced adenoma (adenomatous polyps with more advanced pre-malignant features) is present. The chance that a person with a negative Cologuard test has a colorectal cancer is less than 1 in 1500 (negative predictive value >99.9%) or has an advanced adenoma is less than 5.3% (negative predictive value 94.7%). These data are based on a prospective cross-sectional study of 10,000 individuals at average risk for colorectal cancer who were screened with both Cologuard and colonoscopy. (Pablo Wong et al, N Engl J Med 2014;370(14):4472-0048) The normal value (reference range) for this assay is negative. COLOGUARD RE-SCREENING RECOMMENDATION: Periodic colorectal cancer screening is an important part of preventive healthcare for asymptomatic individuals at average risk for colorectal cancer. Following a negative Cologuard result, the [place] [employer] Society and U.S. Multi-Society Task Force screening guidelines recommend a Cologuard re-screening interval of 3 years. References: [place] [employer] Guideline for Colorectal Cancer Screening: https://www.cancer.org/cancer/xcjdm-gurfvr-rknfje/sdmhurbsz-fsnrzillq-zzjeiru/ac s-rec ommendations.html.; Benji WOODS, Ángel PEARSON, Artie ZAMORANO, Colorectal Cancer Screening: Recommendations for Physicians and Patients from the U.S. Multi-Society Task Force on Colorectal Cancer Screening , Am J Gastroenterology 2017; 112:8430-7617. TEST DESCRIPTION: Composite algorithmic analysis of stool DNA-biomarkers with hemoglobin immunoassay. Quantitative values of individual biomarkers are not [...] screened with both Cologuard and colonoscopy. (Pablo Choudhury. et al, N Engl J Med 2014;370(14):8031-7020.) Cologuard may produce a false negative or false positive result (no colorectal cancer or precancerous polyp present at colonoscopy follow up). A negative Cologuard test result does not guarantee the absence of CRC or advanced adenoma (pre-cancer). The current Cologuard screening interval is every 3 years. ([place] [employer] Society and U.S. Multi-Society Task Force). Cologuard performance data in a 10,000 patient pivotal study using colonoscopy as the reference method can be accessed at the following location: www.[employer]/results. Additional description of the Cologuard test process, warnings and precautions can be found at www.cologuard.com. Stool specimen (specimen) 09/16/2023 9:00 AM EDT 09/17/2023 10:57 AM EDT Yara Fotser MD LAB MOLECULAR DIAGNOSTICS ORDE RABLES Final Result [facility] (CLIA #:[id number]) [place] [address], * (ABNORMAL) Lipid Panel, Standard (09/12/2023 7:27 AM EDT) Triglycerides 144 <150 mg/dL [facility] Comment:Desirable Triglyceri de: less than 150 mg/dLBorderline High Triglyceride 150-199 mg/dLHigh Triglyceride: 200-499 mg/dLVery High Triglyceride: greater than or equal to 5OO mg/dL Cholesterol 198 <200 mg/dL [facility] Comment:Desirable Cholestero l: less than 200 mg/dLBorderline High Cholesterol: 200-239 mg/dLHigh Cholesterol: greater than 239 mg/dL LDL Cholesterol Calculated 132(H) <100 mg/dL [facility] Comment:Desirable LDL: less than 100 mg/dLNear Optimal/Above Optimal LDL: 110- 129 mg/dLBorderline High LDL: 130-159 mg/dLHigh LDL: 160-189 mg/dLVery High LDL: greater than or equal to 190 mg/dL HDL Cholesterol 38(L) >40 mg/dL [facility] Comment:Desirable HDL: great er than 40 mg/dL Note: This HDL assay may give artificially low results in patients with liver disease. Blood Venous blood specimen / Unknown 09/12/2023 7:27 AM EDT 09/12/2023 7:27 AM EDT Yara Foster MD LAB BLOOD ORDERABLES Final Res ult [facility] [address] [place] [phone] * HIV-1/2 Antigen and Antibodies, Fourth Generation, with Reflexes (09/02/2022 8:06 AM EDT) HIV Antigen/Antibody, 4th Generation NON-REAC TIVE NON-REAC TIVE [facility] [place] [facility] Comment: HIV-1 antigen and HIV-1/HIV-2 antibodies were not detected. There is no laboratory evidence of HIV infection. PLEASE NOTE: This information has been disclosed to you from records whose confidentiality may be protected by state law. If your state requires such protection, then the state law prohibits you from making any further disclosure of the information without the specific written consent of the person to whom it pertains, or as otherwise permitted by law. A general authorization for the release of medical or other information is NOT sufficient for this purpose. For additional information please refer to http://education.[employer]/faq/DSF194 (This link is being provided for informational/ educational purposes only.) The performance of this assay has not been clinically validated in patients less than 2 years old. Blood Venous blood specimen / Unknown 09/02/2022 8:06 AM EDT 09/02/2022 8:07 AM EDT Narrative [facility] - 09/06/2022 9:56 PM EDT FASTING:YES FASTING: YES us Hafsa Guevara MD LAB BLOOD ORDERABLES Fin al Result [facility] [address], [place] [address] [facility] [place] [facility] [address] [place] [address] from Last 3 Months or Most Recently Relevant to Health Maintenance Insurance [employer] ONE CARE < 65 * Guarantor: Rick Marcin Account Type Relation to Patient Date of Phone Billing Address Dental Self [address] [place] [address] [employer] [employer] [place] AD[place] Care Teams Anvil Worker Relationship Specialty Start Date End Date Yara Foster MD [address] [place] [address] PCP - General Family Medicine 05/05/22 Yara Foster MD [address] [place] [address] Family Medicine 06/01/21
== END 2025-02-01 14:01 | disposition home or self-care (01) ==
LOC: HO.HOS 13:04
PROVIDERS: PCP General Practice; Visit Provider Physician Assistant
DX: M16.0 Bilateral primary osteoarthritis of hip (principal)
CPT/HCPCS: 99203; G2211

== ENCOUNTER → 2025-02-01 13:14 | Outpatient (BNV) | payer OTHER, SELFPAY | PROVIDERS: Visit Provider Radiology Diagnostic Radiology | DX: M16.0 Bilateral primary osteoarthritis of hip (principal) | CPT/HCPCS: 72170 ==

== ENCOUNTER 2025-02-01 15:25 | Outpatient (REF) | payer OTHER, SELFPAY ==
--- NOTE | ~2025-02-01 | XR_ITS ---
EXAMINATION: XR PELVIS CLINICAL INFORMATION: M25.559 - Pain in unspecified hip COMPARISON: November 17, 2023. TECHNIQUE: AP view of the pelvis. FINDINGS: Sclerosis along the articular surface of the acetabulum, right and left side with associated subchondral cyst formation. Asymmetric joint space narrowing, both coxofemoral joint. No acute cortical disruption or gross malalignment in either hip. Degenerative changes in the symphysis pubis. Prominent transverse processes of L5, right greater than the left side. Marginal osteophyte formation L3-4. Vascular clips overlapping the right inguinal region. XR/XR pelvis 1-2V IMPRESSION: Mild to moderate osteoarthrosis/osteoarthritis, right greater than left hip. Electronically signed by: Winston Mercado MD 02/01/2025 01:50 PM EDT
--- OUTSIDE RECORDS SUMMARY | 2025-02-02 16:24 | XMS_ITS | Encounter Summary ---
Author Organization [employer] Address [address] [facility] [address] [place] [address] Care Team Providers Care Brim Curler Name Role Phone Yara Foster MD Unavailable [phone] Yara Foster MD Primary Care Provider [phone] Reason for Visit * Reason Comments Med Change Request Encounter Details Date Type Department Care Team ([facility] Contact Info) Description 09/03/2022 Refill [facility] [address] [place] [address] Hafsa Guevara MD [address] [place] [address] Social History Tobacco Use Types Packs/Day Years [...] Upcoming Encounters Date Type Department Care Team ([facility] Contact Info) Description 04/10/2025 10:00 AM EST Office Visit [facility] [address] [place] [address] Kamilla Terrell, OD [address] [place] [address] documented as of this encounter Visit Diagnoses Not on filedocumented in this encounter Care Teams Brim Curler Relationship Specialty Start Date End Date Yara Foster MD [address] [place], [place] [phone] PCP - General Family Medicine 05/05/22 Yara Foster MD [address] [place] [address] Family Medicine 06/01/21 documented as of this encounter
--- OUTSIDE RECORDS SUMMARY | 2025-02-02 16:24 | XMS_ITS | Clinical Summary ---
Author Organization [employer] Address 75 [facility] 7t [place] [address] Care Team Providers Care Nurse Charge Rn Name Role Phone Yara Foster MD Unavailable [phone] Yara Foster MD Primary Care Provider [...] 5 Active Blood Glucose Monitoring Suppl (FreeStyle [place] Lite) w/Device kit Use to test blood [...] Plan (09/08/2022 7:42 AM EDT): Will sign DECK HAND paperwork when it comes to me [...] tears prescribed followup with vision, either at [facility] or if gets in sooner at [facility], here Adjustment disorder with anxious [...] focal disc protrusion or central canal stenosis. Evlb-oz-vuzlmjej bilateral foraminal narrowing at the L4-L5 level. [...] Type Department Care Team Description 01/24/2025 Telephone [facility] MEDICINE [address] [place] [address] Yara Foster MD Med Refill 12/28/2024 Orders Only [facility] External Provider, [facility] 12/21/2024 Telephone [facility] MEDICINE [address] [place] [address] Yara Foster MD Results; Care Coordination 12/19/2024 3:45 PM EDT Office Visit [facility] MEDICINE [address] [place] [address] Yara Foster MD Generalized abdominal pain (Primary Dx) 12/19/2024 Travel 12/16/2024 Telephone [facility] MEDICINE [address] [place], [place] [phone] Yara Foster MD Chart prep 12/08/2024 Patient Outreach [address] [phone] Yara Foster MD Pre-visit Planning (SDOH screening negative and tobacco screening negative) 11/21/2024 Telephone [facility] [address] [place], [place] [phone] Yara Foster MD Referral from Last 3 [...] Description 04/10/2025 10:00 AM EST Office Visit [facility] OPTOMETRY [address] [place] [address] Xander, Kamilla, OD [address] [place] [address] Health Maintenance Due Date Last Done Comments CT Colonography 1960 Colonoscopy 1960 Dental Oral Exam 1960 Dental Prophylaxis 1960 Dental X-Ray: Bitewings 1960 Dental X-Ray: Full Mouth 1962 FIT 1960 Sigmoidoscopy 1960 Zoster Vaccines (1 of 2) 2012 RSV Patients and Patients Aged 60 years or older (1 - Risk 60-74 years 1-dose series) 2022 FOBT 09/15/2024 09/16/2023 COVID-19 Vaccine ( season) 2025 10/09/2020, 09/07/2020 Influenza Vaccine (#1) 2025 , 07/29/2018, 07/29/2018, Additional history exists Depression Monitoring 06/22/2025 12/20/2024, 025 SDOH Screening 12/08/2025 12/08/2024 Alcohol/Substance Use Screening 12/19/2025 12/19/2024 Tobacco Screening 12/19/2025 12/19/2024 Disability Screening 12/20/2025 12/20/2024 Colorectal Cancer Screening 09/15/2026 FIT DNA/Cologuard 09/15/2026 09/16/2023 DTaP/Tdap/Td Vaccines (4 - Td or Tdap) 02/20/2028 02/19/2018, 08/22/2015, 08/25/2012 Lipid Panel 09/11/2028 09/12/2023, 08/2022, 05/04/2020 Hepatitis A Vaccines Aged Out [...] AM EDT Narrative 12/28/2024 10:51 AM EDT [address] [address] XRay Report Signed Patient: Marcin Cabrera MR#: [id number] : 1960 Acct:[id number] Age/Sex: 64 / M ADM Date: 12/28/24 Loc: SURAJ Attending Dr: Sherlyn SOFIA Ordering Physician: Sherlyn Dooley Date of Service: 12/28/24 Procedure(s): XR hip LT min 2V Accession Number(s): [id number] cc: Sherlyn Dooley; Yara Foster EXAMINATION: XR [...] 12/28/24 1048 DD/ 1034 TD/TT: 12/28/24 1044 Cable Installer: Procedure Note Donotuseinterpreter, Image - 12/28/[address] [address] XRay Report Signed Patient: Marcin CabreraMR#: [id number] : 1960Acct:[id number] Age/Sex: 64 / MADM Date: 12/28/24 Loc: XRAY Attending Dr: Sherlyn SOFIA Ordering Physician: Sherlyn Dooley Date of Service: 12/28/24 Procedure(s): XR hip LT min 2V Accession Number(s): [id number] cc: Sherlyn Dooley; Yara Foster EXAMINATION: XR [...] Akhil Parkinson MD 12/28/2024 10:48 AM EDT RP Dictated By: Akhil Parkinson MD Signed By: <Electronically signed by Akhil Parkinson MD in OV> 12/28/24 1048 DD/ 1034 TD/TT: 12/28/24 1044 Cable Installer: [facility] External Provider IMG XR PROCEDURES Final Result * XR KUB and Upright 2 Views (12/20/2024 8:12 AM EDT) Anatomical Region Laterality Modality Radiographic Elana ging 12/20/2024 8:12 AM EDT Narrative 12/20/2024 9:26 AM EDT [address] [address] XRay Report Signed Patient: Marcin Cabrera MR#: [id number] : 1960 Acct:[id number] Age/Sex: 64 / M ADM Date: 12/20/24 Loc: HO.HHCX Attending Dr: Yara Foster MD Ordering Physician: Yara Foster Date of Service: 12/20/24 Procedure(s): XR KUB Accession Number(s): [id number] cc: Yara Foster EXAMINATION: XR ABDOMEN 1 [...] Akhil Parkinson MD 12/20/2024 09:23 AM EDT Dictated By: Akhil Parkinson MD Signed By: <Electronically signed by Akhil Parkinson MD in OV> 12/20/24922 DD/ 1 TD/TT: 12/20/24 0904 Cable Installer: Procedure Note Donotuseinterpreter, Image - 12/20/2024 [place] [address] XRay Report Signed Patient: Main Cabrera#: [id number] : 1960Acct:[id number] Age/Sex: 64 / MADM Date: 12/20/24 Loc: HO.HHCX Attending Dr: Yara Foster MD Ordering Physician: Yara Foster Date of Service: 12/20/24 Procedure(s): XR KUB Accession Number(s): [id number] cc: Yara Foster EXAMINATION: XR ABDOMEN 1 [...] in OV> 12/20/24922 DD/ 1 TD/TT: 12/20/24903 Cable Installer: Yara Foster MD IMG XR PROCEDURES Final Result * (ABNORMAL) POCT A1C (12/07/2023 9:23 AM EDT) Hemoglobin A1C 6.1(A) 4.0 - 6.0 % Blood 12/07/2023 9:23 AM EDT us Hafsa Guevara MD POINT OF CARE TEST ENTER /EDIT ORDERABLES Final Result * Cologuard?? colon cancer screening (09/16/2023 9:00 AM EDT) Cologuard Result Negative Negative 10/01/19 12:15 PM EDT [employer] (CLIA #:[id number]) Comment: NEGATIVE TEST RESULT. A negative Cologuard [...] Choudhury. et al, N Engl J Med 2014;370(14):1791-2866) The normal value (reference range) for this assay is negative. COLOGUARD RE-SCREENING RECOMMENDATION: Periodic colorectal cancer screening is an important part of preventive healthcare for asymptomatic individuals at average risk for colorectal cancer. Following a negative Cologuard result, the [place] Cancer Society and U.S. Multi-Society Task Force screening guidelines recommend a Cologuard re-screening interval of 3 years. References: [place] Cancer Society Guideline for Colorectal Cancer Screening: https://www.cancer.org/cancer/oqmtd-txmxfg-mwggnj/qtjcurwfn-grxyihdxf-elqkqcf/ac s-rec ommendations.html.; Benji WOODS, Ángel PEARSON, Artie ZAMORANO, Colorectal Cancer Screening: Recommendations for Physicians and Patients from the U.S. Multi-Society Task Force on Colorectal Cancer Screening , Am J Gastroenterology 2017; 112:6235-1423. TEST DESCRIPTION: Composite algorithmic analysis of stool [...] Choudhury. et al, N Engl J Med 2014;370(14):7759-4538.) Cologuard may produce a false negative or false positive result (no colorectal cancer or precancerous polyp present at colonoscopy follow up). A negative Cologuard test result does not guarantee the absence of CRC or advanced adenoma (pre-cancer). The current Cologuard screening interval is every 3 years. ([place] Cancer Society and U.S. Multi-Society Task Force). Cologuard performance data in a 10,000 patient pivotal study using colonoscopy as the reference method can be accessed at the following location: www.[employer]/results. Additional description of the Cologuard test process, warnings and precautions can be found at www.cologuard.com. Stool specimen (specimen) 09/16/2023 9:00 AM EDT 09/17/2023 10:57 AM EDT Yara Foster MD LAB MOLECULAR DIAGNOSTICS ORDE RABLES Final Result [employer] (CLIA #:[id number]) [address] [place] [address], * (ABNORMAL) Lipid Panel, Standard (09/12/2023 7:27 AM EDT) Triglycerides 144 <150 mg/dL [facility] Comment:Desirable Triglyceri de: less than 150 mg/dLBorderline High Triglyceride 150-199 mg/dLHigh Triglyceride: 200-499 mg/dLVery High Triglyceride: greater than or equal to 5OO mg/dL Cholesterol 198 <200 mg/dL [facility] Comment:Desirable Cholestero l: less than 200 mg/dLBorderline High Cholesterol: 200-239 mg/dLHigh Cholesterol: greater than 239 mg/dL LDL Cholesterol Calculated 132(H) <100 mg/dL [facility] Comment:Desirable LDL: less than 100 mg/dLNear Optimal/Above Optimal LDL: 110- 129 mg/dLBorderline High LDL: 130-159 mg/dLHigh LDL: 160-189 mg/dLVery High LDL: greater than or equal to 190 mg/dL HDL Cholesterol 38(L) >40 mg/dL [facility] Comment:Desirable HDL: great er than 40 mg/dL Note: This HDL assay may give artificially low results in patients with liver disease. Blood Venous blood specimen / Unknown 09/12/2023 7:27 AM EDT 09/12/2023 7:27 AM EDT Yara Foster MD LAB BLOOD ORDERABLES Final Res ult [facility] [address] [place] [phone] * HIV-1/2 Antigen and Antibodies, Fourth Generation, with Reflexes (09/02/2022 8:06 AM EDT) HIV Antigen/Antibody, 4th Generation NON-REAC TIVE NON-REAC TIVE [employer] [place] [facility] [facility] Comment: HIV-1 antigen and HIV-1/HIV-2 antibodies [...] purpose. For additional information please refer to http://education.LiveDeal/faq/HVZ141 (This link is being provided for informational/ [...] ORDERABLES Fin al Result [facility] [address], [place] [address] [employer] [place] [facility] [address] [place] [address] from Last 3 Months or Most Recently Relevant to Health Maintenance Insurance [facility] ONE CARE < 65 * Guarantor: RickMarcin Account Type Relation to Patient Date of Phone Billing Address Dental Self [address] [place] [address] [employer] [employer] [place] AD[place] Care Teams Nurse Charge Rn Relationship Specialty Start Date End Date Yara Foster MD [address] [place] [address] PCP - General Family Medicine 05/05/22 Yara Foster MD [address] [place] [address] Family Medicine 06/01/21
--- OUTSIDE RECORDS SUMMARY | 2025-02-02 16:24 | XMS_ITS | Encounter Summary ---
Author Organization [employer] Address 75 [facility] 7t [place] [address] Care Team Providers Care Forensic Anthropologist Name Role Phone Yara Foster MD Unavailable [phone] Yara Foster MD Primary Care Provider [phone] Reason for Visit * Reason Comments Med Refill Encounter Details Date Type Department Care Team (Late Contact Info) Description 12/16/2022 Refill [facility] MEDICINE [address] [place] [address] Hafsa Guevara MD [address] [place] [address] Social History Tobacco Use Types Packs/Day Years [...] Description 04/10/2025 10:00 AM EST Office Visit [facility] OPTOMETRY [address] [place] [address] Kamilla Terrell, OD 230 [place] [address] documented as of this encounter Visit Diagnoses Not on filedocumented in this encounter Care Teams Forensic Anthropologist Relationship Specialty Start Date End Date Yara Foster MD [address] [place] [address] PCP - General Family Medicine 05/05/22 Yara Foster MD [address] [place] [address] Family Medicine 06/01/21 documented as of this encounter
--- OUTSIDE RECORDS SUMMARY | 2025-02-02 16:24 | XMS_ITS | Encounter Summary ---
Author Organization [employer] Address 75 [facility] 7t [place] [address] Care Team Providers Care Real Estate Professor Name Role Phone Yara Foster MD Unavailable [phone] Yara Fosetr MD Primary Care Provider [phone] Reason for Visit * Reason Onset Date Comments Med Refill 03/31/2024 Encounter Details Date Type Department Care Team ([facility] Contact Info) Description 03/31/2024 Telephone [facility] MEDICINE [address] [place] [address] Yara Foster MD [address] [place] [address] Med Refill Social History Tobacco Use Types [...] AM EDT Medication was sent to [facility] #[id number] on 02/12/24 with 11 refills. * Telephone Encounter - Hema Louie - 03/31/2024 10:47 AM EDT TC from pt requesting medication refill. Medications needing refill : albuterol (2.5 MG/3ML) 0.083% nebulizer solution To be sent to: [facility]/pharmacy #[id number] documented in this encounter Plan of Treatment Upcoming Encounters Date Type Department Care Team (Late st Contact Info) Description 04/10/2025 10:00 AM EST Office Visit [facility] OPTOMETRY [address] [place], [place] [phone] Kamilla Terrell, OD [address] [place] [address] documented as of this encounter Visit Diagnoses Not on filedocumented in this encounter Additional Health Concerns Assessment Noted Time PHQ-9 Depression Total Score: 9 09/07/19 24 10:34 AM EDT documented as of this encounter Care Teams Real Estate Professor Relationship Specialty Start Date End Date Yara Foster MD 230 [place] [address] PCP - General Family Medicine 05/05/22 Yara Foster MD [address] [place] [address] Family Medicine 06/01/21 documented as of this encounter
--- OUTSIDE RECORDS SUMMARY | 2025-02-02 16:24 | XMS_ITS | Encounter Summary ---
Author Organization [employer] Address 75 [facility] 7t [place] [address] Care Team Providers Care Gas Plant Dispatcher Name Role Phone Yara Foster MD Unavailable [phone] Yara Foster MD Primary Care Provider [phone] Reason for Visit * Reason Onset Date Comments Durable Medical Equipment 04/27/2024 Encounter Details Date Type Department Care Team ([facility] Contact Info) Description 04/27/2024 Telephone [facility] MEDICINE [address] [place] [address] Yara Foster MD [address] [place] [address] Durable Medical Equipment Social History Tobacco Use [...] 04/25. IF any questions Contact pt at [phone] documented in this encounter Plan of Treatment Upcoming Encounters Date Type Department Care Team (Late st Contact Info) Description 04/10/2025 10:00 AM EST Office Visit [facility] OPTOMETRY [address] [place] [address] Xander, Kamilla, OD 230 [place] [address] documented as of this encounter Visit Diagnoses Not on filedocumented in this encounter Additional Health Concerns Assessment Noted Time PHQ-9 Depression Total Score: 9 09/07/19 24 10:34 AM EDT documented as of this encounter Care Teams Gas Plant Dispatcher Relationship Specialty Start Date End Date Yara Foster MD [address] [place] [address] PCP - General Family Medicine 05/05/22 Yara Foster MD [address] [place] [address] Family Medicine 06/01/21 documented as of this encounter
--- OUTSIDE RECORDS SUMMARY | 2025-02-02 16:25 | XMS_ITS | Encounter Summary ---
Author Organization [employer] Address 75 [facility] 7t [place] [address] Care Team Providers Care Chef'S Assistant Name Role Phone Yara Foster MD Unavailable [phone] Yara Foster MD Primary Care Provider [phone] Reason for Visit * Reason Onset Date Comments Med Refill 01/24/2025 Encounter Details Date Type Department Care Team ([facility] Contact Info) Description 01/24/2025 Telephone [facility] MEDICINE 230 [place] [address] Yara Foster MD 230 [place] [address] Med Refill Social History Tobacco Use Types [...] 9:05 AM EDT Supplies were sent to [facility] #[id number] on 10/28/24 please advise patient to call the pharmacy for a refill. * Telephone Encounter - Shahram Yanez - 01/24/2025 8:47 AM EDT TC from pt requesting medication refill. Medications needing refill : Blood Glucose Monitoring Suppl (FreeStyle [place] Lite) w/Device kit Lancets misc [[id number]] FREESTYLE LITE test strip [[id number]] To be sent to: [facility]/pharmacy #[id number] - [place] [address] documented in this encounter Plan of Treatment Upcoming Encounters Date Type Department Care Team (Late st Contact Info) Description 04/10/2025 10:00 AM EST Office Visit [facility] OPTOMETRY [address] [place] [address] Kamilla Terrell, OD 230 [place] [address] documented as of this encounter Visit Diagnoses Not on filedocumented in this encounter Additional Health Concerns Assessment Noted Time PHQ-9 Depression Total Score: 14 12/20/ 025 8:29 AM EDT documented as of this encounter Care Teams Chef'S Assistant Relationship Specialty Start Date End Date Yara Foster MD [address] [place], [place] [phone] PCP - General Family Medicine 05/05/22 Yara Foster MD [address] [place] [address] Family Medicine 06/01/21 documented as of this encounter
--- OUTSIDE RECORDS SUMMARY | 2025-02-02 16:25 | XMS_ITS | Encounter Summary ---
Author Organization [employer] Address [address] [facility] [address] 7[address] [place] [address] Care Team Providers Care Car Pick Up Driver Name Role Phone Yara Foster MD Unavailable [phone] Yara Foster MD Primary Care Provider [phone] Encounter Details Date Type Department Care Team ([facility] st Contact Info) Description 03/10/2024 Orders Only [facility] MEDICINE [address] [place], [place] [phone] Yara Foster MD [address] [place] [address] Social History Tobacco Use Types Packs/Day Years [...] Description 04/10/2025 10:00 AM EST Office Visit [facility] OPTOMETRY [address] [place] [address] Xander, Kamilla, OD 230 [place] [address] documented as of this encounter Visit Diagnoses Not on filedocumented in this encounter Additional Health Concerns Assessment Noted Time PHQ-9 Depression Total Score: 9 09/07/19 24 10:34 AM EDT documented as of this encounter Care Teams Car Pick Up Driver Relationship Specialty Start Date End Date Yara Foster MD [address] [place] [address] PCP - General Family Medicine 05/05/22 Yara Foster MD [address] [place] [address] Family Medicine 06/01/21 documented as of this encounter
--- OUTSIDE RECORDS SUMMARY | 2025-02-02 16:25 | XMS_ITS | Encounter Summary ---
Author Organization [employer] Address [address] [facility] [address] 7[address] [place] [address] Care Team Providers Care Senior It Project Manager Name Role Phone Yara Foster MD Unavailable [phone] Yara Foster MD Primary Care Provider [phone] Encounter Details Date Type Department Care Team (Late st Contact Info) Description 01/01/2024 Orders Only [facility] [address] [place] [address] Tanmay Otto MD [address] [place] [address] Social History Tobacco Use Types Packs/Day Years [...] Description 04/10/2025 10:00 AM EST Office Visit [facility] OPTOMETRY [address] [place] [address] Xander, Kamilla, OD 230 [place] [address] documented as of this encounter Visit Diagnoses Not on filedocumented in this encounter Additional Health Concerns Assessment Noted Time PHQ-9 Depression Total Score: 9 09/07/19 24 10:34 AM EDT documented as of this encounter Care Teams Senior It Project Manager Relationship Specialty Start Date End Date Yara Foster MD [address] [place] [address] PCP - General Family Medicine 05/05/22 Yara Foster MD [address] [place] [address] Family Medicine 06/01/21 documented as of this encounter
--- OUTSIDE RECORDS SUMMARY | 2025-02-02 16:25 | XMS_ITS | Encounter Summary ---
Author Organization [employer] Address 75 [facility] 7t [place] [address] Care Team Providers Care Yam Curer Name Role Phone Yara Foster MD Unavailable [phone] Yara Foster MD Primary Care Provider [phone] Reason for Visit * Reason Onset Date Comments Appointment Request 07/24/2022 Encounter Details Date Type Department Care Team ([facility] Contact Info) Description 07/24/2022 Telephone [facility] MEDICINE [address] [place] [phone] Yara Foster MD [address] [place] [address] Appointment Request Social History Tobacco Use Types [...] 2:54 PM EST Tc elder Pratt from [facility] requesting a pe appt , needs for program . Custom Clothier tried book nothing available. documented in this encounter Plan of Treatment Upcoming Encounters Date Type Department Care Team (Late st Contact Info) Description 04/10/2025 10:00 AM EST Office Visit [facility] OPTOMETRY [address] [place] [address] Xander, Kamilla, OD [address] [place] [address] documented as of this encounter Visit Diagnoses Not on filedocumented in this encounter Care Teams Yam Curer Relationship Specialty Start Date End Date Yara Foster MD [address] [place], [place] [phone] PCP - General Family Medicine 05/05/22 Yara Foster MD [address] [place] [address] Family Medicine 06/01/21 documented as of this encounter
--- OUTSIDE RECORDS SUMMARY | 2025-02-02 16:25 | XMS_ITS | Encounter Summary ---
Author Organization [employer] Address 75 [facility] 7t [place] [address] Care Team Providers Care Cheese Processor Name Role Phone Yara Foster MD Unavailable [phone] Yara Foster MD Primary Care Provider [phone] Reason for Visit * Reason Onset Date Comments Med Refill 07/07/2023 Encounter Details Date Type Department Care Team ([facility] st Contact Info) Description 07/07/2023 Telephone [facility] MEDICINE [address] [place] [address] Yara Foster MD [address] [place] [address] Med Refill Social History Tobacco Use Types [...] 10:18 AM EST Medication was sent to [facility] #[id number] on 04/16/23 with 3 refills. * Telephone Encounter - Pasha Slaughter - 07/07/2023 10:04 AM EST TC from pt requesting medication refill. Medications needing refill: gabapentin (Neurontin) 300 MG To be sent to: [facility]/pharmacy #[id number] documented in this encounter Plan of Treatment Upcoming Encounters Date Type Department Care Team (Late st Contact Info) Description 04/10/2025 10:00 AM EST Office Visit [facility] OPTOMETRY [address] [place] [address] Xander, Kamilla, OD [address] [place] [address] documented as of this encounter Visit Diagnoses Not on filedocumented in this encounter Care Teams Cheese Processor Relationship Specialty Start Date End Date Yara Foster MD [address] [place] [address] PCP - General Family Medicine 05/05/22 Yara Foster MD [address] [place] [address] Family Medicine 06/01/21 documented as of this encounter
--- OUTSIDE RECORDS SUMMARY | 2025-02-02 16:25 | XMS_ITS | Encounter Summary ---
Author Organization [employer] Address 75 [facility] 7t [place] [address] Care Team Providers Care Fruit Canner Name Role Phone Yara Foster MD Unavailable [phone] Yara Foster MD Primary Care Provider [phone] Reason for Visit * Reason Onset Date Comments Med Refill 03/10/2024 Encounter Details Date Type Department Care Team ([facility] Contact Info) Description 03/10/2024 Telephone [facility] MEDICINE 230 [place] [address] Yara Foster MD [address] [place] [address] Med Refill Social History Tobacco Use Types [...] the past 12 months, has t he [employer], gas, oil or water company threatened to [...] DR capsule To be sent to: [facility]/pharmacy #[id number] [place], [place] - [address] [place] [address] documented in this encounter Plan of Treatment Upcoming Encounters Date Type Department Care Team (Late st Contact Info) Description 04/10/2025 10:00 AM EST Office Visit [facility] OPTOMETRY [address] [place], [place] [phone] XanderKamilla love, OD [address] [place], [place] [phone] documented as of this encounter Visit Diagnoses Not on filedocumented in this encounter Additional Health Concerns Assessment Noted Time PHQ-9 Depression Total Score: 9 09/07/19 24 10:34 AM EDT documented as of this encounter Care Teams Fruit Canner Relationship Specialty Start Date End Date Yara Foster MD [address] [place] [address] PCP - General Family Medicine 05/05/22 Yara Foster MD [address] [place] [address] Family Medicine 06/01/21 documented as of this encounter
--- OUTSIDE RECORDS SUMMARY | 2025-02-02 16:25 | XMS_ITS | Encounter Summary ---
Author Organization [employer] Address [address] [facility] [address] 7t [place] [address] Care Team Providers Care Logging Operations Inspector Name Role Phone Yara Foster MD Unavailable [phone] Yara Foster MD Primary Care Provider [phone] Encounter Details Date Type Department Care Team (Late st Contact Info) Description 09/16/2023 Orders Only [facility] [address] [place], [place] [phone] Yara Foster MD [address] [place] [address] Social History Tobacco Use Types Packs/Day Years [...] Description 04/10/2025 10:00 AM EST Office Visit [facility] [address] [place] [address] Xander, Kamilla, OD 230 [place] [address] documented as of this encounter Visit Diagnoses Not on filedocumented in this encounter Additional Health Concerns Assessment Noted Time PHQ-9 Depression Total Score: 9 09/07/19 24 10:34 AM EDT documented as of this encounter Care Teams Logging Operations Inspector Relationship Specialty Start Date End Date Yara Foster MD [address] [place] [address] PCP - General Family Medicine 05/05/22 Yara Foster MD [address] [place] [address] Family Medicine 06/01/21 documented as of this encounter
--- OUTSIDE RECORDS SUMMARY | 2025-02-02 16:25 | XMS_ITS | Encounter Summary ---
Author Organization [employer] Address [address] [facility] 7t [place] [address] Care Team Providers Care Back Hanger Name Role Phone Yara Foster MD Unavailable [phone] Yara Foster MD Primary Care Provider [phone] Encounter Details Date Type Department Care Team (Late Contact Info) Description 05/23/2022 Abstract [facility] [address] [place] [address] Yara Foster MD [address] [place] [address] Social History Tobacco Use Types Packs/Day Years [...] Description 04/10/2025 10:00 AM EST Office Visit [facility] [address] [place] [address] XanderKamilla love, OD 230 [place] [address] documented as of this encounter Visit Diagnoses Not on filedocumented in this encounter Care Teams Back Hanger Relationship Specialty Start Date End Date Yara Foster MD [address] [place] [address] PCP - General Family Medicine 05/05/22 Yara Foster MD [address] [place] [address] Family Medicine 06/01/21 documented as of this encounter
--- OUTSIDE RECORDS SUMMARY | 2025-02-02 16:25 | XMS_ITS | Encounter Summary ---
Author Organization [employer] Address [address] [facility] 7t [place] [address] Care Team Providers Care Nursing Care Partner Name Role Phone Yara Foster MD Unavailable [phone] Yara Foster MD Primary Care Provider Reason for Visit * Reason Onset Date Comments [employer] Services 07/03/2022 I called rianna ricketts the pt's request for [employer] services. He states that he needs assistance with getting dressed, putting his shoes on, medication reminders, appointment reminders, housekeeping, cooking, laundry, and getting a ride to appointments. 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 Encounter Details Date Type Department Care Team (Late st Contact Info) Description 07/03/2022 Telephone [facility] [address] [place], [place] [phone] Yara Foster MD 230 [place], [place] [phone] [employer] Services (I called regarding the pt's request for [employer] SE[employer]AN services. He states that he needs assistance with getting dressed, putting his shoes on, medication reminders, appointment reminders, housekeeping, cooking, laundry, and getting a ride to appointments. He stated that he has a person in mind to be his MERCHANT SEAMAN, and he would prefer to be referred [...] Description 04/10/2025 10:00 AM EST Office Visit [facility] [address] [place] [address] XanderKamilla love, OD [address] [place] [address] documented as of this encounter Visit Diagnoses Not on filedocumented in this encounter Care Teams Nursing Care Partner Relationship Specialty Start Date End Date Yara Foster MD [address] [place] [address] PCP - General Family Medicine 05/05/22 Yara Foster MD [address] [place] [address] Family Medicine 06/01/21 documented as of this encounter
--- OUTSIDE RECORDS SUMMARY | 2025-02-02 16:25 | XMS_ITS | Encounter Summary ---
Author Organization [employer] Address [address] [facility] 7t [place] [address] Care Team Providers Care Receptionist Airline Lounge Name Role Phone Yara Foster MD Unavailable [phone] Yara Foster MD Primary Care Provider [phone] Reason for Visit * Reason Onset Date Comments Appointment Request 06/13/2022 Encounter Details Date Type Department Care Team (Late st Contact Info) Description 06/13/2022 Telephone [facility] 230 [place] [address] Yara Foster MD [address] [place] [address] Appointment Request Social History Tobacco Use Types [...] (DERM NEW EPIDERMOID) Please contact pt at [phone] documented in this encounter Plan of Treatment Upcoming Encounters Date Type Department Care Team (Late Contact Info) Description 04/10/2025 10:00 AM EST Office Visit [facility] [address] [place], [place] [phone] Kamilla Terrell, OD 230 [place], [place] [phone] documented as of this encounter Visit Diagnoses Not on filedocumented in this encounter Care Teams Receptionist Airline Lounge Relationship Specialty Start Date End Date Yara Foster MD [address] [place], [place] [phone] PCP - General Family Medicine 05/05/22 Yara Foster MD [address] [place], [place] [phone] Family Medicine 06/01/21 documented as of this encounter
== END 2025-02-01 15:26 | disposition home or self-care (01) ==
LOC: HO.HOSX 15:25
PROVIDERS: Visit Provider Physician Assistant
DX: M16.0 Bilateral primary osteoarthritis of hip (principal)
CPT/HCPCS: 72170; 99202

== ENCOUNTER 2025-02-27 08:21 | Outpatient (AMB) | payer OTHER, SELFPAY ==
--- NOTE | 2025-02-27 08:25 | MHC.OFFVIS ---
Intake Visit Reasons: OV-Rt hip JERRY discussion Intake Note: Marcin is a 64 year old male who presents today for a follow up of his Bilateral Hip Pain. Right Greater than Left. Today, he would like to discuss Right JERRY, no previous treatments tried or failed. Has had cortisone in his shoulder that was not helpful thus he is not interested in cortisone for his hip. 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 He is not on methadone or suboxone Allergies No Known Allergies (No Known Allergies*) Allergy (Verified 02/01/25 13:55) HPI HPI OV-Rt hip JERRY discussion: Details: Marcin is a 64 year old male who presents today for a follow up of his Bilateral Hip Pain. Right Greater than Left. Today, he would like to discuss Right JERRY, no previous treatments tried or failed. Has had cortisone in his shoulder that was not helpful thus he is not interested in cortisone for his hip. 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 He complains of bilateral leg pain and numbness and tingling especially on the right that extends down the posterolateral thigh and into the calf. [facility] Medical History Sebaceous cyst Umbilical hernia Lumbar spondylosis Lumbar radiculopathy, chronic Bilateral knee pain Lumbar degenerative disc disease Hypertension Hepatitis C Social History (Updated 02/01/25 @ 13:55 by Prema Soares PA-C) Patient Tobacco Use Status: Former Tobacco user Cigarettes Per Day: 2 Substance Use Type: Crack/Cocaine and Heroin Current occupational status: disabled Current occupation: rt handed Physical Exam Extrem Other: Mild tenderness to palpation of the greater trochanter. Negative impingement test. Negative Stinchfield. No pain with internal rotation of the hip. Results Reviewed Results Reviewed: I personally reviewed relevant radiographs. Mild bilateral hip OA Assessment & Plan Assessment & Plan (1) Numbness and tingling of right lower extremity: Code(s): R20.0 - Anesthesia of skin; R20.2 - Paresthesia of skin Category: Medical Plan: This is a 62-year-old gentleman with lumbar radiculopathy. His x-rays were read as [id number] hip arthritis but he has good right hip motion and this is not consistent with arthritis of the hip. I do not recommend intervention for his hip at this time. I recommend continuing to see the spine doctors. Coding Level of Care Code Est Pt Level 4 (62128) Diagnoses Numbness and tingling of right lower extremity R20.0; R20.2
== END 2025-02-27 08:58 | disposition home or self-care (01) ==
LOC: HO.HOS 08:21
PROVIDERS: PCP General Practice; Visit Provider Orthopaedic Surgery
DX: R20.0 Anesthesia of skin (principal); R20.2 Paresthesia of skin
CPT/HCPCS: 99214

== ENCOUNTER → 2025-02-27 08:21 | Outpatient (BNVA) | payer OTHER, SELFPAY | PROVIDERS: PCP General Practice; Visit Provider Orthopaedic Surgery | DX: M25.552 Pain in left hip (principal); M25.551 Pain in right hip; R20.0 Anesthesia of skin; R20.2 Paresthesia of skin | CPT/HCPCS: 99212 ==

== ENCOUNTER 2025-03-23 07:29 | Outpatient (REF) | payer OTHER, SELFPAY ==
[2025-03-23 07:45] LABS: MANUAL DIFF FLAG NO
[2025-03-23 08:17] LABS: Hematocrit 48.8 % (42.0-52.0); Hemoglobin 16.7 g/dl (14.0-18.0); Imm Gran Abs Auto 0.06 X10*3/uL (0.00-0.03); Imm Gran Pct Auto 0.5 % (0.0-0.4); Lymphocytes Absolute Auto 3.2 X10*3/uL (1.2-4.9); Mean Corpuscular HGB Conc 34.2 g/dl (31.0-36.0); Mean Corpuscular Hemoglobin 31.2 pg (27.0-33.0); Mean Corpuscular Volume 91.0 fL (80.0-98.0); NRBC Abs Auto 0.000 X10*3/uL (0.0-0.012); NRBC Pct Auto 0.0 /100WBC (0.0-0.2); Platelet Count 318 X10*3/uL (160-400); Red Blood Count 5.36 X10*6/uL (4.60-5.80); White Blood Count 13.1 X10*3/uL (4.8-10.8)
[2025-03-23 09:00] LABS: Alanine Aminotransferase 27 U/L (0-40); Albumin Level 4.2 g/dL (3.5-5.0); Alkaline Phosphatase 140 U/L (39-117); Anion Gap 13 (12-20); Aspartate Amino Transferase 19 U/L (5-37); Blood Urea Nitrogen 12 mg/dL (9-16); Calcium 9.3 mg/dL (8.4-10.2); Carbon Dioxide 24 mmol/L (22-29); Chloride 109 mmol/L (96-108); Estimated Glomerular Filt Rate > 60; Potassium 4.0 mmol/L (3.3-5.1); Sodium 142 mmol/L (135-145); Total Protein 7.0 g/dL (6.5-8.0)
[2025-03-23 09:14] LABS: Thyroid Stimulating Hormone 4.90 uIU/mL (0.32-4.0)
== END 2025-03-23 07:30 | disposition home or self-care (01) ==
LOC: HO.LAB 07:29
PROVIDERS: PCP General Practice; Visit Provider Dietitian, Registered
DX: F33.1 Major depressive disorder, recurrent, moderate (principal); F43.10 Post-traumatic stress disorder, unspecified; Z13.1 Encounter for screening for diabetes mellitus
CPT/HCPCS: 36415; 80053; 83036; 84443; 85025

== ENCOUNTER 2025-05-01 11:29 | Outpatient (REF) | payer OTHER, SELFPAY ==
--- NOTE | ~2025-05-01 | XR_ITS ---
EXAMINATION: XR CHEST CLINICAL INFORMATION: productive cough COMPARISON: May 06, 2022 TECHNIQUE: PA and lateral views. FINDINGS: Pulmonary reticular nodular pattern. Low lung volume. No consolidation, pleural fissure pneumothorax. Cardiomediastinal silhouette size is normal. Multilevel spondylosis, thoracic spine. XR/XR chest 2V IMPRESSION: Chronic interstitial lung disease without acute airspace disease. Electronically signed by: Winston Mercado MD 05/01/2025 01:23 PM EST
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
--- OUTSIDE RECORDS SUMMARY | 2025-05-01 15:11 | XMS_ITS | Encounter Summary ---
Author Organization [employer] Address [address] [facility] 7t [place] [address] Care Team Providers Care Bridge Worker Name Role Phone Yara Foster MD Unavailable [phone] Yara Foster MD Primary Care Provider [phone] Reason for Visit * Reason Onset Date Comments Med Refill 07/07/2023 Encounter Details Date Type Department Care Team ([facility] st Contact Info) Description 07/07/2023 Telephone [facility] [address] [place] [address] Yara Foster MD [address] [place] [address] Med Refill Social History Tobacco Use Types [...] 10:18 AM EST Medication was sent to [id number] on 04/16/23 with 3 refills. * Telephone Encounter - Pasha Slaughter - 07/07/2023 10:04 AM EST TC from pt requesting medication refill. Medications needing refill: gabapentin (Neurontin) 300 MG To be sent to: [facility]/pharmacy #[id number] documented in this encounter Plan of Treatment Upcoming Encounters Date Type Department Care Team (Late st Contact Info) Description 06/26/2025 2:15 PM EST Office Visit [facility] [address] [place] [address] Yara Foster MD [address] [place] [address] documented as of this encounter Visit Diagnoses Not on filedocumented in this encounter Care Teams Bridge Worker Relationship Specialty Start Date End Date Yara Foster MD [address] [place] [address] PCP - General Family Medicine 05/05/22 Yara Foster MD [address] [place] [phone] Family Medicine 06/01/21 documented as of this encounter
--- OUTSIDE RECORDS SUMMARY | 2025-05-01 15:11 | XMS_ITS | Encounter Summary ---
Author Organization [employer] Address [address] [facility] 7t [place] [address] Care Team Providers Care Career Services Representative Name Role Phone Yara Foster MD Unavailable [phone] Yara Foster MD Primary Care Provider [phone] Reason for Visit * Reason Onset Date Comments FLOW NURSE Services 07/03/2022 I called rianna ricketts the pt's request for FLOW NURSE services. He states that he needs assistance with getting dressed, putting his shoes on, medication reminders, appointment reminders, housekeeping, cooking, laundry, and getting a ride to appointments. He stated that he has a person in mind to be his FLOW NURSE, and he would prefer to be referred to [facility]. Encounter Details Date Type Department Care Team (Late st Contact Info) Description 07/03/2022 Telephone [facility] [address] [place], [place] [phone] Yara Foster MD [address] [place], [place] [phone] FLOW NURSE Services (I called regarding the pt's request for FLOW NURSE services. He states that he needs assistance with getting dressed, putting his shoes on, medication reminders, appointment reminders, housekeeping, cooking, laundry, and getting a ride to appointments. He stated that he has a person in mind to be his FLOW NURSE, and he would prefer to be referred [...] Description 06/26/2025 2:15 PM EST Office Visit [facility] [address] [place] [address] Yara Foster MD [address] [place] [phone] documented as of this encounter Visit Diagnoses Not on filedocumented in this encounter Care Teams Career Services Representative Relationship Specialty Start Date End Date Yara Foster MD [address] [place] [phone] PCP - General Family Medicine 05/05/22 Yara Foster MD [address] [place] [phone] Family Medicine 06/01/21 documented as of this encounter
--- OUTSIDE RECORDS SUMMARY | 2025-05-01 15:11 | XMS_ITS | Encounter Summary ---
Author Organization [employer] Address [address] [place] [address] 7t [place] [address] Care Team Providers Care Organ Assembler Name Role Phone Yara Foster MD Unavailable [phone] Yara Foster MD Primary Care Provider [phone] Encounter Details Date Type Department Care Team (Late Contact Info) Description 05/23/2022 Abstract [facility] [address] [place] [phone] Yara Foster MD [address] [place] [phone] Social History Tobacco Use Types Packs/Day Years [...] Description 06/26/2025 2:15 PM EST Office Visit [facility] [address] [place] [phone] Yara Foster MD [address] [place] [phone] documented as of this encounter Visit Diagnoses Not on filedocumented in this encounter Care Teams Organ Assembler Relationship Specialty Start Date End Date Yara Foster MD [address] [place] [phone] PCP - General Family Medicine 05/05/22 Yara Foster MD [address] [place] [address] Family Medicine 06/01/21 documented as of this encounter
--- OUTSIDE RECORDS SUMMARY | 2025-05-01 15:11 | XMS_ITS | Encounter Summary ---
Author Organization [employer] Address [address] [facility] 7t [place] [address] Care Team Providers Care Lawnmower Repair Mechanic Name Role Phone Yara Foster MD Unavailable [phone] Yara Foster MD Primary Care Provider [phone] Reason for Visit * Reason Onset Date Comments Appointment Request 07/24/2022 Encounter Details Date Type Department Care Team ([facility] Contact Info) Description 07/24/2022 Telephone [facility] MEDICINE [address] [place] [phone] Yara Foster MD [address] [place] [address] Appointment Request Social History Tobacco Use Types [...] 2:54 PM EST Tc elder Pratt from [facility] requesting a pe appt , needs for program . Habitat Biologist tried book nothing available. documented in this encounter Plan of Treatment Upcoming Encounters Date Type Department Care Team (Late st Contact Info) Description 06/26/2025 2:15 PM EST Office Visit [facility] MEDICINE [address] [place], [place] [phone] Yara Foster MD [address] [place] [address] documented as of this encounter Visit Diagnoses Not on filedocumented in this encounter Care Teams Lawnmower Repair Mechanic Relationship Specialty Start Date End Date Yara Foster MD [address] [place], [place] [phone] PCP - General Family Medicine 05/05/22 Yara Foster MD [address] [place] [address] Family Medicine 06/01/21 documented as of this encounter
--- OUTSIDE RECORDS SUMMARY | 2025-05-01 15:11 | XMS_ITS | Encounter Summary ---
Author Organization [employer] Address [address] [facility] 7t [place] [address] Care Team Providers Care Inspector Receiving Name Role Phone Yara Foster MD Unavailable [phone] Yara Foster MD Primary Care Provider [phone] Reason for Visit * Reason Onset Date Comments Med Refill 03/31/2024 Encounter Details Date Type Department Care Team ([facility] Contact Info) Description 03/31/2024 Telephone [facility] MEDICINE [address] [place] [address] Yara Foster MD [address] [place] [address] Med Refill Social History Tobacco Use Types [...] 10:51 AM EDT Medication was sent to [facility] #[id number] on 02/12/24 with 11 refills. * Telephone Encounter - Hema Louie - 03/31/2024 10:47 AM EDT TC from pt requesting medication refill. Medications needing refill : albuterol (2.5 MG/3ML) 0.083% nebulizer solution To be sent to: [facility]/pharmacy #[id number] documented in this encounter Plan of Treatment Upcoming Encounters Date Type Department Care Team (Late st Contact Info) Description 06/26/2025 2:15 PM EST Office Visit [facility] MEDICINE [address] [place] [address] Yara Foster MD [address] [place] [address] documented as of this encounter Visit Diagnoses Not on filedocumented in this encounter Additional Health Concerns Assessment Noted Time PHQ-9 Depression Total Score: 9 09/07/19 24 10:34 AM EDT documented as of this encounter Care Teams Inspector Receiving Relationship Specialty Start Date End Date Yara Foster MD [address] [place] [address] PCP - General Family Medicine 05/05/22 Yara Foster MD [address] [place] [address] Family Medicine 06/01/21 documented as of this encounter
--- OUTSIDE RECORDS SUMMARY | 2025-05-01 15:11 | XMS_ITS | Encounter Summary ---
Author Organization [email or web address] Address [address] [place] [address] 7t [place] [address] Care Team Providers Care Distiller Name Role Phone Yara Foster MD Unavailable [phone] Yara Foster MD Primary Care Provider [phone] Reason for Visit * Reason Comments Med Refill Encounter Details Date Type Department Care Team (Late Contact Info) Description 12/16/2022 Refill [facility] MEDICINE [address] [place] [phone] Hafsa Guevara MD [address] [place] [address] [phone] Social History Tobacco Use Types Packs/Day Years [...] Department Care Team (Late Contact Info) Description 06/26/2025 2:15 PM EST Office Visit [facility] MEDICINE [address] [place] [phone] Yara Foster MD [address] [place] [address] [phone] documented as of this encounter Visit Diagnoses Not on filedocumented in this encounter Care Teams Distiller Relationship Specialty Start Date End Date Yara Foster MD [address] [place] [address] PCP - General Family Medicine 05/05/22 Yara Foster MD [address] [place] [address] Family Medicine 06/01/21 documented as of this encounter
--- OUTSIDE RECORDS SUMMARY | 2025-05-01 15:11 | XMS_ITS | Encounter Summary ---
Author Organization [email or web address] Address [address] [facility] 7t [place] [address] Care Team Providers Care Metalizing Supervisor Name Role Phone Yara Foster MD Unavailable [phone] Yara Foster MD Primary Care Provider [phone] Reason for Visit * Reason Onset Date Comments Durable Medical Equipment 04/27/2024 Encounter Details Date Type Department Care Team ([facility] Contact Info) Description 04/27/2024 Telephone [facility] MEDICINE [address] [place] [address] Yara Foster MD [address] [place] [address] Durable Medical Equipment Social History Tobacco Use [...] t he electric, gas, oil or water [employer] threatened to shut off services in your [...] 04/25. IF any questions Contact pt at [phone] documented in this encounter Plan of Treatment Upcoming Encounters Date Type Department Care Team (Late st Contact Info) Description 06/26/2025 2:15 PM EST Office Visit [facility] MEDICINE [address] [place] [address] Yara Foster MD [address] [place] [address] documented as of this encounter Visit Diagnoses Not on filedocumented in this encounter Additional Health Concerns Assessment Noted Time PHQ-9 Depression Total Score: 9 09/07/19 24 10:34 AM EDT documented as of this encounter Care Teams Metalizing Supervisor Relationship Specialty Start Date End Date Yara Foster MD [address] [place] [address] PCP - General Family Medicine 05/05/22 Yara Foster MD [address] [place] [address] Family Medicine 06/01/21 documented as of this encounter
--- OUTSIDE RECORDS SUMMARY | 2025-05-01 15:11 | XMS_ITS | Encounter Summary ---
Author Organization [employer] Address 75 [facility] 7t [place] [address] Care Team Providers Care Accounts Receivable Analyst Name Role Phone Yara Foster MD Unavailable [phone] Yara Foster MD Primary Care Provider [phone] Reason for Visit * Reason Comments Med Change Request Encounter Details Date Type Department Care Team ([facility] Contact Info) Description 09/03/2022 Refill [facility] MEDICINE [address] [place] [phone] Hafsa Guevara MD [address] [place] [address] [phone] Social History Tobacco Use Types Packs/Day Years [...] Upcoming Encounters Date Type Department Care Team ([facility] Contact Info) Description 06/26/2025 2:15 PM EST Office Visit [facility] MEDICINE [address] [place], [place] [phone] Yara Foster MD [address] [place] [address] documented as of this encounter Visit Diagnoses Not on filedocumented in this encounter Care Teams Accounts Receivable Analyst Relationship Specialty Start Date End Date Yara Foster MD [address] [place], [place] [phone] PCP - General Family Medicine 05/05/22 Yara Foster MD [address] [place] [address] Family Medicine 06/01/21 documented as of this encounter
--- OUTSIDE RECORDS SUMMARY | 2025-05-01 15:11 | XMS_ITS | Encounter Summary ---
Author Organization [employer] Address [address] [facility] [address] 7t [place] [address] Care Team Providers Care Meat Cutter Apprentice Name Role Phone Yara Foster MD Unavailable [phone] Yara Foster MD Primary Care Provider [phone] Encounter Details Date Type Department Care Team (Late st Contact Info) Description 09/16/2023 Orders Only [facility] MEDICINE [address] [place], [place] [phone] Yara Foster MD [address] [place] [address] Social History Tobacco Use Types Packs/Day Years [...] Office Visit [facility] MEDICINE [address] [place] [address] Yara Foster MD [address] [place] [address] documented as of this encounter Visit Diagnoses Not on filedocumented in this encounter Additional Health Concerns Assessment Noted Time PHQ-9 Depression Total Score: 9 09/07/19 24 10:34 AM EDT documented as of this encounter Care Teams Meat Cutter Apprentice Relationship Specialty Start Date End Date Yara Foster MD [address] [place] [address] PCP - General Family Medicine 05/05/22 Yara Foster MD [address] [place] [address] Family Medicine 06/01/21 documented as of this encounter
--- OUTSIDE RECORDS SUMMARY | 2025-05-01 15:11 | XMS_ITS | Encounter Summary ---
Author Organization [employer] Address [address] [facility] [address] 7t [place] [address] Care Team Providers Care Spray Technician Name Role Phone Yara Foster MD Unavailable [phone] Yara Foster MD Primary Care Provider [phone] Encounter Details Date Type Department Care Team ([facility] st Contact Info) Description 03/10/2024 Orders Only [facility] MEDICINE [address] [place], [place] [phone] Yara Foster MD [address] [place] [address] Social History Tobacco Use Types Packs/Day Years [...] Description 06/26/2025 2:15 PM EST Office Visit [facility] MEDICINE [address] [place] [address] Yara Foster MD [address] [place] [address] documented as of this encounter Visit Diagnoses Not on filedocumented in this encounter Additional Health Concerns Assessment Noted Time PHQ-9 Depression Total Score: 9 09/07/19 24 10:34 AM EDT documented as of this encounter Care Teams Spray Technician Relationship Specialty Start Date End Date Yara Foster MD [address] [place] [address] PCP - General Family Medicine 05/05/22 Yara Foster MD [address] [place] [address] Family Medicine 06/01/21 documented as of this encounter
--- OUTSIDE RECORDS SUMMARY | 2025-05-01 15:11 | XMS_ITS | Encounter Summary ---
Author Organization [employer] Address [address] [facility] [address] 7t [place] [address] Care Team Providers Care Client Director Name Role Phone Yara Foster MD Unavailable [phone] Yara Foster MD Primary Care Provider [phone] Encounter Details Date Type Department Care Team (Late st Contact Info) Description 01/01/2024 Orders Only [facility] [address] [place] [address] Tanmay Otto MD [address] [place] [address] Social History Tobacco Use Types Packs/Day Years [...] Description 06/26/2025 2:15 PM EST Office Visit [facility] MEDICINE [address] [place] [address] Yara Foster MD [address] [place] [address] documented as of this encounter Visit Diagnoses Not on filedocumented in this encounter Additional Health Concerns Assessment Noted Time PHQ-9 Depression Total Score: 9 09/07/19 24 10:34 AM EDT documented as of this encounter Care Teams Client Director Relationship Specialty Start Date End Date Yara Foster MD [address] [place] [address] PCP - General Family Medicine 05/05/22 Yara Foster MD [address] [place] [address] Family Medicine 06/01/21 documented as of this encounter
--- OUTSIDE RECORDS SUMMARY | 2025-05-01 15:11 | XMS_ITS | Encounter Summary ---
Author Organization [employer] Address [address] [facility] [address] 7t [place] [address] Care Team Providers Care State Manager Name Role Phone Yara Foster MD Unavailable [phone] Yara Foster MD Primary Care Provider [phone] Encounter Details Date Type Department Care Team (Latest Contact Info) Description 05/01/2025 Travel Social History Tobacco Use Types Packs/Day [...] Description 06/26/2025 2:15 PM EST Office Visit [facility] MEDICINE [address] [place] [address] Yara Foster MD [address] [place] [address] documented as of this encounter Visit Diagnoses Not on filedocumented in this encounter Additional Health Concerns Assessment Noted Time PHQ-9 Depression Total Score: 14 025 8:29 AM EDT documented as of this encounter Care Teams State Manager Relationship Specialty Start Date End Date Yara Foster MD [address] [place] [address] PCP - General Family Medicine 05/05/22 Yara Foster MD [address] [place] [address] Family Medicine 06/01/21 documented as of this encounter
--- OUTSIDE RECORDS SUMMARY | 2025-05-01 15:11 | XMS_ITS | Encounter Summary ---
Author Organization [employer] Address [address] [place] [address] 7t [place] [address] Care Team Providers Care Site Foreman Name Role Phone Yara Foster MD Unavailable [phone] Yara Foster MD Primary Care Provider [phone] Reason for Visit * Reason Onset Date Comments Appointment Request 06/13/2022 Encounter Details Date Type Department Care Team (Late st Contact Info) Description 06/13/2022 Telephone [facility] MEDICINE [address] [place] [address] [phone] Yara Foster MD [address] [place] [address] [phone] Appointment Request Social History Tobacco Use Types [...] (DERM NEW EPIDERMOID) Please contact pt at [phone] documented in this encounter Plan of Treatment Upcoming Encounters Date Type Department Care Team (Late st Contact Info) Description 06/26/2025 2:15 PM EST Office Visit [facility] MEDICINE [address] [place] [address] Yara Foster MD [address] [place], [place] [phone] documented as of this encounter Visit Diagnoses Not on filedocumented in this encounter Care Teams Site Foreman Relationship Specialty Start Date End Date Yara Foster MD [address] [place], [place] [phone] PCP - General Family Medicine 05/05/22 Yara Foster MD [address] [place], [place] [phone] Family Medicine 06/01/21 documented as of this encounter
--- OUTSIDE RECORDS SUMMARY | 2025-05-01 15:11 | XMS_ITS | Encounter Summary ---
Author Organization [employer] Address [address] [facility] 7t [place] [address] Care Team Providers Care Animal Shelter Clerk Name Role Phone Yara Foster MD Unavailable [phone] Yara Foster MD Primary Care Provider [phone] Reason for Visit * Reason Onset Date Comments Med Refill 01/24/2025 Encounter Details Date Type Department Care Team ([facility] Contact Info) Description 01/24/2025 Telephone [facility] MEDICINE [address] [place] [address] Yara Foster MD [address] [place] [address] Med Refill Social History Tobacco Use Types [...] 9:05 AM EDT Supplies were sent to [facility] #[id number] on 10/28/24 please advise patient to call the pharmacy for a refill. * Telephone Encounter - Shahram Yanez - 01/24/2025 8:47 AM EDT TC from pt requesting medication refill. Medications needing refill : Blood Glucose Monitoring Suppl (FreeStyle Jbphh Lite) w/Device kit Lancets misc [[id number]] FREESTYLE LITE test strip [[id number]] To be sent to: [facility]/pharmacy #[id number] - [place] [address] documented in this encounter Plan of Treatment Upcoming Encounters Date Type Department Care Team (Late st Contact Info) Description 06/26/2025 2:15 PM EST Office Visit [facility] MEDICINE [address] [place] [address] Yara Foster MD [address] [place] [address] documented as of this encounter Visit Diagnoses Not on filedocumented in this encounter Additional Health Concerns Assessment Noted Time PHQ-9 Depression Total Score: 14 025 8:29 AM EDT documented as of this encounter Care Teams Animal Shelter Clerk Relationship Specialty Start Date End Date Yara Foster MD [address] [place], [place] [phone] PCP - General Family Medicine 05/05/22 Yara Foster MD [address] [place] [address] Family Medicine 06/01/21 documented as of this encounter
--- OUTSIDE RECORDS SUMMARY | 2025-05-01 15:11 | XMS_ITS | Clinical Summary ---
Author Organization [employer] Address [address] [facility] [address] [place] [address] Care Team Providers Care Beet Topper Name Role Phone Yara Foster MD Unavailable [phone] Yara Foster MD Primary Care Provider [phone] Allergies No known active allergies Medications * This document contains information received from the source organization and may not represent a complete record from that organization. Diclofenac Sodium 1 % gel Apply 2 g topically every 6 (six) hours. 022 Active divalproex (Depakote ER) 250 MG 24 hr tablet Take 1 tablet by mouth daily 022 Active sertraline (Zoloft) 100 MG tablet Take 2 tablet by mouth once daily 022 Active Flovent HFA 220 MCG/ACT inhaler INHALE 2 PUFFS BY MOUTH EVERY DAY 12 g 11 023 Active OXcarbazepine (Trileptal) 300 MG tablet TAKE 1 TABLET BY MOUTH ONCE A DAY CLARY MANUEL TABLETA CADA FABY POR AGRESION 024 Active naloxone (Narcan) 4 mg/0.1 mL nasal spray PLEASE SEE ATTACHED FOR DETAILED DIRECTIONS 024 Active Misc. Devices (Pulse Oximeter) misc 1 each if needed each day (cough, shortness of breath). 1 each 024 Active cholecalciferol VITAMIN D (Vitamin D-3) 50 MCG (1999 UT) capsule TAKE 1 CAPSULE BY MOUTH EVERY MORNING 90 capsule 3 024 Active albuterol (2.5 MG/3ML) 0.083% nebulizer solutionIndicat ions:Mild persistent asthma without complication,Ac nima COVID-19 Take 3 mL (2.5 mg) by nebulization every 4 (four) hours if needed for wheezing. 75 mL 11 Active carvedilol (Coreg) 25 MG tablet TOME 1 TABLETA POR V A ORAL DOS VECES AL D A CON ALIMENTO FOR 90 DAYS Active QUEtiapine XR (SEROquel XR) 50 MG 24 hr tablet TAKE 1-2 TABLET BY MOUTH EVERY NIGHT AT BEDTIME FOR INSOMNIA Active famotidine (Pepcid) 20 MG tabletIndicatio ns:Gastroesopha geal reflux disease without esophagitis Take 1 tablet (20 mg) by mouth Once per day. 90 tablet 3 Active metFORMIN XR (Glucophage-XR) 500 MG 24 hr tablet Take 1 tablet (500 mg) by mouth with evening meal. 90 tablet 3 024 2024 Active lisinopril 40 MG tablet Take 1 tablet (40 mg) by mouth Once per day. 90 tablet 3 025 2025 Active meloxicam (Mobic) 15 MG tablet TAKE 1 TABLET BY MOUTH DAILY WITH FOOD AND WITH FULL GLASS OF WATER FOR PAIN. AVOID OTHER NSAIDS. Active QUEtiapine XR (SEROquel XR) 150 MG 24 hr tablet TOME 1 TABLETA POR V A ORAL TODOS LOS D AL ACOSTARSE CUANDO SEA NECESARIO PARA DORMIR Active QUEtiapine (SEROquel) 25 MG tablet TOME 1 TABLETA POR V A ORAL DOS VECES AL D A CUANDO SEA NECESARIO PARA LA ANSIEDAD /IRRITABILITY Active hydroCHLOROthia zide (HYDRODiuril) 25 MG tabletIndicatio ns:Essential hypertension Take 1 tablet (25 mg) by mouth Once per day. 90 tablet 3 025 2025 Active Respiratory Therapy Supplies (Nebulizer Mask Adult) miscIndications :Mild persistent asthma without complication 1 each every 4 (four) hours if needed (wheezing). 1 each Active atorvastatin (Lipitor) 20 MG tablet TAKE 1 TABLET BY MOUTH EVERY MORNING 90 tablet 3 Active FREESTYLE LITE test strip Use to test blood sugar 1 times daily 100 each 3 025 2025 Active Lancets misc Use to test blood sugar 1 times daily 100 each 3 Active Blood Glucose Monitoring Suppl (FreeStyle Martell Lite) w/Device kit Use to test blood sugar 1 times daily 1 kit Active hydrOXYzine HCl (Atarax) 25 MG tablet TAKE 1 TABLET BY MOUTH ONCE A DAY A NEEDED FOR ANXIETY Active Spacer/Aero-Hol ding Chambers (OptiChamber Nai-Lg Mask) device USE 1 EACH EVERY 4 (FOUR) HOURS IF NEEDED (WHEEZING). Active memantine (Namenda) 10 MG tablet TOME 1 TABLETA POR V A ORAL DOS VECES AL D A FOR 90 DAYS Active omeprazole (PriLOSEC) [address] capsule Take 1 capsule (20 mg) by mouth before breakfast and before evening meal. Do not crush or chew. 180 capsule 3 025 Active furosemide (Lasix) 20 MG tablet TAKE 1 TABLET (20 MG) BY MOUTH ONCE PER DAY. 90 tablet 3 025 Active diclofenac (Voltaren) 50 MG EC tablet PLEASE SEE ATTACHED FOR DETAILED DIRECTIONS Active Multiple Vitamin (Daily-Benjy Multivitamin) tabletIndicatio ns:Essential hypertension TAKE 1 TABLET BY MOUTH EVERY DAY WITH FOOD 90 tablet 3 025 Active famotidine (Pepcid) 40 MG tabletIndicatio ns:Gastro-esoph ageal reflux disease without esophagitis TAKE 1 TABLET (40 MG) BY MOUTH ONCE PER DAY. 90 tablet 3 025 Active amLODIPine (Norvasc) 10 MG tablet TAKE 1 TABLET BY MOUTH EVERY DAY 90 tablet 3 025 Active azithromycin (Zithromax) 250 MG tabletIndicatio ns:Bronchitis Take 2 tabs PO daily x 1d then 1 tab PO daily on D2 to D5 6 tablet Active GaviLAX 17 GM/SCOOP powder TAKE 17 G BY MOUTH ONCE PER DAY. 510 g 1 Active albuterol 108 (90 Base) MCG/ACT inhalerIndicati ons:Mild persistent asthma with acute exacerbation Inhale 2 puffs every 4 (four) hours if needed for wheezing or shortness of breath. 18 g 3 Active predniSONE (Deltasone) 20 MG tablet Take 2 tablets (40 mg) by mouth Once per day for 5 days. 10 tablet 025 2024 Active Spacer/Aero-Hol ding Chambers (OptiChamber Nai) misc 1 each every 4 (four) hours if needed (asthma). 1 each Active albuterol 108 (90 Base) MCG/ACT inhalerIndicati ons:Mild persistent asthma without complication Inhale 2 puffs every 4 (four) hours if needed for wheezing or shortness of breath. 18 g 11 024 2024 Discontinued(R eorder (will not trigger notification to Pharmacy)) GaviLAX 17 GM/SCOOP powder TAKE 17 G BY MOUTH ONCE PER DAY. 510 g 1 025 2024 Discontinued predniSONE (Deltasone) 20 MG tabletIndicatio ns:Bronchitis Take 2 tablets (40 mg) by mouth Once per day for 5 days. 10 tablet 025 2024 benzonatate (Tessalon Perles) 100 MG capsuleIndicati ons:Bronchitis Take 1 capsule (100 mg) by mouth if needed in the morning, at noon, and at bedtime for cough for up to 7 days. Do not crush or chew. 20 capsule 025 2024 Active Problems Problem Noted Date Diagnosed Date Bronchitis 04/03/2025 Cardiomyopathy with implantable cardioverter-def ibrillator 08/02/2024 Bilateral [...] Plan (09/08/2022 7:42 AM EDT): Will sign SITE MANAGER paperwork when it comes to me Limited [...] [place] or if gets in sooner at [facility], here Adjustment disorder with anxious mood [...] focal disc protrusion or central canal stenosis. [id number] bilateral foraminal narrowing at the L4-L5 level. [...] Opioid use, unspecified with unspecified opioid-induced disorder (CMS/HCC) 06/20/20222022 Chronic hepatitis C (CMS/HCC) 05/23/2022 06/09/2023 Assessment & Plan (09/08/2022 7:39 AM EDT): Positive test of cure Continue monitoring if any risks of re-infection Opioid dependence 05/23/2022 09/08/2022 Encounters Date Type Department Care Team Description 05/01/2025 9:40 AM EST Office Visit [facility] [address] [place] [address] Tanmay Otto MD Mild persistent asthma with acute exacerbation (Primary Dx); Essential hypertension; Cough in adult 05/01/2025 Travel 04/12/[address] [facility] [address] [place], [place] [phone] Yara Foster MD call back required. 04/10/2025 10:00 AM EST Office Visit [facility] [address] [place] [address] Xander, Kamilla, OD Diabetes mellitus type 2 without retinopathy (HCC) (Primary Dx); Combined forms of age-related cataract of both eyes; Meibomian gland disease, unspecified laterality; Presbyopia 04/10/2025 Travel 04/06/[address] [facility] [address] [place], [place] [phone] Yara Foster MD 04/03/2025 9:00 AM EST Office Visit [facility] [address] [place] [address] Debo Weiss MD Bronchitis (Primary Dx); Acute cough 04/03/2025 Travel 03/30/[address] [facility] [address] [place] [address] Yara Foster MD Appointment Request 03/01/[address] [facility] [address] [place] [address] Yara Foster MD 02/28/[address] [facility] [address] [place] [address] Yara Foster MD Gastro-esophageal reflux disease without esophagitis 02/26/[address] [facility] [address] [place] [address] Yara Foster MD Essential hypertension 02/21/2025 11:15 AM EDT Office Visit [facility] [address] [place] [address] Yara Foster MD Acute cough 02/21/2025 Travel 02/20/[address] [facility] [address] [place] [address] Yara Foster MD Chart Prep 02/16/[address] [facility] [address] [place] [address] Yara Foster MD Telephone Call 02/14/[address] [facility] [address] [place] [address] Yara Foster MD Med Refill 02/12/[address] [facility] [address] [place] [address] Yara Foster MD 02/11/[address] [facility] [address] [place] [address] Yara Foster MD from Last 3 Months Immunizations Immunization Administration [...] (210 lb) 05/01/2025 10:04 AM EST Height 172.7 cm (5' 8 ) 04/03/2025 9:13 AM EST Body Mass Index 31.93 04/03/2025 9:13 AM EST Plan of Treatment Upcoming Encounters Date Type Department Care Team (Late st Contact Info) Description 06/26/2025 2:15 PM EST Office Visit [facility] [address] [place] [address] Yara Foster MD [address] [place] [address] Health Maintenance Due Date Last Done Comments CT Colonography 1960 Colonoscopy 1960 Dental Oral Exam 1960 Dental Prophylaxis 1960 Dental X-Ray: Bitewings 1962 Dental X-Ray: Full Mouth 1962 FIT 1962 Sigmoidoscopy 1962 RSV Patients and Patients Aged 60 years or older (1 - Risk 50-74 years 1-dose series) 2012 Zoster Vaccines (1 of 2) 2012 Diabetes: Foot Exam 08/30/2023 08/29/2022, 08/29/2022, 08/29/2022, Additional history exists Lipid Panel 09/11/2024 09/12/2023, 04/0 08/2022, 05/04/2020 FOBT 09/15/2024 09/16/2023 COVID-19 Vaccine (3 - season) 2025 10/09/2020, 09/07/2020 Influenza Vaccine (#1) 2025 , 07/29/2018, 07/29/2018, Additional history exists Depression Monitoring 06/22/2025 12/20/2024, 025 SDOH Screening 12/08/2025 12/08/2024 Alcohol/Substance Use Screening 12/19/2025 12/19/2024 Disability Screening 12/20/2025 12/20/2024 Tobacco Screening 05/01/2026 05/01/2025 Colorectal Cancer Screening 09/15/2026 FIT DNA/Cologuard 09/15/2026 09/16/2023 Eye Exam 04/10/2027 04/10/2025, 04/01, 04/10/2025, Additional history exists DTaP/Tdap/Td Vaccines (4 - Td or Tdap) 02/20/2028 02/19/2018, 08/22/2015, 08/25/2012 Hepatitis A Vaccines Aged Out 12/06/2015, 10/25/19 16 No longer eligible based on patient's age to complete this topic Hepatitis B Vaccines Completed 10/28/2018, 07/29/2018, 07/29/2018, Additional history exists Pneumococcal Vaccine: 50+ Years Completed 08/29/2022, 10/25/2015, 08/25/2012 HIV Screening Completed 09/02/2022, 07/30, 05/08/2020 Diabetes: Hemoglobin A1C Discontinued 024, 11/16/2023, 01/30/2023, Additional history exists Diabetes: Urine Protein Screening Discontinued HIB Vaccines Aged Out No longer eligi [...] 05/01/2025 10:08 AM EST Cough in adult POCT RAPID COVID ANTIGEN Routine 04/03/2025 9:14 AM EST Acute cough POC GUZMAN ID NOW STREP A Routine 02/21/2025 11:38 AM EDT Acute cough POCT INFLUENZA B (ID NOW RAPID MOLECULAR) Routine 02/21/2025 11:38 AM EDT Acute cough POCT RAPID COVID ANTIGEN Routine 02/21/2025 11:38 AM EDT Acute cough POCT GLYCATED HEMOGLOBIN, TOTAL Routine 12/07/2023 9:23 [...] Relevant to Health Maintenance Results * XR Chest 2 Views (05/01/2025 11:51 AM EST) Anatomical Region Laterality Modality Chest Radiographic Elana ging 05/01/2025 11:5 1 AM EST Narrative 05/01/2025 1:26 PM EST [address] [address] XRay Report Signed Patient: Marcin Cabrera MR#: [id number] : 1960 Acct:[id number] Age/Sex: 64 / M ADM Date: 05/01/25 Loc: .HHX Attending Dr: Tanmay Otto MD Ordering Physician: TANMAY OTTO MD Date of Service: 05/01/25 Procedure(s): XR chest 2V Accession Number(s): [id number] cc: TANMAY OTTO MD Reason for Exam: [...] 05/01/25 1323 DD/ 1151 TD/TT: 05/01/25 1230 Optician Manager: Procedure Note Donotuseinterpreter, Image - 05/01/[address] [place] [address] XRay Report Signed Patient: Marcin CabreraMR#: [id number] : 1960Acct:[id number] Age/Sex: 64 / MADM Date: 05/01/25 Loc: HO.HHCX Attending Dr: Tanmay Otto MD Ordering Physician: TANMAY OTTO MD Date of Service: 05/01/25 Procedure(s): XR chest 2V Accession Number(s): [id number] cc: TANMAY OTTO MD Reason for Exam: [...] Winston Mercado MD 05/01/2025 01:23 PM EST Dictated By: Winston Hopkins MD Signed By: <Electronically signed by Winston Cyr MDin OV> 05/01/25 1323 DD/ 1151 TD/TT: 05/01/25 1230 Optician Manager: Tanmay Otto MD IMG XR PROCEDURES Final Result * Influenza A (ID NOW Rapid Molecular) (05/01/2025 10:12 AM EST) Influenza A Negative Negative, Indeterminate [facility] Swab 05/01/2025 10:1 2 AM EST Tanmay Otto MD POINT OF CARE TEST ENTER/EDIT OR DERABLES Final Result [facility] [address] [place] [phone] * Influenza B (ID NOW Rapid Molecular) (05/01/2025 10:11 AM EST) Only the most recent of2 resultswithin the time period is included. [facility] Influenza B Negative Negative, Indeterminate [facility] Swab 05/01/2025 10:1 1 AM EST Result [facility] Tanmay Otto MD POINT OF CARE TEST ENTER/EDIT OR DERABLES Final Result [facility] [address] [place] [phone] * POCT Rapid COVID Ag (05/01/2025 10:08 AM EST) Only the most recent of3 resultswithin the time period is included. [facility] Rapid COVID Ag Negative Swab 05/01/2025 10:0 8 AM EST Result [facility] Tanmay Otto MD POINT OF CARE TEST ENTER/EDIT OR DERABLES Final Result * POCT Rapid Strep A GUZMAN ID NOW (02/21/2025 11:38 AM EDT) [facility] Rapid Strep A Screen Negative Negative, None Detected QC Media Lot # [id number] Lot# Expiration Date Swab 02/21/2025 11:3 8 AM EDT Result [facility] Yara Foster MD POINT OF CARE TEST ENTER/EDIT ORDERABLES Final Result * (ABNORMAL) POCT A1C (12/07/2023 9:23 AM EDT) [facility] Hemoglobin A1C 6.1(A) 4.0 - 6.0 % Blood 12/07/2023 9:23 AM EDT Hafsa Guevara MD POINT OF CARE TEST ENTER /EDIT ORDERABLES Final Result * Cologuard?? colon cancer screening (09/16/2023 9:00 AM EDT) [facility] Cologuard Result Negative Negative 05/02/20 24 12:15 PM EDT [facility] (CLIA #:[id number]) Comment: NEGATIVE TEST RESULT. A negative Cologuard [...] Choudhury. et al, N Engl J Med 2014;370(14):3615-5395) The normal value (reference range) for this assay is negative. COLOGUARD RE-SCREENING RECOMMENDATION: Periodic colorectal cancer screening is an important part of preventive healthcare for asymptomatic individuals at average risk for colorectal cancer. Following a negative Cologuard result, the [place] [employer] and U.S. Multi-Society Task Force screening guidelines recommend a Cologuard re-screening interval of 3 years. References: [place] [employer] Guideline for Colorectal Cancer Screening: https://www.cancer.org/cancer/ubzes-oswzyp-nprqyf/livpheaad-pnwrdrmxc-hwjbnxn/ac s-rec ommendations.html.; Benji WOODS, Ángel PEARSON, Artie ZhouK, Colorectal Cancer Screening: Recommendations for Physicians and Patients from the U.S. Multi-Society Task Force on Colorectal Cancer Screening , Am J Gastroenterology 2017; 112:0294-5958. TEST DESCRIPTION: Composite algorithmic analysis of stool [...] Wong et al, N Engl J Med 2014;370(14):7446-1482.) Cologuard may produce a false negative or false positive result (no colorectal cancer or precancerous polyp present at colonoscopy follow up). A negative Cologuard test result does not guarantee the absence of CRC or advanced adenoma (pre-cancer). The current Cologuard screening interval is every 3 years. ([place] [employer] and U.S. Multi-Society Task Force). Cologuard performance data in a 10,000 patient pivotal study using colonoscopy as the reference method can be accessed at the following location: www.eSoft/results. Additional description of the Cologuard test process, warnings and precautions can be found at www.[employer] Data. Stool specimen (specimen) 09/16/2023 9:00 AM EDT 09/17/2023 10:57 AM EDT Yara Foster MD LAB MOLECULAR DIAGNOSTICS HERIBERTO MCCLOUD Final Result [facility] (CLIA #:[id number]) [place] [address], * (ABNORMAL) Lipid Panel, Standard (09/12/2023 7:27 AM EDT) Triglycerides 144 <150 mg/dL [facility] Comment:Desirable Triglyceri de: less than 150 mg/dLBorderline High Triglyceride 150-199 mg/dLHigh Triglyceride: 200-499 mg/dLVery High Triglyceride: greater than or equal to 5OO mg/dL Cholesterol 198 <200 mg/dL [facility] Comment:Desirable Cholestero l: less than 200 mg/dLBorderline High Cholesterol: 200-239 mg/dLHigh Cholesterol: greater than 239 mg/dL LDL Cholesterol Calculated 132(H) <100 mg/dL [facility] Comment:Desirable LDL: less than 100 [...] MD LAB BLOOD ORDERABLES Final Res ult [facility] [address] [place] [phone] * HIV-1/2 Antigen and Antibodies, Fourth Generation, with Reflexes (09/02/2022 8:06 AM EDT) Pathologist [facility] HIV Antigen/Antibody, 4th Generation NON-REAC TIVE NON-REAC TIVE [facility] Comment: HIV-1 antigen and HIV-1/HIV-2 antibodies [...] purpose. For additional information please refer to http://education.Vonvo.com.Citus Data/faq/SZW398 (This link is being provided for informational/ educational purposes only.) The performance of this assay has not been clinically validated in patients less than 2 years old. Blood Venous blood specimen / Unknown 09/02/2022 8:06 AM EDT 09/02/2022 8:07 AM EDT Narrative [facility] - 09/06/2022 9:56 PM EDT FASTING:YES FASTING: YES Hafsa Guevara MD LAB BLOOD ORDERABLES Fin al Result [facility] [address], [place] [address] [employer] [facility] [address] [place] [address] from Last 3 Months or Most Recently Relevant to Health Maintenance Insurance [facility] < 65 * Guarantor: Marcin Cabrera Account Type Relation to Patient Date of Phone Billing Address Dental Self 1960 [address] [facility] [address] [place] [address] [facility] Care Teams Beet Topper Relationship Specialty Start Date End Date Yara Foster MD [address] [place] [address] PCP - General Family Medicine 05/05/22 Yara Foster MD [address] [place] [address] Family Medicine 06/01/21
--- OUTSIDE RECORDS SUMMARY | 2025-05-01 15:11 | XMS_ITS | Encounter Summary ---
Author Organization [employer] Address [address] [facility] [address] [place] [address] Care Team Providers Care Assembler Adjuster Name Role Phone Yara Foster MD Unavailable [phone] Yara Foster MD Primary Care Provider [phone] Reason for Visit * Reason Onset Date Comments Med Refill 03/10/2024 Encounter Details Date Type Department Care Team ([facility] Contact Info) Description 03/10/2024 Telephone [facility] [address] [place] [address] Yara Foster MD [address] [place] [address] Med Refill Social History Tobacco Use Types [...] the past 12 months, has t he [employer], gas, oil or water company threatened to [...] MG DR capsule To be sent to: [facility]/pharmacy #[id number] [place], [place] - [address] [place] [address] documented in this encounter Plan of Treatment Upcoming Encounters Date Type Department Care Team (Late st Contact Info) Description 06/26/2025 2:15 PM EST Office Visit [facility] [address] [place], [place] [phone] Yara Foster MD [address] [place], [place] [phone] documented as of this encounter Visit Diagnoses Not on filedocumented in this encounter Additional Health Concerns Assessment Noted Time PHQ-9 Depression Total Score: 9 09/07/19 24 10:34 AM EDT documented as of this encounter Care Teams Assembler Adjuster Relationship Specialty Start Date End Date Yara Foster MD [address] [place] [address] PCP - General Family Medicine 05/05/22 Yara Foster MD [address] [place] [address] Family Medicine 06/01/21 documented as of this encounter
== END 2025-05-01 11:30 | disposition home or self-care (01) ==
LOC: HO.HHCX 11:29
PROVIDERS: Visit Provider Emergency Medicine
DX: J45.31 Mild persistent asthma with (acute) exacerbation (principal); R05.8 Other specified cough
CPT/HCPCS: 71046

== ENCOUNTER → 2025-05-01 11:30 | Outpatient (BNV) | payer OTHER, SELFPAY | PROVIDERS: Visit Provider Radiology Diagnostic Radiology | DX: J84.9 Interstitial pulmonary disease, unspecified (principal) | CPT/HCPCS: 71046 ==

== ENCOUNTER 2025-05-11 14:07 | Outpatient (AMB) | payer OTHER, SELFPAY ==
--- NOTE | 2025-05-11 14:15 | A.OFFVIS_ITS ---
Intake Visit Reasons: 6m Allergies No Known Allergies (No Known Allergies*) Allergy (Verified 05/11/25 14:20) Medication List - Last Reconciled 05/11/25 by Caitlin Guadalupe CNP albuterol sulfate 90 mcg/actuation (Ventolin HFA) 2 puffs inhalation Q4H PRN amlodipine 10 mg PO DAILY atorvastatin 20 mg PO DAILY camphor-methyl salicyl-menthol 3.1-10-6 % (Salonpas) 1 patch topical BID-TID PRN 15 days carvedilol 12.5 mg PO BID cholecalciferol (vitamin D3) 50 mcg PO QAM diclofenac sodium 1% (Arthritis Pain (diclofenac)) 4 grams topical QID diclofenac sodium 50 mg PO TID PRN 30 days divalproex ER 250 mg PO BID ergocalciferol (vitamin D2) 1,250 mcg PO QWEEK famotidine 40 mg PO BEDTIME fluticasone propionate 220 mcg/actuation (Flovent HFA) 2 puffs inhalation DAILY furosemide 20 mg PO DAILY gabapentin 300 mg PO TID 30 days hydroxyzine pamoate mg PO QID PRN hydroxyzine pamoate 25 mg PO BID lidocaine 5% 1 patch topical DAILY 30 days lisinopril 20 mg PO DAILY lisinopril mg PO DAILY meclizine mg PO memantine (Namenda) 10 mg PO BID 90 days metformin ER 500 mg PO DAILY mirtazapine 7.5 mg PO BEDTIME multivitamin with folic acid 400 mcg (Daily-Benjy (with folic acid)) 1 tab PO DAILY naloxone 4 mg/actuation (Narcan) 4 mg intranasal Q2M PRN omeprazole 20 mg PO DAILY oxcarbazepine 300 mg PO BID prazosin 1 mg PO BEDTIME quetiapine 100 mg PO BEDTIME sertraline 200 mg PO DAILY simvastatin 20 mg PO BEDTIME tadalafil 10 mg PO DAILY 90 days tadalafil 20 mg PO ONCE 30 days tramadol 50 mg PO BID PRN 10 days trazodone 50 mg PO BEDTIME HPI Comments Details: 64-year-old man with remote h/o right sided head injury, s/p craniotmy and flap placement, h/o poly drug abuse including cocaine abuse, hepatitis C, depression, and anxiety. He was treated for multifactorial dementia and migraine. He was doing okay, although he could be forgetful at times. Sometimes he forgot his cane or walker when he went out, like he did today. He felt his balance was off and felt more secure when using aid, although he preferred walker to cane. He fell a few months ago. He had some lightheaded dizziness with position changes, like when picking something up from the ground. He had life alert bracelet. He had [employer] for few hours in the morning. His [employer] helped him with morning medications and his helped him with medications at night. He stayed busy during the day caring for his small dogs, playing some games on his phone, reading, and watching TV. He was still getting some headaches. Sleep was okay with medications. [facility] Medical History (Updated 05/11/25 @ 14:19 by Caitlin Guadalupe CNP) History of polydrug abuse Migraine Dementia Sebaceous cyst Umbilical hernia Lumbar spondylosis Lumbar radiculopathy, chronic Bilateral knee pain Lumbar degenerative disc disease Hypertension Hepatitis C Social History (Updated 02/01/25 @ 13:55 by Prema Soares PA-C) Patient Tobacco Use Status: Former Tobacco user Cigarettes Per Day: 2 Substance Use Type: Crack/Cocaine and Heroin Current occupational status: disabled Current occupation: rt handed Review of Systems Const Denies chills, Denies daytime sleepiness, Reports difficulty sleeping, Denies fatigue, Denies fever(s), Denies frequent falls, Reports headache(s), Denies increased appetite, Denies poor appetite, Denies snoring, Denies weakness, Denies weight gain and Denies weight loss Eyes Denies loss of vision ENT Denies vertigo, Denies dizziness and Reports headache(s) Card Denies chest pain at rest, Denies chest pain with activity, Denies syncope, Denies leg edema and Denies palpitations Resp Denies snoring GI Denies constipation, Denies heartburn, Denies diarrhea and Denies nausea Denies urinary frequency, Denies urinary incontinence and Denies urinary urgency Musc Denies abnormal gait, Denies numbness and Denies tingling Skin/Breast Denies dry skin and Denies rash Neuro Denies abnormal gait, Denies vertigo, Denies dizziness, Denies syncope, Denies frequent falls, Reports headache(s), Denies lack of coordination, Denies loss of vision, Reports memory loss, Denies numbness, Denies restless legs, Denies seizure-like activity, Denies tingling, Denies paresthesias, Denies tremor(s) and Denies weakness Psych Reports anxiety, Denies depression, Denies auditory hallucinations, Reports memory loss, Denies visual hallucinations and Denies suicidal ideation Endo Denies fatigue and Denies palpitations Physical Exam Const Other: General Appearance:? normal, in no acute distress. Skin:? no rashes, no significant birthmarks. Heart:? S1, S2 normal, no murmurs. Lungs:? clear anteriorly and posteriorly. Extremities:? no edema. Psych:? alert, cooperative with exam. Neuro Other: Mental Status:?Normal attention, orientation, and flat affect.? Cranial Nerves:?Pupils are equal, round and reactive to light. External occular muscles are intact. Visual alvarenga are full. Face is symmetrical. Facial sensations are normal. Tongue is midline. Palate elevates symmetrically. Shoulder shrugging is normal. Hearing to bedside conversation is normal. Coordination:?No ataxia,?no titubation.? Gait Exam: With cane. Extrapyramidal System:?No tremor, rigidity with normal facial expressions.? Pronator Drift:?Not present.? Involuntary Movements:?No tremors seen.? Speech:?Normal.? Results Reviewed Results Reviewed: CT brain WO at [facility] in 2019: s/p R frontal craniotomy, mild atrophy Assessment & Plan Assessment & Plan (1) Migraine: Code(s): G43.909 - Migraine, unspecified, not intractable, without status migrainosus Category: Medical Qualifiers: Intractability: not intractable Migraine type: unspecified Status migrainosus presence: without status migrainosus Qualified Code(s): G43.909 - Migraine, unspecified, not intractable, without status migrainosus Plan: Continue Depakote ER 250mg 1 tablet twice a day. (2) History of traumatic brain injury: Code(s): Z87.820 - Personal history of traumatic brain injury Category: Medical (3) S/P craniotomy: Code(s): Z98.890 - Other specified postprocedural states Category: Surgical (4) Multifactorial dementia: Code(s): F03.90 - Unspecified dementia, unspecified severity, without behavioral disturbance, psychotic disturbance, mood disturbance, and anxiety Category: Medical Plan: Continue memantine 10mg 1 tablet twice a day. Stay physically and socially active, use cane or walker for additional support. Follow up in 6 months or sooner as needed. Plan Meds tried: topiramate Medications: Changed From divalproex ER 250 mg PO BID To divalproex ER 250 mg PO BID 180 tabs 1RF 90 days Coding Level of Care Code Est Pt Level 4 (15894) Diagnoses Migraine without status migrainosus, not intractable, unspecified migraine type G43.909 Intractability: not intractable Migraine type: unspecified Status migrainosus presence: without status migrainosus History of traumatic brain injury Z87.820 S/P craniotomy Z98.890 Multifactorial dementia F03.90
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
== END 2025-05-11 15:51 | disposition home or self-care (01) ==
LOC: HO.HSM 14:08
PROVIDERS: PCP General Practice; Referring Provider General Practice; Visit Provider Registered Nurse
DX: G43.909 Migraine, unspecified, not intractable, without status migrainosus (principal); Z87.820 Personal history of traumatic brain injury; Z98.890 Other specified postprocedural states; F03.90 Unspecified dementia, unspecified severity, without behavioral disturbance, psychotic disturbance, mood disturbance, and anxiety
CPT/HCPCS: 99214

== ENCOUNTER → 2025-05-11 14:07 | Outpatient (BNVA) | payer OTHER, SELFPAY | PROVIDERS: PCP General Practice; Referring Provider General Practice; Visit Provider Registered Nurse | DX: G43.909 Migraine, unspecified, not intractable, without status migrainosus (principal); F03.90 Unspecified dementia, unspecified severity, without behavioral disturbance, psychotic disturbance, mood disturbance, and anxiety; Z87.820 Personal history of traumatic brain injury; Z98.890 Other specified postprocedural states; Z79.899 Other long term (current) drug therapy | CPT/HCPCS: 99212 ==